=== PATIENT | male | born 1965 | race Caucasian/White ===

== ENCOUNTER 2017-07-17 12:29 | Inpatient (IN) | payer OTHER ==
[~2017-07-17] VITALS: Ht 177.8 cm; Wt 79.4 kg
[~2017-07-17 12:29] MED LIST: ACCUPRIL40 M1 PO; AMLODIPINE BESY10 M1 PO; AMOXICILLIN875 M1 PO; B-1100 MG PO; BACTRIM DS TAB1 EACH PO; BREO ELLIPTA 11 EACH INH; BREO ELLIPTA 21 EACH INH; CALCIUM-MAGNES1 EAC2 PO; CHLORDIAZEPOXID25 M3 PO; DIAZEPAM10 MG PO; DOXYCYCLINE HY100 MG PO; DULERA 200 MCG/13 GM INH; ERYTHROMYCIN1 GM OD; ERYTHROMYCIN5 MG/GM OPH; FIBER LAXATIVE500 M1 PO; FLEXERIL10 MG PO; FOLIC ACID1 M1 PO; HYDROCODONE/ACE1 TA1 PO; IBUPROFEN800 M1 PO; LASIX20 M1 PO; LYRICA150 M1 PO; LYRICA300 M1 PO; LYRICA300 MG PO; OMEPRAZOLE20 M2 PO; OXYCODONE HCL20 M2 PO; OXYCODONE HYDRO15 MG PO; PERCOCET 10-321 EACH PO; POLYTRIM EYE DR10 ML OPH; PREDNISOLONE AC10 ML OPH; VITAMIN D2000 UNIT PO; VITAMIN D5000 I1 PO; ZINC30 MG
--- NOTE | 2017-07-17 13:59 | ED GENERAL ADULT ---
History of Present Illness General Chief Complaint: Lower Extremity Problems Stated Complaint: R FOOT SWELLING/PAIN Source: patient, old records Exam Limitations: no limitations Vital Signs & Intake/Output Vital Signs & Intake/Output Vital Signs Date Time Temp Pulse Resp B/P B/P Pulse O2 O2 Flow FiO2 Mean Ox Delivery Rate 07/17 1928 97 Room Air 07/17 1649 100.1 108 18 132/75 97 Room Air 07/17 1235 98.6 108 18 142/80 98 Room Air Allergies Coded Allergies: NO KNOWN ALLERGIES (04/20/14) Reconcile Medications Amlodipine Besylate 5 MG TABLET 1 TAB PO DAILY HIGH BLOOD PRESSURE (Reported) Calcium Carb/Mag Ox/Zinc Sulf (Lurktom-Nmfogueor-Cqhq Tablet) 334 MG-134 MG-5 MG TABLET 1 TAB PO DAILY SUPPLEMENT (Reported) Cholecalciferol (Vitamin D3) (Vitamin D) 2,000 UNIT CAPSULE 1 CAP PO DAILY SUPPLEMENT (Reported) Fluticasone/Vilanterol (Breo Ellipta 100-25 Mcg INH) 100 MCG-25 MCG/DOSE BLST.W.DEV 1 PUF INH DAILY NEEDED lungs (Reported) Folic Acid 1 MG TABLET 1 TAB PO DAILY SUPPLEMENT (Reported) Methylcellulose (Fiber Laxative) (Unknown Strength) TABLET 2 TAB PO DAILY SUPPLEMENT (Reported) Omeprazole 20 MG CAPSULE.DR 1 CAP PO DAILY GERD (Reported) Oxycodone HCl 20 MG TABLET 1 TAB PO 4 TIMES/DAY PAIN (Reported) Pregabalin (Lyrica) 150 MG CAPSULE 2 CAP PO QAM NERVE PAIN (Reported) Pregabalin (Lyrica) 150 MG CAPSULE 1 TAB PO QPM nerve pain (Reported) Quinapril HCl (Accupril) 40 MG TABLET 1 TAB PO DAILY BP (Reported) Thiamine HCl (B-1) 100 MG TABLET 1 TAB PO DAILY SUPPLEMENT (Reported) Triage Note: 52 YO MALE TO TRIAGE FOR EVAL FOR R FOOT.Marilyn WOOTEN WAS SEEN HERE AND DX WITH CELLULUTIS. STATES HE FINISHED HIS COURSE OF ANTIBOITCS BUT NOW HIS FOOT IS SWOLLEN AND APINFUL. AFEBRILE Triage Nurses Notes Reviewed? yes Onset: Abrupt Duration: week(s): (4), constant, continues in ED, getting worse Timing: recent history Injury Environment: home Severity: mild, moderate Severity Numbers: 7 No Modifying Factors: none HPI: 52-year-old male past medical history of alcohol abuse, peripheral neuropathy, hypertension, hyperlipidemia presents for reevaluation of pain and swelling in his right foot. Patient was seen here several weeks ago and diagnosed with cellulitis of the right foot. He was started on antibiotics but he feels like he never really got better. The swelling and pain has persisted. He now reports a discoloration in his right heel. He feels like the skin is brownish last black. No history of diabetes or known peripheral vascular disease. He is able to walk but it is painful. He also reports that he is a heavy drinker his last drink was yesterday. (Ochoa Richards) Past History Travel History Traveled to [place] past 21 day No Medical History Any Pertinent Medical History? see below for history Neurological: NEUROPATHY EENT: NONE Cardiovascular: hypertension, PERIPHERAL NEUROPATHY Respiratory: COPD Gastrointestinal: BARRETTS ESOPHAGUS Hepatic: cirrhosis Renal: NONE Musculoskeletal: CHRINIC PAIN Psychiatric: alcohol dependence Endocrine: NONE Blood Disorders: NONE Cancer(s): LUNG CA THROAT NODULES History of MRSA: No History of VRE: No History of CDIFF: No Tetanus Vaccine: 04/20/14 Surgical History Surgical History: non-contributory Psychosocial History Who do you live with Spouse What is your primary language Marshallese Tobacco Use: Quit >30 days ago Family History Hx Contributory? No (Ochoa Richards) Review of Systems Review of Systems Constitutional: Reports: no symptoms. EENTM: Reports: no symptoms. Respiratory: Reports: no symptoms. Cardiovascular: Reports: no symptoms. GI: Reports: no symptoms. Genitourinary: Reports: no symptoms. Musculoskeletal: Reports: joint pain, joint swelling, muscle pain. Skin: Reports: see HPI, erythema. Neurological/Psychological: Reports: no symptoms. Hematologic/Endocrine: Reports: no symptoms. Immunologic/Allergic: Reports: no symptoms. All Other Systems: Reviewed and Negative (Ochoa Richards) Physical Exam Physical Exam General Appearance: well developed/nourished, no apparent distress, alert, awake Head: atraumatic, normal appearance Eyes: Bilateral: normal appearance, PERRL, EOMI. Ears, Nose, Throat: normal pharynx, normal ENT inspection, hearing grossly normal Neck: normal inspection, supple, full range of motion Respiratory: normal breath sounds, chest non-tender, no respiratory distress, lungs clear Cardiovascular: regular rate/rhythm, normal peripheral pulses Peripheral Pulses: 2+ radial (R), 2+ radial (L) Gastrointestinal: normal bowel sounds, soft, non-tender, no organomegaly Back: normal inspection, normal range of motion, no vertebral tenderness Extremities: THE RIGHT FOOT IS DIFFUSELY SWOLLEN. tHE RIGHT HEEL IS TENDER TO PALPATION AND ERYTHEMATOUS. tHERE IS AN AREA OF HYPERPIGMENTED SKIN ON THE PLANTAR ASPECT OF THE HEEL. nEUROVASCULAR SUPPLY IS INTACT TO THE RIGHT FOOT Neurologic/Psych: no motor/sensory deficits, awake, alert, oriented x 3 Skin: intact, normal color, warm/dry Core Measures ACS in differential dx? No CVA/TIA Diagnosis: No Sepsis Present: No Sepsis Focused Exam Completed? No (Angel GARCIA,Ochoa) Progress Differential Diagnoses I considered the following diagnoses in my evaluation of the patient: [ Osteomyelitis, cellulitis, fracture, hematoma, DVT, sepsis, alcohol withdrawal] Plan of Care: Orders Procedure Date/time Status Heart Healthy Diet 07/18 B Active CBC WITHOUT DIFFERENTIAL 07/18 0600 Active BASIC ELECTROLYTES PLUS BUN&CR 07/18 0600 Active WESTERGREN SED RATE 07/17 UNK Complete URINALYSIS 07/17 1934 Active ED Holding Orders 07/17 1859 Active Admit to inpatient 07/17 1859 Active Code Status 07/17 1859 Active Patient Data 07/17 1838 Active CIWA 07/17 1745 Active Pathway - chart 07/17 1743 Active House Staff 07/17 1743 Active Code Status 07/17 1743 Complete Intake & Output 07/17 1731 Active Add-on Test (ER Only) 07/17 1725 Active CIWA 07/17 1725 Active Add-on Test (ER Only) 07/17 1710 Active EKG 07/17 1710 Active Add-on Test (ER Only) 07/17 1507 Active BLOOD CULTURE 07/17 1429 Active TROPONIN LEVEL 07/17 1414 Complete MAGNESIUM 07/17 1414 Complete LACTIC ACID 07/17 1414 Complete ETHANOL 07/17 1414 Complete C-REACTIVE PROTEIN 07/17 1414 Complete HIGH SENSITIVITY CRP 07/17 1327 Complete COMPREHENSIVE METABOLIC PANEL 07/17 1327 Complete CBC WITHOUT DIFFERENTIAL 07/17 1327 Complete VTE Mechanical Prophylaxis 07/17 UNK Active MISTAKE 07/17 UNK Active Current Medications Sig/Nate Start time Last Medication Dose Stop Time Status Admin Heparin Sodium 5,000 UNIT Q8 07/17 2200 AC (Porcine) Pregabalin 150 MG QPM 12/28 2200 AC (Lyrica) Oxycodone HCl 20 MG Q6P PRN 07/17 1945 AC (Roxicodone) Thiamine HCl 100 MG DAILY 07/17 1936 AC (Vitamin B1) Amlodipine Besylate 5 MG DAILY 07/17 1934 AC (Norvasc) Folic Acid 1 MG DAILY 07/17 1934 AC (Folic Acid) Omeprazole 20 MG DAILY 07/17 1934 AC (Prilosec) Lorazepam 2 MG Q6 07/17 1933 AC (Ativan) Acetaminophen 975 MG ONCE ONE 07/17 1715 CAN (Tylenol) 07/17 1716 Laboratory Tests 07/17/17 1535: ESR Westergren 72 H 07/17/17 1414: Lactic Acid 1.4 07/17/17 141: Anion Gap 13, Estimated GFR > 60, BUN/Creatinine Ratio 22.0, Glucose 99, Calcium 9.8, Magnesium 1.4 L, Total Bilirubin 0.4, AST 55, ALT 50, Alkaline Phosphatase 108, Troponin I < 0.01, C-Reactive Prot, Quant > 9.0 H, C-React Prot High Sens > 15.0 H, Total Protein 7.4, Albumin 4.1, Globulin 3.3, Albumin/Globulin Ratio 1.2, CBC w Diff MAN DIFF ORDERED, RBC 3.61 L, MCV 87.5, MCH 29.8, RDW 16.3 H, MPV 7.3 L, Gran % 83.2 H, Lymphocytes % 9.7 L, Monocytes % 5.6, Eosinophils % 1.0, Basophils % 0.5, Absolute Granulocytes 6.2, Absolute Lymphocytes 0.7 L, Absolute Monocytes 0.4, Absolute Eosinophils 0.1, Absolute Basophils 0, Platelet Estimate VERIFIED BY SMEAR, Anisocytosis 1+, PUBS MCHC 34.0, Serum Alcohol 107.0 Microbiology 07/17 155 BLOOD: Blood Culture - RECD 07/17 1535 BLOOD: Blood Culture - RECD Patient seen and evaluated. He has osteomyelitis of the right heel diagnosed by x-ray. His CRP is sniffily elevated. Spoke with Dr. Meier he recommends holding off on antibiotics at this time UNTIL biopsy is obtained. Spoke with Dr. Escalante with the patient nothing by mouth after midnight for biopsy tomorrow. Patient will be admitted to the hospital. Additionally CIWA exams are ordered. he has a history of alcohol abuse he states Last drink was last night. Patient leaned be monitored for alcohol withdrawal symptoms. He was given IV Tylenol and his at home pain meds. Case discussed with Dr. Wynn he agrees. Diagnostic Imaging: Viewed by Me: Radiology Read. Discussed w/RAD: Radiology Read. Radiology Impression: PATIENT: OMER CARL PRESENT AGE: 52 PATIENT ACCOUNT NO: [id number] : 65 LOCATION: [facility] ORDERING PHYSICIAN: Ochoa GARCIA SERVICE DATE: 07/17/17 EXAM TYPE: RAD - XRY-HEEL, RIGHT EXAMINATION: XR CALCANEUS, RIGHT CLINICAL INFORMATION: Right heel pain and swelling COMPARISON: Right foot and ankle films from 06/24/2017 TECHNIQUE: Lateral and axial views of the right calcaneus were obtained. FINDINGS: There is increased bony erosion with increased periosteal new bone formation, and increased bone fragmentation in the posterior aspect of the calcaneus. This is associated with increased soft tissue swelling and some possible soft tissue gas. Findings are suggestive of progressive osteomyelitis with possible neuropathic arthropathy. IMPRESSION: Increased bony erosion, bony fragmentation and periosteal new bone formation in the posterior aspect of the right calcaneus is suggestive of progressive osteomyelitis with possible neuropathic arthropathy. DICTATED BY: Nu Reyes MD DATE/TIME DICTATED: 07/17/171409 PROPELLER ENGINEER:EDWIN DATE/TIME TRANSCRIBED:07/17/171409 CONFIDENTIAL, DO NOT COPY WITHOUT APPROPRIATE AUTHORIZATION. Initial ED EKG: normal sinus rhythm, no ST T wave changes (Ochoa Richards) Differential Diagnoses I considered the following diagnoses in my evaluation of the patient: (Michael Wynn DO) Departure Departure Disposition: STILL A PATIENT Condition: Stable Clinical Impression Primary Impression: Osteomyelitis Qualifiers: Osteomyelitis type: unspecified type Osteomyelitis location: foot Laterality: right Qualified Code: M86.9 - Osteomyelitis, unspecified Referrals: Jad HEBERT,Eric Rincon (PCP/Family) Departure Forms: Customer Survey General Discharge Information Admission Note Spoke With: Di Montelongo MD Documentation of Exam: Documentation of any treatments & extenuating circumstances including Concerns Regarding Discharge (functional status, medication knowledge or non-compliance, living conditions, etc.) that warrant an admission rather than observation: [ Infectious disease consult, podiatry consult, biopsy, follow-up cultures, IV antibiotics] (Ochoa Richards) PA/[employer] Co-Sign Statement Statement: ED Attending supervision documentation- [x] I saw and evaluated the patient. I have also reviewed all the pertinent lab results and diagnostic results. I agree with the findings and the plan of care as documented in the PA's/[employer]'s documentation. [] I have reviewed the ED Record and agree with the PA's/[employer]'s documentation. [] Additions or exceptions (if any) to the PAs/[employer]'s note and plan are summarized below: [] (Michael Wynn DO) Critical Care Note Critical Care Note Critical Care Time: non-applicable (Ochoa Richards)
--- NOTE | 2017-07-17 14:20 | RADIOLOGY REPORT ---
EXAMINATION: XR CALCANEUS, RIGHT CLINICAL INFORMATION: Right heel pain and swelling COMPARISON: Right foot and ankle films from 06/24/2017 TECHNIQUE: Lateral and axial views of the right calcaneus were obtained. FINDINGS: There is increased bony erosion with increased periosteal new bone formation, and increased bone fragmentation in the posterior aspect of the calcaneus. This is associated with increased soft tissue swelling and some possible soft tissue gas. Findings are suggestive of progressive osteomyelitis with possible neuropathic arthropathy. IMPRESSION: Increased bony erosion, bony fragmentation and periosteal new bone formation in the posterior aspect of the right calcaneus is suggestive of progressive osteomyelitis with possible neuropathic arthropathy.
[2017-07-17 14:22] LABS: ABSOLUTE BASOPHIL COUNT 0 /CUMM (0.0-0.2); ABSOLUTE EOSINOPHIL COUNT 0.1 /CUMM (0.0-0.7); ABSOLUTE GRANULOCYTE CT 6.2 /CUMM (1.4-6.5); ABSOLUTE LYMPH COUNT 0.7 /CUMM (1.2-3.4); ABSOLUTE MONOCYTE COUNT 0.4 /CUMM (0.10-0.60); BASOPHIL % 0.5 % (0.0-2.0); GRANULOCYTE % 83.2 % (42.2-75.2); HEMATOCRIT 31.6 % (42-52); MEAN CORPUSCULAR HGB 29.8 PG (27.0-31.0); MEAN CORPUSCULAR VOLUME 87.5 FL (80.0-94.0); MEAN PLATELET VOLUME 7.3 FL (7.4-10.4); PLATELET COUNT 464 /CUMM (130-400); RBC DISTRIBUTION WIDTH 16.3 % (11.5-14.5); RED BLOOD CELL CT 3.61 /CUMM (4.70-6.10); WHITE BLOOD CELL COUNT 7.4 /CUMM (4.8-10.8)
--- NOTE | 2017-07-17 17:23 | History & Physical ---
Julia HEBERT,Raúl 07/17/17 4302: General Information and HPI MD Statement: I have seen and personally examined OMER CARL and documented this H&P. The patient is a 52 year old M who presented with a patient stated chief complaint of [osteomyelitis]. Source of Information: patient, family, old records Exam Limitations: no limitations History of Present Illness: Patient is a 52-year-old gentleman with a PMH significant for peripheral neuropathy, alcoholic cirrhosis, nonsteroid and non-oxygen dependent COPD, lung nodule, left ear deafness and left eye blindness, Dos Santos's esophagus who presented to the ED complaining of right lower extremity infection. Patient presented to the ED 3 weeks ago for right lower extremity cellulitis and was discharged on amoxicillin, Bactrim, and Lasix which provided little relief. Patient continued to have right distal lower extremity swelling, warmth, pain and within the last 2 days began experiencing subjective fevers and nausea and vomiting. Patient denies any inciting trauma or open wounds in the area. Allergies/Medications Allergies: Coded Allergies: NO KNOWN ALLERGIES (04/20/14) Past History Travel History Traveled to [place] past 21 day No Medical History Neurological: NEUROPATHY EENT: NONE Cardiovascular: hypertension, PERIPHERAL NEUROPATHY Respiratory: COPD Gastrointestinal: BARRETTS ESOPHAGUS Hepatic: cirrhosis Renal: NONE Musculoskeletal: CHRINIC PAIN Psychiatric: alcohol dependence Endocrine: NONE Blood Disorders: NONE Cancer(s): LUNG CA THROAT NODULES History of MRSA: No History of VRE: No History of CDIFF: No Tetanus Vaccine: 04/20/14 Surgical History Surgical History: non-contributory Past Family/Social History Family History Relations & Conditions if any FATHER *No pertinent family history Relation not specified for: FH: breast cancer Psychosocial History Where do you live? Home Who Do You Live With? spouse Primary Language: Macanese Smoking Status: Former Smoker (60 pack year) ETOH Use: heavy use Illicit Drug Use: denies illicit drug use Functional Ability Ambulation: walker Review of Systems Review of Systems Constitutional: Reports: fever. Denies: chills. EENTM: Denies: blurred vision, double vision, visual changes. Cardiovascular: Denies: chest pain, palpitations, syncope. Respiratory: Denies: cough, short of breath, wheezing. GI: Reports: nausea, vomiting. Denies: constipation, diarrhea, melena. Genitourinary: Denies: dysuria, frequency, hematuria. Musculoskeletal: Reports: joint pain (R ankle). Skin: Reports: rash. Exam & Diagnostic Data Last 24 Hrs of Vital Signs/I&O Vital Signs Date Time Temp Pulse Resp B/P B/P Pulse O2 O2 Flow FiO2 Mean Ox Delivery Rate 07/17 2030 96.8 82 18 124/70 07/17 2026 96.8 82 18 124/70 07/17 2016 96.8 82 18 124/70 98 Room Air 07/17 1928 97 Room Air 07/17 1649 100.1 108 18 132/75 97 Room Air 07/17 1235 98.6 108 18 142/80 98 Room Air Intake & Output 07/17 1600 07/17 0800 07/17 0000 Intake Total Output Total Balance Patient 175 lb Weight Weight Reported by Patient Measurement Method Physical Exam General Appearance Alert, Oriented X3, Cooperative, No Acute Distress Skin Temp/Moisture Exam: Warm/Dry Sepsis Skin Exam (color): Normal for Ethnicity HEENT Atraumatic, PERRLA, EOMI, Mucous Membr. moist/pink Neck Supple, No JVD Cardiovascular Regular Rate, Normal S1, Normal S2, No Murmurs Lungs Clear to Auscultation, Normal Air Movement Abdomen Normal Bowel Sounds, No Tenderness, ome firmness of the abdomen, patient states this is baseline. No rigidity or guarding Neurological Normal Speech, Sensation Intact Extremities nonpitting edema of the distal right lower extremity beginning at the ankle, 3-4 skin erosions nondraining,overlying warmth of theight heel, foot is TTP Vascular Normal Pulses, Pulses Symmetrical Sepsis Peripheral Pulse Location: Posterior Tibialis Sepsis Peripheral Pulse Exam: Normal Sepsis Cap Refill Exam: <2 Sec Last 24 Hrs of Labs/Ryne: Laboratory Tests 07/17/17 1535: ESR Westergren 72 H 07/17/17 1414: Lactic Acid 1.4 07/17/17 1414: Anion Gap 13, Estimated GFR > 60, BUN/Creatinine Ratio 22.0, Glucose 99, Calcium 9.8, Magnesium 1.4 L, Total Bilirubin 0.4, AST 55, ALT 50, Alkaline Phosphatase 108, Troponin I < 0.01, C-Reactive Prot, Quant > 9.0 H, C-React Prot High Sens > 15.0 H, Total Protein 7.4, Albumin 4.1, Globulin 3.3, Albumin/Globulin Ratio 1.2, CBC w Diff MAN DIFF ORDERED, RBC 3.61 L, MCV 87.5, MCH 29.8, RDW 16.3 H, MPV 7.3 L, Gran % 83.2 H, Lymphocytes % 9.7 L, Monocytes % 5.6, Eosinophils % 1.0, Basophils % 0.5, Absolute Granulocytes 6.2, Absolute Lymphocytes 0.7 L, Absolute Monocytes 0.4, Absolute Eosinophils 0.1, Absolute Basophils 0, Platelet Estimate VERIFIED BY SMEAR, Anisocytosis 1+, PUBS MCHC 34.0, Serum Alcohol 107.0 Microbiology 07/17 1550 BLOOD: Blood Culture - RECD 07/17 1535 BLOOD: Blood Culture - RECD Diagnostic Data Other Results R heel XR IMPRESSION: Increased bony erosion, bony fragmentation and periosteal new bone formation in the posterior aspect of the right calcaneus is suggestive of progressive osteomyelitis with possible neuropathic arthropathy. Assessment/Plan Assessment: Patient is a 52-year-old gentleman with a PMH significant for peripheral neuropathy, alcoholic cirrhosis, nonsteroid and non-oxygen dependent COPD, lung nodule, left ear deafness and left eye blindness, Dos Santos's esophagus who presented to the ED complaining of right lower extremity infection. Patient presented to the ED 3 weeks ago for right lower extremity cellulitis and was discharged on amoxicillin, Bactrim, and Lasix which provided little relief. VS on admission: MAXIMUM TEMPERATURE 100.1, P 108, RR 18, BP 142/80, pulse ox 98 % Labs on admission: WBC 7.4, H/H 10.8/31.6, platelets 464, lactic acid 1.4, BEP with no significant abnormalities, serum alcohol 107 Patient admitted to the general medicine floor for treatment of the following problems: #Osteomyelitis right foot Patient is afebrile with no white count over his right heel use warm and swollen with erosions. Patient also reports subjective fevers with associated nausea and vomiting. Right foot x-ray consistent with osteomyelitis. Dr. Escalante is on board importance for a biopsy in the morning. -Patient is nothing by mouth for possible biopsy -Watch off of antibiotics pending results of biopsy #Alcohol dependence Patient reportedly drinks 2 vodka drinks daily -[facility] protocol -Ativan 2 mg every 6 hours by mouth -Supplementation with oral thiamine, folic acid, multivitamin #Chronic medical problems including neuropathy, HTN, GERD Continue home medications including Norvasc, omeprazole, Lyrica. #DVT prophylaxis -Subcutaneous heparin, Alps on left lower extremity #CODE STATUS Full code As Ranked By This Provider Problem List: 1. Osteomyelitis Qualifiers Osteomyelitis type: unspecified type Osteomyelitis location: foot Laterality: right Qualified Code: M86.9 - Osteomyelitis, unspecified 2. Cellulitis Core Measures/Misc (04/06) Acute Coronary Syndrome ACS Diagnosis: No Congestive Heart Failure Congestive Heart Failure Diagnosis No Cerebrovascular Accident CVA/TIA Diagnosis: No VTE (View Protocol) VTE Risk Factors Age>40 No Mechanical VTE Prophylaxis d/t N/A MechProphylax Ordered No VTE Pharm Prophylaxis d/t NA PharmProphylax ordered Sepsis (View protocol) Sepsis Present: No Gary Armenta MD,Darnell 07/17/17 1731: Resident Review Statement Resident Statement: examined this patient, agreed with sales management intern, reviewed EMR data (avail) Other Findings: 52 years old man with past medical history significant for alcoholic cirrhosis active Alcohol use, peripheral neuropathy with gait instability, COPD, chronic pain, HTN, splenomegaly, thyroid nodules, lung nodules, Dos Santos's esophagus, left ear deafness, h/o of right eye corneal ulcer came to ED with pain and swelling in his right foot. Patient recently had treatments of right foot cellulitis with amoxicillin, Bactrim, ibuprofen and when necessary furosemide. Patient was at [facility] from March 06, 2017 to February for septic shock, secondary to persistent diarrhea and vomiting. Patient sees his regular care at [facility]. He was last admitted there in Jul 2016 for pneumonia, found to have lung nodule and is followed by Dr. Tony. Vitals and emergency department, patient was afebrile initially but had a MAXIMUM TEMPERATURE of 100.1, tachycardic heart rate of 110, systolic blood pressure 1:30 to 140 and diastolic blood pressure 70 to 80s, oxygen saturation of 97-98% on room air. On examination patient is alert and oriented not in any acute distress comfortably lying in the bed. S1 and S2 audible without any murmurs. Overall clear lungs. No abdominal tenderness, mild abdominal distention noted, audible bowel sounds, grossly intact neurological examination, right foot swollen, right heel tender and warm examination, skin breakdown, grossly intact left lower extremity. No significant leukocytosis, hemoglobin 10.8 and hematocrit 31.6, platelet count of 464, no bandemia, ESR 72, no significant electrolyte abnormality, high CRP but normal renal and hepatic function, UA pending, toxicology positive for serum alcohol of 107. Imaging in emergency department showed, Increased bony erosion, bony fragmentation and periosteal new bone formation in the posterior aspect of the right calcaneus is suggestive of progressive osteomyelitis with possible neuropathic arthropathy. Patient was admitted on general assistance for the management of following problems Right foot cellulitis with Right foot osteomyelitis Alcoholic cirrhosis with active Alcohol dependence Patient did not meet the criteria for SIRS/sepsis on admision. No high-grade temperature spike, no tachypnea, no leukocytosis or leukopenia. Based on examination, patient clinically has right foot cellulitis which has not responded to outpatient antibiotics. We'll hold off antibiotics for now unless patient spikes a fever overnight. We will obtain blood cultures. We will get podiatry on board for possible osteomyelitis. Patient will need debridement and biopsy. Patient drinks vodka daily. His last drink was before admission. Will place him on CIWA scale and start him on scheduled Ativan. Thiamine and folic acid are ordered. Chronic medical issues,alcoholic cirrhosis, peripheral neuropathy, COPD, chronic pain, HTN, splenomegaly, thyroid nodules Will continue home medications. We will Start Lyrica a.m. if the patient's clinical condition remained stable. We will hold off on Ayan for now and just give the patient amlodipine. As per patient has been pretty noncompliant with application development team lead recommendations for the management of alcoholic liver disease. Patient is full code Patient is on heart healthy diet Patient is on pain management Patient is currently nothing by mouth pending biopsy Patient is on SC Heparin for DVT prophylaxis [facility] 07/17/17 5847: General Information and HPI Allergies/Medications Home Med list Amlodipine Besylate 5 MG TABLET 1 TAB PO DAILY HIGH BLOOD PRESSURE (Reported) Calcium Carb/Mag Ox/Zinc Sulf (Fmsryca-Ufzfpofmo-Twkr Tablet) 334 MG-134 MG-5 MG TABLET 1 TAB PO DAILY SUPPLEMENT (Reported) Cholecalciferol (Vitamin D3) (Vitamin D) 2,000 UNIT CAPSULE 1 CAP PO DAILY SUPPLEMENT (Reported) Fluticasone/Vilanterol (Breo Ellipta 100-25 Mcg INH) 100 MCG-25 MCG/DOSE BLST.W.DEV 1 PUF INH DAILY NEEDED lungs (Reported) Folic Acid 1 MG TABLET 1 TAB PO DAILY SUPPLEMENT (Reported) Methylcellulose (Fiber Laxative) (Unknown Strength) TABLET 2 TAB PO DAILY SUPPLEMENT (Reported) Omeprazole 20 MG CAPSULE.DR 1 CAP PO DAILY GERD (Reported) Oxycodone HCl 20 MG TABLET 1 TAB PO 4 TIMES/DAY PAIN (Reported) Pregabalin (Lyrica) 150 MG CAPSULE 2 CAP PO QAM NERVE PAIN (Reported) Pregabalin (Lyrica) 150 MG CAPSULE 1 TAB PO QPM nerve pain (Reported) Quinapril HCl (Accupril) 40 MG TABLET 1 TAB PO DAILY BP (Reported) Thiamine HCl (B-1) 100 MG TABLET 1 TAB PO DAILY SUPPLEMENT (Reported) Attending MD Review Statement Attending Statement Attending MD Statement: examined this patient, discuss w/resident/PA/VALUE STREAM MANAGER, agreed w/resident/PA/VALUE STREAM MANAGER, discussed with family, reviewed EMR data (avail), discussed with nursing, amended to note Attending Assessment/Plan: 52-year-old male with history of cirrhosis, alcohol dependence, hypertension, peripheral neuropathy, non-oxygen dependent COPD, history of lung cancer, thyroid nodules presents with complaint of right lower extremity pain and swelling. About 3 weeks prior he had what appeared to be cellulitis of the right foot for which he came to the emergency room. Hewill discharge on Bactrim and amoxicillin for cellulitis. He had a wound on the extremity at that time. He returned 3 days later for follow-up and wound was reported to have improved significantly. He was discharged back home to continue his antibiotic course. Apparently the wound healed up however today noticed some erythematous lesions on the extremity so she brought him to the emergency room for evaluation. In the ER at she was done that showed evidence of osteomyelitis of the right heel. Case was discussed with the podiatry service and debridement was recommended. He was referred to the inpatient medical service for further management. On examination he is resting comfortably not in any acute distress. is present at the bedside. He has bilateral lower extremity neuropathy with decreased sensation. This is chronic per the . The right foot is swollen predominantly around the heel. There is no erythema. There is no open area. There is no discoloration of the foot. It is not cold to touch. Recommendations: -Admit to the inpatient general medical service. -Hold off antibiotic therapy for now. -Nothing by mouth past midnight for debridement in the morning. -Continue his home pain regimen. -Place on CIWA protocol. Monitor closely for alcohol withdrawal. -Chemical DVT prophylaxis
[2017-07-17] MEDS ORDERED: LYRICA150 M1 PO (18:19)
[2017-07-17] MEDS ORDERED: AMLODIPINE BESYL5 M1 PO (18:20)
[2017-07-17 20:30] VITALS: BP 124/70
--- NOTE | 2017-07-17 21:24 | Admission Certification ---
Admission Certification Certification Statement - As attending physician, I certify that at the time of - admission, based on clinical presentation, severity of - symptoms, need for further diagnostic testing and - therapeutic interventions, and risk of adverse outcomes - without in-hospital treatment, in my clinical assessment, - this patient requires an acute hospital stay for a minimum - of two nights or longer. I have also considered psychsocial - factors such as support system, advanced age, financial - issues, cognitive issues, and failed out-patient treatments, - past re-admission history, safety of patient, and lack of - compliance as applicable. Specific rationale supporting this admission is: Patient requires surgical debridement of his osteomyelitis. He will likely require long-term antibiotic therapy
[2017-07-17 22:00] VITALS: BP 140/80
[2017-07-18 02:55] VITALS: BP 136/84
[2017-07-18 06:49] VITALS: BP 126/78
--- NOTE | 2017-07-18 07:16 | PN- Housestaff ---
Julia HEBERT,Raúl 07/18/17 0715: Subjective Follow-up For: Right foot osteomyelitis Subjective: patient was seen and examined at bedside. He was resting comfortably. He had no acute events overnight. He is complaining of being unsteady on his feet secondary to pain in his right foot. He currently denies any fever, chills, nausea, vomiting, chills, chest pain, shortness of breath. Review of Systems Constitutional: Denies: chills, fever. Cardiovascular: Denies: chest pain, palpitations. Respiratory: Denies: cough, short of breath. Gastrointestinal: Reports: no symptoms. Genitourinary: Reports: no symptoms. Musculoskeletal: Reports: joint pain (R ankle/foot). Skin: Reports: rash (R foot). Objective Last 24 Hrs of Vital Signs/I&O Vital Signs Date Time Temp Pulse Resp B/P B/P Pulse O2 O2 Flow FiO2 Mean Ox Delivery Rate 07/18 0649 99.0 89 20 126/78 94 Room Air 07/18 0255 99.8 97 20 136/84 95 Room Air 07/17 2200 98.4 91 20 140/80 94 Room Air 07/17 2030 96.8 82 18 124/70 07/17 2026 96.8 82 18 124/70 07/17 2016 96.8 82 18 124/70 98 Room Air 07/17 1928 97 Room Air 07/17 1649 100.1 108 18 132/75 97 Room Air 07/17 1235 98.6 108 18 142/80 98 Room Air Intake & Output 07/18 0800 07/18 0000 07/17 1600 Intake Total 60 700 Output Total Balance 60 700 Intake, IV 100 Intake, Oral 60 600 Patient 175 lb 175 lb Weight Weight Reported by Patient Reported by Patient Measurement Method Physical Exam General Appearance: Alert, Oriented X3, Cooperative, No Acute Distress Skin Temp/Moisture Exam: Warm/Dry Sepsis Skin Exam (color): Normal for Ethnicity Cardiovascular: Regular Rate, Normal S1, Normal S2, No Murmurs Lungs: Clear to Auscultation, Normal Air Movement Abdomen: Normal Bowel Sounds, No Tenderness, mildly distended, pt claims this is his baseline Current Medications: Current Medications Sig/Nate Start time Last Medication Dose Route Stop Time Status Admin Acetaminophen 1,000 MG ONCE ONE 07/17 1730 DC 07/17 N/A 1 UNIT IV 07/17 1744 1729 Acetaminophen 0 .STK-MED ONE 07/17 1728 DC IV Acetaminophen 975 MG ONCE ONE 07/17 1715 CAN PO 07/17 1716 Amlodipine Besylate 0 .STK-MED ONE 07/17 2024 DC PO Amlodipine Besylate 5 MG DAILY 07/17 1934 AC 07/17 PO 2025 Diphenhydramine HCl 25 MG AT BEDTIME PRN 07/17 2115 AC 07/17 PO 2131 Diphenhydramine HCl 0 .STK-MED ONE 07/17 1719 DC PO Diphenhydramine HCl 25 MG ONCE ONE 07/17 1715 DC 07/17 PO 07/17 171 1720 Docusate Sodium 100 MG BID 07/18 1000 AC PO Folic Acid 0 .STK-MED ONE 07/17 2025 DC PO Folic Acid 1 MG DAILY 07/17 1934 AC 07/17 PO 2025 Heparin Sodium 5,000 UNIT Q8 07/17 220 DC (Porcine) SC Lorazepam 2 MG Q6H 07/18 0230 AC 07/18 PO 022 Lorazepam 0 .STK-MED ONE 07/17 2024 DC PO Lorazepam 2 MG Q6 07/17 1933 DC 07/17 PO 2024 Omeprazole 0 .STK-MED ONE 07/17 2025 DC PO Omeprazole 20 MG DAILY 07/17 1934 AC 07/17 PO 2025 Ondansetron HCl 4 MG ONCE ONE 07/17 1730 DC 07/17 IV 07/17 1731 1729 Ondansetron HCl 0 .STK-MED ONE 07/17 1728 DC .ROUTE Oxycodone HCl 20 MG Q6P PRN 07/17 1945 AC 07/18 PO 0441 Oxycodone HCl 0 .STK-MED ONE 07/17 1551 DC PO Oxycodone HCl 20 MG ONCE ONE 07/17 1515 DC 07/17 PO 07/17 1516 1549 Pregabalin 150 MG QPM 07/170 AC 07/17 PO 2131 Thiamine HCl 0 .STK-MED ONE 07/17 2024 DC PO Thiamine HCl 100 MG DAILY 07/17 1936 AC 07/17 PO 2025 Last 24 Hrs of Lab/Ryne Results Last 24 Hrs of Labs/Mics: Laboratory Tests 07/18/17 0724: Anion Gap 11, Estimated GFR > 60, BUN/Creatinine Ratio 22.0, Iron 36 L, TIBC 262, Ferritin 205.0, PT 12.5, INR 1.19 H, CBC w Diff NO MAN DIFF REQ, RBC 3.26 L, MCV 88.1, MCH 30.0, RDW 16.5 H, MPV 8.1, Gran % 79.3 H, Lymphocytes % 12.0 L, Monocytes % 7.2, Eosinophils % 0.6, Basophils % 0.9, Absolute Granulocytes 3.6, Absolute Lymphocytes 0.5 L, Absolute Monocytes 0.3, Absolute Eosinophils 0 , Absolute Basophils 0, PUBS MCHC 34.1 07/18/17 0225: Urine Color YEL, Urine Clarity CLDY H, Urine pH 6.0, Ur Specific [place] 1.025, Urine Protein 30 H, Urine Ketones NEG, Urine Nitrite POS H, Urine Bilirubin NEG@ICTO, Urine Urobilinogen 2.0 H, Ur Leukocyte Esterase SMALL H, Ur Microscopic SEDIMENT EXAMINED, Urine RBC 5-10 H, Urine WBC > 75 H, Ur Epithelial Cells MOD H, Urine Bacteria MANY H, Urine Mucus FEW, Urine Hemoglobin TRACE-INTACT H, Urine Glucose NEG Microbiology 07/18 1305 EXTREMITIE: Gross Specimen Examination - RES 07/18 130 EXTREMITIE: Gram Stain - RES Assessment/Plan Assessment: Patient is a 52-year-old gentleman with a PMH significant for peripheral neuropathy, alcoholic cirrhosis, nonsteroid and non-oxygen dependent COPD, lung nodule, left ear deafness and left eye blindness, Dos Santos's esophagus who presented to the ED complaining of right lower extremity infection. Patient presented to the ED 3 weeks ago for right lower extremity cellulitis and was discharged on amoxicillin, Bactrim, and Lasix which provided little relief. #Osteomyelitis right foot Patient to go to the OR for I&D and bone biopsy today. -We'll start IV Unasyn 3 g every 6 after OR pending cultures and sensitivities. #Alcohol dependence Patient reportedly drinks 2 vodka drinks daily -[facility] protocol -Ativan 2 mg every 6 hours by mouth -Supplementation with oral thiamine, folic acid, multivitamin #History of iron deficiency -Follow-up iron studies and replete as necessary #DVT prophylaxis -Subcutaneous heparin, Alps on left lower extremity #CODE STATUS Full code Problem List: 1. Osteomyelitis 2. Cellulitis Pain Ratin Pain Location: R foot Pain Goal: Pain 4 or less Pain Plan: pain pathway Tomorrow's Labs & Rationales: cbc, bep Jayda HEBERTMynorriver 07/18/17 1221: Attending MD Review Statement Attending Statement Attending MD Statement: examined this patient, discuss w/resident/PA/PLANT SAFETY ENGINEER, agreed w/resident/PA/PLANT SAFETY ENGINEER, reviewed EMR data (avail), discussed with nursing, discussed with case mgmt, amended to note Attending Assessment/Plan: Patient seen and examined. Resting comfortably not in any acute distress. MAXIMUM TEMPERATURE overnight 100.1. On examination he has edema of his right heel. No erythema. Pneumonia. He is scheduled to undergo debridement later on today by the podiatry service. We'll obtain ID consultation regarding postoperative antibiotic recommendations. Continue current pain regimen. Earlier this year patient had significant iron deficiency. He is currently not on iron supplements. Repeat iron profile.
[2017-07-18 09:10] LABS: PT 12.5 SEC (9.4-12.5)
[2017-07-18 09:26] LABS: ABSOLUTE BASOPHIL COUNT 0 /CUMM (0.0-0.2); ABSOLUTE EOSINOPHIL COUNT 0 /CUMM (0.0-0.7); ABSOLUTE GRANULOCYTE CT 3.6 /CUMM (1.4-6.5); ABSOLUTE LYMPH COUNT 0.5 /CUMM (1.2-3.4); ABSOLUTE MONOCYTE COUNT 0.3 /CUMM (0.10-0.60); BASOPHIL % 0.9 % (0.0-2.0); EOSINOPHIL % 0.6 % (0-5); GRANULOCYTE % 79.3 % (42.2-75.2); HEMATOCRIT 28.8 % (42-52); MEAN CORPUSCULAR HGB CONC 34.1 G/DL (33.0-37.0); MEAN CORPUSCULAR VOLUME 88.1 FL (80.0-94.0); MEAN PLATELET VOLUME 8.1 FL (7.4-10.4); PLATELET COUNT 411 /CUMM (130-400); RBC DISTRIBUTION WIDTH 16.5 % (11.5-14.5); RED BLOOD CELL CT 3.26 /CUMM (4.70-6.10); WHITE BLOOD CELL COUNT 4.5 /CUMM (4.8-10.8)
[2017-07-18 11:37] VITALS: BP 148/90
--- NOTE | 2017-07-18 13:28 | Operative Report ---
Operative/Inv Procedure Report Surgery Date: 07/18/17 Name of Procedure: 1 open incision and drainage deep to the deep fascia with exposure of the flexor tendon and tendon sheath multiple sites right heel 2 debridement of necrotic and infected bone right heel 3 intraoperative administration of ankle block anesthesia 4 excisional debridement Pre-Operative Diagnosis: 1 necrotic wound posterior right heel 2 suspected osteomyelitis right heel 3 pathologic fracture right calcaneus 4 alcoholic peripheral neuropathy Post-Operative Diagnosis: The same Estimated Blood Loss: less than 50ml Surgeon/Quality Assurance Tester: DIANN CHILD DPM Anesthesia: moderate sedation, block Operative/Procedure Note Note: After obtaining informed consent the patient was brought to the operating room and placed on the operating table in the supine position. The patient was securely fastened to the operating table utilizing safety belt. After administration of ligamentous carried anesthesia, 20 mL of a one-to-one mix of 2 % lidocaine plain and 0.5% Marcaine plain was obtained about the patient's right ankle. The right foot and ankle within scrubbed prepped and draped in usual aseptic manner. Attention directed to the posterior aspect of the right heel, where a linear incision bisecting the distal and posterior aspect of the right heel was carried down to the septae is tissues and a 15 blade. Dissection was then bluntly deepened deep to the deep fascia with exposure of the Achilles tendon and peritenon multiple sites, both proximally and distally. All necrotic nonviable infected tissue sharply evacuated from the wound bed. Both soft tissue and bone specimen was sent for microbiologic and pathologic inspection. Of note, pathological fracture fragments were identified centrally within the wound bed. The specimen was also harvested for microbiologic and pathologic inspection. Next, the wound was irrigated with 3 L of normal sterile saline infusion 50,000 units of bacitracin utilizing the pulse lavage device. Following this, the foot was redraped and the surgeon's top pleasure changed clean gloves. Any bleeding vessels identified were cauterized or ligated as encountered. The incision was then partially closed with 3-0 nylon retention sutures. The foot was then dressed with 4 x 4's Kerlix and an Ayan wrap. The patient is noted tolerate both procedure and anesthesia well and the patient was transported from the operating room to recovery with vital signs stable.
--- NOTE | 2017-07-18 15:22 | Cons- Infect Disease ---
General Information and HPI Consulting Request Date of Consult: 07/18/17 Requested By: Di Montelongo MD Reason for Consult: Osteomyelitis of the right heel Source of Information: patient, family, old records History of Present Illness: This is a 52-year-old man with a history of alcohol-induced cirrhosis, with a peripheral neuropathy, COPD, hypertension, Dos Santos's esophagus, with chronic pain, seen in the emergency room 3 weeks prior to admission with pain, discoloration and swelling of the right foot, found to be afebrile with a normal white blood cell count, with an x-ray negative for osteomyelitis or fracture and with a negative Doppler, treated with Amoxicillin and Bactrim for 10 days with improvement, admitted on July 17 after returning to the emergency room with a necrotic wound on his right heel. On admission he was febrile to 100.1. Laboratory data revealed a white blood cell count of 7000, BUN/creatinine 11 and 0.5, with normal liver enzymes, alcohol level 107. X-ray of the right heel revealed increased bony erosion with periosteal new bone formation in the posterior aspect of the right calcaneus suggestive of progressive osteomyelitis. He was followed off antibiotics and has remained afebrile overnight. He was taken to the OR earlier today for debridement of necrotic and infected bone of the right heel. At present he does complain of pain in the right heel but offers no other complaints. Allergies/Medications Allergies: Coded Allergies: NO KNOWN ALLERGIES (04/20/14) Home Med List: Amlodipine Besylate 5 MG TABLET 1 TAB PO DAILY HIGH BLOOD PRESSURE (Reported) Calcium Carb/Mag Ox/Zinc Sulf (Ihkcxqq-Dcpdrhgcq-Nznw Tablet) 334 MG-134 MG-5 MG TABLET 1 TAB PO DAILY SUPPLEMENT (Reported) Cholecalciferol (Vitamin D3) (Vitamin D) 2,000 UNIT CAPSULE 1 CAP PO DAILY SUPPLEMENT (Reported) Fluticasone/Vilanterol (Breo Ellipta 100-25 Mcg INH) 100 MCG-25 MCG/DOSE BLST.W.DEV 1 PUF INH DAILY NEEDED lungs (Reported) Folic Acid 1 MG TABLET 1 TAB PO DAILY SUPPLEMENT (Reported) Methylcellulose (Fiber Laxative) (Unknown Strength) TABLET 2 TAB PO DAILY SUPPLEMENT (Reported) Omeprazole 20 MG CAPSULE.DR 1 CAP PO DAILY GERD (Reported) Oxycodone HCl 20 MG TABLET 1 TAB PO 4 TIMES/DAY PAIN (Reported) Pregabalin (Lyrica) 150 MG CAPSULE 2 CAP PO QAM NERVE PAIN (Reported) Pregabalin (Lyrica) 150 MG CAPSULE 1 TAB PO QPM nerve pain (Reported) Quinapril HCl (Accupril) 40 MG TABLET 1 TAB PO DAILY BP (Reported) Thiamine HCl (B-1) 100 MG TABLET 1 TAB PO DAILY SUPPLEMENT (Reported) Past History Travel History Traveled to [place] past 21 day No Medical History Neurological: NEUROPATHY EENT: NONE Cardiovascular: hypertension, PERIPHERAL NEUROPATHY Respiratory: COPD Gastrointestinal: BARRETTS ESOPHAGUS Hepatic: cirrhosis (etoh-induced) Renal: NONE Musculoskeletal: CHRINIC PAIN Psychiatric: alcohol dependence Endocrine: NONE Blood Disorders: NONE Cancer(s): LUNG nodule THROAT NODULES History of MRSA: No History of VRE: No History of CDIFF: No Isolation History: Standard Tetanus Vaccine: 04/20/14 Surgical History Surgical History: non-contributory Family History Relations & Conditions If Any: FATHER *No pertinent family history Relation not specified for: FH: breast cancer Psychosocial History Where Do You Live? Home Who Do You Live With? spouse Primary Language: Faroese Smoking Status: Former Smoker (60 pack year) ETOH Use: heavy use Illicit Drug Use: denies illicit drug use Functional Ability Ambulation: walker Review of Systems Review of Systems All Other Systems: Reviewed and Negative Exam & Diagnostic Data Last 24 Hrs of Vital Signs/I&O Vital Signs Date Time Temp Pulse Resp B/P B/P Pulse O2 O2 Flow FiO2 Mean Ox Delivery Rate 07/18 1137 99.0 91 18 148/90 98 Room Air 07/18 1022 Room Air 07/18 1000 89 126/78 07/18 0649 99.0 89 20 126/78 94 Room Air 07/18 0255 99.8 97 20 136/84 95 Room Air 07/17 2200 98.4 91 20 140/80 94 Room Air 07/17 2030 96.8 82 18 124/70 07/17 2026 96.8 82 18 124/70 07/17 2016 96.8 82 18 12470 98 Room Air 07/17 1928 97 Room Air 07/17 1649 100.1 108 18 132/75 97 Room Air Intake & Output 07/18 1600 07/18 0800 07/18 0000 Intake Total 60 700 Output Total Balance 60 700 Intake, IV 100 Intake, Oral 60 600 Patient 175 lb Weight Weight Reported by Patient Measurement Method Physical Exam Other Physical Findings: Afebrile. He is awake and alert in no acute distress. Skin reveals no rash. HEENT negative. Neck is supple with no adenopathy. Lungs are clear. Heart regular rhythm with no murmur. Abdomen is soft, nontender with positive bowel sounds. Back no CVA tenderness. Extremities right foot dressing intact; left foot with no inflammation and 2+ pulses. Neuro neuropathy of the feet. Last 24 Hours of Lab Results: Laboratory Tests 07/18 07/18 0724 0225 Chemistry Sodium (137 - 145 mmol/L) 135 L Potassium (3.5 - 5.1 mmol/L) 4.5 Chloride (98 - 107 mmol/L) 99 Carbon Dioxide (22 - 30 mmol/L) 25 Anion Gap (5 - 16) 11 BUN (9 - 20 mg/dL) 11 Creatinine (0.7 - 1.2 mg/dL) 0.5 L Estimated GFR (>60 ml/min) > 60 BUN/Creatinine Ratio (7 - 25 %) 22.0 Coagulation PT (9.4 - 12.5 SEC) 12.5 INR (0.90 - 1.17) 1.19 H Hematology CBC w Diff NO MAN DIFF REQ WBC (4.8 - 10.8 /CUMM) 4.5 L RBC (4.70 - 6.10 /CUMM) 3.26 L Hgb (14.0 - 18.0 G/DL) 9.8 L Hct (42 - 52 %) 28.8 L MCV (80.0 - 94.0 FL) 88.1 MCH (27.0 - 31.0 PG) 30.0 RDW (11.5 - 14.5 %) 16.5 H Plt Count (130 - 400 /CUMM) 411 H MPV (7.4 - 10.4 FL) 8.1 Gran % (42.2 - 75.2 %) 79.3 H Lymphocytes % (20.5 - 51.1 %) 12.0 L Monocytes % (1.7 - 9.3 %) 7.2 Eosinophils % (0 - 5 %) 0.6 Basophils % (0.0 - 2.0 %) 0.9 Absolute Granulocytes (1.4 - 6.5 /CUMM) 3.6 Absolute Lymphocytes (1.2 - 3.4 /CUMM) 0.5 L Absolute Monocytes (0.10 - 0.60 /CUMM) 0.3 Absolute Eosinophils (0.0 - 0.7 /CUMM) 0 Absolute Basophils (0.0 - 0.2 /CUMM) 0 PUBS MCHC (33.0 - 37.0 G/DL) 34.1 Urines Urine Color (YEL,AMB,STR) YEL Urine Clarity (CLEAR) CLDY H Urine pH (5.0 - 8.0) 6.0 Ur Specific [place] (1.001 - 1.035) 1.025 Urine Protein (NEG,<30 MG/DL) 30 H Urine Ketones (NEG) NEG Urine Nitrite (NEG) POS H Urine Bilirubin (NEG) NEG@ICTO Urine Urobilinogen (0.1 - 1.0 EU/dl) 2.0 H Ur Leukocyte Esterase (NEG) SMALL H Ur Microscopic SEDIMENT EXAMINED Urine RBC (0 - 5 /HPF) 5-10 H Urine WBC (0 - 2 /HPF) > 75 H Ur Epithelial Cells (NONE,FEW) MOD H Urine Bacteria (NEG/NONE) MANY H Urine Mucus (FEW,NONE) FEW Urine Hemoglobin (NEG) TRACE-INTACT H Urine Glucose (N MG/DL) NEG 07/17 1535 Hematology ESR Westergren (0 - 10 MM) 72 H Last 24 Hours of [place] Results: Blood cultures 2 July 17 negative OR culture labeled right heel July 18 pending Diagnostic Data Recent Imaging Findings: X-ray of the right heel revealed increased bony erosion with periosteal new bone formation in the posterior aspect of the right calcaneus suggestive of progressive osteomyelitis. Assessment/Plan Assessment/Plan Impression: This is a 52-year-old man with a history of alcohol-induced cirrhosis, peripheral neuropathy, COPD, hypertension, with chronic pain, treated 3 weeks prior to admission for a cellulitis of the right foot with reported improvement, admitted on July 17 with a necrotic wound on his right heel, found to have a low-grade fever with a normal white blood cell count and with an x-ray of the right heel suggestive of osteomyelitis. He has undergone debridement of the heel earlier today and can be started on empiric antibiotics pending OR cultures. He will likely require a prolonged course of antibiotics for osteomyelitis. Of note his alcohol level was elevated on admission and he is on a [facility] protocol. Suggestion: 1. Follow-up OR culture 2. Consider need for Vascular surgery evaluation 3. Begin Unasyn 3 g IV every 6 hours pending above Aby Rasmussen MD will be covering until July 22 Consult Acknowledgment - Thank you for your consult request.
[2017-07-18 23:02] VITALS: BP 156/90
[2017-07-19] VITALS (15 sets, daily range): BP systolic 120–156; BP diastolic 76–90
[2017-07-19 09:25] LABS: ABSOLUTE BASOPHIL COUNT 0.1 /CUMM (0.0-0.2); ABSOLUTE EOSINOPHIL COUNT 0.1 /CUMM (0.0-0.7); ABSOLUTE GRANULOCYTE CT 4.1 /CUMM (1.4-6.5); ABSOLUTE LYMPH COUNT 0.8 /CUMM (1.2-3.4); BASOPHIL % 1.1 % (0.0-2.0); HEMATOCRIT 30.6 % (42-52); MEAN CORPUSCULAR HGB 29.7 PG (27.0-31.0); MEAN CORPUSCULAR HGB CONC 34.2 G/DL (33.0-37.0); MEAN PLATELET VOLUME 8.2 FL (7.4-10.4); PLATELET COUNT 456 /CUMM (130-400); RBC DISTRIBUTION WIDTH 16.4 % (11.5-14.5); RED BLOOD CELL CT 3.52 /CUMM (4.70-6.10)
--- NOTE | 2017-07-19 09:45 | ULTRASOUND REPORT ---
EXAMINATION: NONINVASIVE ASSESSMENT OF THE ARTERIES OF BOTH LOWER EXTREMITIES INTERPRETING VASCULAR \T\ INTERVENTIONAL RADIOLOGIST: Quintin Camacho MD CLINICAL INFORMATION: Peripheral vascular disease TECHNIQUE: Bilateral lower extremity duplex ultrasound was performed with velocity measurements and waveform analysis in the common femoral arteries, profunda femoris arteries, proximal mid and distal superficial femoral arteries, popliteal arteries and tibial vessels. This study was performed only at rest. COMPARISON: None FINDINGS: Velocities in cm/sec and phasicity as well as the presence of plaque are reported below. Mild plaquing is seen bilaterally. RIGHT LEG: Common Femoral: 118 Profunda Femoris: 79.6 Proximal SFA: 104 Mid SFA: 132 Distal SFA: 139 Popliteal: 92.3 Anterior tibial: 29.1 Peroneal: 103 Posterior tibial: 161 Dorsalis pedis: 85 LEFT LEG: Common Femoral: 91.8 Profunda Femoris: 69.1 Proximal SFA: 124 Mid SFA: 126 Distal SFA: 115 Popliteal: 66.8 Anterior tibial 110 Peroneal: 73.9 Posterior tibial: 114 Dorsalis pedis: 128 IMPRESSION: There is no evidence of any hemodynamically significant lower extremity arterial inflow disease by waveform or duplex Doppler criteria at rest. There is probably anterior tibial disease on the right as evidenced by markedly decreased velocities compared to the other tibial vessels
--- NOTE | 2017-07-19 09:50 | PN- Housestaff ---
[place] 07/19/17 0928: Subjective Follow-up For: Right foot osteomyelitis S/P I&D right heel Alcohol withdrawal Subjective: Patient remained agitated last night and he has one-on-one sitter. Patient seen and examined this morning on bedside. He was lying in bed. He seemed to be anxious and agitated. Although he was following commands but he is not fully oriented. Patient denied any chest pain, short of breath, nausea, vomiting and abdominal pain and dysuria. Patient was complaining of right foot pain 01/27. Review of Systems Constitutional: Reports: no symptoms. EENTM: Reports: no symptoms. Cardiovascular: Reports: no symptoms. Respiratory: Reports: no symptoms. Gastrointestinal: Reports: no symptoms. Genitourinary: Reports: no symptoms. Musculoskeletal: Reports: see HPI. Neurological/Psychological: Reports: see HPI. Objective Last 24 Hrs of Vital Signs/I&O Vital Signs Date Time Temp Pulse Resp B/P B/P Pulse O2 O2 Flow FiO2 Mean Ox Delivery Rate 07/19 0900 99.2 111 14 138/82 07/19 0900 99.0 110 14 140/82 07/19 0800 99.2 110 14 138/82 07/19 0711 99.4 108 18 144/86 07/19 0652 99.4 108 18 144/86 07/19 0643 99.4 108 18 144/86 95 Room Air 07/19 0540 99.2 84 20 152/82 07/19 0430 99.2 84 20 152/82 07/19 0231 99.9 88 18 156/90 07/19 0121 99.9 88 18 156/90 07/19 0000 99.9 88 18 156/90 07/18 2302 99.9 88 18 156/90 96 Room Air 07/18 1137 99.0 91 18 148/90 98 Room Air 07/18 1022 Room Air 07/18 1000 89 126/78 Intake & Output 07/19 1600 07/19 0800 07/19 0000 Intake Total 620 1050 Output Total 300 Balance 320 1050 Intake, IV 220 150 Intake, Oral 400 900 Output, Urine 300 Physical Exam General Appearance: Cooperative, No Acute Distress Skin Temp/Moisture Exam: Warm/Dry HEENT: Atraumatic, PERRLA, EOMI Neck: Supple Cardiovascular: Normal S1, Normal S2 Lungs: Clear to Auscultation, becreased breath sounds Abdomen: Soft, No Tenderness Neurological: Normal Tone, Sensation Intact Extremities: No Edema, right foot dressing after the debridement. Assessment/Plan Assessment: Patient is a 52-year-old gentleman with a PMH significant for peripheral neuropathy, alcoholic cirrhosis, nonsteroid and non-oxygen dependent COPD, lung nodule, left ear deafness and left eye blindness, Dos Santos's esophagus who presented to the ED complaining of right lower extremity infection. Patient presented to the ED 3 weeks ago for right lower extremity cellulitis and was discharged on amoxicillin, Bactrim, and Lasix which provided little relief. Osteomyelitis right foot s/p debridement: -Patient to go to the OR for I&D and bone biopsy yesterday. -We'll start IV Unasyn 3 g every 6 after OR pending cultures and sensitivities. -We'll follow the podiatry and ID recommendations. Alcohol dependence: Patient reportedly drinks 2 vodka drinks daily -CIWA protocol -Ativan 2 mg every 6 hours by mouth -Supplementation with oral thiamine, folic acid, multivitamin -Patient's CIWA score is 21 last night and he is getting IV Ativan 2 mg and po as well. History of iron deficiency: -Follow-up iron studies and replete as necessary DVT prophylaxis: -Subcutaneous heparin, Alps on left lower extremity CODE STATUS: Full code Problem List: 1. Osteomyelitis 2. Cellulitis 3. Alcohol withdrawal Pain Ratin Pain Location: right foot Pain Goal: Pain 4 or less Pain Plan: tylenol for mild pain percocet for moderate pain Tomorrow's Labs & Rationales: cbc/bep Di Montelongo MD 07/19/17 1131: Attending MD Review Statement Attending Statement Attending MD Statement: examined this patient, discuss w/resident/PA/TELEPHONE COLLECTOR, agreed w/resident/PA/TELEPHONE COLLECTOR, reviewed EMR data (avail), discussed with nursing, discussed with case mgmt, amended to note Attending Assessment/Plan: Patient seen and examined. Resting comfortably and not in acute distress. He underwent debridement of necrotic infected right heel yesterday. No complications reported. Overnight patient says scoring high on his CIWA score requiring intermittent doses of Ativan. He got a total of 9 mg of Ativan intravenously in addition to a standing dose of oral Ativan. Monitor he appears mildly anxious, nursing staff reports she has been trending get out of bed unassisted pain with on his heel. He is mildly tachycardic. On examination he is not tremulous. He does have a tight dressing over the right foot. No significant drainage noted. Plan: -ID consultation appreciated. Patient has been started on IV Unasyn. Follow-up cultures from the OR. Patient will go for revision next week. -Continue pain control with oxycodone and Tylenol for breakthrough pain. -Patient is currently going through alcohol withdrawal. Recommend increasing oral Ativan to 2 mg every 4 hours and continue IV Ativan for breakthrough pain -Begin hydration with half-normal saline at 100 mL an hour. -Doppler ultrasound shows probable anterior tibial disease on the right. Recommend vascular surgery consult. -No need to repeat labs tomorrow unless there is a change in his clinical condition.
--- NOTE | 2017-07-19 11:59 | PN- Podiatry ---
Subjective Subjective: 52 y/o male seen and evaluated at bedside POD 1 I&D of the right heel. Pt had mild strikethrough on his postoperative dressing overnight and was reinforced by the staff genetic counselor. Pt was placed on 1-to-1 observation overnight for agitation and combative behavior associated with alcohol withdrawal. The patient denies fever , chills, nausea, vomiting, diaphoresis, shortness of breath, chest pain at the time of my examination. Review of Systems: A 14 point review of systems was performed and found to be negative apart from the complaints described above and documented overnight. Objective Vital Signs and I&Os Vital Signs Date Time Temp Pulse Resp B/P B/P Pulse O2 O2 Flow FiO2 Mean Ox Delivery Rate 07/19 1141 99.0 112 14 136/76 07/19 0900 99.2 111 14 138/82 07/19 0900 99.0 110 14 140/82 07/19 0800 99.2 112 14 138/82 Room Air 07/19 0800 99.2 110 14 138/82 07/19 0711 99.4 108 18 144/86 07/19 0652 99.4 108 18 144/86 07/19 0643 99.4 108 18 144/86 95 Room Air 07/19 0540 99.2 84 20 152/82 07/19 0430 99.2 84 20 152/82 07/19 0231 99.9 88 18 156/90 07/19 0121 99.9 88 18 156/90 07/19 0000 99.9 88 18 156/90 07/18 2302 99.9 88 18 156/90 96 Room Air Intake & Output 07/19 1600 07/19 0800 07/19 0000 07/18 1600 07/18 0800 07/18 0000 Intake Total 620 1050 600 60 700 Output Total 300 200 Balance 320 1050 400 60 700 Intake, IV 220 150 600 100 Intake, Oral 400 900 60 600 Output, Urine 300 200 Patient 175 lb Weight Weight Reported by Patient Measurement Method Physical Exam: The patient has palpable dorsalis pedis and posterior tibial pulses bilaterally, and improved temperature gradient on the right lower extremity, normal temperature gradient on left lower extremity, capillary refill time is 3 seconds in all 10 toes. Patient has diminished proprioceptive and light touch sensation equal and bilateral in the forefoot and midfoot. The patient has a lack of hair growth on the toes in both feet. The dressing is clean and dry on the right foot with some dried strikethrough present on the Ayan bandage. There are claw toe contractures of the lesser digits bilaterally, more so on the right and left. Patient otherwise has 5 over 5 muscle power in all lower extremity compartments bilaterally. Patient was combative during the examination, and at one point had to be placed in a resting position in bed by the one-to-one observation personnel. Current Medications: Current Medications Sig/Nate Start time Last Medication Dose Route Stop Time Status Admin Acetaminophen 1,000 MG Q6P PRN 07/18 1415 AC N/A 1 UNIT IV Amlodipine Besylate 5 MG DAILY 07/17 1934 AC 07/19 PO 0900 Ampicillin Sodium/ 3,000 MG Q6 07/18 1800 AC 07/19 Sulbactam Sodium IV 0556 Sodium Chloride 100 ML Dextrose/Sodium 1,000 ML Q13H 07/18 1030 DC 07/18 Chloride IV 07/18 2329 1204 Diphenhydramine HCl 25 MG .STK-MED ONE 07/19 0054 DC PO 07/19 0055 Diphenhydramine HCl 25 MG AT BEDTIME PRN 07/17 2115 AC 07/19 PO 0058 Docusate Sodium 100 MG BID 07/18 1000 AC 07/19 PO 0900 Fentanyl Citrate 100 MCG .STK-MED ONE 07/18 1203 DC IM 07/18 1204 Folic Acid 1 MG DAILY 07/17 193 AC 07/19 PO 0900 Hydromorphone HCl 2 MG .STK-MED ONE 07/18 1411 DC IM 07/18 1412 Lorazepam 2 MG ONE TIME ONE 07/18 2345 DC 07/19 IV 07/18 2346 0004 Lorazepam 0 Q1P PRN 07/18 2345 AC 07/19 IV 0901 Lorazepam 2 MG Q6H 07/18 0230 AC 07/19 PO 0900 Midazolam HCl 2 MG .STK-MED ONE 07/18 1203 DC IM 07/18 1204 Omeprazole 20 MG DAILY 07/17 193 AC 07/19 PO 0859 Oxycodone HCl 20 MG Q6P PRN 07/17 1945 AC 07/19 PO 0418 Pregabalin 150 MG QPM 07/17 2200 AC 07/18 PO 2014 Thiamine HCl 100 MG DAILY 07/17 193 AC 07/19 PO 0859 Results Last 48 Hours of Labs: Laboratory Tests 07/19 07/18 2620 0777 Chemistry Sodium (137 - 145 mmol/L) 135 L 135 L Potassium (3.5 - 5.1 mmol/L) 4.1 4.5 Chloride (98 - 107 mmol/L) 97 L 99 Carbon Dioxide (22 - 30 mmol/L) 23 25 Anion Gap (5 - 16) 15 11 BUN (9 - 20 mg/dL) 9 11 Creatinine (0.7 - 1.2 mg/dL) 0.6 L 0.5 L Estimated GFR (>60 ml/min) > 60 > 60 BUN/Creatinine Ratio (7 - 25 %) 15.0 22.0 Iron (49 - 181 ug/dL) 36 L TIBC (261 - 462 ug/dL) 262 Ferritin (17.9 - 464 ng/mL) 205.0 Coagulation PT (9.4 - 12.5 SEC) 12.5 INR (0.90 - 1.17) 1.19 H Hematology CBC w Diff NO MAN DIFF REQ NO MAN DIFF REQ WBC (4.8 - 10.8 /CUMM) 6.0 4.5 L RBC (4.70 - 6.10 /CUMM) 3.52 L 3.26 L Hgb (14.0 - 18.0 G/DL) 10.4 L 9.8 L Hct (42 - 52 %) 30.6 L 28.8 L MCV (80.0 - 94.0 FL) 87.0 88.1 MCH (27.0 - 31.0 PG) 29.7 30.0 RDW (11.5 - 14.5 %) 16.4 H 16.5 H Plt Count (130 - 400 /CUMM) 456 H 411 H MPV (7.4 - 10.4 FL) 8.2 8.1 Gran % (42.2 - 75.2 %) 69.0 79.3 H Lymphocytes % (20.5 - 51.1 %) 12.9 L 12.0 L Monocytes % (1.7 - 9.3 %) 16.0 H 7.2 Eosinophils % (0 - 5 %) 1.0 0.6 Basophils % (0.0 - 2.0 %) 1.1 0.9 Absolute Granulocytes (1.4 - 6.5 /CUMM) 4.1 3.6 Absolute Lymphocytes (1.2 - 3.4 /CUMM) 0.8 L 0.5 L Absolute Monocytes (0.10 - 0.60 /CUMM) 1.0 H 0.3 Absolute Eosinophils (0.0 - 0.7 /CUMM) 0.1 0 Absolute Basophils (0.0 - 0.2 /CUMM) 0.1 0 PUBS MCHC (33.0 - 37.0 G/DL) 34.2 34.1 07/18 07/17 07/17 0225 1535 1414 Chemistry Lactic Acid (0.7 - 2.1 mmol/L) 1.4 Hematology ESR Westergren (0 - 10 MM) 72 H Urines Urine Color (YEL,AMB,STR) YEL Urine Clarity (CLEAR) CLDY H Urine pH (5.0 - 8.0) 6.0 Ur Specific [place] (1.001 - 1.035) 1.025 Urine Protein (NEG,<30 MG/DL) 30 H Urine Ketones (NEG) NEG Urine Nitrite (NEG) POS H Urine Bilirubin (NEG) NEG@ICTO Urine Urobilinogen (0.1 - 1.0 EU/dl) 2.0 H Ur Leukocyte Esterase (NEG) SMALL H Ur Microscopic SEDIMENT EXAMINED Urine RBC (0 - 5 /HPF) 5-10 H Urine WBC (0 - 2 /HPF) > 75 H Ur Epithelial Cells (NONE,FEW) MOD H Urine Bacteria (NEG/NONE) MANY H Urine Mucus (FEW,NONE) FEW Urine Hemoglobin (NEG) TRACE-INTACT H Urine Glucose (N MG/DL) NEG 07/17 1414 Chemistry Sodium (137 - 145 mmol/L) 140 Potassium (3.5 - 5.1 mmol/L) 4.4 Chloride (98 - 107 mmol/L) 101 Carbon Dioxide (22 - 30 mmol/L) 26 Anion Gap (5 - 16) 13 BUN (9 - 20 mg/dL) 11 Creatinine (0.7 - 1.2 mg/dL) 0.5 L Estimated GFR (>60 ml/min) > 60 BUN/Creatinine Ratio (7 - 25 %) 22.0 Glucose (65 - 99 mg/dL) 99 Calcium (8.4 - 10.2 mg/dL) 9.8 Magnesium (1.6 - 2.3 mg/dL) 1.4 L Total Bilirubin (0.2 - 1.3 mg/dL) 0.4 AST (17 - 59 U/L) 55 ALT (21 - 72 U/L) 50 Alkaline Phosphatase (< 127 U/L) 108 Troponin I (<0.11 ng/ml) < 0.01 C-Reactive Prot, Quant (<1.0 mg/dL) > 9.0 H C-React Prot High Sens (1.0 - 3.0 mg/L) > 15.0 H Total Protein (6.3 - 8.2 g/dL) 7.4 Albumin (3.5 - 5.0 g/dL) 4.1 Globulin (1.9 - 4.2 gm/dL) 3.3 Albumin/Globulin Ratio (1.1 - 2.2 %) 1.2 Hematology CBC w Diff MAN DIFF ORDERED WBC (4.8 - 10.8 /CUMM) 7.4 RBC (4.70 - 6.10 /CUMM) 3.61 L Hgb (14.0 - 18.0 G/DL) 10.8 L Hct (42 - 52 %) 31.6 L MCV (80.0 - 94.0 FL) 87.5 MCH (27.0 - 31.0 PG) 29.8 RDW (11.5 - 14.5 %) 16.3 H Plt Count (130 - 400 /CUMM) 464 H MPV (7.4 - 10.4 FL) 7.3 L Gran % (42.2 - 75.2 %) 83.2 H Lymphocytes % (20.5 - 51.1 %) 9.7 L Monocytes % (1.7 - 9.3 %) 5.6 Eosinophils % (0 - 5 %) 1.0 Basophils % (0.0 - 2.0 %) 0.5 Absolute Granulocytes (1.4 - 6.5 /CUMM) 6.2 Absolute Lymphocytes (1.2 - 3.4 /CUMM) 0.7 L Absolute Monocytes (0.10 - 0.60 /CUMM) 0.4 Absolute Eosinophils (0.0 - 0.7 /CUMM) 0.1 Absolute Basophils (0.0 - 0.2 /CUMM) 0 Platelet Estimate (ADEQUATE) VERIFIED BY SMEAR Anisocytosis 1+ PUBS MCHC (33.0 - 37.0 G/DL) 34.0 Toxicology Serum Alcohol (<10 MG/DL) 107.0 Assessment/Plan Assessment/Plan 52-year-old male with peripheral neuropathy secondary to a combination of chronic alcoholism and subjectively reported chemical exposure doing well status post incision and drainage of the right heel with bone biopsy of the calcaneus for the treatment of acute on chronic osteomyelitis. The patient was seen and evaluated at bedside. His vitals are reviewed. The surgical dressing was reinforced with new Ayan bandages, and the patient was again advised to keep the foot elevated. He is only to weight-bear on the right lower extremity for bathroom privileges as needed but should otherwise be nonweightbearing completely. He should have a physical therapy evaluation to gauge his need for placement of a short term rehabilitation facility. The primary team will continue empirical therapy, we will follow up the results of the intraoperative bone biopsies and tissue cultures for directed therapy. I will be in touch with Tin Zelaya MD during this admission for final recommendations. I will follow up on the patient tomorrow, where the entire dressing will be taken down, the packing will be removed, and further planning for a second debridement and washout for early next week will be finalized. I'm available by cell phone for any further questions at [phone]. Core Measures Venous Thromboembolism VTE Risk Factors Age>40 No Mechanical VTE Prophylaxis d/t N/A MechProphylax Ordered No VTE Pharm Prophylaxis d/t NA PharmProphylax ordered
--- NOTE | 2017-07-19 13:21 | PN- Infect Dx ---
Subjective Subjective: No fever; deeply asleep (on CIWA protocol). Review of Systems Comments: Limited 12 points ROS. Objective Last 24 Hrs of Vital Signs/I&O Vital Signs Date Time Temp Pulse Resp B/P B/P Pulse O2 O2 Flow FiO2 Mean Ox Delivery Rate 07/19 1141 99.0 112 14 136/76 07/19 0900 99.2 111 14 138/82 07/19 0900 99.0 110 14 140/82 07/19 0800 99.2 112 14 138/82 Room Air 07/19 0800 99.2 110 14 138/82 07/19 0711 99.4 108 18 144/86 07/19 0652 99.4 108 18 144/86 07/19 0643 99.4 108 18 144/86 95 Room Air 07/19 0540 99.2 84 20 152/82 07/19 0430 99.2 84 20 152/82 07/19 0231 99.9 88 18 156/90 07/19 0121 99.9 88 18 156/90 07/19 0000 99.9 88 18 156/90 07/18 2302 99.9 88 18 156/90 96 Room Air Intake & Output 07/19 1600 07/19 0800 07/19 0000 Intake Total 620 1050 Output Total 300 Balance 320 1050 Intake, IV 220 150 Intake, Oral 400 900 Output, Urine 300 Physical Exam Other Physical Findings: Afebrile. No acute distress. Skin reveals no rash. HEENT AT. Neck with no adenopathy. Lungs are clear. Heart regular rhythm with no murmur. Abdomen is soft, with positive bowel sounds. Extremities right foot dressing intact; left foot with no inflammation and 2+ pulses. Results Last 24 Hours of Lab Results: Laboratory Tests 07/19 0750 Chemistry Sodium (137 - 145 mmol/L) 135 L Potassium (3.5 - 5.1 mmol/L) 4.1 Chloride (98 - 107 mmol/L) 97 L Carbon Dioxide (22 - 30 mmol/L) 23 Anion Gap (5 - 16) 15 BUN (9 - 20 mg/dL) 9 Creatinine (0.7 - 1.2 mg/dL) 0.6 L Estimated GFR (>60 ml/min) > 60 BUN/Creatinine Ratio (7 - 25 %) 15.0 Hematology CBC w Diff NO MAN DIFF REQ WBC (4.8 - 10.8 /CUMM) 6.0 RBC (4.70 - 6.10 /CUMM) 3.52 L Hgb (14.0 - 18.0 G/DL) 10.4 L Hct (42 - 52 %) 30.6 L MCV (80.0 - 94.0 FL) 87.0 MCH (27.0 - 31.0 PG) 29.7 RDW (11.5 - 14.5 %) 16.4 H Plt Count (130 - 400 /CUMM) 456 H MPV (7.4 - 10.4 FL) 8.2 Gran % (42.2 - 75.2 %) 69.0 Lymphocytes % (20.5 - 51.1 %) 12.9 L Monocytes % (1.7 - 9.3 %) 16.0 H Eosinophils % (0 - 5 %) 1.0 Basophils % (0.0 - 2.0 %) 1.1 Absolute Granulocytes (1.4 - 6.5 /CUMM) 4.1 Absolute Lymphocytes (1.2 - 3.4 /CUMM) 0.8 L Absolute Monocytes (0.10 - 0.60 /CUMM) 1.0 H Absolute Eosinophils (0.0 - 0.7 /CUMM) 0.1 Absolute Basophils (0.0 - 0.2 /CUMM) 0.1 PUBS MCHC (33.0 - 37.0 G/DL) 34.2 Last 24 Hours of Ryne Results: SPEC #: [id number] BRENDA: 07/18/171305 STATUS: RES RECD: 07/18/[address] [facility] [address]: Balaji Escalante DPM SOURCE: [facility] [place] ENTR: 07/18/17-[address] [facility] [address]: Jayda HEBERT,Di SPDESC: HEEL RIGHT Jad HEBERT, Eric Garbiay MD, [facility] ORDERED: XTRMOR COMMENT: RECEIVED 2 BONE PIECES IN STERILE CUP Procedure Result > GRAM STAIN Final 07/18/17-1538 WHITE BLOOD CELLS NONE OTHER NO ORGANISMS SEEN > EXTREMITIES OR SPECIMEN Preliminary 07/19/17-0840 NO GROWTH AFTER 1 DAY Recent Imaging Studies: X ray R foot IMPRESSION: Increased bony erosion, bony fragmentation and periosteal new bone formation in the posterior aspect of the right calcaneus is suggestive of progressive osteomyelitis with possible neuropathic arthropathy. DICTATED BY: Nu Reyes MD DATE/TIME DICTATED:07/17/171409 TROLLEY COACH DRIVER:EDWIN DATE/TIME TRANSCRIBED:07/17/171409 CONFIDENTIAL, DO NOT COPY WITHOUT APPROPRIATE AUTHORIZATION. <Electronically signed in Other Vendor System> SIGNED BY: Nu Reyes MD 07/17 Assessment/Plan Impression: 52-year-old man with a history of alcohol-induced cirrhosis, peripheral neuropathy, COPD, hypertension, with chronic pain, treated 3 weeks prior to admission for a cellulitis of the right foot with reported improvement, admitted on July 17 with a necrotic wound on his right heel, found to have a low- grade fever with a normal white blood cell count and with an x-ray of the right foot suggestive of right calcaneus progressive osteomyelitis. He has undergone debridement of the heel 07/18 and is treated w/ empiric antibiotics pending OR cultures (preliminary no growth). He will likely require a prolonged course of antibiotics if bone biopsy revealing acute OM. Of note his alcohol level was elevated on admission and he is on a CIWA protocol. Suggestion: 1. Follow-up final OR culture results 2. Consider need for Vascular surgery evaluation 3. Continue Unasyn 3 g IV every 6 hours D #2 pending above
--- NOTE | 2017-07-19 14:13 | Cons- Vascular Surgery ---
General Information and HPI Consulting Request Date of Consult: 07/19/17 Requested By: Di Montelongo MD Reason for Consult: Potential vascular compromise to right lower extremity Source of Information: patient, old records Exam Limitations: clinical condition History of Present Illness: 52-year-old male with osteomyelitis of the right heel underwent an I&D and debridement by podiatry, had a arterial ultrasound that showed possible disease of the anterior tibia artery and vascular surgery was consulted for further evaluation. History is limited due the patient's clinical condition, mild confusion, agitation, much history was obtained from chart Allergies/Medications Allergies: Coded Allergies: NO KNOWN ALLERGIES (04/20/14) Home Med List: Amlodipine Besylate 5 MG TABLET 1 TAB PO DAILY HIGH BLOOD PRESSURE (Reported) Calcium Carb/Mag Ox/Zinc Sulf (Kcbxyiu-Xmpvmoskx-Cmtm Tablet) 334 MG-134 MG-5 MG TABLET 1 TAB PO DAILY SUPPLEMENT (Reported) Cholecalciferol (Vitamin D3) (Vitamin D) 2,000 UNIT CAPSULE 1 CAP PO DAILY SUPPLEMENT (Reported) Fluticasone/Vilanterol (Breo Ellipta 100-25 Mcg INH) 100 MCG-25 MCG/DOSE BLST.W.DEV 1 PUF INH DAILY NEEDED lungs (Reported) Folic Acid 1 MG TABLET 1 TAB PO DAILY SUPPLEMENT (Reported) Methylcellulose (Fiber Laxative) (Unknown Strength) TABLET 2 TAB PO DAILY SUPPLEMENT (Reported) Omeprazole 20 MG CAPSULE.DR 1 CAP PO DAILY GERD (Reported) Oxycodone HCl 20 MG TABLET 1 TAB PO 4 TIMES/DAY PAIN (Reported) Pregabalin (Lyrica) 150 MG CAPSULE 2 CAP PO QAM NERVE PAIN (Reported) Pregabalin (Lyrica) 150 MG CAPSULE 1 TAB PO QPM nerve pain (Reported) Quinapril HCl (Accupril) 40 MG TABLET 1 TAB PO DAILY BP (Reported) Thiamine HCl (B-1) 100 MG TABLET 1 TAB PO DAILY SUPPLEMENT (Reported) Past History Medical History Neurological: NEUROPATHY EENT: NONE Cardiovascular: hypertension, PERIPHERAL NEUROPATHY Respiratory: COPD Gastrointestinal: BARRETTS ESOPHAGUS Hepatic: cirrhosis (etoh-induced) Renal: NONE Musculoskeletal: CHRINIC PAIN Psychiatric: alcohol dependence Endocrine: NONE Blood Disorders: NONE Cancer(s): LUNG nodule THROAT NODULES Surgical History Pertinent Surgical History: right heel debridement Family History Relations & Conditions If Any: FATHER *No pertinent family history Relation not specified for: FH: breast cancer Psychosocial History Where Do You Live? Home Who Do You Live With? spouse Primary Language: Georgian Smoking Status: Former Smoker (60 pack year) ETOH Use: heavy use Illicit Drug Use: denies illicit drug use Functional Ability Ambulation: walker Employment History Retired? unknown Review of Systems Review of Systems Constitutional: Reports: see HPI. EENTM: Reports: no symptoms. Cardiovascular: Reports: no symptoms. Respiratory: Reports: no symptoms. GI: Reports: no symptoms. Genitourinary: Reports: no symptoms. Musculoskeletal: Reports: see HPI. Skin: Reports: see HPI. Neurological/Psychological: Reports: confusion. Hematologic/Endocrine: Reports: no symptoms. Exam & Diagnostic Data Vital Signs and I&O Vital Signs Date Time Temp Pulse Resp B/P B/P Pulse O2 O2 Flow FiO2 Mean Ox Delivery Rate 07/19 1141 99.0 112 14 136/76 07/19 0900 99.2 111 14 138/82 07/19 0900 99.0 110 14 140/82 07/19 0800 99.2 112 14 138/82 Room Air 07/19 0800 99.2 110 14 138/82 07/19 0711 99.4 108 18 144/86 07/19 0652 99.4 108 18 144/86 07/19 0643 99.4 108 18 144/86 95 Room Air 07/19 0540 99.2 84 20 152/82 07/19 0430 99.2 84 20 152/82 07/19 0231 99.9 88 18 156/90 07/19 0121 99.9 88 18 156/90 07/19 0000 99.9 88 18 156/90 07/18 2302 99.9 88 18 156/90 96 Room Air Intake & Output 07/19 1600 07/19 0800 07/19 0000 07/18 1600 07/18 0800 07/18 0000 Intake Total 620 1050 600 60 700 Output Total 300 200 Balance 320 1050 400 60 700 Intake, IV 220 150 600 100 Intake, Oral 400 900 60 600 Output, Urine 300 200 Patient 175 lb Weight Weight Reported by Patient Measurement Method Physical Exam: Well-developed well-nourished no apparent distress. Resting comfortably HEENT: Atraumatic, extraocular motion intact Neck: Supple, no lymphadenopathy Respiratory: No respiratory distress Extremities: No edema, Right lower extremity, dressing noted to the right heel ankle and foot region. is dry and intact. Dressing was partially taken down to evaluate the vascular status of the foot. There is a 2+ bounding dorsal pedal pulse and the right lower extremity is warm to touch throughout including the toes, there is less than 2 seconds of capillary refill of the toes and no signs of vascular compromise of the extremity. Neuro: Alert and oriented x3 Skin: Warm and dry, no rash on exposed skin Last 24 Hours of Labs: Laboratory Tests 07/19 0750 Chemistry Sodium (137 - 145 mmol/L) 135 L Potassium (3.5 - 5.1 mmol/L) 4.1 Chloride (98 - 107 mmol/L) 97 L Carbon Dioxide (22 - 30 mmol/L) 23 Anion Gap (5 - 16) 15 BUN (9 - 20 mg/dL) 9 Creatinine (0.7 - 1.2 mg/dL) 0.6 L Estimated GFR (>60 ml/min) > 60 BUN/Creatinine Ratio (7 - 25 %) 15.0 Hematology CBC w Diff NO MAN DIFF REQ WBC (4.8 - 10.8 /CUMM) 6.0 RBC (4.70 - 6.10 /CUMM) 3.52 L Hgb (14.0 - 18.0 G/DL) 10.4 L Hct (42 - 52 %) 30.6 L MCV (80.0 - 94.0 FL) 87.0 MCH (27.0 - 31.0 PG) 29.7 RDW (11.5 - 14.5 %) 16.4 H Plt Count (130 - 400 /CUMM) 456 H MPV (7.4 - 10.4 FL) 8.2 Gran % (42.2 - 75.2 %) 69.0 Lymphocytes % (20.5 - 51.1 %) 12.9 L Monocytes % (1.7 - 9.3 %) 16.0 H Eosinophils % (0 - 5 %) 1.0 Basophils % (0.0 - 2.0 %) 1.1 Absolute Granulocytes (1.4 - 6.5 /CUMM) 4.1 Absolute Lymphocytes (1.2 - 3.4 /CUMM) 0.8 L Absolute Monocytes (0.10 - 0.60 /CUMM) 1.0 H Absolute Eosinophils (0.0 - 0.7 /CUMM) 0.1 Absolute Basophils (0.0 - 0.2 /CUMM) 0.1 PUBS MCHC (33.0 - 37.0 G/DL) 34.2 Imaging Results: PATIENT: OMER CARL PRESENT AGE: 52 PATIENT ACCOUNT NO: [id number] : 65 LOCATION: 2NA ORDERING PHYSICIAN: Darnell Armenta MD SERVICE DATE: 07/18/17- EXAM TYPE: US - US-DUPLEX SCAN LOWER EXT ARTER EXAMINATION: NONINVASIVE ASSESSMENT OF THE ARTERIES OF BOTH LOWER EXTREMITIES INTERPRETING VASCULAR \T\ INTERVENTIONAL RADIOLOGIST: Quintin Camacho MD CLINICAL INFORMATION: Peripheral vascular disease TECHNIQUE: Bilateral lower extremity duplex ultrasound was performed with velocity measurements and waveform analysis in the common femoral arteries, profunda femoris arteries, proximal mid and distal superficial femoral arteries, popliteal arteries and tibial vessels. This study was performed only at rest. COMPARISON: None FINDINGS: Velocities in cm/sec and phasicity as well as the presence of plaque are reported below. Mild plaquing is seen bilaterally. RIGHT LEG: Common Femoral: 118 Profunda Femoris: 79.6 Proximal SFA: 104 Mid SFA: 132 Distal SFA: 139 Popliteal: 92.3 Anterior tibial: 29.1 Peroneal: 103 Posterior tibial: 161 Dorsalis pedis: 85 LEFT LEG: Common Femoral: 91.8 Profunda Femoris: 69.1 Proximal SFA: 124 Mid SFA: 126 Distal SFA: 115 Popliteal: 66.8 Anterior tibial 110 Peroneal: 73.9 Posterior tibial: 114 Dorsalis pedis: 128 IMPRESSION: There is no evidence of any hemodynamically significant lower extremity arterial inflow disease by waveform or duplex Doppler criteria at rest. There is probably anterior tibial disease on the right as evidenced by markedly decreased velocities compared to the other tibial vessels DICTATED BY: Jose Camacho MD DATE/TIME DICTATED:07/19/17936 SHOE COBBLER:EDWIN DATE/TIME TRANSCRIBED:07/19/17936 Assessment/Plan Assessment/Plan 52-year-old male multiple comorbidities with osteomyelitis of the right foot/ right heel. Arterial Doppler shows possible decreased flow of the anterior tibial artery however clinical examination reveals a bounding dorsal pedal pulse and a warm foot does not show any signs of vascular compromise. There is no indication to pursue this further unless there is worsening overall compromise of the lower leg and nonhealing or the patient requires a below-knee amputation. Follow-up with vascular surgery will be as needed, please call us with any further concerns. LINDA Cartwright. Problem List: 1. Osteomyelitis Consult Acknowledgment - Thank you for your consult request.
[2017-07-20] VITALS (12 sets, daily range): BP systolic 118–156; BP diastolic 70–86
--- NOTE | 2017-07-20 08:31 | PN- Housestaff ---
[place] 07/20/17 0831: Subjective Follow-up For: Right foot osteomyelitis S/P I&D right heel Alcohol withdrawal Subjective: No overnight events. Patient remained afebrile overnight. Seen and examined this morning bedside. He was lying in bed comfortably. He reported headache 4/ 10 and also pain in the right leg 7/10. Patient denied any chest pain, short of breath, nausea, vomiting, abdominal pain, chills, fever and dysuria. He was anxious during the interview he was asking when he can go home. Review of Systems Constitutional: Reports: no symptoms. EENTM: Reports: see HPI. Cardiovascular: Reports: no symptoms. Respiratory: Reports: no symptoms. Gastrointestinal: Reports: no symptoms. Genitourinary: Reports: no symptoms. Musculoskeletal: Reports: see HPI. Neurological/Psychological: Reports: anxiety. Objective Last 24 Hrs of Vital Signs/I&O Vital Signs Date Time Temp Pulse Resp B/P B/P Pulse O2 O2 Flow FiO2 Mean Ox Delivery Rate 07/20 0937 97.6 73 12 118/86 07/20 0800 97.6 73 12 118/86 07/20 0630 99.3 77 18 122/76 96 Room Air 07/19 2000 99.1 89 18 120/78 07/19 1800 99.9 90 20 128/80 07/19 1600 99.9 90 20 128/80 07/19 1600 99.9 90 20 128/80 97 Room Air 07/19 1443 98.9 93 18 156/86 95 Room Air 07/19 1141 99.0 112 14 136/76 Intake & Output 07/20 1600 07/20 0800 07/20 0000 Intake Total 1200 Output Total 650 600 Balance -650 600 Intake, IV 900 Intake, Oral 300 Number 0 Bowel Movements Output, Urine 650 600 Physical Exam General Appearance: Alert, Oriented X3, Cooperative, No Acute Distress Skin Temp/Moisture Exam: Warm/Dry HEENT: Atraumatic, PERRLA, EOMI Neck: Supple Cardiovascular: Normal S1, Normal S2 Lungs: Clear to Auscultation Abdomen: Soft, No Tenderness Neurological: Normal Speech, Strength at 5/5 X4 Ext, Normal Tone, Sensation Intact Extremities: No Edema, right foot debridement and having dressing Current Medications: Current Medications Sig/Nate Start time Last Medication Dose Route Stop Time Status Admin Acetaminophen 1,000 MG Q6P PRN 07/18 1415 N/A 1 UNIT IV Amlodipine Besylate 5 MG DAILY 07/17 193 AC 07/20 PO 0937 Ampicillin Sodium/ 3,000 MG Q6 07/18 1800 AC 07/20 Sulbactam Sodium IV 0628 Sodium Chloride 100 ML Diphenhydramine HCl 25 MG AT BEDTIME PRN 07/17 2115 AC 07/19 PO 0058 Docusate Sodium 100 MG BID 07/18 1000 AC 07/20 PO 0936 Folic Acid 1 MG DAILY 07/17 193 AC 07/20 PO 0936 Lorazepam 2 MG Q4 07/19 1400 AC 07/20 PO 0936 Lorazepam 0 Q1P PRN 07/18 2345 AC 07/19 IV 1952 Lorazepam 2 MG Q6H 07/18 0230 DC 07/19 PO 0900 Omeprazole 20 MG DAILY 07/17 1934 AC 07/20 PO 0627 Oxycodone HCl 20 MG Q6P PRN 07/17 1945 AC 07/20 PO 0515 Pregabalin 150 MG QPM 07/17 2200 AC 07/19 PO 2130 Sodium Chloride 1,000 ML Q10H 07/19 1230 DC 07/19 IV 07/19 2229 1420 Thiamine HCl 100 MG DAILY 07/17 193 AC 07/20 PO 0936 Last 24 Hrs of Lab/Ryne Results Last 24 Hrs of Labs/Mics: Temperature 97.6, pulse 73, respiratory rate 12, blood pressure 118/86 oxygen saturation 96% on room air Assessment/Plan Assessment: Patient is a 52-year-old gentleman with a PMH significant for peripheral neuropathy, alcoholic cirrhosis, nonsteroid and non-oxygen dependent COPD, lung nodule, left ear deafness and left eye blindness, Dos Santos's esophagus who presented to the ED complaining of right lower extremity infection. Patient presented to the ED 3 weeks ago for right lower extremity cellulitis and was discharged on amoxicillin, Bactrim, and Lasix which provided little relief. Osteomyelitis right foot s/p debridement: -Patient to go to the OR for I&D and bone biopsy yesterday. -We'll start IV Unasyn 3 g every 6 after OR pending cultures and sensitivities. -We'll follow the podiatry and ID recommendations. 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 They recommended that patient doesn't need any urgent vascular surgery but in future if patient has nonhealing ulcer on needs below-knee amputations and they will consider. -Patient needs long-term IV medications considering his acute on chronic ostomyelitis and he needs PICC line. -We will follow the ID recommendations for long-term antibiotics. Alcohol dependence: Patient reportedly drinks 2 vodka drinks daily -CIWA protocol -Ativan 2 mg every 6 hours by mouth -Supplementation with oral thiamine, folic acid, multivitamin -Patient's CIWA score is 21 last night and he is getting IV Ativan 2 mg and po as well. History of iron deficiency: -Follow-up iron studies and replete as necessary DVT prophylaxis: -Subcutaneous heparin, Alps on left lower extremity CODE STATUS: Full code Problem List: 1. Osteomyelitis 2. Cellulitis 3. Alcohol withdrawal Pain Ratin Pain Location: right foot Pain Goal: Pain 4 or less Pain Plan: tylenol for mild pain percocet for moderate pain Tomorrow's Labs & Rationales: cbc/bep Di Montelongo MD 07/20/17 1024: Attending MD Review Statement Attending Statement Attending MD Statement: examined this patient, discuss w/resident/PA/CORPORATE CONSULTANT, agreed w/resident/PA/CORPORATE CONSULTANT, reviewed EMR data (avail), discussed with nursing, discussed with case mgmt, amended to note Attending Assessment/Plan: Patient seen and examined. Although he is resting comfortably right now marked in acute distress his CIWA has been elevated going up as high as 23 yesterday. He required a total of 12 mg of intravenous Ativan in addition to his standing oral dose yesterday. He is currently not tremulous or agitated. He is alert and oriented 3. He has intact dressing over the right foot. Dressing change was done by the telecommunications administrator service earlier on today. Blood cultures are currently negative and so far he has no growth from oral cultures. Recommendations: -Continue current course of benzodiazepine therapy. Will begin taper only when patient showed significant clinical improvement. -Hydrate with lactated Ringer's at 1 50 cc an hour. -Continue antibiotic course with IV Unasyn. Podiatry follow-up appreciated. -Obtain vascular surgery consultation for evaluation of probable anterior tibial disease noted on imaging. Consult can be obtained nonurgently following the holiday. -Physical therapy consultation. -Review of the negative culture so far recommend following up pathology results to confirm osteomyelitis. Follow up with the podiatry service. -If no further surgical intervention is required, proceed with placement of a PICC line for long-term antibiotic therapy.
--- NOTE | 2017-07-20 10:21 | PN- Podiatry ---
Subjective Subjective: 52 y/o male seen and evaluated at bedside POD 2 I&D of the right heel. The patient is passed urine and stool since the surgery, and has had no new strikethrough since yesterday. Pt is placed on 1-to-1 observation overnight for agitation and combative behavior associated with alcohol withdrawal. The patient denies fever, chills, nausea, vomiting, diaphoresis, shortness of breath , chest pain at the time of my examination. He reports a significant reduction in pain at the site since Friday. Review of Systems: A 14 point review of systems was performed, and was found to be negative apart from the patient's complaints described above in the history of present illness. Objective Vital Signs and I&Os Vital Signs Date Time Temp Pulse Resp B/P B/P Pulse O2 O2 Flow FiO2 Mean Ox Delivery Rate 07/20 0937 97.6 73 12 118/86 07/20 0800 97.6 73 12 118/86 07/20 0630 99.3 77 18 122/76 96 Room Air 07/19 2000 99.1 89 18 120/78 07/19 1800 99.9 90 20 128/80 07/19 1600 99.9 90 20 128/80 07/19 1600 99.9 90 20 128/80 97 Room Air 07/19 1443 98.9 93 18 156/86 95 Room Air 07/19 1141 99.0 112 14 136/76 Intake & Output 07/20 1600 07/20 0800 07/20 0000 07/19 1600 07/19 0800 07/19 0000 Intake Total 1200 537 725 7372 Output Total 650 600 150 300 Balance -650 600 661 704 8447 Intake, IV 900 220 150 Intake, Oral 300 600 400 900 Number 0 Bowel Movements Output, Urine 650 600 150 300 Physical Exam: The patient has palpable dorsalis pedis and posterior tibial pulses bilaterally, and improved temperature gradient on the right lower extremity, normal temperature gradient on left lower extremity, capillary refill time is 3 seconds in all 10 toes. Patient has diminished proprioceptive and light touch sensation equal and bilateral in the forefoot and midfoot. The patient has a lack of hair growth on the toes in both feet. There is significant maceration of the surgical site, but the erythema and calor are almost completely resolved, and there is some residual nonpitting edema of the heel globally. There are claw toe contractures of the lesser digits bilaterally, more so on the right and left. Patient otherwise has 5 over 5 muscle power in all lower extremity compartments bilaterally. The patient was much more cooperative during physical examination today, and at 2 points elevated his operative leg on command. Current Medications: Current Medications Sig/Nate Start time Last Medication Dose Route Stop Time Status Admin Acetaminophen 1,000 MG Q6P PRN 07/18 1415 AC N/A 1 UNIT IV Amlodipine Besylate 5 MG DAILY 07/17 1934 AC 07/20 PO 0937 Ampicillin Sodium/ 3,000 MG Q6 07/18 1800 AC 07/20 Sulbactam Sodium IV 0628 Sodium Chloride 100 ML Diphenhydramine HCl 25 MG AT BEDTIME PRN 07/17 2115 AC 07/19 PO 0058 Docusate Sodium 100 MG BID 07/18 1000 AC 07/20 PO 0936 Folic Acid 1 MG DAILY 07/17 1934 AC 07/20 PO 0936 Lorazepam 2 MG Q4 07/19 1400 AC 07/20 PO 0936 Lorazepam 0 Q1P PRN 07/18 2345 AC 07/19 IV 1952 Lorazepam 2 MG Q6H 07/18 0230 DC 07/19 PO 0900 Omeprazole 20 MG DAILY 07/17 193 AC 07/20 PO 0627 Oxycodone HCl 20 MG Q6P PRN 07/17 1945 AC 07/20 PO 0515 Pregabalin 150 MG QPM 07/17 2200 AC 07/19 PO 2130 Sodium Chloride 1,000 ML Q10H 07/19 1230 DC 07/19 IV 07/19 2229 1420 Thiamine HCl 100 MG DAILY 07/17 1936 AC 07/20 PO 0936 Results Last 48 Hours of Labs: Laboratory Tests 07/19 0750 Chemistry Sodium (137 - 145 mmol/L) 135 L Potassium (3.5 - 5.1 mmol/L) 4.1 Chloride (98 - 107 mmol/L) 97 L Carbon Dioxide (22 - 30 mmol/L) 23 Anion Gap (5 - 16) 15 BUN (9 - 20 mg/dL) 9 Creatinine (0.7 - 1.2 mg/dL) 0.6 L Estimated GFR (>60 ml/min) > 60 BUN/Creatinine Ratio (7 - 25 %) 15.0 Hematology CBC w Diff NO MAN DIFF REQ WBC (4.8 - 10.8 /CUMM) 6.0 RBC (4.70 - 6.10 /CUMM) 3.52 L Hgb (14.0 - 18.0 G/DL) 10.4 L Hct (42 - 52 %) 30.6 L MCV (80.0 - 94.0 FL) 87.0 MCH (27.0 - 31.0 PG) 29.7 RDW (11.5 - 14.5 %) 16.4 H Plt Count (130 - 400 /CUMM) 456 H MPV (7.4 - 10.4 FL) 8.2 Gran % (42.2 - 75.2 %) 69.0 Lymphocytes % (20.5 - 51.1 %) 12.9 L Monocytes % (1.7 - 9.3 %) 16.0 H Eosinophils % (0 - 5 %) 1.0 Basophils % (0.0 - 2.0 %) 1.1 Absolute Granulocytes (1.4 - 6.5 /CUMM) 4.1 Absolute Lymphocytes (1.2 - 3.4 /CUMM) 0.8 L Absolute Monocytes (0.10 - 0.60 /CUMM) 1.0 H Absolute Eosinophils (0.0 - 0.7 /CUMM) 0.1 Absolute Basophils (0.0 - 0.2 /CUMM) 0.1 PUBS MCHC (33.0 - 37.0 G/DL) 34.2 Assessment/Plan Assessment/Plan 52-year-old male with peripheral neuropathy secondary to a combination of chronic alcoholism and subjectively reported chemical exposure doing well status post incision and drainage of the right heel with bone biopsy of the calcaneus for the treatment of acute on chronic osteomyelitis. The patient was seen and evaluated at bedside. His vitals are reviewed. The surgical dressing was changed, the macerated skin was painted with Betadine solution, and a dry sterile dressing was placed on the incision line. There is no longer need for packing, as the wound is no longer actively draining apart from a miniscule amount of serum from the central portion of the wound. Based on the clinical, radiographic, and intraoperative findings, his most likely diagnosis is an acute on chronic osteomyelitis of the right calcaneus, and given the limited surgical options apart from a major amputation a course of long-term IV antibiotics directed at the organisms growing in the final culture is recommended concomitant with a short-term rehabilitation stay given his comorbidities of chronic alcoholism and withdrawal. He is only to weight-bear on the right lower extremity for bathroom privileges as needed but should otherwise be nonweightbearing completely. He should have a physical therapy evaluation to gauge his need for placement of a short term rehabilitation facility. The primary team will continue empirical therapy, we will follow up the results of the intraoperative bone biopsies and tissue cultures for directed therapy. I will be in touch with Tin Zelaya MD during this admission for final recommendations. I'm available by cell phone for any further questions at [phone]. Core Measures Venous Thromboembolism VTE Risk Factors Age>40 No Mechanical VTE Prophylaxis d/t N/A MechProphylax Ordered No VTE Pharm Prophylaxis d/t NA PharmProphylax ordered
--- NOTE | 2017-07-20 11:16 | PN- Infect Dx ---
Subjective Subjective: Agitation and combative behavior resolved. Comfortable. He denies fever, chills, nausea, vomiting, diaphoresis, shortness of breath, chest pain. Review of Systems Comments: 12 points reviewed as noted, otherwise negative. Objective Last 24 Hrs of Vital Signs/I&O Vital Signs Date Time Temp Pulse Resp B/P B/P Pulse O2 O2 Flow FiO2 Mean Ox Delivery Rate 07/20 1111 98.1 95 18 138/80 97 Room Air 07/20 0937 97.6 73 12 118/86 07/20 0800 97.6 73 12 118/86 07/20 0630 99.3 77 18 122/76 96 Room Air 07/19 2000 99.1 89 18 120/78 07/19 1800 99.9 90 20 128/80 07/19 1600 99.9 90 20 128/80 07/19 1600 99.9 90 20 128/80 97 Room Air 07/19 1443 98.9 93 18 156/86 95 Room Air 07/19 1141 99.0 112 14 136/76 Intake & Output 07/20 1600 07/20 0800 07/20 0000 Intake Total 1200 Output Total 650 600 Balance -650 600 Intake, IV 900 Intake, Oral 300 Number 0 Bowel Movements Output, Urine 650 600 Physical Exam Other Physical Findings: Afebrile. No acute distress. Skin reveals no rash. HEENT AT. Neck with no adenopathy. Lungs are clear. Heart regular rhythm with no murmur. Abdomen is soft, with positive bowel sounds. Extremities right foot dressing intact; left foot with no inflammation and 2+ pulses. Results Last 24 Hours of Lab Results: reviewed Last 24 Hours of Ryne Results: SPEC #: [id number] BRENDA: 07/18/17-1305 STATUS: RES RECD: 07/18/[address]: Balaji Escalante DPM SOURCE: EXTREMITIE ENTR: 07/18/17-[address]: Jayda HEBERT,Di SPDESC: HEEL RIGHT Jad HEBERT, Eric Garibay MD, [facility] ORDERED: XTRMOR COMMENT: RECEIVED 2 BONE PIECES IN STERILE CUP Procedure Result > GRAM STAIN Final 07/18/17-1538 WHITE BLOOD CELLS NONE OTHER NO ORGANISMS SEEN > EXTREMITIES OR SPECIMEN Preliminary 07/20/17-1046 NO GROWTH AFTER 2 DAYS SPEC #: [id number] BRENDA: 07/18/17 STATUS: RES RECD: 07/18/[address]: Balaji Escalante DPM SOURCE: EXTREMITIE ENTR: 07/18/[address]: Di Montelongo MDC: HEEL RIGHT Jad HEBERT, Eric Garibay MD, [facility] ORDERED: XTRMOR COMMENT: RECEIVED 2 BONE PIECES IN STERILE CUP Procedure Result > GRAM STAIN Final 07/18/17 WHITE BLOOD CELLS NONE OTHER NO ORGANISMS SEEN > EXTREMITIES OR SPECIMEN Preliminary 07/20/17 NO GROWTH AFTER 2 DAYS SPEC #: [id number] BRENDA: 07/18/17 STATUS: RES RECD: 07/18/[address]: Balaji Escalante DPM SOURCE: EXTREMITIE ENTR: 07/18/[address]: Di Montelongo MDC: HEEL RIGHT Jad HEBERT, Eric Garibay MD, [facility] ORDERED: XTRMOR COMMENT: RECEIVED 2 BONE PIECES IN STERILE CUP Procedure Result > GRAM STAIN Final 07/18/17 WHITE BLOOD CELLS NONE OTHER NO ORGANISMS SEEN > EXTREMITIES OR SPECIMEN Preliminary 07/20/17 NO GROWTH AFTER 2 DAYS Recent Imaging Studies: IMPRESSION: Increased bony erosion, bony fragmentation and periosteal new bone formation in the posterior aspect of the right calcaneus is suggestive of progressive osteomyelitis with possible neuropathic arthropathy. DICTATED BY: Nu Reyes MD DATE/TIME DICTATED:07/17/171409 [employer] ATTENDANT:EDWIN DATE/TIME TRANSCRIBED:07/17/171409 Assessment/Plan Impression: 52-year-old man with a history of alcohol-induced cirrhosis, peripheral neuropathy, COPD, hypertension, with chronic pain, treated 3 weeks prior to admission for a cellulitis of the right foot with reported improvement, admitted on July 17 with a necrotic wound on his right heel, found to have a low- grade fever with a normal white blood cell count and with an x-ray of the right foot suggestive of right calcaneus progressive osteomyelitis. He has undergone debridement of the heel 07/18 and is treated w/ empiric antibiotics pending OR cultures (preliminary no growth). He will likely require a prolonged course of antibiotics if bone biopsy revealing acute OM. Of note his alcohol level was elevated on admission and he is on a CIWA protocol. Suggestion: 1. Follow-up final OR culture results and bone biopsy results 2. Consider need for Vascular surgery evaluation 3. Continue Unasyn 3 g IV every 6 hours D #3 pending above
[2017-07-21] VITALS (7 sets, daily range): BP systolic 126–156; BP diastolic 60–80
--- NOTE | 2017-07-21 07:59 | PN- Housestaff ---
Julia HEBERT,Raúl 07/21/17 0758: Subjective Follow-up For: Osteomyelitis Alcohol withdrawal I&D and debridement of right heel POD #3 Subjective: Patient was seen and examined at bedside. He is resting comfortably. He had no acute events overnight. He is currently complaining of 4/10 pain of the right ankle. He has no other complaints currently and denies any chest pain, shortness breath, nausea, vomiting, fever, chills. Review of Systems Constitutional: Denies: chills, fever. Cardiovascular: Denies: chest pain, palpitations. Respiratory: Denies: cough, short of breath. Gastrointestinal: Reports: no symptoms. Genitourinary: Reports: no symptoms. Musculoskeletal: Reports: see HPI, joint pain. Objective Last 24 Hrs of Vital Signs/I&O Vital Signs Date Time Temp Pulse Resp B/P B/P Pulse O2 O2 Flow FiO2 Mean Ox Delivery Rate 07/21 0710 97.9 51 20 150/80 97 Room Air 07/21 0620 97.6 65 20 150/70 97 Room Air 07/20 2321 98.1 69 20 156/80 97 Room Air 07/20 2000 98.2 71 18 134/70 07/20 1900 98.2 71 18 134/70 96 Room Air 07/20 1600 97.9 69 20 140/78 07/20 1511 97.9 69 20 140/78 98 Room Air 07/20 1400 97.7 72 12 124/78 07/20 1200 97.6 76 12 124/78 07/20 1111 98.1 95 18 138/80 97 Room Air 07/20 1000 97.9 78 14 122/82 07/20 0937 97.6 73 12 118/86 07/20 0800 97.6 73 12 118/86 Intake & Output 07/21 0800 07/21 0000 07/20 1600 Intake Total 400 480 Output Total 200 300 Balance 200 180 Intake, Oral 400 480 Output, Urine 200 300 Physical Exam General Appearance: Alert, Oriented X3, Cooperative, No Acute Distress Skin Temp/Moisture Exam: Warm/Dry Cardiovascular: Regular Rate, Normal S1, Normal S2 Lungs: Clear to Auscultation, Normal Air Movement Abdomen: Normal Bowel Sounds, Soft, No Tenderness Neurological: Normal Speech, Sensation Intact Extremities: right distal lower extremity wrapped in Ayan bandage Current Medications: Current Medications Sig/Nate Start time Last Medication Dose Route Stop Time Status Admin Acetaminophen 1,000 MG Q6P PRN 07/18 1415 AC 07/21 N/A 1 UNIT IV 0530 Amlodipine Besylate 5 MG DAILY 07/17 193 AC 07/20 PO 0937 Ampicillin Sodium/ 3,000 MG Q6 07/18 1800 AC 07/21 Sulbactam Sodium IV 0650 Sodium Chloride 100 ML Diphenhydramine HCl 25 MG AT BEDTIME PRN 07/17 2115 AC 07/19 PO 0058 Docusate Sodium 100 MG BID 07/18 1000 AC 07/20 PO 2220 Folic Acid 1 MG DAILY 07/17 193 AC 07/20 PO 0936 Lactated Ringer's 1,000 ML Q6H 07/20 1100 AC 07/21 IV 0330 Lorazepam 2 MG Q4 07/19 1400 AC 07/21 PO 0654 Lorazepam 0 Q1P PRN 07/18 2345 AC 07/19 IV 1952 Omeprazole 20 MG DAILY 07/17 193 AC 07/21 PO 0650 Oxycodone HCl 20 MG Q6P PRN 07/17 194 AC 07/21 PO 0730 Pregabalin 150 MG QPM 07/17 2200 AC 07/20 PO 2220 Thiamine HCl 100 MG DAILY 07/17 193 AC 07/20 PO 0936 Last 24 Hrs of Lab/Ryne Results Last 24 Hrs of Labs/Mics: Laboratory Tests 07/21/17 0650: Anion Gap 12, Estimated GFR > 60, BUN/Creatinine Ratio 17.5, CBC w Diff NO MAN DIFF REQ, RBC 3.25 L, MCV 87.8, MCH 29.9, RDW 16.1 H, MPV 8.5, Gran % 63.5, Lymphocytes % 21.9, Monocytes % 9.6 H, Eosinophils % 3.5, Basophils % 1.5, Absolute Granulocytes 3.7, Absolute Lymphocytes 1.3, Absolute Monocytes 0.6, Absolute Eosinophils 0.2, Absolute Basophils 0.1, PUBS MCHC 34.0, ESR Westergren 32 H Assessment/Plan Assessment: Patient is a 52-year-old gentleman with a PMH significant for peripheral neuropathy, alcoholic cirrhosis, nonsteroid and non-oxygen dependent COPD, lung nodule, left ear deafness and left eye blindness, Dos Santos's esophagus who presented to the ED complaining of right lower extremity infection. Patient presented to the ED 3 weeks ago for right lower extremity cellulitis and was discharged on amoxicillin, Bactrim, and Lasix which provided little relief. Osteomyelitis right foot s/p I &D and debridement POD #3: -Continue IV Unasyn 3 g every 6 hours. -Currently no growth from our cultures -We'll follow the podiatry and ID recommendations. 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 They recommended that patient doesn't need any urgent vascular surgery but in future if patient has nonhealing ulcer on needs below-knee amputations and they will consider. -Patient needs long-term IV medications considering his acute on chronic ostomyelitis and he needs PICC line. -We will follow the ID recommendations for long-term antibiotics. -Patient to return to OR on 07/22/17 or 07/23/17, he will be nothing by mouth at midnight tonight -We'll repeat right foot x-ray postoperatively Alcohol dependence: Patient reportedly drinks 2 vodka drinks daily -CIWA protocol -Tapered Ativan to 1 mg every 4 hours by mouth -Supplementation with oral thiamine, folic acid, multivitamin -Patient's CIWA score overnight ranged from 05 History of iron deficiency: -Follow-up iron studies and replete as necessary DVT prophylaxis: -Subcutaneous heparin, Alps on left lower extremity CODE STATUS: Full code Problem List: 1. Osteomyelitis 2. Alcohol withdrawal Pain Ratin Pain Location: R ankle Pain Goal: Pain 4 or less Pain Plan: pain pathway Tomorrow's Labs & Rationales: latasha Montelongo MD,Di 07/21/17 1209: Attending Review Statement Attending Statement Attending MD Statement: examined this patient, discuss w/resident/PA/DIRECTOR MUSIC, agreed w/resident/PA/DIRECTOR MUSIC, reviewed EMR data (avail), discussed with nursing, discussed with case mgmt, amended to note Attending Assessment/Plan: Patient seen and examined. Lying comfortably in bed not in acute distress. Alert and oriented 3. Conversant and talkative. Reports the pain is controlled with current regimen. CIWA score has been mildly elevated however he did not require any intravenous disease of abdomen. On examination surgical dressing over the right foot is intact with no significant drainage. Recommendations: -Follow-up pathology report from oral specimen. -Pending above discuss with the ID service regarding type and duration of antibiotic therapy. -He did not require any intravenous doses of Ativan yesterday. Tapered down his oral Ativan to 1 mg p.o. every 4 hours. -Confirm with the podiatry service if no further surgical intervention is needed. If so begin discharge planning.
[2017-07-21 09:33] LABS: ABSOLUTE BASOPHIL COUNT 0.1 /CUMM (0.0-0.2); ABSOLUTE EOSINOPHIL COUNT 0.2 /CUMM (0.0-0.7); ABSOLUTE GRANULOCYTE CT 3.7 /CUMM (1.4-6.5); ABSOLUTE LYMPH COUNT 1.3 /CUMM (1.2-3.4); ABSOLUTE MONOCYTE COUNT 0.6 /CUMM (0.10-0.60); BASOPHIL % 1.5 % (0.0-2.0); EOSINOPHIL % 3.5 % (0-5); GRANULOCYTE % 63.5 % (42.2-75.2); HEMATOCRIT 28.5 % (42-52); MEAN CORPUSCULAR HGB 29.9 PG (27.0-31.0); MEAN CORPUSCULAR VOLUME 87.8 FL (80.0-94.0); MEAN PLATELET VOLUME 8.5 FL (7.4-10.4); PLATELET COUNT 402 /CUMM (130-400); RBC DISTRIBUTION WIDTH 16.1 % (11.5-14.5); RED BLOOD CELL CT 3.25 /CUMM (4.70-6.10); WHITE BLOOD CELL COUNT 5.9 /CUMM (4.8-10.8)
--- NOTE | 2017-07-21 10:22 | PN- Infect Dx ---
Subjective Subjective: No new c/o. No fever. C/ o R foot discomfort. Denies diarrhea. Review of Systems Comments: 12 points reviewed as noted, otherwise negative. Objective Last 24 Hrs of Vital Signs/I&O Vital Signs Date Time Temp Pulse Resp B/P B/P Pulse O2 O2 Flow FiO2 Mean Ox Delivery Rate 07/21 0710 97.9 51 20 150/80 97 Room Air 07/21 0620 97.6 65 20 150/70 97 Room Air 07/20 2321 98.1 69 20 156/80 97 Room Air 07/20 2000 98.2 71 18 134/70 07/20 1900 98.2 71 18 134/70 96 Room Air 07/20 1600 97.9 69 20 140/78 07/20 1511 97.9 69 20 140/78 98 Room Air 07/20 1400 97.7 72 12 124/78 07/20 1200 97.6 76 12 124/78 07/20 1111 98.1 95 18 138/80 97 Room Air Intake & Output 07/21 1600 07/21 0800 07/21 0000 Intake Total 400 Output Total 200 200 Balance -200 200 Intake, Oral 400 Number 1 Bowel Movements Output, Urine 200 200 Physical Exam Other Physical Findings: Afebrile. No acute distress. Skin reveals no rash. HEENT AT. Neck with no adenopathy. Lungs are clear. Heart regular rhythm with no murmur. Abdomen is soft, with positive bowel sounds. Extremities right foot dressing intact; left foot with no inflammation and 2+ pulses. Results Last 24 Hours of Lab Results: Laboratory Tests 07/21 0650 Chemistry Sodium (137 - 145 mmol/L) 138 Potassium (3.5 - 5.1 mmol/L) 4.3 Chloride (98 - 107 mmol/L) 101 Carbon Dioxide (22 - 30 mmol/L) 25 Anion Gap (5 - 16) 12 BUN (9 - 20 mg/dL) 7 L Creatinine (0.7 - 1.2 mg/dL) 0.4 L Estimated GFR (>60 ml/min) > 60 BUN/Creatinine Ratio (7 - 25 %) 17.5 Hematology CBC w Diff NO MAN DIFF REQ WBC (4.8 - 10.8 /CUMM) 5.9 RBC (4.70 - 6.10 /CUMM) 3.25 L Hgb (14.0 - 18.0 G/DL) 9.7 L Hct (42 - 52 %) 28.5 L MCV (80.0 - 94.0 FL) 87.8 MCH (27.0 - 31.0 PG) 29.9 RDW (11.5 - 14.5 %) 16.1 H Plt Count (130 - 400 /CUMM) 402 H MPV (7.4 - 10.4 FL) 8.5 Gran % (42.2 - 75.2 %) 63.5 Lymphocytes % (20.5 - 51.1 %) 21.9 Monocytes % (1.7 - 9.3 %) 9.6 H Eosinophils % (0 - 5 %) 3.5 Basophils % (0.0 - 2.0 %) 1.5 Absolute Granulocytes (1.4 - 6.5 /CUMM) 3.7 Absolute Lymphocytes (1.2 - 3.4 /CUMM) 1.3 Absolute Monocytes (0.10 - 0.60 /CUMM) 0.6 Absolute Eosinophils (0.0 - 0.7 /CUMM) 0.2 Absolute Basophils (0.0 - 0.2 /CUMM) 0.1 PUBS MCHC (33.0 - 37.0 G/DL) 34.0 ESR Westergren (0 - 10 MM) Pending Last 24 Hours of Ryne Results: SPEC #: [id number] BRENDA: 07/18/17 STATUS: RES RECD: 07/18/[address]: Balaji Escalante DPM SOURCE: [facility] ENTR: 07/18/17-[address] [facility] [address]: Jayda HEBERT,Di SPDESC: HEEL RIGHT Jad HEBERT, Eric Garibay MD, [facility] ORDERED: XTRMOR COMMENT: RECEIVED 2 BONE PIECES IN STERILE CUP Procedure Result > GRAM STAIN Final 07/18/17-1538 WHITE BLOOD CELLS NONE OTHER NO ORGANISMS SEEN > EXTREMITIES OR SPECIMEN Preliminary 07/20/17-1046 NO GROWTH AFTER 2 DAYS Recent Imaging Studies: SERVICE DATE: 07/17/17 EXAM TYPE: RAD - XRY-HEEL, RIGHT EXAMINATION: XR CALCANEUS, RIGHT CLINICAL INFORMATION: Right heel pain and swelling COMPARISON: Right foot and ankle films from 06/24/2017 TECHNIQUE: Lateral and axial views of the right calcaneus were obtained. FINDINGS: There is increased bony erosion with increased periosteal new bone formation, and increased bone fragmentation in the posterior aspect of the calcaneus. This is associated with increased soft tissue swelling and some possible soft tissue gas. Findings are suggestive of progressive osteomyelitis with possible neuropathic arthropathy. IMPRESSION: Increased bony erosion, bony fragmentation and periosteal new bone formation in the posterior aspect of the right calcaneus is suggestive of progressive osteomyelitis with possible neuropathic arthropathy. DICTATED BY: Nu Reyes MD DATE/TIME DICTATED:07/17/171409 SIGNAL SYSTEM TESTING MAINTAINER:EDWIN DATE/TIME TRANSCRIBED:07/17/171409 CONFIDENTIAL, DO NOT COPY WITHOUT APPROPRIATE AUTHORIZATION. <Electronically signed in Other Vendor System> SIGNED BY: Nu Reyes MD 07/17 9527 Assessment/Plan Impression: 52-year-old man with a history of alcohol-induced cirrhosis, peripheral neuropathy, COPD, hypertension, with chronic pain, treated 3 weeks prior to admission for a cellulitis of the right foot with reported improvement, admitted on July 17 with a necrotic wound on his right heel, found to have a low- grade fever with a normal white blood cell count and with an x-ray of the right foot suggestive of right calcaneus progressive osteomyelitis. He has undergone debridement of the heel 07/18 and is treated w/ empiric antibiotics pending OR cultures (preliminary no growth). He will likely require a prolonged course of antibiotics if bone biopsy revealing acute OM. Of note his alcohol level was elevated on admission and he is on a CIWA protocol. Suggestion: 1. Of note OR cultures no growth to date; f/u bone biopsy results; consider f/u X-ray R heel (post op). F/U ESR (pnd) 2. Consider need for Vascular surgery evaluation 3. Continue Unasyn 3 g IV every 6 hours D #4 pending above
--- NOTE | 2017-07-21 15:20 | Discharge Summary ---
Visit Information Visit Dates Admission Date: 07/17/17 Discharge Date: 07/25/17 Hospital Course Course Attending Physician: Di Montelongo MD Primary Care Physician: Jad HEBERT,Eric Rincon Consulting Request: 1 Consulting Specialty: Infectious Disease Consulting Request: 2 Consulting Specialty: Podiatry Hospital Course: 52 years old man with past medical history significant for alcoholic cirrhosis active Alcohol use, peripheral neuropathy with gait instability, COPD, chronic pain, HTN, splenomegaly, thyroid nodules, lung nodules, Dos Santos's esophagus, left ear deafness, h/o of right eye corneal ulcer came to ED with pain and swelling in his right foot. Patient recently had treatments of right foot cellulitis with amoxicillin, Bactrim, ibuprofen and when necessary furosemide. Patient was at [facility] from March 06, 2017 to February for septic shock, secondary to persistent diarrhea and vomiting. Patient sees his regular care at [facility]. He was last admitted there in Jul 2016 for pneumonia, found to have lung nodule and is followed by Dr. Tony. Vitals and emergency department, patient was afebrile initially but had a MAXIMUM TEMPERATURE of 100.1, tachycardic heart rate of 110, systolic blood pressure 130 to 140 and diastolic blood pressure 70 to 80s, oxygen saturation of 97-98% on room air. On examination patient is alert and oriented not in any acute distress comfortably lying in the bed. S1 and S2 audible without any murmurs. Overall clear lungs. No abdominal tenderness, mild abdominal distention noted, audible bowel sounds, grossly intact neurological examination, right foot swollen, right heel tender and warm examination, skin breakdown, grossly intact left lower extremity. No significant leukocytosis, hemoglobin 10.8 and hematocrit 31.6, platelet count of 464, no bandemia, ESR 72, no significant electrolyte abnormality, high CRP but normal renal and hepatic function, UA pending, toxicology positive for serum alcohol of 107. Imaging in emergency department showed, Increased bony erosion, bony fragmentation and periosteal new bone formation in the posterior aspect of the right calcaneus is suggestive of progressive osteomyelitis with possible neuropathic arthropathy. Patient was admitted on general medicine floor for the management of following problems Right foot osteomyelitis Patient did not meet the criteria for SIRS/sepsis on admision. No high-grade temperature spike, no tachypnea, no leukocytosis or leukopenia. Based on examination, patient clinically has right foot erythema and swelling which did not respond to outpatient antibiotics. We held off antibiotics and obtained podiatry and ID consult. Blood cultures were negative for any growth after 1 day. Patient underwent Open incision and drainage of right heel and debridement of necrotic and infected bone right heel. Biopsy was obtained result of which are pending. OR cultures showed no growth after 3 days. Patient was started on Unasyn 3 g IV every 6 hours empirically after the first procedure. Since patient did not grew anything in the OR cultures antibiotics were discontinued as per ID recommendations after 4 days. Patient underwent delayed primary closure, right heel with retention sutures on 07/22/17. subsequent cultures from 07/22/17 showed goag negative staph, The pt was sent home off antibiotics and was advised to follow up with podiatry weekly for wound care as per his housekeeper cleaning cooking recommendation. Patient was also evaluated by vascular surgery because arterial doppler showed possible decreased flow of the anterior tibial artery. It was decided that there is no indication for vascular procedure unless there is worsening or overall compromise of the lower leg, nonhealing wound or the patient requires a below-knee amputation. Alcoholic cirrhosis with active Alcohol dependence Patient drinks vodka daily. His last drink was before admission. We placed him on CIWA scale and started him on scheduled Ativan which was tapered accordingly. Thiamine and folic acid were also ordered. Chronic medical issues,alcoholic cirrhosis, peripheral neuropathy, COPD, chronic pain, HTN, splenomegaly, thyroid nodules Will continued his home medications. As per patient has been pretty noncompliant with electrologist recommendations for the management of alcoholic liver disease. Patient was full code Patient was on heart healthy diet Patient was on pain management Patient was on SC Heparin for DVT prophylaxis Allergies: Coded Allergies: NO KNOWN ALLERGIES (04/20/14) Significant Procedures: 07/18/17 Open incision and drainage deep to the deep fascia with exposure of the flexor tendon and tendon sheath multiple sites right heel Debridement of necrotic and infected bone right heel Excisional debridement Disposition Summary Disposition Principal Diagnosis: Presumed osteomyelitis of the right foot status post debridement Alcohol dependence History of oxygen dependent COPD Additional Diagnosis: History of peripheral neuropathy History of chronic alcohol dependence History of alcoholic liver disease History of hypertension History of thyroid and lung nodule Discharge Disposition: SNF Discharge Instructions General Discharge Information Code Status: Full Code Patient's Diet: Heart healthy diet Patient's Activity: As tolerated Fall precautions Follow-Up Instructions/Appts: Follow-up with PCP after discharge Follow-up with housekeeper cleaning cooking after discharge Follow-up with vascular surgery after discharge Medications at Discharge Discharge Medications: Continue taking these medications: Quinapril HCl (Accupril) 40 MG TABLET 1 Tablet ORAL DAILY Comments: NOT GIVEN IN HOSPITAL Folic Acid (Folic Acid) 1 MG TABLET 1 Tablet ORAL DAILY Comments: Last Taken: 03/14/17 Time: 9:00 AM Oxycodone HCl (Oxycodone HCl) 20 MG TABLET 1 Tablet ORAL 4 TIMES A DAY Comments: Last Taken: 03/14/17 Time: 9:00 AM Methylcellulose (Fiber Laxative) (Unknown Strength) TABLET 2 Tablet ORAL DAILY Comments: NOT GIVEN IN HOSPITAL Thiamine HCl (B-1) 100 MG TABLET 1 Tablet ORAL DAILY Comments: Last Taken: 03/14/17 Time: 9:00 AM Cholecalciferol (Vitamin D3) (Vitamin D) 2,000 UNIT CAPSULE 1 Capsule ORAL DAILY Comments: NOT GIVEN IN HOSPITAL Calcium Carb/Mag Ox/Zinc Sulf (Rhgluhd-Pkzjeppuz-Pziq Tablet) 334 MG-134 MG-5 MG TABLET 1 Tablet ORAL DAILY Comments: NOT GIVNE IN HOSPITAL Omeprazole (Omeprazole) 20 MG CAPSULE.DR 1 Capsule ORAL DAILY Qty = 90 Comments: Last Taken: 03/14/17 Time: 6:30 AM Pregabalin (Lyrica) 150 MG CAPSULE 2 Capsule ORAL Every Morning Qty = 270 Comments: Last Taken: 03/14/17 Time: 9:00 AM Fluticasone/Vilanterol (Breo Ellipta 100-25 Mcg INH) 100 MCG-25 MCG/DOSE BLST.W.DEV 1 Puff Inhale through mouth DAILY NEEDED Comments: NOT GIVEN IN HOSPITAL Pregabalin (Lyrica) 150 MG CAPSULE 1 Tablet ORAL Every night Amlodipine Besylate (Amlodipine Besylate) 5 MG TABLET 1 Tablet ORAL DAILY Qty = 90 Start taking the following new medications: Ferrous Sulfate (Ferrous Sulfate) 325 MG (65 MG IRON) TABLET. 325 Milligram ORAL DAILY Qty = 30 No Refills Copies To: Jad HEBERT,Eric Ferrara MD Review Statement Documenting Attending: Jayda HEBERT,Di
[2017-07-22] VITALS (11 sets, daily range): BP systolic 124–150; BP diastolic 60–90
--- NOTE | 2017-07-22 09:10 | PN- Housestaff ---
Rebecca HEBERT,Angelica 07/22/17 0910: Subjective Follow-up For: Osteomyelitis Alcohol withdrawal I&D and debridement of right heel POD #4 Subjective: Patient is seen and examined at bedside, he continues to complain of pain in the right ankle 02/27. He denies any nausea, vomiting, fever or chills. He will be going to the OR today for further debridement of his right ankle. Review of Systems Constitutional: Reports: see HPI. Objective Last 24 Hrs of Vital Signs/I&O Vital Signs Date Time Temp Pulse Resp B/P B/P Pulse O2 O2 Flow FiO2 Mean Ox Delivery Rate 07/22 0834 97.8 54 14 150/90 07/22 0834 97.8 54 14 150/90 07/22 0651 98.1 60 18 138/76 96 Room Air 07/22 0600 98.4 68 18 124/68 07/22 0400 98.4 78 18 126/60 07/22 0200 98.4 78 18 126/60 07/22 0000 98.4 78 18 126/60 07/21 2200 98.4 78 18 126/60 96 Room Air 07/21 1745 98.1 65 18 150/80 96 Room Air 07/21 1736 65 150/80 07/21 1357 97.8 75 20 142/60 97 Room Air Intake & Output 07/22 1600 07/22 0800 07/22 0000 Intake Total 1250 2250 Output Total Balance 1250 2250 Intake, IV 1200 1350 Intake, Oral 50 900 Patient 175 lb Weight Physical Exam General Appearance: Alert, Oriented X3, Cooperative, No Acute Distress HEENT: Atraumatic, PERRLA, EOMI, Mucous Membr. moist/pink Neck: Supple, No JVD Cardiovascular: Regular Rate, Normal S1, Normal S2, No Murmurs Lungs: Clear to Auscultation, Normal Air Movement Abdomen: Normal Bowel Sounds, Soft, No Tenderness Extremities: right foor in wrapped in a clean MARIA A wrap Vascular: Normal Pulses Current Medications: Current Medications Sig/Nate Start time Last Medication Dose Route Stop Time Status Admin Acetaminophen 1,000 MG Q6P PRN 07/18 1415 AC 07/21 N/A 1 UNIT IV 0530 Amlodipine Besylate 5 MG DAILY 07/17 1934 AC 07/22 PO 0834 Ampicillin Sodium/ 3,000 MG Q6 07/18 1800 AC 07/22 Sulbactam Sodium IV 0553 Sodium Chloride 100 ML Diphenhydramine HCl 25 MG AT BEDTIME PRN 07/17 2115 AC 07/19 PO 0058 Docusate Sodium 100 MG BID 07/18 1000 AC 07/22 PO 0832 Folic Acid 1 MG DAILY 07/17 1934 AC 07/22 PO 0832 Heparin Sodium 5,000 UNIT Q8 07/21 1539 AC (Porcine) SC Lactated Ringer's 1,000 ML Q6H 07/20 1100 AC 07/22 IV 0312 Lisinopril 40 MG DAILY 07/21 1535 AC 07/22 PO 0834 Lorazepam 1 MG Q8 07/22 1400 AC PO Lorazepam 1 MG Q4 07/21 1400 DC 07/22 PO 0837 Lorazepam 2 MG Q4 07/19 1400 DC 07/21 PO 0904 Lorazepam 0 Q1P PRN 07/18 2345 AC 07/19 IV 1952 Omeprazole 20 MG DAILY 07/17 1934 AC 07/22 PO 0834 Oxycodone HCl 20 MG Q6P PRN 07/17 1945 AC 07/22 PO 0851 Pregabalin 300 MG QAM 07/22 1000 AC 07/22 PO 0838 Pregabalin 150 MG QPM 07/17 2200 AC 07/21 PO 2021 Thiamine HCl 100 MG DAILY 07/17 193 AC 07/22 PO 0835 Last 24 Hrs of Lab/Ryne Results Last 24 Hrs of Labs/Mics: Laboratory Tests 07/22/17 0836: CBC w Diff NO MAN DIFF REQ, RBC 3.47 L, MCV 87.9, MCH 29.6, RDW 16.0 H, MPV 8.2, Gran % 61.2, Lymphocytes % 23.8, Monocytes % 9.1, Eosinophils % 3.8, Basophils % 2.1 H, Absolute Granulocytes 4.1, Absolute Lymphocytes 1.6, Absolute Monocytes 0.6, Absolute Eosinophils 0.3, Absolute Basophils 0.1, PUBS MCHC 33.7 Assessment/Plan Assessment: Patient is a 52-year-old gentleman with a PMH significant for peripheral neuropathy, alcoholic cirrhosis, nonsteroid and non-oxygen dependent COPD, lung nodule, left ear deafness and left eye blindness, Dos Santos's esophagus who presented to the ED complaining of right lower extremity infection. Patient presented to the ED 3 weeks ago for right lower extremity cellulitis and was di and azithromycin checking her allergic to erythromycin and told her to stay on erythromycin scharged on amoxicillin, Bactrim, and Lasix which provided little relief. Osteomyelitis right foot s/p I &D and debridement POD #4: -DC IV Unasyn as per ID recommendation pending bone biopsy results -Currently no growth from our cultures -We'll follow the podiatry and ID recommendations. -OR cultures were negative, we'll hold off PICC line placement for now. 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 They recommended that patient doesn't need any urgent vascular surgery but in future if patient has nonhealing ulcer on needs below-knee amputations and they will consider. -We will wait for the results of culture from today -We will follow the ID recommendations for long-term antibiotics. -Patient to return to OR today, -We'll repeat right foot x-ray postoperatively Alcohol dependence: Patient reportedly drinks 2 vodka drinks daily -CIWA protocol -Tapered Ativan to 1 mg every 8 hours by mouth -Supplementation with oral thiamine, folic acid, multivitamin -Patient's CIWA score overnight ranged from 06 History of iron deficiency: -Follow-up iron studies and replete as necessary DVT prophylaxis: -Subcutaneous heparin, Alps on left lower extremity CODE STATUS: Full code Problem List: 1. Osteomyelitis 2. Cellulitis 3. Alcohol withdrawal Pain Ratin Pain Location: Right foot Pain Goal: Pain 4 or less Pain Plan: per pathway Tomorrow's Labs & Rationales: cbc bep DVT/Prophylaxis: mechanical, pharmacological Consulting Request: Consulting Specialty: Podiatry Ana HEBERTBanner 07/22/17 1403: Attending MD Review Statement Attending Statement Attending MD Statement: examined this patient, discuss w/resident/PA/SANITATION LABORER, agreed w/resident/PA/SANITATION LABORER, reviewed EMR data (avail) Attending Assessment/Plan: 52M PMH cirrhosis, alcohol dependence, hypertension, peripheral neuropathy, non- oxygen dependent COPD, history of lung cancer admitted with right heel cellulitis with presumed osteomyelitis seen on x-ray, with bone biopsy and debridement on 07/18, with cultures negative thus far. Reports mild heel pain, afebrile, otherwise well. Labs unremarkable. 1. Right heel cellulitis 2. Peripheral neuropathy Plan - Continue on general medicine - Discontinue Unasyn - Follow ID, vascular, podiatry recommendations - Will go for revision in OR today - Continue home medications - DVT PPx
[2017-07-22 09:19] LABS: ABSOLUTE BASOPHIL COUNT 0.1 /CUMM (0.0-0.2); ABSOLUTE EOSINOPHIL COUNT 0.3 /CUMM (0.0-0.7); ABSOLUTE GRANULOCYTE CT 4.1 /CUMM (1.4-6.5); ABSOLUTE LYMPH COUNT 1.6 /CUMM (1.2-3.4); ABSOLUTE MONOCYTE COUNT 0.6 /CUMM (0.10-0.60); BASOPHIL % 2.1 % (0.0-2.0); EOSINOPHIL % 3.8 % (0-5); HEMATOCRIT 30.5 % (42-52); MEAN CORPUSCULAR HGB 29.6 PG (27.0-31.0); MEAN CORPUSCULAR HGB CONC 33.7 G/DL (33.0-37.0); MEAN CORPUSCULAR VOLUME 87.9 FL (80.0-94.0); MEAN PLATELET VOLUME 8.2 FL (7.4-10.4); RED BLOOD CELL CT 3.47 /CUMM (4.70-6.10); WHITE BLOOD CELL COUNT 6.8 /CUMM (4.8-10.8)
[2017-07-22 10:27] LABS: GRANULOCYTE % 61.2 % (42.2-75.2); PLATELET COUNT 569 /CUMM (130-400)
--- NOTE | 2017-07-22 12:45 | PN- Infect Dx ---
Subjective Subjective: Afebrile. He does complain of some discomfort in the right heel. Objective Last 24 Hrs of Vital Signs/I&O Vital Signs Date Time Temp Pulse Resp B/P B/P Pulse O2 O2 Flow FiO2 Mean Ox Delivery Rate 07/22 1200 97.8 70 14 140/86 / 1000 97.9 60 14 148/90 07/22 0834 97.8 54 14 150/90 / 0834 97.8 54 14 150/90 07/22 0800 97.8 54 14 150/90 07/22 0651 98.1 60 18 138/76 96 Room Air 07/22 0600 98.4 68 18 124/68 07/22 0400 98.4 78 18 126/60 07/22 0200 98.4 78 18 126/60 07/22 0000 98.4 78 18 126/60 07/21 2200 98.4 78 18 126/60 96 Room Air 07/21 1745 98.1 65 18 150/80 96 Room Air 07/21 1736 65 150/80 07/21 1357 97.8 75 20 142/60 97 Room Air Intake & Output 07/22 1600 07/22 0800 07/22 0000 Intake Total 1250 2250 Output Total Balance 1250 2250 Intake, IV 1200 1350 Intake, Oral 50 900 Patient 175 lb Weight Physical Exam Other Physical Findings: He appears comfortable in no acute distress Extremities right heel swelling, with no erythema, but with drainage on the dressing, minimally tender to palpation Results Last 24 Hours of Lab Results: Laboratory Tests 07/22 0836 Hematology CBC w Diff NO MAN DIFF REQ WBC (4.8 - 10.8 /CUMM) 6.8 RBC (4.70 - 6.10 /CUMM) 3.47 L Hgb (14.0 - 18.0 G/DL) 10.3 L Hct (42 - 52 %) 30.5 L MCV (80.0 - 94.0 FL) 87.9 MCH (27.0 - 31.0 PG) 29.6 RDW (11.5 - 14.5 %) 16.0 H Plt Count (130 - 400 /CUMM) 569 H MPV (7.4 - 10.4 FL) 8.2 Gran % (42.2 - 75.2 %) 61.2 Lymphocytes % (20.5 - 51.1 %) 23.8 Monocytes % (1.7 - 9.3 %) 9.1 Eosinophils % (0 - 5 %) 3.8 Basophils % (0.0 - 2.0 %) 2.1 H Absolute Granulocytes (1.4 - 6.5 /CUMM) 4.1 Absolute Lymphocytes (1.2 - 3.4 /CUMM) 1.6 Absolute Monocytes (0.10 - 0.60 /CUMM) 0.6 Absolute Eosinophils (0.0 - 0.7 /CUMM) 0.3 Absolute Basophils (0.0 - 0.2 /CUMM) 0.1 PUBS MCHC (33.0 - 37.0 G/DL) 33.7 Last 24 Hours of Ryne Results: Blood cultures 2 July 17 negative OR culture July 18 labeled right heel bone negative, with gram stain revealing no white blood cells and no organisms Assessment/Plan Impression: Stable on Unasyn Day 4 of treatment for presumed osteomyelitis of the right heel , though his OR culture is negative. His pathology is pending but, even if if it reveals osteomyelitis, it would be difficult to commit him to a course of antibiotics without identifying a specific pathogen. He is scheduled for a return to the OR today for further debridement. Suggestion: 1. Follow-up bone biopsy 2. Await return to the OR later today for further debridement 3. Discontinue Unasyn and follow off antibiotics pending above
--- NOTE | 2017-07-22 14:03 | Operative Report ---
Operative/Inv Procedure Report Surgery Date: 07/22/17 Name of Procedure: Incision and drainage, right heel. Delayed primary closure, right heel with retention sutures. Pre-Operative Diagnosis: Acute on chronic osteomyelitis of the right calcaneus with associated remote pathological fracture. Post-Operative Diagnosis: Acute on chronic osteomyelitis of the right calcaneus with associated remote pathological fracture. Estimated Blood Loss: scant Surgeon/Investment Sales Assistant: DIANN Redmond DPM Anesthesia: local monitored anesthesi Monitors: 36 mL of the combination of 2% lidocaine plain and 0.5% bupivacaine plain drawn by the nursing staff IV Fluids: Per anesthesiology record Implants: None Urine Output: None Drains: None Specimens: 1 microbiology specimen, soft tissue specimen for culture and sensitivity, right foot Microbiology: 1 microbiology specimen, soft tissue specimen for culture and sensitivity, right foot Tourniquet: None Complications: None Condition: Stable Operative Indication: This is a 52-year-old male with a long-standing history of peripheral neuropathy from a combination of chronic alcoholism and subjectively reporting of 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 The patient had been previously examined and radiograph, and an exploratory incision and drainage was performed on July 18 by myself and Balaji Escalante DPM. A bone biopsy of the right calcaneus as well as microbiology specimens were taken during this procedure, and they have been reviewed by the infectious disease team. Indication for today's procedure is an additional debridement and washout , followed by gentle retention closure of the initial incision, and the patient will continue to be monitored for the remainder of the admission, should he require further washouts and/or removal of the sutures. Operative/Procedure Note Note: Upon prepping and draping the right foot in the usual sterile manner with Betadine, attention was directed to the posterior aspect of the right heel, where a 7 cm full-thickness incision was visualized. Apart from some miniscule patches of devitalized epidermis, the incision remained stable from its initial creation on July 18. Using a self-retaining retractor, gaines elevator, and a hemostat, the wound was explored for additional necrosis and collections, and none were found. Scant serous drainage was noted. There was no malodor. Upon inspection of the surrounding skin there remained significant edema, mild calor, and improved erythema compared to admission. The surgical wound was pulse lavaged with 3 L of a combination of normal saline and bacitracin solution. A single soft tissue specimen was removed from the wound and sent for culture and sensitivity at the request of the infectious disease team. Using 3-0 nylon, 4 horizontal mattress gentle retention sutures approximately 1.5 cm apart from one another replaced along the incision line and a hemostat was placed between them to ensure that there was adequate room for drainage while keeping the tissues generally reapproximated. The heel was then wrapped with a combination of Adaptic, sterile cast padding, sterile fluff gauze, sterile EBD pads, 4 inch Kerlix, and a single four-inch Ayan bandage. The patient was brought out of sedation and escorted to the postanesthesia care unit, in no apparent distress, vital signs stable, neurovascular status intact. Discharge Disposition: PACU Additional Comments: We will continue to monitor the patient on a daily basis after this procedure. Based on my clinical, radiographic, and intraoperative findings, I believe this to be an acute on chronic osteomyelitis of the right calcaneus that has had a course of at least several months if not years. I do not believe this to be Charcot neuroarthropathy at this time due to the clinical appearance of the heel and lack of articular involvement. I discussed this case with Tin Zelaya MD via cell phone earlier today, we agreed to take additional cultures despite the fact that it may not be a high-yield measure, we will follow the previous bone biopsies taken on July 18. I do not believe him to be a candidate for radical resection of bone in the heel, as it would be severely debilitating and I would not be optimistic about eradicating the infection this way. I have also reviewed the vascular surgery consultation, and agree that there is no need for intervention at this time. My recommendations for him that he receive 8 weeks of directed intravenous IV antibiotic therapy, and I would even consider empirical therapy if indeed these cultures are negative and the biopsy is positive. I am also recommending that he be placed in a short term rehabilitation facility to deal with his comorbid alcoholism in addition to optimizing delivery of his long-term IV antibiotic treatment. I do not consider him a good candidate to go home to be relied upon for visiting nurse visits and outpatient infusion appointments. CC: Garcia HEBERT,Tin Berrios
[2017-07-23 06:37] VITALS: BP 130/96
--- NOTE | 2017-07-23 07:15 | PN- Housestaff ---
See Addendum Subjective Follow-up For: Osteomyelitis Alcohol withdrawal I&D and debridement of right heel POD #5 Subjective: Patient is seen and examined at bedside, he continues to complain of pain in the right ankle /. He denies any nausea, vomiting, fever or chills. He went to the OR yesterday for wash out of his wound and repeated bone biopsy. Review of Systems Constitutional: Denies: no symptoms. Cardiovascular: Denies: no symptoms. Respiratory: Denies: no symptoms. Gastrointestinal: Denies: no symptoms. Genitourinary: Denies: no symptoms. Musculoskeletal: Reports: see HPI. Objective Last 24 Hrs of Vital Signs/I&O Vital Signs Date Time Temp Pulse Resp B/P B/P Pulse O2 O2 Flow FiO2 Mean Ox Delivery Rate 07/23 0916 51 130/96 07/23 0916 51 130/96 07/23 0637 97.9 51 20 130/96 96 Room Air 07/22 2146 98.7 73 18 140/70 95 Room Air 07/22 1600 97.7 60 12 130/80 07/22 1600 97.7 60 12 130/80 07/22 1445 97.6 54 14 132/82 97 Room Air 07/22 1200 97.8 70 14 140/86 Intake & Output 07/23 1600 07/23 0800 07/23 0000 Intake Total 240 240 Output Total Balance 240 240 Intake, Oral 240 240 Physical Exam General Appearance: Alert, Oriented X3, Cooperative, No Acute Distress HEENT: Atraumatic, PERRLA, EOMI, Mucous Membr. moist/pink Cardiovascular: Regular Rate, Normal S1, Normal S2, No Murmurs Lungs: Clear to Auscultation, Normal Air Movement Abdomen: Normal Bowel Sounds Neurological: Normal Speech Extremities: right foot wrapped in an MARIA A wrap Vascular: Normal Pulses Assessment/Plan Assessment: Patient is a 52-year-old gentleman with a PMH significant for peripheral neuropathy, alcoholic cirrhosis, nonsteroid and non-oxygen dependent COPD, lung nodule, left ear deafness and left eye blindness, Dos Santos's esophagus who presented to the ED complaining of right lower extremity infection. Patient presented to the ED 3 weeks ago for right lower extremity cellulitis and was discharged on amoxicillin, Bactrim, and Lasix which provided little relief. Osteomyelitis right foot s/p I &D and debridement POD #5: -Continue to watch off antibiotics as per ID recommendation pending bone biopsy results from 07/22/17 -Currently no growth from or cultures -We'll follow the podiatry and ID recommendations. 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 They recommended that patient doesn't need any urgent vascular surgery but in future if patient has nonhealing ulcer on needs below-knee amputations and they will consider. -We will follow the ID recommendations for long-term antibiotics. Alcohol dependence: Patient reportedly drinks 2 vodka drinks daily -CIWA protocol, maximum CIWA in the past 24 hours was0 -4 -Tapered Ativan to 1 mg every 8 hours by mouth -Supplementation with oral thiamine, folic acid, multivitamin History of iron deficiency: -Follow-up iron studies and replete as necessary DVT prophylaxis: -Subcutaneous heparin, Alps on left lower extremity CODE STATUS: Full code Problem List: 1. Osteomyelitis 2. Cellulitis Pain Ratin Pain Location: right foot Pain Goal: Pain 4 or less Pain Plan: per pathway Tomorrow's Labs & Rationales: cbc bep DVT/Prophylaxis: mechanical, pharmacological Consulting Request: Consulting Specialty: Podiatry
--- NOTE | 2017-07-23 09:27 | PN- Podiatry ---
Subjective Subjective: 52 y/o male seen and evaluated at bedside POD 5 I&D of the right heel, and is one day removed from a revisional washout with retention suture closure. The patient continues to report mild pain at the site, but is otherwise in no apparent distress. He was seen out of bed to chair and ambulating on the right heel AGAINST MEDICAL ADVICE. Review of Systems: A 14 point review of systems was performed, and was found to be negative apart from the patient's complaints described above in the history of present illness. Objective Vital Signs and I&Os Vital Signs Date Time Temp Pulse Resp B/P B/P Pulse O2 O2 Flow FiO2 Mean Ox Delivery Rate 07/23 0916 51 130/96 / 0916 51 130/96 07/23 0637 97.9 51 20 130/96 96 Room Air 07/22 2146 98.7 73 18 140/70 95 Room Air / 1600 97.7 60 12 130/80 / 1600 97.7 60 12 130/80 / 1445 97.6 54 14 132/82 97 Room Air / 1200 97.8 70 14 140/86 /02 1000 97.9 60 14 148/90 Intake & Output 07/23 1600 07/23 0800 07/23 0000 / 1600 07/22 0800 07/22 0000 Intake Total 240 581 946 4726 2250 Output Total Balance 240 277 989 5455 2250 Intake, IV 825 1200 1350 Intake, Oral 240 240 50 900 Patient 175 lb Weight Physical Exam: The patient has palpable dorsalis pedis and posterior tibial pulses bilaterally, and improved temperature gradient on the right lower extremity, normal temperature gradient on left lower extremity, capillary refill time is 3 seconds in all 10 toes. Patient has diminished proprioceptive and light touch sensation equal and bilateral in the forefoot and midfoot. The patient has a lack of hair growth on the toes in both feet. The dressing is clean dry and intact with some mild serous strikethrough that is likely secondary to his ambulating on it AGAINST MEDICAL ADVICE. There are claw toe contractures of the lesser digits bilaterally, more so on the right and left. Patient otherwise has 5 over 5 muscle power in all lower extremity compartments bilaterally. The patient was much more cooperative during physical examination today, and at 2 points elevated his operative leg on command. Current Medications: Current Medications Sig/Nate Start time Last Medication Dose Route Stop Time Status Admin Acetaminophen 1,000 MG Q6P PRN 07/18 1415 07/21 N/A 1 UNIT IV 0530 Amlodipine Besylate 5 MG DAILY 07/17 193 AC 07/23 PO 0916 Ampicillin Sodium/ 3,000 MG Q6 07/18 1800 DC 07/22 Sulbactam Sodium IV 0553 Sodium Chloride 100 ML Diphenhydramine HCl 25 MG AT BEDTIME PRN 07/17 2115 AC 07/19 PO 0058 Docusate Sodium 100 MG BID 07/18 1000 AC 07/23 PO 0916 Fentanyl Citrate 100 MCG .STK-MED ONE 07/22 1226 DC IM 07/22 1227 Folic Acid 1 MG DAILY 07/17 193 07/23 PO 0916 Heparin Sodium 5,000 UNIT Q8 07/21 1539 (Porcine) SC Hydromorphone HCl 2 MG .STK-MED ONE 07/22 1417 DC IM 07/22 1418 Hydromorphone HCl 2 MG .STK-MED ONE 07/22 1401 DC IM 07/22 1402 Hydromorphone HCl 2 MG .STK-MED ONE 07/22 1349 DC IM 07/22 1350 Lactated Ringer's 1,000 ML Q6H 07/20 1100 AC 07/23 IV 0248 Lisinopril 40 MG DAILY 07/21 1535 07/23 PO 0916 Lorazepam 1 MG Q8 07/22 1400 AC 07/23 PO 0602 Lorazepam 1 MG Q4 07/21 1400 MI 07/22 PO 0837 Lorazepam 0 Q1P PRN 07/18 2345 07/19 IV 1952 Meperidine HCl 50 MG .STK-MED ONE 07/22 1405 DC IM 07/22 1406 Meperidine HCl 50 MG .STK-MED ONE 07/22 1351 DC IM 07/22 1352 Midazolam HCl 2 MG .STK-MED ONE 07/22 1227 DC IM 07/22 1228 Omeprazole 20 MG DAILY 07/17 193 AC 07/23 PO 0916 Oxycodone HCl 20 MG Q6P PRN 07/17 1945 AC 07/23 PO 0916 Pregabalin 300 MG QAM 07/22 1000 AC 07/23 PO 0915 Pregabalin 150 MG QPM 07/17 2200 AC 07/22 PO 205 Thiamine HCl 100 MG DAILY 07/17 1936 AC 07/23 PO 0915 Results Last 48 Hours of Labs: Laboratory Tests 07/23 07/22 0815 0836 Chemistry Sodium Pending Potassium Pending Chloride Pending Carbon Dioxide Pending Anion Gap Pending BUN Pending Creatinine Pending BUN/Creatinine Ratio Pending Hematology CBC w Diff Pending NO MAN DIFF REQ WBC (4.8 - 10.8 /CUMM) Pending 6.8 RBC (4.70 - 6.10 /CUMM) Pending 3.47 L Hgb (14.0 - 18.0 G/DL) Pending 10.3 L Hct (42 - 52 %) Pending 30.5 L MCV (80.0 - 94.0 FL) Pending 87.9 MCH (27.0 - 31.0 PG) Pending 29.6 RDW (11.5 - 14.5 %) Pending 16.0 H Plt Count (130 - 400 /CUMM) Pending 569 H MPV (7.4 - 10.4 FL) Pending 8.2 Gran % (42.2 - 75.2 %) 61.2 Lymphocytes % (20.5 - 51.1 %) 23.8 Monocytes % (1.7 - 9.3 %) 9.1 Eosinophils % (0 - 5 %) 3.8 Basophils % (0.0 - 2.0 %) 2.1 H Absolute Granulocytes (1.4 - 6.5 /CUMM) 4.1 Absolute Lymphocytes (1.2 - 3.4 /CUMM) 1.6 Absolute Monocytes (0.10 - 0.60 /CUMM) 0.6 Absolute Eosinophils (0.0 - 0.7 /CUMM) 0.3 Absolute Basophils (0.0 - 0.2 /CUMM) 0.1 PUBS MCHC (33.0 - 37.0 G/DL) Pending 33.7 Assessment/Plan Assessment/Plan 52-year-old male with peripheral neuropathy secondary to a combination of chronic alcoholism and subjectively reported chemical exposure doing well status post incision and drainage of the right heel with bone biopsy of the calcaneus for the treatment of acute on chronic osteomyelitis. - Pt seen and evaluated - Surgical shoe ordered. PT eval ordered. Pt may PWB w/walker or crutches. I continue to have significant concerns with a home discharge, and due to the fact that he is very likely to need rehabilitation to recover from his alcoholism as well as long-term IV antibiotics to treat the calcaneal osteomyelitis, I'm recommending a short-term rehabilitation stay. - Vascular surgery consult is reviewed, and I agree that there is no need for intervention at this time - Infectious disease consultation reviewed. I also discussed the case with Tin Zelaya MD over the phone. We agreed to take a second tissue biopsy during the additional washout yesterday. We continue to await the final results of the bone biopsy from July 18. Due to the degree of clinical and radiographic evidence of osteomyelitis, I am not highly suspicious of alternative diagnoses at this time, and continue to recommend a long-term course of IV antibiotic therapy, even if it were to be empirical, pending the results of the biopsy. - I will continue to follow the patient on a daily basis until he is discharged, and I'm available by cell phone for further discussion at [phone] Problem List: 1. Osteomyelitis 2. Alcohol withdrawal 3. Cellulitis of right foot Core Measures Venous Thromboembolism VTE Risk Factors Age>40 No Mechanical VTE Prophylaxis d/t N/A MechProphylax Ordered No VTE Pharm Prophylaxis d/t NA PharmProphylax ordered
[2017-07-23 10:15] LABS: ABSOLUTE BASOPHIL COUNT 0.1 /CUMM (0.0-0.2); ABSOLUTE EOSINOPHIL COUNT 0.3 /CUMM (0.0-0.7); ABSOLUTE GRANULOCYTE CT 3.8 /CUMM (1.4-6.5); ABSOLUTE LYMPH COUNT 1.7 /CUMM (1.2-3.4); ABSOLUTE MONOCYTE COUNT 0.6 /CUMM (0.10-0.60); BASOPHIL % 1.9 % (0.0-2.0); GRANULOCYTE % 58.4 % (42.2-75.2); HEMATOCRIT 29.3 % (42-52); MEAN CORPUSCULAR HGB 29.3 PG (27.0-31.0); MEAN CORPUSCULAR HGB CONC 33.4 G/DL (33.0-37.0); MEAN CORPUSCULAR VOLUME 87.8 FL (80.0-94.0); RBC DISTRIBUTION WIDTH 16.2 % (11.5-14.5); RED BLOOD CELL CT 3.33 /CUMM (4.70-6.10); WHITE BLOOD CELL COUNT 6.6 /CUMM (4.8-10.8)
[2017-07-23 10:47] LABS: PLATELET COUNT 620 /CUMM (130-400)
[2017-07-23 14:13] VITALS: BP 142/80
--- NOTE | 2017-07-23 14:45 | Patient Discharge Instructions ---
Discharge Instructions General Discharge Information You were seen/treated for: Right heel wounds S/P I&D You had these procedures: Incision and drainage of right heel wound Special Instructions: 1-please follow-up with your PCP in 1 week of discharge 2-please follow-up with wound care NEXT WEEK 3-Please fllow up with your logistics associate in 1 week of discharge 4- please follow up with vascular surgery in 1 week of discharge. Diet Continue normal diet: Yes Activity Full Activity/No Limits: Yes Acute Coronary Syndrome Inclusion Criteria At DC or during hospital stay patient has or had the following: ACS DIAGNOSIS No Discharge Core Measures Meds if any: Prescribed or Continued at Discharge Meds if any: NOT Prescribed or Continued at Discharge Congestive Heart Failure Inclusion Criteria At DC or during hospital stay patient has or had the following: CHF DIAGNOSIS No Discharge Core Measures Meds if any: Prescribed or Continued at Discharge Meds if any: NOT Prescribed or Continued at Discharge Cerebrovascular accident Inclusion Criteria At DC or during hospital stay patient has or had the following: CVA/TIA Diagnosis No Discharge Core Measures Meds if any: Prescribed or Continued at Discharge Meds if any: NOT Prescribed or Continued at Discharge Venous thromboembolism Inclusion Criteria VTE Diagnosis No VTE Type NONE VTE Confirmed by (Test) NONE Discharge Core Measures - Per Current guidelines, there needs to be overlap - treatment for the first 5 days of Warfarin therapy. - If discharged on Warfarin prior to 5 days of - overlap therapy, the patient will need to be - assessed for post discharge needs including - *Post discharge parental anticoagulation - *Warfarin and/or parental anticoagulation education - *Follow up date to check INR post discharge At least 5 days overlap therapy as Inpatient No Meds if any: Prescribed or Continued at Discharge Note: Overlap Therapy is Warfarin and Anticoagulant Meds if any: NOT Prescribed or Continued at Discharge
--- NOTE | 2017-07-23 15:02 | PN- Infect Dx ---
Subjective Subjective: Afebrile. He notes some discomfort in the right heel. Objective Last 24 Hrs of Vital Signs/I&O Vital Signs Date Time Temp Pulse Resp B/P B/P Pulse O2 O2 Flow FiO2 Mean Ox Delivery Rate 07/23 1413 98.2 68 20 142/80 97 Room Air 07/23 0916 51 130/96 07/23 0916 51 130/96 07/23 0637 97.9 51 20 130/96 96 Room Air 07/22 2146 98.7 73 18 140/70 95 Room Air 07/22 1600 97.7 60 12 130/80 07/22 1600 97.7 60 12 130/80 Intake & Output 07/23 1600 07/23 0800 07/23 0000 Intake Total 680 240 240 Output Total Balance 680 240 240 Intake, IV 200 Intake, Oral 480 240 240 Number 0 Bowel Movements Physical Exam Other Physical Findings: He appears comfortable in no acute distress Extremities right heel dressing intact Results Last 24 Hours of Lab Results: Laboratory Tests 07/23 0715 Chemistry Sodium (137 - 145 mmol/L) 139 Potassium (3.5 - 5.1 mmol/L) 4.3 Chloride (98 - 107 mmol/L) 101 Carbon Dioxide (22 - 30 mmol/L) 29 Anion Gap (5 - 16) 9 BUN (9 - 20 mg/dL) 5 L Creatinine (0.7 - 1.2 mg/dL) 0.5 L Estimated GFR (>60 ml/min) > 60 BUN/Creatinine Ratio (7 - 25 %) 10.0 Hematology CBC w Diff NO MAN DIFF REQ WBC (4.8 - 10.8 /CUMM) 6.6 RBC (4.70 - 6.10 /CUMM) 3.33 L Hgb (14.0 - 18.0 G/DL) 9.8 L Hct (42 - 52 %) 29.3 L MCV (80.0 - 94.0 FL) 87.8 MCH (27.0 - 31.0 PG) 29.3 RDW (11.5 - 14.5 %) 16.2 H Plt Count (130 - 400 /CUMM) 620 H MPV (7.4 - 10.4 FL) 8.0 Gran % (42.2 - 75.2 %) 58.4 Lymphocytes % (20.5 - 51.1 %) 26.3 Monocytes % (1.7 - 9.3 %) 9.4 H Eosinophils % (0 - 5 %) 4.0 Basophils % (0.0 - 2.0 %) 1.9 Absolute Granulocytes (1.4 - 6.5 /CUMM) 3.8 Absolute Lymphocytes (1.2 - 3.4 /CUMM) 1.7 Absolute Monocytes (0.10 - 0.60 /CUMM) 0.6 Absolute Eosinophils (0.0 - 0.7 /CUMM) 0.3 Absolute Basophils (0.0 - 0.2 /CUMM) 0.1 PUBS MCHC (33.0 - 37.0 G/DL) 33.4 Bone biopsy July 18 pending Last 24 Hours of Ryne Results: OR culture July 22 labeled right heel negative Assessment/Plan Impression: Stable status post further debridement of the right heel yesterday for presumed osteomyelitis, though his initial OR culture was negative. He remains afebrile with a normal white blood cell count now off antibiotics. His recent OR culture is again negative, though this is of unclear significance as he was on antibiotics. His pathology is pending but, even if if it reveals osteomyelitis, I would not commit him to a course of antibiotics without identifying a specific pathogen. Suggestion: 1. Follow-up bone biopsy 2. Follow-up recent OR culture 3. Continue to follow off antibiotics pending above
[2017-07-23 18:00] VITALS: BP 142/80
[2017-07-23 20:00] VITALS: BP 140/78
[2017-07-23 22:00] VITALS: BP 122/60
[2017-07-23 22:53] VITALS: BP 122/60
[2017-07-24] VITALS (7 sets, daily range): BP systolic 110–142; BP diastolic 60–74
--- NOTE | 2017-07-24 07:28 | PN- Housestaff ---
Rebecca HEBERT,Angelica 07/24/17 0728: Subjective Follow-up For: Osteomyelitis Alcohol withdrawal I&D and debridement of right heel POD #6 Subjective: Patient is seen and examined at bedside, he continues to complain of pain in the right ankle 2. He denies any nausea, vomiting, fever or chills. Review of Systems Constitutional: Denies: no symptoms. Cardiovascular: Denies: no symptoms. Respiratory: Denies: no symptoms. Gastrointestinal: Denies: no symptoms. Genitourinary: Denies: no symptoms. Musculoskeletal: Reports: see HPI. Skin: Denies: no symptoms. Objective Last 24 Hrs of Vital Signs/I&O Vital Signs Date Time Temp Pulse Resp B/P B/P Pulse O2 O2 Flow FiO2 Mean Ox Delivery Rate 07/24 0630 98.4 76 20 142/74 95 Room Air 07/24 0600 98.4 76 20 142/74 07/24 0400 98.5 66 20 124/62 07/24 0200 98.5 74 20 122/60 07/24 0000 98.5 74 20 122/60 07/23 2253 98.5 74 20 122/60 95 Room Air 07/23 2200 98.5 74 20 122/60 07/23 2000 98.0 66 18 140/78 07/23 1800 98.2 68 20 142/80 07/23 1413 98.2 68 20 142/80 97 Room Air 07/23 0916 51 130/96 07/23 0916 51 130/96 Intake & Output 07/24 1600 07/24 0800 07/24 0000 Intake Total 200 400 Output Total Balance 200 400 Intake, Oral 200 400 Physical Exam General Appearance: Alert, Oriented X3, Cooperative, No Acute Distress HEENT: Atraumatic, PERRLA, EOMI, Mucous Membr. moist/pink Neck: Supple, No JVD Cardiovascular: Normal S1, Normal S2, No Murmurs Lungs: Clear to Auscultation, Normal Air Movement Abdomen: Normal Bowel Sounds, Soft, No Tenderness Neurological: Normal Speech Extremities: No Clubbing, No Cyanosis, No Edema Vascular: Normal Pulses Assessment/Plan Assessment: Patient is a 52-year-old gentleman with a PMH significant for peripheral neuropathy, alcoholic cirrhosis, nonsteroid and non-oxygen dependent COPD, lung nodule, left ear deafness and left eye blindness, Dos Santos's esophagus who presented to the ED complaining of right lower extremity infection. Patient presented to the ED 3 weeks ago for right lower extremity cellulitis and was di and azithromycin checking her allergic to erythromycin and told her to stay on erythromycin scharged on amoxicillin, Bactrim, and Lasix which provided little relief. Osteomyelitis right foot s/p I &D and debridement POD #5: - second bone biopsy: G positive cocci , pending identification and senstivity. - Discussed this with Dr Zelaya, He recommends to watch off antibiotics pending senstivity. - we'll hold off PICC line placement for now. -We'll follow the podiatry and ID recommendations. 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 They recommended that patient doesn't need any urgent vascular surgery but in future if patient has nonhealing ulcer on needs below-knee amputations and they will consider. Alcohol dependence: Patient reportedly drinks 2 vodka drinks daily -CIWA protocol -Tapered Ativan to 1 mg every 12 hours by mouth -Supplementation with oral thiamine, folic acid, multivitamin -Patient's CIWA score overnight ranged from 02 History of iron deficiency: -Follow-up iron studies and replete as necessary DVT prophylaxis: -Subcutaneous heparin, Alps on left lower extremity CODE STATUS: Full code Problem List: 1. Cellulitis Pain Ratin Pain Location: right foot Pain Goal: Pain 4 or less Pain Plan: per pathway Tomorrow's Labs & Rationales: n/a DVT/Prophylaxis: mechanical, pharmacological Consulting Request: Consulting Specialty: Podiatry Cory Apodaca MD 07/24/17 8789: Attending MD Review Statement Attending Statement Attending MD Statement: examined this patient, discuss w/resident/PA/THIOKOL OPERATOR, agreed w/resident/PA/THIOKOL OPERATOR, reviewed EMR data (avail), amended to note Attending Assessment/Plan: The patient was seen and discussed with house staff. Late in afternoon bone culture is now growing gram positive cocci (?staph, enterococcus). Await ID follow-up tomorrow, however pending the bacteria growing will probably need course of IV Abx/PICC. Will re-address issue of home care vs. STR with case management. Ativan taper continues. Will discuss with patient's tomorrow.
--- NOTE | 2017-07-24 08:34 | Discharge Summary ---
Hospital Course Course Consulting Request: Consulting Specialty: Podiatry Allergies: Coded Allergies: NO KNOWN ALLERGIES (04/20/14) Discharge Instructions General Discharge Information Code Status: Full Code Medications at Discharge Discharge Medications: Continue taking these medications: Quinapril HCl (Accupril) 40 MG TABLET 1 Tablet ORAL DAILY Comments: NOT GIVEN IN HOSPITAL Folic Acid (Folic Acid) 1 MG TABLET 1 Tablet ORAL DAILY Comments: Last Taken: 03/14/17 Time: 9:00 AM Oxycodone HCl (Oxycodone HCl) 20 MG TABLET 1 Tablet ORAL 4 TIMES A DAY Comments: Last Taken: 03/14/17 Time: 9:00 AM Methylcellulose (Fiber Laxative) (Unknown Strength) TABLET 2 Tablet ORAL DAILY Comments: NOT GIVEN IN HOSPITAL Thiamine HCl (B-1) 100 MG TABLET 1 Tablet ORAL DAILY Comments: Last Taken: 03/14/17 Time: 9:00 AM Cholecalciferol (Vitamin D3) (Vitamin D) 2,000 UNIT CAPSULE 1 Capsule ORAL DAILY Comments: NOT GIVEN IN HOSPITAL Calcium Carb/Mag Ox/Zinc Sulf (Indevge-Ngkrtwcou-Xhvx Tablet) 334 MG-134 MG-5 MG TABLET 1 Tablet ORAL DAILY Comments: NOT GIVNE IN HOSPITAL Omeprazole (Omeprazole) 20 MG CAPSULE.DR 1 Capsule ORAL DAILY Qty = 90 Comments: Last Taken: 03/14/17 Time: 6:30 AM Pregabalin (Lyrica) 150 MG CAPSULE 2 Capsule ORAL Every Morning Qty = 270 Comments: Last Taken: 03/14/17 Time: 9:00 AM Fluticasone/Vilanterol (Breo Ellipta 100-25 Mcg INH) 100 MCG-25 MCG/DOSE BLST.W.DEV 1 Puff Inhale through mouth DAILY NEEDED Comments: NOT GIVEN IN HOSPITAL Pregabalin (Lyrica) 150 MG CAPSULE 1 Tablet ORAL Every night Amlodipine Besylate (Amlodipine Besylate) 5 MG TABLET 1 Tablet ORAL DAILY Qty = 90
[2017-07-24 09:18] LABS: ABSOLUTE BASOPHIL COUNT 0.1 /CUMM (0.0-0.2); ABSOLUTE EOSINOPHIL COUNT 0.2 /CUMM (0.0-0.7); ABSOLUTE GRANULOCYTE CT 4.6 /CUMM (1.4-6.5); ABSOLUTE LYMPH COUNT 2.2 /CUMM (1.2-3.4); ABSOLUTE MONOCYTE COUNT 0.6 /CUMM (0.10-0.60); BASOPHIL % 1.7 % (0.0-2.0); EOSINOPHIL % 2.7 % (0-5); GRANULOCYTE % 59.7 % (42.2-75.2); MEAN CORPUSCULAR HGB 29.3 PG (27.0-31.0); MEAN CORPUSCULAR HGB CONC 33.1 G/DL (33.0-37.0); MEAN CORPUSCULAR VOLUME 88.7 FL (80.0-94.0); MEAN PLATELET VOLUME 8.3 FL (7.4-10.4); RBC DISTRIBUTION WIDTH 16.2 % (11.5-14.5); RED BLOOD CELL CT 3.72 /CUMM (4.70-6.10); WHITE BLOOD CELL COUNT 7.7 /CUMM (4.8-10.8)
[2017-07-24 10:21] LABS: PLATELET COUNT 811 /CUMM (130-400)
[2017-07-25 06:29] VITALS: BP 122/60
--- NOTE | 2017-07-25 08:23 | PN- Housestaff ---
Rebecca HEBERT,Angelica 07/25/17 0823: Subjective Follow-up For: Osteomyelitis Alcohol withdrawal I&D and debridement of right heel POD #6 Subjective: Patient is seen and examined at bedside, he continues to complain of pain in the right ankle 02/27. He denies any nausea, vomiting, fever or chills. Review of Systems Constitutional: Denies: no symptoms. Cardiovascular: Denies: no symptoms. Respiratory: Denies: no symptoms. Gastrointestinal: Denies: no symptoms. Genitourinary: Denies: no symptoms. Musculoskeletal: Reports: see HPI. Objective Last 24 Hrs of Vital Signs/I&O Vital Signs Date Time Temp Pulse Resp B/P B/P Pulse O2 O2 Flow FiO2 Mean Ox Delivery Rate 07/25 0629 98.5 55 20 122/60 94 Room Air 07/24 2203 98.8 67 20 130/70 96 Room Air 07/24 1539 98.4 57 20 110/60 96 Intake & Output 07/25 1600 07/25 0800 07/25 0000 Intake Total 200 Output Total Balance 200 Intake, Oral 200 Physical Exam General Appearance: Alert, Oriented X3, Cooperative, No Acute Distress HEENT: Atraumatic, PERRLA, EOMI, Mucous Membr. moist/pink Neck: Supple, No JVD Cardiovascular: Normal S1, Normal S2, No Murmurs Lungs: Clear to Auscultation, Normal Air Movement Abdomen: Normal Bowel Sounds, Soft, No Tenderness Neurological: Normal Speech Extremities: No Clubbing, No Cyanosis, No Edema, RIGHT FOOT WRAPPED IN MARIA A WRAP Vascular: Normal Pulses Assessment/Plan Assessment: Patient is a 52-year-old gentleman with a PMH significant for peripheral neuropathy, alcoholic cirrhosis, nonsteroid and non-oxygen dependent COPD, lung nodule, left ear deafness and left eye blindness, Dos Santos's esophagus who presented to the ED complaining of right lower extremity infection. Patient presented to the ED 3 weeks ago for right lower extremity cellulitis and was di and azithromycin checking her allergic to erythromycin and told her to stay on erythromycin scharged on amoxicillin, Bactrim, and Lasix which provided little relief. Osteomyelitis right foot s/p I &D and debridement POD #6: - second bone biopsy from 07/22 grow: coag negative Staph - Discussed this with Dr Zelaya, He recommends to watch off antibiotics pending senstivity. - we'll hold off PICC line placement for now. - Continue dry gauze dressing, pt will not need a visiting nurse for wound care managment - will need to follow up with wound care on weekly basis, as per Business Intelligence Analyst recommendation -We'll follow the podiatry and ID recommendations. 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 They recommended that patient doesn't need any urgent vascular surgery but in future if patient has nonhealing ulcer on needs below-knee amputations and they will consider. Alcohol dependence: Patient reportedly drinks 2 vodka drinks daily -CIWA protocol -Tapered Ativan to 1 mg every 12 hours by mouth -Supplementation with oral thiamine, folic acid, multivitamin -Patient's CIWA score overnight ranged from 02 History of iron deficiency: -Follow-up iron studies and replete as necessary DVT prophylaxis: -Subcutaneous heparin, Alps on left lower extremity CODE STATUS: Full code Problem List: 1. Osteomyelitis 2. Cellulitis Pain Ratin Pain Location: RIGHT ANKLE Pain Goal: Pain 4 or less Pain Plan: PER PATHWAY Tomorrow's Labs & Rationales: CBC BEP DVT/Prophylaxis: pharmacological Consulting Request: Consulting Specialty: Podiatry Miguel Perez MD 07/25/17 1314: Attending MD Review Statement Attending Statement Attending MD Statement: examined this patient, discuss w/resident/PA/CASTING AND PASTING SUPERVISOR, agreed w/resident/PA/CASTING AND PASTING SUPERVISOR, reviewed EMR data (avail) Attending Assessment/Plan: 52M PMH cirrhosis, alcohol dependence, hypertension, peripheral neuropathy, non- oxygen dependent COPD, history of lung cancer admitted with right heel cellulitis with presumed osteomyelitis seen on x-ray, with bone biopsy and debridement on 07/18, with cultures negative thus far, repeat bone biopsy 07/22 with cultures growing coagulase negative Staph. Reports mild heel pain, afebrile, otherwise well. Labs unremarkable. 1. Right heel cellulitis 2. Peripheral neuropathy Plan - Continue on general medicine - Monitor off antibiotics - Follow ID, vascular, podiatry recommendations - Continue home medications - DVT PPx
--- NOTE | 2017-07-25 09:33 | PN- Podiatry ---
Subjective Subjective: 52 y/o male seen and evaluated at bedside POD 7 I&D of the right heel, and is 3 days removed from a revisional washout with retention suture closure. The patient continues to report mild pain at the site, but is otherwise in no apparent distress. Review of Systems: A 14 point review of systems was performed, and was found to be negative apart from the patient's complaints described above in the history of present illness. Review of Systems Constitutional: Denies: no symptoms. EENTM: Denies: no symptoms. Cardiovascular: Denies: no symptoms. Respiratory: Denies: no symptoms. Gastrointestinal: Denies: no symptoms. Genitourinary: Denies: no symptoms. Musculoskeletal: Denies: no symptoms. Skin: Denies: see HPI. Neurological/Psychological: Denies: no symptoms. Hematologic/Endocrine: Denies: no symptoms. Immunologic/Allergic: Denies: no symptoms. All Other Systems: Reviewed and Negative Objective Vital Signs and I&Os Vital Signs Date Time Temp Pulse Resp B/P B/P Pulse O2 O2 Flow FiO2 Mean Ox Delivery Rate 07/25 628 98.5 55 20 122/60 94 Room Air 07/24 2203 98.8 67 20 130/70 96 Room Air 07/24 1539 98.4 57 20 110/60 96 Intake & Output 07/25 1600 07/25 0000 07/24 1600 07/24 0000 Intake Total 200 900 200 400 Output Total Balance 200 900 200 400 Intake, Oral 200 900 200 400 The patient has palpable dorsalis pedis and posterior tibial pulses bilaterally, and improved temperature gradient on the right lower extremity, normal temperature gradient on left lower extremity, capillary refill time is 3 seconds in all 10 toes. Patient has diminished proprioceptive and light touch sensation equal and bilateral in the forefoot and midfoot. The patient has a lack of hair growth on the toes in both feet. There are claw toe contractures of the lesser digits bilaterally, more so on the right and left. Patient otherwise has 5 over 5 muscle power in all lower extremity compartments bilaterally. The patient was much more cooperative during physical examination today, and at 2 points elevated his operative leg on command. The surgical incision is clean dry and intact, without drainage, and the erythema is almost completely resolved. There is some mild residual calor. There is some residual nonpitting edema around the heel, but no new ecchymosis or new deformities. Assessment/Plan Assessment/Plan 52-year-old male with peripheral neuropathy secondary to a combination of chronic alcoholism and subjectively reported chemical exposure doing well status post incision and drainage of the right heel with bone biopsy of the calcaneus for the treatment of acute on chronic osteomyelitis. The patient was seen and evaluated at bedside. A dry sterile dressing was placed on surgical wound. This may remain on until the day of his discharge, when I will change it. He will not require visiting nurse services at home for the purposes of wound care, and should follow-up as an outpatient in the wound care center on a weekly basis upon discharge. The pathology and new cultures were reviewed as well. Given the new findings of a positive bone biopsy from the first procedure and a positive culture with sensitivities pending from the second procedure, my recommendation is 6 weeks of directed IV therapy, and I will follow up the infectious disease recommendations. I've also discussed with the patient and the primary team the possibility of short-term rehabilitation versus discharge home, they both told me that the patient has refused transfer to her short-term rehabilitation facility, which would address his chronic alcoholism as well as optimize the delivery of his long-term IV therapy. I am also recommending a physical therapy evaluation for the purposes of gait training. He is to be partial weightbearing with the assistance of a walker or crutches on the operative side, and has no restrictions on the contralateral side. I will follow up on this patient over the weekend, and I am available for further discussion via cell phone at [phone]. Core Measures Venous Thromboembolism VTE Risk Factors Age>40 No Mechanical VTE Prophylaxis d/t N/A MechProphylax Ordered No VTE Pharm Prophylaxis d/t NA PharmProphylax ordered
--- NOTE | 2017-07-25 13:02 | PN- Infect Dx ---
Subjective Subjective: Afebrile. He still complains of pain in the right heel. Objective Last 24 Hrs of Vital Signs/I&O Vital Signs Date Time Temp Pulse Resp B/P B/P Pulse O2 O2 Flow FiO2 Mean Ox Delivery Rate 07/25 934 71 116/54 07/25 0834 71 116/54 07/25 06 98.5 55 20 122/60 94 Room Air 07/24 2203 98.8 67 20 130/70 96 Room Air 07/24 1539 98.4 57 20 110/60 96 Intake & Output 07/25 1600 07/25 0800 07/25 0000 Intake Total 500 200 Output Total Balance 500 200 Intake, Oral 500 200 Physical Exam Other Physical Findings: He appears comfortable in no acute distress Extremities right heel dressing intact Results Last 24 Hours of Lab Results: Laboratory Tests 07/24 07 Chemistry Sodium (137 - 145 mmol/L) 141 Potassium (3.5 - 5.1 mmol/L) 4.6 Chloride (98 - 107 mmol/L) 101 Carbon Dioxide (22 - 30 mmol/L) 27 Anion Gap (5 - 16) 13 BUN (9 - 20 mg/dL) 8 L Creatinine (0.7 - 1.2 mg/dL) 0.6 L Estimated GFR (>60 ml/min) > 60 BUN/Creatinine Ratio (7 - 25 %) 13.3 Hematology CBC w Diff NO MAN DIFF REQ WBC (4.8 - 10.8 /CUMM) 7.7 RBC (4.70 - 6.10 /CUMM) 3.72 L Hgb (14.0 - 18.0 G/DL) 10.9 L Hct (42 - 52 %) 33.0 L MCV (80.0 - 94.0 FL) 88.7 MCH (27.0 - 31.0 PG) 29.3 RDW (11.5 - 14.5 %) 16.2 H Plt Count (130 - 400 /CUMM) 811 H MPV (7.4 - 10.4 FL) 8.3 Gran % (42.2 - 75.2 %) 59.7 Lymphocytes % (20.5 - 51.1 %) 28.3 Monocytes % (1.7 - 9.3 %) 7.6 Eosinophils % (0 - 5 %) 2.7 Basophils % (0.0 - 2.0 %) 1.7 Absolute Granulocytes (1.4 - 6.5 /CUMM) 4.6 Absolute Lymphocytes (1.2 - 3.4 /CUMM) 2.2 Absolute Monocytes (0.10 - 0.60 /CUMM) 0.6 Absolute Eosinophils (0.0 - 0.7 /CUMM) 0.2 Absolute Basophils (0.0 - 0.2 /CUMM) 0.1 PUBS MCHC (33.0 - 37.0 G/DL) 33.1 Bone biopsy July 18 of the right heel reveals "necrotic bone with features suspicious for osteomyelitis" Last 24 Hours of Ryne Results: OR culture labeled right heel July 22 positive for coag-negative Staph Assessment/Plan Impression: Stable, with temperatures and white blood cell count remaining normal off antibiotics, status post further debridement of the right heel 3 days ago for presumed osteomyelitis, though his initial OR culture was negative and the repeat culture is only growing coag-negative Staph, which presumably represents a contaminant. The bone biopsy report is vague and, therefore, its significance is unclear. At this time I would not commit him to course of antibiotics. He will need close follow-up as an outpatient and, if osteomyelitis remains a concern, a repeat biopsy will likely need to be done. Suggestion: 1. Continue to follow off antibiotics
[2017-07-25] MEDS ORDERED: FERROUS SULFAT325 M2 PO (13:45)
[2017-07-25 15:09] VITALS: BP 120/60
== END 2017-07-25 15:30 | DRG 478 ==
LOC: ERH 12:29 → 2NA 18:59 → ERHI 18:59 → ENRESERV 19:16 → ENTRNSPT 20:42 → ERHI 20:45 → EDTRNSPTSTS 20:53 → EDTRNSPT 20:53 → CMPTRNSPT 21:10 → 2NA 21:12 → ENTRNSPT 07-18 14:24 → EDTRNSPT 07-18 14:38 → EDTRNSPTSTS 07-18 14:38 → CMPTRNSPT 07-18 14:54 → 2NA 07-22 09:41 → ENTRNSPT 07-22 14:15 → EDTRNSPTSTS 07-22 14:26 → EDTRNSPT 07-22 14:26 → CMPTRNSPT 07-22 14:39 → ENPENDDIS 07-25 14:08 → DELTRNSPT 07-25 15:17 → 2NA 07-25 15:30
PROVIDERS: Dermatology; Physician Assistant Medical; Student in an Organized Health Care Education/Training Program
PROC: 0QBM0ZX Excision of Left Tarsal, Open Approach, Diagnostic (ICD-10-PCS; principal; 2017-07-18)
PROC: 0JBQ0ZX Excision of Right Foot Subcutaneous Tissue and Fascia, Open Approach, Diagnostic (ICD-10-PCS; 2017-07-22)
PROC: 0J9Q0ZZ Drainage of Right Foot Subcutaneous Tissue and Fascia, Open Approach (ICD-10-PCS; 2017-07-22)
DX: M86.171 Other acute osteomyelitis, right ankle and foot (principal); M84.474A Pathological fracture, right foot, initial encounter for fracture; K70.30 Alcoholic cirrhosis of liver without ascites; G62.1 Alcoholic polyneuropathy; F10.239 Alcohol dependence with withdrawal, unspecified; J44.9 Chronic obstructive pulmonary disease, unspecified; M86.671 Other chronic osteomyelitis, right ankle and foot; R91.1 Solitary pulmonary nodule; K22.70 Barrett's esophagus without dysplasia; G89.29 Other chronic pain; E04.1 Nontoxic single thyroid nodule; I10 Essential (primary) hypertension; H54.62 Unqualified visual loss, left eye, normal vision right eye; H91.8X2 Other specified hearing loss, left ear; Z85.118 Personal history of other malignant neoplasm of bronchus and lung; Z87.891 Personal history of nicotine dependence
CPT/HCPCS: 2NASP; 87070; 87075; 87184; 36415; 73650-RT; 81001; 82436; 87040; 87147; 93005; 93010; 96374; 96375; 97116-GO; 97161-GP; 97164-GP; 97530-GO; G0480; J0131; J0690; J1644; J2001; J2405; J3490; J7040; J7042; J7120

== ENCOUNTER 2017-07-29 11:47 | Inpatient (IN) | payer OTHER ==
[~2017-07-29] VITALS: Ht 177.8 cm; Wt 78.9 kg
[~2017-07-29 11:47] MED LIST changes: +AMLODIPINE BESYL5 M1 PO; +FERROUS SULFAT325 M2 PO
--- NOTE | 2017-07-29 13:17 | ED UPPER/LOWER EXTREMITY COMPL ---
History of Present Illness General Chief Complaint: Laceration Procedure Stated Complaint: RIGHT FOOT STICHES OPENED UP, SWELLING Source: patient Exam Limitations: no limitations Vital Signs & Intake/Output Vital Signs & Intake/Output Vital Signs Date Time Temp Pulse Resp B/P B/P Pulse O2 O2 Flow FiO2 Mean Ox Delivery Rate 08/01 1353 98.2 62 20 120/64 94 08/01 1042 74 120/70 08/01 1041 74 120/70 08/01 0646 98.0 78 20 132/76 94 Room Air 08/01 0600 97.6 71 20 140/80 08/01 0400 97.6 71 20 140/80 08/01 0400 97.6 71 20 140/80 94 Room Air 08/01 0200 98.2 84 20 120/72 08/01 0000 98.2 84 20 120/72 07/31 2344 98.2 84 20 120/72 96 Room Air 07/31 2220 98.5 84 20 120/70 96 07/31 2200 98.7 90 20 122/76 07/31 2000 98.7 98 20 122/76 07/31 1901 98.7 90 20 122/76 97 07/31 1800 98.7 90 20 122/76 ED Intake and Output 08/01 0000 07/31 1200 Intake Total 1200 480 Output Total Balance 1200 480 Intake, Oral 1200 480 Allergies Coded Allergies: NO KNOWN ALLERGIES (04/20/14) Reconcile Medications Amlodipine Besylate 5 MG TABLET 1 TAB PO DAILY HIGH BLOOD PRESSURE (Reported) Calcium Carb/Mag Ox/Zinc Sulf (Jbkfsjn-Apqqmoblq-Bsbz Tablet) 334 MG-134 MG-5 MG TABLET 1 TAB PO DAILY SUPPLEMENT (Reported) Cholecalciferol (Vitamin D3) (Vitamin D) 2,000 UNIT CAPSULE 1 CAP PO DAILY SUPPLEMENT (Reported) Ferrous Sulfate 325 MG (65 MG IRON) TABLET. 325 MG PO DAILY anemia Fluticasone/Vilanterol (Breo Ellipta 100-25 Mcg INH) 100 MCG-25 MCG/DOSE BLST.W.DEV 1 PUF INH DAILY NEEDED lungs (Reported) Folic Acid 1 MG TABLET 1 TAB PO DAILY SUPPLEMENT (Reported) Methylcellulose (Fiber Laxative) (Unknown Strength) TABLET 2 TAB PO DAILY SUPPLEMENT (Reported) Omeprazole 20 MG CAPSULE.DR 1 CAP PO DAILY GERD (Reported) Oxycodone HCl 20 MG TABLET 1 TAB PO 4 TIMES/DAY PAIN (Reported) Pregabalin (Lyrica) 150 MG CAPSULE 2 CAP PO QAM NERVE PAIN (Reported) Pregabalin (Lyrica) 150 MG CAPSULE 1 TAB PO QPM nerve pain (Reported) Quinapril HCl (Accupril) 40 MG TABLET 1 TAB PO DAILY BP (Reported) Thiamine HCl (B-1) 100 MG TABLET 1 TAB PO DAILY SUPPLEMENT (Reported) Triage Note: PT TO ER C/C OPEN SURGICAL SUTURES TO RIGHT FOOT. WAS ADMITTED TO HOSPITAL FOR ?OSTEO. PT HAS F/U FRIDAY Triage Nurses Notes Reviewed? yes HPI: 52 yo M PMH HTN, EtOH abuse/dependence, peripheral neuropathy presenting with right foot swelling, drainage, and pain. Recent admission from 07/17-07/25 for similar Sx, I&D with bone Bx preformed by milling machine set up operator (Dr. Nettles), Bx indeterminate for osteo, D/Darshan in stable condition, no abx for ?osteo in conjunction with ID. Since discharge patient has had progressive swelling of right heel, pallor, worsening drainage (using wifes menstrual pads on wound to absorb pus), worsening smell of wound, increased pain. Edema of heel much worse in the last 24 hrs, resultant partial dehiscence of sutures at heel I&D site prompting presentation to the ED. Denies fevers, chills, chest pain, SOB, palpitations, abdominal Sx, urinary Sx, headache, neck pain or focal neurologic Sx. (Kelly HEBERT,Tony) Past History Travel History Traveled to [place] past 21 day No Medical History Any Pertinent Medical History? none Neurological: NEUROPATHY EENT: NONE Cardiovascular: hypertension, PERIPHERAL NEUROPATHY Respiratory: COPD Gastrointestinal: BARRETTS ESOPHAGUS Hepatic: cirrhosis (etoh-induced) Renal: NONE Musculoskeletal: CHRINIC PAIN Psychiatric: alcohol dependence Endocrine: NONE Blood Disorders: NONE Cancer(s): LUNG nodule THROAT NODULES History of MRSA: No History of VRE: No History of CDIFF: No Tetanus Vaccine: 04/20/14 Surgical History Surgical History: right heel debridement Psychosocial History Who do you live with Spouse What is your primary language [place]er Tobacco Use: Quit >30 days ago Family History Family History, If Any: FATHER *No pertinent family history Relation not specified for: FH: breast cancer Hx Contributory? No (Kelly HEBERT,Tony) Review of Systems Review of Systems Constitutional: Reports: no symptoms. EENTM: Reports: no symptoms. Respiratory: Reports: no symptoms. Cardiovascular: Reports: peripheral edema. Gastrointestinal/Abdominal: Reports: no symptoms. Genitourinary: Reports: no symptoms. Musculoskeletal: Reports: no symptoms. Skin: Reports: change in skin color. Neurological/Psychological: Reports: no symptoms. Hematologic/Endocrine: Reports: no symptoms. Immunological: Reports: no symptoms. All Other Systems: Reviewed and Negative (Kelly HEBERT,Tony) Physical Exam Physical Exam General Appearance: well developed/nourished, no apparent distress, alert, awake Head: atraumatic, normal appearance Ears, Nose, Throat: normal pharynx, normal ENT inspection Neck: normal inspection, full range of motion Cardiovascular/Respiratory: normal breath sounds, regular rate/rhythm Back: normal inspection, normal range of motion Foot Right: swelling Comments: Right Lower Extremity: Pitting edema of right foot up to xavier Right Foot: Edema of foot, pallor of heel with TTP and granulation tissue, I&D incision site in heel with intact sutures x 3, mild dehiscence of wound 2/2 edema, mild purulent drainage (Kelly HEBERT,Tony) Progress Differential Diagnosis: arterial insufficiency, cellulitis, CHF, compartment syndrome, contusion, dislocation, DVT, fracture, gout, septic arthritis, sprain, tendon injury Plan of Care: Orders Procedure Date/time Status CBC WITHOUT DIFFERENTIAL 08/02 0600 Active BASIC ELECTROLYTES PLUS BUN&CR 08/02 0600 Active CBC WITHOUT DIFFERENTIAL 08/01 0714 Complete BASIC ELECTROLYTES PLUS BUN&CR 08/01 0714 Complete Therapeutic Activities 08/01 UNK Complete Neuromuscular Re-ed 08/01 UNK Complete Wound Care/Dressing 07/31 2007 Active Current Medications Sig/Nate Start time Last Medication Dose Stop Time Status Admin Fluticasone 2 PUF BID 07/31 2200 AC Propionate (Flovent) Heparin Sodium 5,000 UNIT Q8 07/31 1400 AC 08/01 (Porcine) 0556 Diphenhydramine HCl 25 MG Q6P PRN 07/31 1000 AC 08/01 (Benadryl) 1046 Polyethylene Glycol 17 GM DAILY PRN 07/31 0945 AC 07/31 (Miralax) 1008 Senna/Docusate Sodium 2 TAB DAILY PRN 07/31 0945 AC (Senokot S) Oxycodone HCl 20 MG Q4P PRN 07/31 0915 AC 08/01 (Roxicodone) 1430 Amlodipine Besylate 5 MG DAILY 07/30 1000 AC 08/01 (Norvasc) 1041 Folic Acid 1 MG DAILY 07/30 1000 AC 08/01 (Folic Acid) 1040 Lisinopril 20 MG DAILY 07/30 1000 AC 08/01 (Prinivil) 1042 Omeprazole 20 MG DAILY 07/30 1000 AC 08/01 (Prilosec) 1042 Pregabalin 150 MG QAM 07/30 1000 AC 08/01 (Lyrica) 1041 Thiamine HCl 100 MG DAILY 07/30 1000 AC 08/01 (Vitamin B1) 1043 Budesonide/ 2 PUF BID 07/29 2200 AC 07/30 Formoterol Fumarate 0947 (SYMBICORT) Pregabalin 150 MG QPM 07/29 2200 AC 07/31 (Lyrica) 2151 Acetaminophen 500 MG Q6P PRN 07/29 1830 AC (Tylenol) Ibuprofen 600 MG Q6P PRN 07/29 1830 AC (Motrin) Laboratory Tests 08/01/17 0935: Anion Gap 13, Estimated GFR > 60, BUN/Creatinine Ratio 15.0, CBC w Diff MAN DIFF ORDERED, RBC 3.29 L, MCV 88.0, MCH 29.5, RDW 16.3 H, MPV 8.6, Gran % 67.9, Lymphocytes % 20.6, Monocytes % 7.4, Eosinophils % 1.3, Basophils % 2.8 H, Absolute Granulocytes 6.2, Absolute Lymphocytes 1.9, Absolute Monocytes 0.7 H, Absolute Eosinophils 0.1, Absolute Basophils 0.3, Platelet Estimate INCREASED, Hypochromic-Microcytic 2+, Anisocytosis 1+, PUBS MCHC 33.5 Physician MDM: 52 yo M PMH HTN, EtOH abuse/dependence, peripheral neuropathy presenting with right foot swelling, drainage, and pain. VSS, RLE exam as above. DDx: Wound infection, osteomyelitis, low concenr for necrotiizing fascitis. CBC with leukocytosis of 11 (6 on discharge), progressive thrombocytosis. BMP unremarkable. ESR, CRP elevated. RLE DVT U/S without clot. R foot XR with pathalogic frature, gas and ongoing concern for osteomyelitis. Vancomycin, ceftaz given, home dose oxycodone for pain. Discussed with Dr. Nettles ( Podiatry), will evalute for possible surgical management and source control. Admit to hospitalist for podiatry consult, ID consult, IV abx, monitoring and further management. The plan of care was discussed with the patient who expressed agreement and understanding. (Kelly HEBERT,Tony) Departure Departure Disposition: STILL A PATIENT Condition: Stable Clinical Impression Primary Impression: Foot ulcer Referrals: Jad HEBERT,Eric Rincon (PCP/Family) Departure Forms: Customer Survey General Discharge Information Admission Note Spoke With: Miguel Perez MD Documentation of Exam: Documentation of any treatments & extenuating circumstances including Concerns Regarding Discharge (functional status, medication knowledge or non-compliance, living conditions, etc.) that warrant an admission rather than observation: [ Patient presents with increased pain, swelling, drainage at prior right heel incision and drainage site, lab for markers indicate increased infection with elevated white blood cell count, platelets, ESR, CRP, patient has been managing his wound at home with decline in appearance and symptoms, patient requires admission for infectious disease consult, podiatry consult, IV antibiotics, wound care and possible debridement, if discharged patient is a high likelihood of aggressive infection with sepsis physiology and possibly cardiovascular collapse, with significant associated morbidity and possibly ] (Kelly HEBERT,Tony) Resident Co-Sign Statement Statement: ED Attending supervision documentation- [] I saw and evaluated the patient. I have also reviewed all the pertinent lab results and diagnostic results. I agree with the findings and the plan of care as documented in the Resident's documentation. [X] I have reviewed the ED Record and agree with the Resident's documentation. [] Additions or exceptions (if any) to the Resident's note and plan are summarized below: [] (Kortney HEBERT,Maggi)
[2017-07-29 13:57] LABS: ABSOLUTE BASOPHIL COUNT 0.2 /CUMM (0.0-0.2); ABSOLUTE GRANULOCYTE CT 7.5 /CUMM (1.4-6.5); ABSOLUTE MONOCYTE COUNT 0.7 /CUMM (0.10-0.60)
[2017-07-29 14:00] LABS: ABSOLUTE EOSINOPHIL COUNT 0.2 /CUMM (0.0-0.7); BASOPHIL % 1.6 % (0.0-2.0); EOSINOPHIL % 1.3 % (0-5); GRANULOCYTE % 64.7 % (42.2-75.2); HEMATOCRIT 31.6 % (42-52); MEAN CORPUSCULAR HGB 28.9 PG (27.0-31.0); MEAN CORPUSCULAR HGB CONC 32.7 G/DL (33.0-37.0); MEAN CORPUSCULAR VOLUME 88.3 FL (80.0-94.0); MEAN PLATELET VOLUME 8.4 FL (7.4-10.4); PLATELET COUNT 910 /CUMM (130-400); RBC DISTRIBUTION WIDTH 16.9 % (11.5-14.5); RED BLOOD CELL CT 3.58 /CUMM (4.70-6.10)
--- NOTE | 2017-07-29 14:00 | RADIOLOGY REPORT ---
EXAMINATION: XR FOOT, RIGHT CLINICAL INFORMATION: Right foot pain, swelling and drainage. Evaluate for osteomyelitis. COMPARISON: Radiographs of the right heel from 07/17/2017. Radiographs of the foot from 06/24/2017. TECHNIQUE: Right foot, 3 views FINDINGS: The lateral view shows persistent subcortical osteopenia and osteolysis of the fractured, fragmented posterior calcaneus. There is soft tissue swelling and apparent focus of soft tissue gas posterior to the calcaneus. The plantar surface of the posterior calcaneal process appears more flattened than observed on 07/17/2017. The ankle and subtalar joint spaces are maintained. Bones have normal alignment at the Chopart and Lisfranc joints. Old, healed fracture of the proximal phalanx of the great toe. Chronic mild degenerative arthropathy of multiple interphalangeal joints and chronic varus deformity of the second toe. Soft tissues are swollen throughout the foot. IMPRESSION: Again noted is pathologic fracture and osteolysis of the posterior calcaneus with overlying soft tissue swelling and focus of soft tissue gas. 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
[2017-07-29 14:01] LABS: WHITE BLOOD CELL COUNT 11.6 /CUMM (4.8-10.8)
--- NOTE | 2017-07-29 14:39 | ULTRASOUND REPORT ---
EXAMINATION: US TRIPLEX LOWER EXTREMITY, RIGHT CLINICAL INFORMATION: Right lower extremity edema. COMPARISON: Venous ultrasound dated 06/24/2017. TECHNIQUE: Color-flow triplex imaging with spectral analysis and compression Doppler were performed on the lower extremity. FINDINGS: Respiratory variation, normal compression and augmented flow are noted throughout the lower extremity. The visualized common femoral vein, proximal greater saphenous vein, femoral vein, profunda femoral vein, popliteal vein and midcalf peroneal and posterior tibial venous segments show no evidence of deep venous thrombosis. There is no Nieto's cyst. IMPRESSION: Normal triplex scan without evidence of deep venous thrombosis involving the right lower extremity.
--- NOTE | 2017-07-29 18:26 | History & Physical ---
Rebecca HEBERT,Angelica 07/29/17 1826: General Information and HPI MD Statement: I have seen and personally examined OMER CARL and documented this H&P. The patient is a 52 year old M who presented with a patient stated chief complaint of []. Source of Information: patient Exam Limitations: no limitations History of Present Illness: 52-year-old male with past medical history of peripheral neuropathy, alcoholic cirrhosis, COPD (not oxygen dependent, not on steroid), lung nodule, left ear deafness and left eye blindness, Dos Santos's esophagus who presented to the ED complaining of right lower extremity increased swelling and discharge. The patient was recently discharged from [facility] 3 days ago . During his first admission he was taken for incision and drainage procedure was multiple cultures was negativ except for coag negative staph. patient was discharged home off antibiotics and was advised to follow up with wound care center every week however the patient noticed increasing swelling and discharge from his right foot. This morning he noticed that the sutures in his right had dehesence, when he came to the ED, Denies fever, chills, nausea, vomiting, diarrhea. Patient admits to drinking2 Vodka since the day of discharge, his last drink was yesterday Allergies/Medications Allergies: Coded Allergies: NO KNOWN ALLERGIES (04/20/14) Home Med list Amlodipine Besylate 5 MG TABLET 1 TAB PO DAILY HIGH BLOOD PRESSURE (Reported) Calcium Carb/Mag Ox/Zinc Sulf (Rrwudix-Otlysnryd-Qbhp Tablet) 334 MG-134 MG-5 MG TABLET 1 TAB PO DAILY SUPPLEMENT (Reported) Cholecalciferol (Vitamin D3) (Vitamin D) 2,000 UNIT CAPSULE 1 CAP PO DAILY SUPPLEMENT (Reported) Ferrous Sulfate 325 MG (65 MG IRON) TABLET.DR 325 MG PO DAILY anemia Fluticasone/Vilanterol (Breo Ellipta 100-25 Mcg INH) 100 MCG-25 MCG/DOSE BLST.W.DEV 1 PUF INH DAILY NEEDED lungs (Reported) Folic Acid 1 MG TABLET 1 TAB PO DAILY SUPPLEMENT (Reported) Methylcellulose (Fiber Laxative) (Unknown Strength) TABLET 2 TAB PO DAILY SUPPLEMENT (Reported) Omeprazole 20 MG CAPSULE.DR 1 CAP PO DAILY GERD (Reported) Oxycodone HCl 20 MG TABLET 1 TAB PO 4 TIMES/DAY PAIN (Reported) Pregabalin (Lyrica) 150 MG CAPSULE 2 CAP PO QAM NERVE PAIN (Reported) Pregabalin (Lyrica) 150 MG CAPSULE 1 TAB PO QPM nerve pain (Reported) Quinapril HCl (Accupril) 40 MG TABLET 1 TAB PO DAILY BP (Reported) Thiamine HCl (B-1) 100 MG TABLET 1 TAB PO DAILY SUPPLEMENT (Reported) Past History Travel History Traveled to [place] past 21 day No Medical History Neurological: NEUROPATHY EENT: NONE Cardiovascular: hypertension, PERIPHERAL NEUROPATHY Respiratory: COPD Gastrointestinal: BARRETTS ESOPHAGUS Hepatic: cirrhosis (etoh-induced) Renal: NONE Musculoskeletal: CHRINIC PAIN Psychiatric: alcohol dependence Endocrine: NONE Blood Disorders: NONE Cancer(s): LUNG nodule THROAT NODULES History of MRSA: No History of VRE: No History of CDIFF: No Tetanus Vaccine: 04/20/14 Surgical History Surgical History: right heel debridement Past Family/Social History Family History Relations & Conditions if any FATHER *No pertinent family history Relation not specified for: FH: breast cancer Psychosocial History Who Do You Live With? spouse Primary Language: Dutch Functional Ability Ambulation: walker Review of Systems Review of Systems Constitutional: Denies: no symptoms, chills, diaphoresis, fever. Cardiovascular: Denies: no symptoms. Respiratory: Denies: no symptoms. GI: Denies: no symptoms. Skin: Reports: lesions. Denies: no symptoms. Exam & Diagnostic Data Last 24 Hrs of Vital Signs/I&O Vital Signs Date Time Temp Pulse Resp B/P B/P Pulse O2 O2 Flow FiO2 Mean Ox Delivery Rate 07/29 1900 98.2 76 20 138/70 94 Room Air 07/29 1834 98.0 86 16 126/71 98 Room Air 07/29 1553 98.4 83 16 115/64 95 Room Air 07/29 1316 Room Air 07/29 1153 96.5 93 18 131/77 96 Room Air Intake & Output 07/29 1600 07/29 0800 07/29 0000 Intake Total Output Total Balance Patient 175 lb Weight Weight Reported by Patient Measurement Method Physical Exam General Appearance Alert, Oriented X3, Cooperative, No Acute Distress Skin No Rashes, No Breakdown, No Significant Lesion HEENT Atraumatic, PERRLA, EOMI, Mucous Membr. moist/pink Neck Supple, No JVD Cardiovascular Regular Rate, Normal S1, Normal S2, No Murmurs Lungs Clear to Auscultation Abdomen Normal Bowel Sounds, Soft, No Tenderness Neurological Normal Speech Extremities right foot wrapped in MARIA A WRAP Vascular Normal Pulses Assessment/Plan Assessment: 52-year-old male with past medical history of peripheral neuropathy, alcoholic cirrhosis, COPD (not oxygen dependent, not on steroid), lung nodule, left ear deafness and left eye blindness, Dos Santos's esophagus who presented to the ED complaining of right lower extremity increased swelling and discharge. Was recently discharged from [facility] after having I&D and bone biopsy which showed coag-negative staph, the patient was discharged off antibiotics to follow -up as outpatient with a plant security guard for wound care, patient reported having increased swelling, pain, discharge of his right foot. On the day of admission the patient noticed that the sutures in his foot has dehisced, Vital signs on admission: Blood pressure 1:30/70, pulse 76, temperature 98.2 Labs on admission: WBC 11.6, hemoglobin 10.4, sodium 144, potassium 3.9, creatinine 0.6, glucose 105, 0.6 .right foot x-ray: Again noted is pathologic fracture and osteolysis of the posterior calcaneus with overlying soft tissue swelling and focus of soft tissue gas. 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 RIGHT FOOT DOPPLER:Normal triplex scan without evidence of deep venous thrombosis involving the right lower extremity. #RIGHT FOOT WOUND AND CELLULITIS ? OM Admit to the general medicine floor Patient will be going to incision and drainage tomorrow Gentle IV hydration Nothing by mouth at midnight We'll follow up in the OR cultures Patient received 1 dose of ceftaz, Vanco in the ED If the patient spikes fever will start him on empiric antibiotics paIn control #Alcohol dependence CIWA Hold off Ativan for now Folic acid, vitamin B12, thiamine #Chronic medical conditions Continue home meds Full code Nothing by mouth at midnight DVT prophylaxis with a continuous heparin As Ranked By This Provider Problem List: 1. Foot ulcer 2. Cellulitis 3. Alcohol withdrawal Core Measures/Misc (04/06) Acute Coronary Syndrome ACS Diagnosis: No Congestive Heart Failure Congestive Heart Failure Diagnosis No Cerebrovascular Accident CVA/TIA Diagnosis: No VTE (View Protocol) VTE Risk Factors Age>40 No Mechanical VTE Prophylaxis d/t N/A MechProphylax Ordered No VTE Pharm Prophylaxis d/t NA PharmProphylax ordered Sepsis (View protocol) Sepsis Present: No Mihir Cabrera 07/29/172131: Resident Review Statement Resident Statement: examined this patient, discussed with international marketing specialist, agreed with international marketing specialist, discussed with family, reviewed EMR data (avail), discussed with nursing , discussed with case mgmt, reviewed images, amended to note Other Findings: This is 52-year-old male with medical history of peripheral neuropathy, alcoholic cirrhosis, COPD (not oxygen dependent, not on steroid), lung nodule, left ear deafness and left eye blindness, Dos Santos's esophagus who presented to the ED complaining of right lower extremity increased swelling and discharge. The patient was recently discharged from [facility] 3 days. Patient stated that this morning he noticed that the sutures in his right had dehesence and continuous discharge from the wound side being noticed cause of that he came for further evaluation in the emergency department.also he admits to drink 2 Vodka since the day of discharge 3 days ago, his last drink was yesterday. Podiatry evaluate the patient in the ED and dressing applied, he stated he will take the patient tomorrow morning for further evaluation In OR. Physical examination, Lab and imaging as above. She received 1 dose of IV vancomycin and ceftazidime in ER. Problem list: -Right foot ulcer s/p debridement last week. -Alcohol dependence Plan: -Admit patient to general medicine floor -The patient nothing by mouth midnight for or -Gentle IV fluid hydration at midnight. -CIWA monitoring we'll hold off on Ativan for now -Hold off on antibiotic for now -Urine Tox. -Continue home medication -Pain pathway -DVT prophylaxis -Full code Ana HEBERT,Miguel 07/30/17 1057: Attending MD Review Statement Attending Statement Attending MD Statement: examined this patient, discuss w/resident/PA/BLAST FURNACE HELPER, agreed w/resident/PA/BLAST FURNACE HELPER, reviewed EMR data (avail) Attending Assessment/Plan: 52M PMH cirrhosis, alcohol dependence, hypertension, peripheral neuropathy, non- oxygen dependent COPD, history of lung cancer recently admitted with right heel cellulitis with presumed osteomyelitis seen on x-ray, with bone biopsy and debridement on 07/18, with cultures negative thus far, repeat bone biopsy 07/22 with cultures growing coagulase negative Staph, now returns with worsening discomfort, drainage, and erythema of the foot. 1. Right heel cellulitis 2. Peripheral neuropathy Plan - Continue on general medicine - Monitor off antibiotics - To OR today for bone biopsy and washout - Follow ID and podiatry recommendations - Continue home medications - DVT PPx
--- NOTE | 2017-07-29 18:42 | Cons- Podiatry ---
General Information and HPI Consulting Request Date of Consult: 07/29/17 Requested By: Miguel Perez MD Reason for Consult: Acute osteomyelitis, right calcaneus Source of Information: patient, family Exam Limitations: no limitations History of Present Illness: This is a 52-year-old male with multiple medical problems and peripheral neuropathy secondary to a combination of chronic alcoholism and subjectively reported exposure to pain chemicals who presents to the ED 3 days after being discharged from this hospital for increased pain and swelling and redness of the right heel. Patient was previously admitted for acute alcohol intoxication and for a workup of an infection in the right calcaneus, and was taken for 2 incision and drainage procedures with multiple cultures and a bone biopsy. While the bone biopsy was positive, several soft tissue and bone cultures came back negative for pathogens, and the patient was discharged from observation and further treatment in the wound care center. The patient reported incremental increases in swelling, redness, proximally radiating pain in the right lower extremity, clear drainage, but denied fever, chills, nausea, vomiting, diaphoresis, , shortness of breath, and chest pain during that time and at the time of my examination. Allergies/Medications Allergies: Coded Allergies: NO KNOWN ALLERGIES (04/20/14) Home Med List: Amlodipine Besylate 5 MG TABLET 1 TAB PO DAILY HIGH BLOOD PRESSURE (Reported) Calcium Carb/Mag Ox/Zinc Sulf (Emzcstz-Zzkanvpjw-Egfw Tablet) 334 MG-134 MG-5 MG TABLET 1 TAB PO DAILY SUPPLEMENT (Reported) Cholecalciferol (Vitamin D3) (Vitamin D) 2,000 UNIT CAPSULE 1 CAP PO DAILY SUPPLEMENT (Reported) Ferrous Sulfate 325 MG (65 MG IRON) TABLET.DR 325 MG PO DAILY anemia Fluticasone/Vilanterol (Breo Ellipta 100-25 Mcg INH) 100 MCG-25 MCG/DOSE BLST.W.DEV 1 PUF INH DAILY NEEDED lungs (Reported) Folic Acid 1 MG TABLET 1 TAB PO DAILY SUPPLEMENT (Reported) Methylcellulose (Fiber Laxative) (Unknown Strength) TABLET 2 TAB PO DAILY SUPPLEMENT (Reported) Omeprazole 20 MG CAPSULE.DR 1 CAP PO DAILY GERD (Reported) Oxycodone HCl 20 MG TABLET 1 TAB PO 4 TIMES/DAY PAIN (Reported) Pregabalin (Lyrica) 150 MG CAPSULE 2 CAP PO QAM NERVE PAIN (Reported) Pregabalin (Lyrica) 150 MG CAPSULE 1 TAB PO QPM nerve pain (Reported) Quinapril HCl (Accupril) 40 MG TABLET 1 TAB PO DAILY BP (Reported) Thiamine HCl (B-1) 100 MG TABLET 1 TAB PO DAILY SUPPLEMENT (Reported) Current Medications: Current Medications Sig/Nate Start time Last Medication Dose Route Stop Time Status Admin Ceftazidime 1,000 MG ONCE ONE 07/29 1530 DC IV 07/29 1531 Ceftriaxone Sodium 0 .STK-MED ONE 07/29 1452 CAN .ROUTE Oxycodone HCl 0 .STK-MED ONE 07/29 1506 DC PO Oxycodone HCl 20 MG ONCE ONE 07/29 1500 DC 07/29 PO 07/29 1501 1504 Vancomycin HCl 1,000 MG ONCE ONE 07/29 1530 DC Sodium Chloride 250 ML IV 07/29 1629 Past History Medical History Neurological: NEUROPATHY EENT: NONE Cardiovascular: hypertension, PERIPHERAL NEUROPATHY Respiratory: COPD Gastrointestinal: BARRETTS ESOPHAGUS Hepatic: cirrhosis (etoh-induced) Renal: NONE Musculoskeletal: CHRINIC PAIN Psychiatric: alcohol dependence Endocrine: NONE Blood Disorders: NONE Cancer(s): LUNG nodule THROAT NODULES Surgical History Pertinent Surgical History: right heel debridement Family History Relations & Conditions If Any: FATHER *No pertinent family history Relation not specified for: FH: breast cancer Psychosocial History Who Do You Live With? spouse Primary Language: Chilean Functional Ability Ambulation: walker Employment History Retired? unknown Review of Systems Review of Systems: A 14 point review of systems was performed, and was found to be negative apart from the patient's complaints described above in the history of present illness. Exam & Diagnostic Data Vital Signs and I&O Vital Signs Date Time Temp Pulse Resp B/P B/P Pulse O2 O2 Flow FiO2 Mean Ox Delivery Rate 07/29 1553 98.4 83 16 115/64 95 Room Air 07/29 1316 Room Air 07/29 1153 96.5 93 18 131/77 96 Room Air Intake & Output 07/29 1600 07/29 0807/29 0000 07/28 1600 07/28 0000 Intake Total Output Total Balance Patient 175 lb Weight Weight Reported by Patient Measurement Method Physical Exam: The patient has palpable dorsalis and posterior tibial pulses bilaterally 2 out of 4. Patient has a normal temperature gradient on the left lower extremity, and a decreased temperature gradient in the right lower extremity with significant calor in and around the heel. Patient has normal capillary refill time is 3 seconds in all 10 toes. Patient has diminished sensation in the forefoot and midfoot, but reports significant tenderness to palpation around the incision line at the posterior right heel. There is some scant serous drainage from the incision line and approximately 1 mm of superficial dehiscence, but no joaquín purulence, no malodor, no necrosis of skin or soft tissue, no crepitus. Patient has forefoot valgus bilaterally and cavus foot type. The patient has some increased edema and erythema around the incision site and significant calor globally of the tuber of the right heel, but this does not extend proximally into the leg, and there is no tenderness to palpation apart from the incision site. There is no calf tenderness. Last 24 Hours of Labs: Laboratory Tests 07/29 1315 Chemistry Sodium (137 - 145 mmol/L) 144 Potassium (3.5 - 5.1 mmol/L) 4.9 Chloride (98 - 107 mmol/L) 102 Carbon Dioxide (22 - 30 mmol/L) 24 Anion Gap (5 - 16) 18 H BUN (9 - 20 mg/dL) 10 Creatinine (0.7 - 1.2 mg/dL) 0.6 L Estimated GFR (>60 ml/min) > 60 BUN/Creatinine Ratio (7 - 25 %) 16.7 Glucose (65 - 99 mg/dL) 105 H Lactic Acid (0.7 - 2.1 mmol/L) 1.6 Calcium (8.4 - 10.2 mg/dL) 9.5 C-Reactive Prot, Quant (<1.0 mg/dL) 2.4 H C-React Prot High Sens (1.0 - 3.0 mg/L) > 15.0 H Hematology CBC w Diff NO MAN DIFF REQ WBC (4.8 - 10.8 /CUMM) 11.6 H RBC (4.70 - 6.10 /CUMM) 3.58 L Hgb (14.0 - 18.0 G/DL) 10.4 L Hct (42 - 52 %) 31.6 L MCV (80.0 - 94.0 FL) 88.3 MCH (27.0 - 31.0 PG) 28.9 RDW (11.5 - 14.5 %) 16.9 H Plt Count (130 - 400 /CUMM) 910 H MPV (7.4 - 10.4 FL) 8.4 Gran % (42.2 - 75.2 %) 64.7 Lymphocytes % (20.5 - 51.1 %) 26.2 Monocytes % (1.7 - 9.3 %) 6.2 Eosinophils % (0 - 5 %) 1.3 Basophils % (0.0 - 2.0 %) 1.6 Absolute Granulocytes (1.4 - 6.5 /CUMM) 7.5 H Absolute Lymphocytes (1.2 - 3.4 /CUMM) 3.0 Absolute Monocytes (0.10 - 0.60 /CUMM) 0.7 H Absolute Eosinophils (0.0 - 0.7 /CUMM) 0.2 Absolute Basophils (0.0 - 0.2 /CUMM) 0.2 PUBS MCHC (33.0 - 37.0 G/DL) 32.7 L ESR Westergren (0 - 10 MM) 40 H Imaging Results: EXAMINATION: XR FOOT, RIGHT CLINICAL INFORMATION: Right foot pain, swelling and drainage. Evaluate for osteomyelitis. COMPARISON: Radiographs of the right heel from 07/17/2017. Radiographs of the foot from 06/24/2017. TECHNIQUE: Right foot, 3 views FINDINGS: The lateral view shows persistent subcortical osteopenia and osteolysis of the fractured, fragmented posterior calcaneus. There is soft tissue swelling and apparent focus of soft tissue gas posterior to the calcaneus. The plantar surface of the posterior calcaneal process appears more flattened than observed on 07/17/2017. The ankle and subtalar joint spaces are maintained. Bones have normal alignment at the Chopart and Lisfranc joints. Old, healed fracture of the proximal phalanx of the great toe. Chronic mild degenerative arthropathy of multiple interphalangeal joints and chronic varus deformity of the second toe. Soft tissues are swollen throughout the foot. IMPRESSION: Again noted is pathologic fracture and osteolysis of the posterior calcaneus with overlying soft tissue swelling and focus of soft tissue gas. 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 EXAMINATION: US TRIPLEX LOWER EXTREMITY, RIGHT CLINICAL INFORMATION: Right lower extremity edema. COMPARISON: Venous ultrasound dated 06/24/2017. TECHNIQUE: Color-flow triplex imaging with spectral analysis and compression Doppler were performed on the lower extremity. FINDINGS: Respiratory variation, normal compression and augmented flow are noted throughout the lower extremity. The visualized common femoral vein, proximal greater saphenous vein, femoral vein, profunda femoral vein, popliteal vein and midcalf peroneal and posterior tibial venous segments show no evidence of deep venous thrombosis. There is no Nieto's cyst. IMPRESSION: Normal triplex scan without evidence of deep venous thrombosis involving the right lower extremity. Assessment/Plan Assessment/Plan 52-year-old male with peripheral neuropathy secondary to a combination of chronic alcoholism and subjectively reported exposure to pain chemicals with clinical and radiographic evidence of a worsening acute on chronic osteomyelitis of the right calcaneus. The patient was seen and evaluated in [facility] emergency room at [facility]. The most recent imaging during this visit was reviewed. There appears to be interval changes on the inferior aspect of the calcaneus which are minor compared to his previous ones on July 17, but are significantly changed from those on June 24 prior to that. Patient may require immobilization in addition to treatment of the infection, and this will be determined after return the patient to the operating room for an additional incision and drainage, washout, and new biopsies and culture specimens. I had an extensive discussion with the patient and his regarding the limited surgical options for infections in the calcaneus, as they are not candidates for reconstructive surgery to restore anatomical alignment nor is radical surgical resection conducive to eradication of the infection. The patient wishes to avoid a below-knee amputation at this time as an alternative, and we will instead repeat bone biopsies and cultures with an additional washout in hopes of determining a pathogen for directed long-term therapy. I'm available for further discussion on this consultation at [phone] Problem List: 1. Cellulitis of right foot Copies To: Garcia HEBERT,Tin Berrios Consult Acknowledgment - Thank you for your consult request.
[2017-07-29 19:00] VITALS: BP 138/70
[2017-07-29 22:02] VITALS: BP 142/70
[2017-07-30] VITALS: BP 142/70
[2017-07-30 06:30] VITALS: BP 120/70
--- NOTE | 2017-07-30 07:42 | PN- Housestaff ---
See Addendum Subjective Follow-up For: 1. Foot ulcer 2. Cellulitis 3. Alcohol withdrawal 4. ?oM Subjective: Patient is a seen and examined at bedside, afebrile, he continues to complain of pain in the right heel 11/27 , he denies fever, chills, nausea, vomiting, diarrhea or constipation. He was kept nothing by mouth starting midnight for I and D today Review of Systems Constitutional: Denies: no symptoms. Cardiovascular: Denies: no symptoms. Respiratory: Denies: no symptoms. Gastrointestinal: Denies: no symptoms. Genitourinary: Denies: no symptoms. Musculoskeletal: Reports: joint pain, joint swelling. Skin: Reports: lesions. Neurological/Psychological: Denies: no symptoms. Objective Last 24 Hrs of Vital Signs/I&O Vital Signs Date Time Temp Pulse Resp B/P B/P Pulse O2 O2 Flow FiO2 Mean Ox Delivery Rate 07/30 1050 Room Air Room Air 07/30 0947 69 120/70 07/30 0946 69 120/70 07/30 0630 98.2 69 20 120/70 96 Room Air 07/30 0000 98.8 84 18 142/70 07/29 2202 98.8 84 18 142/70 93 Room Air 07/29 1900 98.2 76 20 138/70 94 Room Air 07/29 1834 98.0 86 16 126/71 98 Room Air 07/29 1553 98.4 83 16 115/64 95 Room Air 07/29 1316 Room Air 07/29 1153 96.5 93 18 131/77 96 Room Air Intake & Output 07/30 1600 07/30 0800 07/30 0000 Intake Total 450 240 Output Total Balance 450 240 Intake, IV 450 Intake, Oral 240 Number 0 Bowel Movements Patient 175 lb Weight Weight Bed scale Measurement Method Physical Exam General Appearance: Alert, Oriented X3, Cooperative, No Acute Distress Skin: the right foot wound and drainage, wrapped in an Ayan wrap HEENT: Atraumatic, PERRLA, EOMI, Mucous Membr. moist/pink Neck: Supple, No JVD Cardiovascular: Normal S1, Normal S2, No Murmurs Lungs: Clear to Auscultation, Normal Air Movement Abdomen: Normal Bowel Sounds, Soft, No Tenderness Neurological: Normal Speech, Strength at 5/5 X4 Ext, Normal Tone Extremities: No Clubbing, No Cyanosis, right foot wrapped in Ayan wrap Current Medications: Current Medications Sig/Nate Start time Last Medication Dose Route Stop Time Status Admin Acetaminophen 500 MG Q6P PRN 07/29 183 AC PO Amlodipine Besylate 5 MG DAILY 07/30 1000 AC 07/30 PO 0946 Budesonide/ 2 PUF BID 07/290 AC 07/30 Formoterol Fumarate INH 0947 Ceftazidime 0 .STK-MED ONE 07/29 184 DC .ROUTE Ceftazidime 1,000 MG ONCE ONE 07/29 1530 DC 07/29 IV 07/29 1531 1842 Ceftriaxone Sodium 0 .STK-MED ONE 07/29 1452 CAN .ROUTE Folic Acid 1 MG DAILY 07/30 1000 AC 07/30 PO 0947 Heparin Sodium 5,000 UNIT ONCE ONE 07/29 183 DC (Porcine) SC 07/29 1831 Ibuprofen 600 MG Q6P PRN 07/29 1830 AC PO Lisinopril 20 MG DAILY 07/30 1000 AC 07/30 PO 0947 Omeprazole 20 MG DAILY 07/30 1000 AC 07/30 PO 0946 Oxycodone HCl 20 MG Q6P PRN 07/29 2045 AC 07/30 PO 0951 Oxycodone HCl 10 MG Q6P PRN 07/29 1830 DC PO Oxycodone HCl 0 .STK-MED ONE 07/29 1506 DC PO Oxycodone HCl 20 MG ONCE ONE 07/29 1500 DC 07/29 PO 07/29 1501 1504 Pregabalin 150 MG QAM 07/30 1000 AC 07/30 PO 0951 Pregabalin 150 MG QPM 07/29 2200 AC 07/29 PO 2036 Sodium Chloride 1,000 ML Q13H 07/30 0000 AC 07/30 IV 0022 Thiamine HCl 100 MG DAILY 07/30 1000 AC 07/30 PO 0946 Vancomycin HCl 1,000 MG ONCE ONE 07/29 1530 DC 07/29 Sodium Chloride 250 ML IV 07/29 1629 1842 Last 24 Hrs of Lab/Ryne Results Last 24 Hrs of Labs/Mics: Laboratory Tests 07/30/17 0755: Anion Gap 10, Estimated GFR > 60, BUN/Creatinine Ratio 16.0, PT 12.4, INR 1.18 H, APTT 34, CBC w Diff NO MAN DIFF REQ, RBC 3.33 L, MCV 88.0, MCH 29.0, RDW 16.3 H, MPV 8.6, Gran % 72.4, Lymphocytes % 16.9 L, Monocytes % 8.1, Eosinophils % 1.1, Basophils % 1.5, Absolute Granulocytes 7.2 H, Absolute Lymphocytes 1.7, Absolute Monocytes 0.8 H, Absolute Eosinophils 0.1, Absolute Basophils 0.1, PUBS MCHC 33.0 07/29/17 1315: Anion Gap 18 H, Estimated GFR > 60, BUN/Creatinine Ratio 16.7, Glucose 105 H, Lactic Acid 1.6, Calcium 9.5, C-Reactive Prot, Quant 2.4 H, C-React Prot High Sens > 15.0 H, CBC w Diff NO MAN DIFF REQ, RBC 3.58 L, MCV 88.3, MCH 28.9, RDW 16.9 H, MPV 8.4, Gran % 64.7, Lymphocytes % 26.2, Monocytes % 6.2, Eosinophils % 1.3, Basophils % 1.6, Absolute Granulocytes 7.5 H, Absolute Lymphocytes 3.0, Absolute Monocytes 0.7 H, Absolute Eosinophils 0.2, Absolute Basophils 0.2, PUBS MCHC 32.7 L, ESR Westergren 40 H Microbiology 07/29 183 BLOOD: Blood Culture - RECD 07/29 1814 BLOOD: Blood Culture - RECD Orders CIWA Score (last 24 hrs): 0-1 Assessment/Plan Assessment: 52-year-old male with past medical history of peripheral neuropathy, alcoholic cirrhosis, COPD (not oxygen dependent, not on steroid), lung nodule, left ear deafness and left eye blindness, Dos Santos's esophagus who presented to the ED complaining of right lower extremity increased swelling and discharge. Was recently discharged from [facility] after having I&D and bone biopsy which showed coag-negative staph, the patient was discharged off antibiotics to follow -up as outpatient with a windows phone developer for wound care, patient reported having increased swelling, pain, discharge of his right foot. On the day of admission the patient noticed that the sutures in his foot has dehisced, #RIGHT FOOT CALCANEUS OSTEOMYELITIS, CELLULITIS, OPEN WOUND This morning the patient was afebrile, his white cell count was normal Due to monitor on general medicine floor Patient will be going to incision and drainage today Gentle IV hydration We'll follow up in the OR cultures If the patient spikes fever will start him on empiric antibiotics ID consult appreciated Continue to follow up on pediatric recommendation paIn control #Alcohol dependence Overnight the patient had several score ranging from 0-1 CIWA Hold off Ativan for now PO Folic acid, vitamin B12, thiamine #Chronic medical conditions Continue home meds Full code Nothing by mouth at midnight DVT prophylaxis with a continuous heparin Problem List: 1. Osteomyelitis 2. Foot ulcer 3. Cellulitis of right foot Pain Ratin Pain Location: Right foot Pain Goal: Pain 4 or less Pain Plan: Pain pathway Tomorrow's Labs & Rationales: CBC, BEP DVT/Prophylaxis: mechanical, pharmacological
[2017-07-30 09:39] LABS: ABSOLUTE BASOPHIL COUNT 0.1 /CUMM (0.0-0.2); ABSOLUTE EOSINOPHIL COUNT 0.1 /CUMM (0.0-0.7); ABSOLUTE GRANULOCYTE CT 7.2 /CUMM (1.4-6.5); ABSOLUTE LYMPH COUNT 1.7 /CUMM (1.2-3.4); ABSOLUTE MONOCYTE COUNT 0.8 /CUMM (0.10-0.60); BASOPHIL % 1.5 % (0.0-2.0); EOSINOPHIL % 1.1 % (0-5); GRANULOCYTE % 72.4 % (42.2-75.2); HEMATOCRIT 29.3 % (42-52); MEAN PLATELET VOLUME 8.6 FL (7.4-10.4); PLATELET COUNT 710 /CUMM (130-400); RBC DISTRIBUTION WIDTH 16.3 % (11.5-14.5); RED BLOOD CELL CT 3.33 /CUMM (4.70-6.10); WHITE BLOOD CELL COUNT 9.9 /CUMM (4.8-10.8)
[2017-07-30 09:44] LABS: PT 12.4 SEC (9.4-12.5); PTT 34 SEC (25-37)
--- NOTE | 2017-07-30 11:53 | Cons- Infect Disease ---
General Information and HPI Consulting Request Date of Consult: 07/30/17 Requested By: Miguel Perez MD Reason for Consult: Rule out right heel osteomyelitis Source of Information: patient, old records History of Present Illness: This is a 52-year-old man with a history of COPD, hypertension, Dos Santos's esophagus, alcohol-induced cirrhosis, peripheral neuropathy, with chronic pain, status post previous injuries to the right heel over the past several years resulting in chronic swelling and neuropathic pain, hospitalized 12 days prior to admission with a necrotic wound on his right heel, with his x-ray suspicious for osteomyelitis, taken to the OR for debridement, with a pathologic fracture of the right calcaneus noted, with the culture negative but with the biopsy revealing features "suspicious for osteomyelitis", treated empirically with Unasyn, which was discontinued after the culture was negative, taken back to the OR 4 days later for further debridement, with that OR culture positive for coag- negative Staph, felt to represent a contaminant, readmitted on July 29, just 4 days after discharge, with dehiscence of his wound, with clear drainage, increased right heel pain and swelling and sweats. On admission he was afebrile. Laboratory data revealed a white blood cell count of 12,000, BUN/ creatinine 10 and 0.6. X-ray of the right foot revealed a pathologic fracture and osteolysis of the posterior calcaneus with overlying soft tissue swelling with a focus of soft tissue gas. He was given a dose of Vancomycin and Ceftazidime and then followed off antibiotics. He has remained afebrile since admission. He is scheduled for the OR today for debridement. Allergies/Medications Allergies: Coded Allergies: NO KNOWN ALLERGIES (04/20/14) Home Med List: Amlodipine Besylate 5 MG TABLET 1 TAB PO DAILY HIGH BLOOD PRESSURE (Reported) Calcium Carb/Mag Ox/Zinc Sulf (Nnlygdr-Uptxsavtz-Cwfc Tablet) 334 MG-134 MG-5 MG TABLET 1 TAB PO DAILY SUPPLEMENT (Reported) Cholecalciferol (Vitamin D3) (Vitamin D) 2,000 UNIT CAPSULE 1 CAP PO DAILY SUPPLEMENT (Reported) Ferrous Sulfate 325 MG (65 MG IRON) TABLET.DR 325 MG PO DAILY anemia Fluticasone/Vilanterol (Breo Ellipta 100-25 Mcg INH) 100 MCG-25 MCG/DOSE BLST.W.DEV 1 PUF INH DAILY NEEDED lungs (Reported) Folic Acid 1 MG TABLET 1 TAB PO DAILY SUPPLEMENT (Reported) Methylcellulose (Fiber Laxative) (Unknown Strength) TABLET 2 TAB PO DAILY SUPPLEMENT (Reported) Omeprazole 20 MG CAPSULE.DR 1 CAP PO DAILY GERD (Reported) Oxycodone HCl 20 MG TABLET 1 TAB PO 4 TIMES/DAY PAIN (Reported) Pregabalin (Lyrica) 150 MG CAPSULE 2 CAP PO QAM NERVE PAIN (Reported) Pregabalin (Lyrica) 150 MG CAPSULE 1 TAB PO QPM nerve pain (Reported) Quinapril HCl (Accupril) 40 MG TABLET 1 TAB PO DAILY BP (Reported) Thiamine HCl (B-1) 100 MG TABLET 1 TAB PO DAILY SUPPLEMENT (Reported) Past History Travel History Traveled to [place] past 21 day No Medical History Blood Transfusion Hx: No Neurological: peripheral neuropathy EENT: NONE Cardiovascular: hypertension Respiratory: COPD Gastrointestinal: BARRETTS ESOPHAGUS Hepatic: cirrhosis (etoh-induced) Renal: NONE Musculoskeletal: CHRINIC PAIN Psychiatric: alcohol dependence Endocrine: NONE Blood Disorders: NONE Cancer(s): LUNG nodule THROAT NODULES History of MRSA: No History of VRE: No History of CDIFF: No Isolation History: Standard Tetanus Vaccine: 04/20/14 Surgical History Surgical History: right heel debridement Family History Relations & Conditions If Any: FATHER *No pertinent family history Relation not specified for: FH: breast cancer Psychosocial History Where Do You Live? Home Who Do You Live With? spouse Primary Language: Irish Smoking Status: Former Smoker Functional Ability Ambulation: walker Review of Systems Review of Systems All Other Systems: Reviewed and Negative Exam & Diagnostic Data Last 24 Hrs of Vital Signs/I&O Vital Signs Date Time Temp Pulse Resp B/P B/P Pulse O2 O2 Flow FiO2 Mean Ox Delivery Rate 07/30 1050 Room Air Room Air 07/30 0947 69 120/70 07/30 0946 69 120/70 07/30 0630 98.2 69 20 120/70 96 Room Air 07/30 0000 98.8 84 18 142/70 07/29 2202 98.8 84 18 142/70 93 Room Air 07/29 1900 98.2 76 20 138/70 94 Room Air 07/29 1834 98.0 86 16 126/71 98 Room Air 07/29 1553 98.4 83 16 115/64 95 Room Air 07/29 1316 Room Air 07/29 1153 96.5 93 18 131/77 96 Room Air Intake & Output 07/30 1600 07/30 0800 07/30 0000 Intake Total 450 240 Output Total Balance 450 240 Intake, IV 450 Intake, Oral 240 Number 0 Bowel Movements Patient 175 lb Weight Weight Bed scale Measurement Method Physical Exam Other Physical Findings: Afebrile. He is awake and alert in no acute distress. Skin reveals no rash. HEENT negative. Neck is supple with no adenopathy. Lungs are clear. Heart regular rhythm with no murmur. Abdomen is soft, nontender with positive bowel sounds. Back no CVA tenderness. Extremities right heel swelling with minimal erythema, mild tenderness, with no active drainage; right leg mild swelling with no erythema. Neuro neuropathy both feet. Last 24 Hours of Lab Results: Laboratory Tests 07/30 07/29 0755 1315 Chemistry Sodium (137 - 145 mmol/L) 137 144 Potassium (3.5 - 5.1 mmol/L) 4.7 4.9 Chloride (98 - 107 mmol/L) 98 102 Carbon Dioxide (22 - 30 mmol/L) 28 24 Anion Gap (5 - 16) 10 18 H BUN (9 - 20 mg/dL) 8 L 10 Creatinine (0.7 - 1.2 mg/dL) 0.5 L 0.6 L Estimated GFR (>60 ml/min) > 60 > 60 BUN/Creatinine Ratio (7 - 25 %) 16.0 16.7 Glucose (65 - 99 mg/dL) 105 H Lactic Acid (0.7 - 2.1 mmol/L) 1.6 Calcium (8.4 - 10.2 mg/dL) 9.5 C-Reactive Prot, Quant (<1.0 mg/dL) 2.4 H C-React Prot High Sens (1.0 - 3.0 mg/L) > 15.0 H Coagulation PT (9.4 - 12.5 SEC) 12.4 INR (0.90 - 1.17) 1.18 H APTT (25 - 37 SEC) 34 Hematology CBC w Diff NO MAN DIFF REQ NO MAN DIFF REQ WBC (4.8 - 10.8 /CUMM) 9.9 11.6 H RBC (4.70 - 6.10 /CUMM) 3.33 L 3.58 L Hgb (14.0 - 18.0 G/DL) 9.7 L 10.4 L Hct (42 - 52 %) 29.3 L 31.6 L MCV (80.0 - 94.0 FL) 88.0 88.3 MCH (27.0 - 31.0 PG) 29.0 28.9 RDW (11.5 - 14.5 %) 16.3 H 16.9 H Plt Count (130 - 400 /CUMM) 710 H 910 H MPV (7.4 - 10.4 FL) 8.6 8.4 Gran % (42.2 - 75.2 %) 72.4 64.7 Lymphocytes % (20.5 - 51.1 %) 16.9 L 26.2 Monocytes % (1.7 - 9.3 %) 8.1 6.2 Eosinophils % (0 - 5 %) 1.1 1.3 Basophils % (0.0 - 2.0 %) 1.5 1.6 Absolute Granulocytes (1.4 - 6.5 /CUMM) 7.2 H 7.5 H Absolute Lymphocytes (1.2 - 3.4 /CUMM) 1.7 3.0 Absolute Monocytes (0.10 - 0.60 /CUMM) 0.8 H 0.7 H Absolute Eosinophils (0.0 - 0.7 /CUMM) 0.1 0.2 Absolute Basophils (0.0 - 0.2 /CUMM) 0.1 0.2 PUBS MCHC (33.0 - 37.0 G/DL) 33.0 32.7 L ESR Westergren (0 - 10 MM) 40 H Last 24 Hours of Ryne Results: Blood cultures 2 July 29 negative Diagnostic Data Recent Imaging Findings: X-ray of the right foot July 29 reveals a pathologic fracture and osteolysis of the posterior calcaneus with overlying soft tissue swelling with a focus of soft tissue gas Assessment/Plan Assessment/Plan Impression: This is a 52-year-old man with a history of COPD, alcohol-induced cirrhosis, peripheral neuropathy, with chronic pain, status post previous injuries to the right heel over the past several years resulting in chronic swelling and neuropathic pain, hospitalized 12 days prior to admission with suspected osteomyelitis of the right calcaneus, taken to the OR for debridement with a pathologic fracture of the calcaneus noted, and with the OR culture negative but with the biopsy revealing features "suspicious for osteomyelitis", discharged off antibiotics, readmitted on July 29 with dehiscence of his wound, with clear drainage, increased pain and swelling of the right heel and sweats, found to be afebrile with a mild leukocytosis and with an x-ray revealing a pathologic fracture and osteolysis of the posterior calcaneus, suspicious for persistent calcaneal osteomyelitis. He may well have underlying osteomyelitis, but will need to await the OR cultures and pathology to confirm this clinical suspicion and to identify the pathogen(s) responsible so as to appropriately treat him. It is possible that the pathologic fracture is responsible for his symptoms and x-ray findings, particularly as his previous OR culture was negative. Unfortunately he received antibiotics in the emergency room overnight and, hopefully, these will not affect his OR cultures. Suggestion: 1. Await OR for right heel debridement/bone biopsy and culture 2. Follow off antibiotics pending above Consult Acknowledgment - Thank you for your consult request.
[2017-07-30 14:10] VITALS: BP 128/80
--- NOTE | 2017-07-30 18:03 | Operative Report ---
Operative/Inv Procedure Report Surgery Date: 07/30/17 Name of Procedure: 1 open incision and drainage deep to the deep fascia with exposure of the Achilles tendon and peritenon multiple sites right heel 2 debridement of necrotic bone right heel 3 intraoperative administration of ankle block anesthesia 4 excisional debridement Pre-Operative Diagnosis: 1 open necrotic wound right heel 2 suspected osteomyelitis right heel Post-Operative Diagnosis: The same Estimated Blood Loss: less than 50ml Surgeon/Sail Repair Person: DIANN CHILD dpm Anesthesia: moderate sedation, block Operative/Procedure Note Note: After obtaining informed consent the patient was brought to the operating room and placed on the operating table in the supine position. The patient isn't securely fastened to the operating table utilizing safety belt. After administration of IV sedation, 10 mL of 0.5% Marcaine plain was infiltrated about the patient's right heel. The right foot and ankle within scrubbed prepped and draped in usual aseptic manner. Attention directed to the posterior and inferior aspect of the right heel where a linear incision bisecting the heel was identified with necrotic wound edges. 50 blade visualized sharply revised skin margins. The dissection was then carried down deep to the D fashion with exposure of the Achilles tendon and peritenon multiple sites, both proximal and distally. All necrotic nonviable infected tissue sharply evacuated from the wound bed. A trephine Was Utilized to Rohwer Bone Specimen Centrally with 4 Pathologic Inspection additional bone identified centrally was also harvested for microbiologic inspection. Nipple was then irrigated with 3 L of normal sterile saline fissure 50,000 units of bacitracin. Following this, the foot was redraped and the surgeon's top was changed clean gloves. Any bleeding vessels identified were cauterized or ligated as encountered. Nipple was then packed with iodoform and 2-0 nylon retention sutures were placed. Foot was then dressed with a dressing consisting of fluffs Kerlix and Ayan wrap. The patient was noted tolerate both procedure and anesthesia well and the patient was transported from the operating room to recovery with vital signs stable.
[2017-07-30 21:26] VITALS: BP 144/80
[2017-07-31] VITALS (14 sets, daily range): BP systolic 120–158; BP diastolic 70–84
--- NOTE | 2017-07-31 07:16 | PN- Housestaff ---
Rebecca HEBERT,Angelica 07/31/17 0716: Subjective Follow-up For: 1. Foot wound S/P I & D POD 1 2. Cellulitis 3. Alcohol withdrawal 4. ?oM Subjective: Patient is a seen and examined at bedside, afebrile, he continues to complain of pain in the right heel 02/27 , He also c/o of constipation for 4 days, he denies fever, chills, nausea, vomiting, diarrhea . Review of Systems Constitutional: Reports: diaphoresis. Denies: chills, fever, malaise, weakness. Cardiovascular: Denies: no symptoms. Respiratory: Denies: no symptoms. Gastrointestinal: Denies: no symptoms. Genitourinary: Denies: no symptoms. Musculoskeletal: Reports: joint pain. Skin: Reports: lesions. Objective Last 24 Hrs of Vital Signs/I&O Vital Signs Date Time Temp Pulse Resp B/P B/P Pulse O2 O2 Flow FiO2 Mean Ox Delivery Rate 07/31 0948 84 122/80 07/31 0948 84 122/80 07/31 0652 99.5 67 20 130/72 95 Room Air 07/31 0400 98.2 72 20 142/84 07/31 0200 98.2 72 20 142/84 07/31 0128 98.2 72 20 142/84 95 Room Air 07/31 0000 98.2 72 20 142/84 07/30 2126 98.4 89 18 144/80 95 07/30 1410 98.5 62 18 128/80 96 Room Air 07/30 1050 Room Air Room Air Intake & Output 07/31 1600 07/31 0800 07/31 0000 Intake Total 480 480 Output Total Balance 480 480 Intake, Oral 480 480 Physical Exam General Appearance: Alert, Oriented X3, Cooperative, No Acute Distress HEENT: Atraumatic, PERRLA, EOMI, Mucous Membr. moist/pink Neck: Supple, No JVD Cardiovascular: Normal S1, Normal S2, No Murmurs Lungs: Clear to Auscultation Abdomen: Normal Bowel Sounds, Soft, No Tenderness Neurological: Normal Speech, Strength at 5/5 X4 Ext, Normal Tone Extremities: No Clubbing, No Cyanosis, No Edema, Ayan wrap on the right foot is soaked with discharge, Orders CIWA Score (last 24 hrs): zero Assessment/Plan Assessment: 52-year-old male with past medical history of peripheral neuropathy, alcoholic cirrhosis, COPD (not oxygen dependent, not on steroid), lung nodule, left ear deafness and left eye blindness, Dos Santos's esophagus who presented to the ED complaining of right lower extremity increased swelling and discharge. Was recently discharged from [facility] after having I&D and bone biopsy which showed coag-negative staph, the patient was discharged off antibiotics to follow -up as outpatient with a health associate for wound care, patient reported having increased swelling, pain, discharge of his right foot. On the day of admission the patient noticed that the sutures in his foot has dehisced, #? RIGHT FOOT CALCANEUS OSTEOMYELITIS, CELLULITIS, OPEN WOUND S/P I & D and bone biopsy POD 1 -This morning the patient was afebrile, his white cell count was normal -continue to monitor on general medicine floor -continue to monitor off antibioticsr off antibioticso - OR cultures show light mixed growth of GPC, likely contamination for further identificatiom -If the biobsy will remain negative , will be treated for pathological fracure rather than infection -will have primary closure on the wound early next week, -will begin 6-8 weeks of immobilization -will begin NWB in a compression dressing and posterior splint according to podiatry recommendation thereafter -Continue to follow up on ID and pediatric recommendation -paIn control(oxycodone frequency has been increased to every 4 when necessary ) #Alcohol dependence Overnight the patient had CIWA score ranging from 0-1 CIWA Continue to monitor off Ativan PO Folic acid, vitamin B12, thiamine #Chronic medical conditions Continue home meds Full code Nothing by mouth at midnight DVT prophylaxis with a continuous heparin Problem List: 1. Osteomyelitis 2. Cellulitis 3. Foot ulcer Pain Ratin Pain Location: Rt foot Pain Goal: Pain 4 or less Pain Plan: pain pathway Tomorrow's Labs & Rationales: CBC BEP DVT/Prophylaxis: mechanical, pharmacological Miguel Perez MD 07/31/17 1136: Attending MD Review Statement Attending Statement Attending MD Statement: examined this patient, discuss w/resident/PA/ASSISTANT MERCHANDISE MANAGER, agreed w/resident/PA/ASSISTANT MERCHANDISE MANAGER, reviewed EMR data (avail) Attending Assessment/Plan: 52M PMH cirrhosis, alcohol dependence, hypertension, peripheral neuropathy, non- oxygen dependent COPD, history of lung cancer recently admitted with right heel cellulitis with presumed osteomyelitis seen on x-ray, with bone biopsy and debridement on 07/18, with cultures negative thus far, repeat bone biopsy 07/22 with cultures growing coagulase negative Staph, now returns with worsening discomfort, drainage, and erythema of the foot, s/p drainage and bone biopsy . Pain is better controlled today after changing pain meds. No other complaints. Afebrile, stable vitals, cultures NGTD. 1. Right heel cellulitis 2. Peripheral neuropathy Plan - Continue on general medicine - Monitor off antibiotics - Follow cultures - Follow ID and podiatry recommendations - Continue home medications - DVT PPx
[2017-07-31 09:24] LABS: ABSOLUTE BASOPHIL COUNT 0.1 /CUMM (0.0-0.2); ABSOLUTE EOSINOPHIL COUNT 0.1 /CUMM (0.0-0.7); ABSOLUTE GRANULOCYTE CT 6.1 /CUMM (1.4-6.5); ABSOLUTE LYMPH COUNT 1.5 /CUMM (1.2-3.4); ABSOLUTE MONOCYTE COUNT 0.5 /CUMM (0.10-0.60); BASOPHIL % 1.4 % (0.0-2.0); EOSINOPHIL % 1.2 % (0-5); GRANULOCYTE % 73.1 % (42.2-75.2); MEAN CORPUSCULAR HGB 28.7 PG (27.0-31.0); MEAN CORPUSCULAR HGB CONC 32.9 G/DL (33.0-37.0); MEAN CORPUSCULAR VOLUME 87.3 FL (80.0-94.0); MEAN PLATELET VOLUME 8.8 FL (7.4-10.4); PLATELET COUNT 664 /CUMM (130-400); RBC DISTRIBUTION WIDTH 15.9 % (11.5-14.5); RED BLOOD CELL CT 3.44 /CUMM (4.70-6.10); WHITE BLOOD CELL COUNT 8.4 /CUMM (4.8-10.8)
--- NOTE | 2017-07-31 12:08 | PN- Podiatry ---
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 Pt is seen and evaluated at bedside in NAD, denies f/c/n/v/d/sob/chest pain at the time of my examination. Review of Systems: A 14 point review of systems was performed and found to be negative apart from postoperative pain at the site. Objective Vital Signs and I&Os Vital Signs Date Time Temp Pulse Resp B/P B/P Pulse O2 O2 Flow FiO2 Mean Ox Delivery Rate 07/31 1000 98.4 84 18 122/80 07/31 0948 84 122/80 07/31 0948 84 122/80 07/31 0652 99.5 67 20 130/72 95 Room Air 07/31 0400 98.2 72 20 142/84 07/31 0200 98.2 72 20 142/84 07/31 0128 98.2 72 20 142/84 95 Room Air 07/31 0000 98.2 72 20 142/84 07/30 2126 98.4 89 18 144/80 95 07/30 1410 98.5 62 18 128/80 96 Room Air Intake & Output 07/31 1600 07/31 0800 07/31 0000 07/30 1600 07/30 0800 07/30 0000 Intake Total 480 480 600 450 240 Output Total 300 Balance 480 480 300 450 240 Intake, IV 600 450 Intake, Oral 480 480 240 Number 0 Bowel Movements Output, Urine 300 Patient 175 lb Weight Weight Bed scale Measurement Method Physical Exam: Dorsalis pedis and posterior tibial pulses are palpable. Neuro exam unchanged. Musculoskeletal exam unchanged. +2 non pitting edema of the right heel without erythema, reduced calor. Dressing is clean dry and intact with mild serosanguinous strikethrough. Current Medications: Current Medications Sig/Nate Start time Last Medication Dose Route Stop Time Status Admin Acetaminophen 500 MG Q6P PRN 07/29 1830 AC PO Amlodipine Besylate 5 MG DAILY 07/30 1000 AC 07/31 PO 0948 Budesonide/ 2 PUF BID 07/29 2200 AC 07/30 Formoterol Fumarate INH 0947 Diphenhydramine HCl 25 MG Q6P PRN 07/31 1000 AC 07/31 PO 1008 Diphenhydramine HCl 25 MG ONCE ONE 07/30 2129 DC 07/30 PO 07/30 2131 2143 Fluticasone 2 PUF BID 07/31 2200 AC Propionate INH Folic Acid 1 MG DAILY 07/30 1000 AC 07/31 PO 0948 Heparin Sodium 5,000 UNIT Q8 07/31 1400 AC (Porcine) SC Hydromorphone HCl 2 MG .STK-MED ONE 07/30 1345 DC IM 07/30 1346 Hydromorphone HCl 2 MG .STK-MED ONE 07/30 1329 DC IM 07/30 1330 Ibuprofen 600 MG Q6P PRN 07/29 1830 AC PO Lisinopril 20 MG DAILY 07/30 1000 AC 07/31 PO 0948 Omeprazole 20 MG DAILY 07/30 1000 AC 07/31 PO 0948 Oxycodone HCl 20 MG Q4P PRN 07/31 0915 AC 07/31 PO 0948 Oxycodone HCl 20 MG Q6P PRN 07/29 2045 DC 07/31 PO 0426 Polyethylene Glycol 17 GM DAILY PRN 07/31 0945 AC 07/31 PO 1008 Pregabalin 150 MG QAM 07/30 1000 AC 07/31 PO 0948 Pregabalin 150 MG QPM 07/29 2200 AC 07/30 PO 2118 Senna/Docusate Sodium 2 TAB DAILY PRN 07/31 0945 AC PO Sodium Chloride 1,000 ML Q13H 07/30 0000 DC 07/30 IV 0022 Thiamine HCl 100 MG DAILY 07/30 1000 AC 07/31 PO 0947 Results Last 48 Hours of Labs: Laboratory Tests 07/31 07/30 0750 0755 Chemistry Sodium (137 - 145 mmol/L) 138 137 Potassium (3.5 - 5.1 mmol/L) 4.6 4.7 Chloride (98 - 107 mmol/L) 98 98 Carbon Dioxide (22 - 30 mmol/L) 28 28 Anion Gap (5 - 16) 12 10 BUN (9 - 20 mg/dL) 8 L 8 L Creatinine (0.7 - 1.2 mg/dL) 0.6 L 0.5 L Estimated GFR (>60 ml/min) > 60 > 60 BUN/Creatinine Ratio (7 - 25 %) 13.3 16.0 Coagulation PT (9.4 - 12.5 SEC) 12.4 INR (0.90 - 1.17) 1.18 H APTT (25 - 37 SEC) 34 Hematology CBC w Diff NO MAN DIFF REQ NO MAN DIFF REQ WBC (4.8 - 10.8 /CUMM) 8.4 9.9 RBC (4.70 - 6.10 /CUMM) 3.44 L 3.33 L Hgb (14.0 - 18.0 G/DL) 9.9 L 9.7 L Hct (42 - 52 %) 30.0 L 29.3 L MCV (80.0 - 94.0 FL) 87.3 88.0 MCH (27.0 - 31.0 PG) 28.7 29.0 RDW (11.5 - 14.5 %) 15.9 H 16.3 H Plt Count (130 - 400 /CUMM) 664 H 710 H MPV (7.4 - 10.4 FL) 8.8 8.6 Gran % (42.2 - 75.2 %) 73.1 72.4 Lymphocytes % (20.5 - 51.1 %) 18.0 L 16.9 L Monocytes % (1.7 - 9.3 %) 6.3 8.1 Eosinophils % (0 - 5 %) 1.2 1.1 Basophils % (0.0 - 2.0 %) 1.4 1.5 Absolute Granulocytes (1.4 - 6.5 /CUMM) 6.1 7.2 H Absolute Lymphocytes (1.2 - 3.4 /CUMM) 1.5 1.7 Absolute Monocytes (0.10 - 0.60 /CUMM) 0.5 0.8 H Absolute Eosinophils (0.0 - 0.7 /CUMM) 0.1 0.1 Absolute Basophils (0.0 - 0.2 /CUMM) 0.1 0.1 PUBS MCHC (33.0 - 37.0 G/DL) 32.9 L 33.0 07/29 1315 Chemistry Sodium (137 - 145 mmol/L) 144 Potassium (3.5 - 5.1 mmol/L) 4.9 Chloride (98 - 107 mmol/L) 102 Carbon Dioxide (22 - 30 mmol/L) 24 Anion Gap (5 - 16) 18 H BUN (9 - 20 mg/dL) 10 Creatinine (0.7 - 1.2 mg/dL) 0.6 L Estimated GFR (>60 ml/min) > 60 BUN/Creatinine Ratio (7 - 25 %) 16.7 Glucose (65 - 99 mg/dL) 105 H Lactic Acid (0.7 - 2.1 mmol/L) 1.6 Calcium (8.4 - 10.2 mg/dL) 9.5 C-Reactive Prot, Quant (<1.0 mg/dL) 2.4 H C-React Prot High Sens (1.0 - 3.0 mg/L) > 15.0 H Hematology CBC w Diff NO MAN DIFF REQ WBC (4.8 - 10.8 /CUMM) 11.6 H RBC (4.70 - 6.10 /CUMM) 3.58 L Hgb (14.0 - 18.0 G/DL) 10.4 L Hct (42 - 52 %) 31.6 L MCV (80.0 - 94.0 FL) 88.3 MCH (27.0 - 31.0 PG) 28.9 RDW (11.5 - 14.5 %) 16.9 H Plt Count (130 - 400 /CUMM) 910 H MPV (7.4 - 10.4 FL) 8.4 Gran % (42.2 - 75.2 %) 64.7 Lymphocytes % (20.5 - 51.1 %) 26.2 Monocytes % (1.7 - 9.3 %) 6.2 Eosinophils % (0 - 5 %) 1.3 Basophils % (0.0 - 2.0 %) 1.6 Absolute Granulocytes (1.4 - 6.5 /CUMM) 7.5 H Absolute Lymphocytes (1.2 - 3.4 /CUMM) 3.0 Absolute Monocytes (0.10 - 0.60 /CUMM) 0.7 H Absolute Eosinophils (0.0 - 0.7 /CUMM) 0.2 Absolute Basophils (0.0 - 0.2 /CUMM) 0.2 PUBS MCHC (33.0 - 37.0 G/DL) 32.7 L ESR Westergren (0 - 10 MM) 40 H Assessment/Plan Assessment/Plan 52 y/o male with peripheral neuropathy from a combination of chronic alcoholism and 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 Patient was seen and evaluated Labs and vitals reviewed Wound irrigated and repacked by the wound care team Cont IVABx, will f/u Dr. Zelaya's recommendations Cont NWB RLE, FWB LLE - Needs PT eval for gait training with crutches/walker Will f/u Path and C&S specimens from yesterday's I&D. If these results are again negative, will reorient treatment towards pathological fracture rather than acute infection, will perform delayed primary closure on the wound early next week, and begin 6-8 weeks of immobilization and NWB in a compression dressing and posterior splint. My initial suspicion was that this was a superinfected remote pathological fracture, but this may be more acute in light of the negative infection workup findings.
--- NOTE | 2017-07-31 15:57 | PN- Infect Dx ---
Subjective Subjective: Afebrile. He complains of pain in the right heel Objective Last 24 Hrs of Vital Signs/I&O Vital Signs Date Time Temp Pulse Resp B/P B/P Pulse O2 O2 Flow FiO2 Mean Ox Delivery Rate 07/31 1413 98.0 62 18 158/82 92 07/31 1400 98.0 62 18 158/82 07/31 1000 98.4 84 18 122/80 07/31 0948 84 122/80 07/31 0948 84 122/80 07/31 0652 99.5 67 20 130/72 95 Room Air 07/31 0400 98.2 72 20 142/84 07/31 0200 98.2 72 20 142/84 07/31 0128 98.2 72 20 142/84 95 Room Air 07/31 0000 98.2 72 20 142/84 07/30 2126 98.4 89 18 144/80 95 Intake & Output 07/31 1600 07/31 0800 07/31 0000 Intake Total 700 480 480 Output Total Balance 700 480 480 Intake, Oral 700 480 480 Physical Exam Other Physical Findings: He appears comfortable in no acute distress Extremities right heel dressing intact; images from this morning reveal marked swelling, with packing in place Results Last 24 Hours of Lab Results: Laboratory Tests 07/31 0750 Chemistry Sodium (137 - 145 mmol/L) 138 Potassium (3.5 - 5.1 mmol/L) 4.6 Chloride (98 - 107 mmol/L) 98 Carbon Dioxide (22 - 30 mmol/L) 28 Anion Gap (5 - 16) 12 BUN (9 - 20 mg/dL) 8 L Creatinine (0.7 - 1.2 mg/dL) 0.6 L Estimated GFR (>60 ml/min) > 60 BUN/Creatinine Ratio (7 - 25 %) 13.3 Hematology CBC w Diff NO MAN DIFF REQ WBC (4.8 - 10.8 /CUMM) 8.4 RBC (4.70 - 6.10 /CUMM) 3.44 L Hgb (14.0 - 18.0 G/DL) 9.9 L Hct (42 - 52 %) 30.0 L MCV (80.0 - 94.0 FL) 87.3 MCH (27.0 - 31.0 PG) 28.7 RDW (11.5 - 14.5 %) 15.9 H Plt Count (130 - 400 /CUMM) 664 H MPV (7.4 - 10.4 FL) 8.8 Gran % (42.2 - 75.2 %) 73.1 Lymphocytes % (20.5 - 51.1 %) 18.0 L Monocytes % (1.7 - 9.3 %) 6.3 Eosinophils % (0 - 5 %) 1.2 Basophils % (0.0 - 2.0 %) 1.4 Absolute Granulocytes (1.4 - 6.5 /CUMM) 6.1 Absolute Lymphocytes (1.2 - 3.4 /CUMM) 1.5 Absolute Monocytes (0.10 - 0.60 /CUMM) 0.5 Absolute Eosinophils (0.0 - 0.7 /CUMM) 0.1 Absolute Basophils (0.0 - 0.2 /CUMM) 0.1 PUBS MCHC (33.0 - 37.0 G/DL) 32.9 L Last 24 Hours of Ryne Results: OR cultures labeled right heel bone and right heel soft tissue positive for mixed gram-positive cocci, with gram stains revealing no white blood cells and no organisms Blood cultures July 29 negative Assessment/Plan Impression: Stable off antibiotics, with temperatures and white blood cell count remaining normal, status post I&D of his right heel wound and debridement of bone, with his preliminary OR cultures positive for mixed gram-positive cocci, suspicious for contamination from the overlying skin. He does have a pathologic fracture, which may explain all of his symptoms. Suggestion: 1. Follow-up final OR cultures and pathology 2. Continue to follow off antibiotics pending above
[2017-08-01] VITALS (9 sets, daily range): BP systolic 116–140; BP diastolic 60–80
--- NOTE | 2017-08-01 07:00 | PN- Housestaff ---
Rebecca HEBERT,Angelica 08/01/17 0659: Subjective Follow-up For: 1. Foot wound S/P I & D POD 1 2. Cellulitis 3. Alcohol withdrawal 4. ?oM Subjective: Patient is seen and examined at bedside, he continues to complain of pain in his right foot, 8/10 in severity, he also complains of constipation, denies fever, chills, nausea, vomiting, diarrhea or abdominal pain Review of Systems Constitutional: Denies: no symptoms. Cardiovascular: Denies: no symptoms. Respiratory: Denies: no symptoms. Gastrointestinal: Denies: no symptoms. Musculoskeletal: Reports: joint pain, joint swelling. Skin: Reports: lesions. Objective Last 24 Hrs of Vital Signs/I&O Vital Signs Date Time Temp Pulse Resp B/P B/P Pulse O2 O2 Flow FiO2 Mean Ox Delivery Rate 08/01 1042 74 120/70 08/01 1041 74 120/70 08/01 0646 98.0 78 20 132/76 94 Room Air 08/01 0600 97.6 71 20 140/80 08/01 0400 97.6 71 20 140/80 08/01 0400 97.6 71 20 140/80 94 Room Air 08/01 0200 98.2 84 20 120/72 08/01 0000 98.2 84 20 120/72 07/31 2344 98.2 84 20 120/72 96 Room Air 07/31 2220 98.5 84 20 120/70 96 07/31 2200 98.7 90 20 122/76 07/31 2000 98.7 98 20 122/76 07/31 1901 98.7 90 20 122/76 97 07/31 1800 98.7 90 20 122/76 07/31 1413 98.0 62 18 158/82 92 07/31 1400 98.0 62 18 158/82 Intake & Output 08/01 1600 08/01 0800 08/01 0000 Intake Total 600 500 Output Total Balance 600 500 Intake, Oral 600 500 Physical Exam General Appearance: Alert, Oriented X3, Cooperative, No Acute Distress Skin: No Rashes HEENT: Atraumatic, PERRLA, EOMI, Mucous Membr. moist/pink Neck: Supple, No JVD Cardiovascular: Normal S1, Normal S2, No Murmurs Lungs: Clear to Auscultation, Normal Air Movement Abdomen: Normal Bowel Sounds, Soft, No Tenderness Extremities: RIGHT FT WRAPPED I MARIA A WRAP WHICH IS CLEAN AND DRY Vascular: Normal Pulses Assessment/Plan Assessment: 52-year-old male with past medical history of peripheral neuropathy, alcoholic cirrhosis, COPD (not oxygen dependent, not on steroid), lung nodule, left ear deafness and left eye blindness, Dos Santos's esophagus who presented to the ED complaining of right lower extremity increased swelling and discharge. Was recently discharged from [facility] after having I&D and bone biopsy which showed coag-negative staph, the patient was discharged off antibiotics to follow -up as outpatient with a energy conservation technician for wound care, patient reported having increased swelling, pain, discharge of his right foot. On the day of admission the patient noticed that the sutures in his foot has dehisced, #? RIGHT FOOT CALCANEUS OSTEOMYELITIS, CELLULITIS, OPEN WOUND S/P I & D and bone biopsy POD 2 -This morning the patient was afebrile, his white cell count was normal -continue to monitor on general medicine floor -continue to monitor off antibioticsr off antibioticso - OR cultures show enterococcus, likely contamination for further identificatiom -If the biobsy will remain negative , will be treated for pathological fracure rather than infection -will have primary closure on the wound early next week, -will begin 6-8 weeks of immobilization -will begin NWB in a compression dressing and posterior splint according to podiatry recommendation thereafter -Continue to follow up on ID and pediatric recommendation -paIn control(oxycodone frequency has been increased to every 4 when necessary ) #Alcohol dependence Overnight the patient had CIWA score ranging from 0-1 CIWA Continue to monitor off Ativan PO Folic acid, vitamin B12, thiamine #Chronic medical conditions Continue home meds Full code Nothing by mouth at midnight DVT prophylaxis with a continuous heparin Problem List: 1. Foot ulcer 2. Osteomyelitis 3. Cellulitis Pain Ratin Pain Location: RIGHT FOOT Pain Goal: Pain 4 or less Pain Plan: PER PATHWAY Tomorrow's Labs & Rationales: CBC BEP DVT/Prophylaxis: mechanical, pharmacological Miguel Perez MD 08/01/17 1240: Attending MD Review Statement Attending Statement Attending Statement: examined this patient, discuss w/resident/PA/COAL MILL OPERATOR, agreed w/resident/PA/COAL MILL OPERATOR, reviewed EMR data (avail) Attending Assessment/Plan: 52M PMH cirrhosis, alcohol dependence, hypertension, peripheral neuropathy, non- oxygen dependent COPD, history of lung cancer recently admitted with right heel cellulitis with presumed osteomyelitis seen on x-ray, with bone biopsy and debridement on 07/18, with cultures negative thus far, repeat bone biopsy 07/22 with cultures growing coagulase negative Staph, now returns with worsening discomfort, drainage, and erythema of the foot, s/p drainage and bone biopsy . Pain is better controlled today after changing pain meds. No other complaints. Afebrile, stable vitals, cultures showing mixed myriam. 1. Right heel cellulitis 2. Peripheral neuropathy 3. Right heel pathologic fracture Plan - Continue on general medicine - Monitor off antibiotics - Follow cultures - Follow ID and podiatry recommendations - Continue home medications - DVT PPx
[2017-08-01 10:09] LABS: ABSOLUTE BASOPHIL COUNT 0.3 /CUMM (0.0-0.2); ABSOLUTE EOSINOPHIL COUNT 0.1 /CUMM (0.0-0.7); ABSOLUTE GRANULOCYTE CT 6.2 /CUMM (1.4-6.5); ABSOLUTE LYMPH COUNT 1.9 /CUMM (1.2-3.4); ABSOLUTE MONOCYTE COUNT 0.7 /CUMM (0.10-0.60); BASOPHIL % 2.8 % (0.0-2.0); EOSINOPHIL % 1.3 % (0-5); GRANULOCYTE % 67.9 % (42.2-75.2); MEAN CORPUSCULAR HGB 29.5 PG (27.0-31.0); MEAN CORPUSCULAR HGB CONC 33.5 G/DL (33.0-37.0); MEAN PLATELET VOLUME 8.6 FL (7.4-10.4); PLATELET COUNT 619 /CUMM (130-400); RBC DISTRIBUTION WIDTH 16.3 % (11.5-14.5); RED BLOOD CELL CT 3.29 /CUMM (4.70-6.10); WHITE BLOOD CELL COUNT 9.2 /CUMM (4.8-10.8)
--- NOTE | 2017-08-01 15:18 | PN- Infect Dx ---
Subjective Subjective: Afebrile. He notes decreased pain in the right heel. Objective Last 24 Hrs of Vital Signs/I&O Vital Signs Date Time Temp Pulse Resp B/P B/P Pulse O2 O2 Flow FiO2 Mean Ox Delivery Rate 08/01 1353 98.2 62 20 120/64 94 08/01 1042 74 120/70 08/01 1041 74 120/70 08/01 0646 98.0 78 20 132/76 94 Room Air 08/01 0600 97.6 71 20 140/80 08/01 0400 97.6 71 20 140/80 08/01 0400 97.6 71 20 140/80 94 Room Air 08/01 0200 98.2 84 20 120/72 08/01 0000 98.2 84 20 120/72 07/31 2344 98.2 84 20 120/72 96 Room Air 07/31 2220 98.5 84 20 120/70 96 07/31 2200 98.7 90 20 122/76 07/31 2000 98.7 98 20 122/76 07/31 1901 98.7 90 20 122/76 97 07/31 1800 98.7 90 20 122/76 Intake & Output 08/01 1600 08/01 0800 08/01 0000 Intake Total 600 500 Output Total Balance 600 500 Intake, Oral 600 500 Patient 174 lb Weight Physical Exam Other Physical Findings: He appears comfortable in no acute distress Extremities right heel dressing intact Results Last 24 Hours of Lab Results: Laboratory Tests 08/01 0935 Chemistry Sodium (137 - 145 mmol/L) 137 Potassium (3.5 - 5.1 mmol/L) 4.3 Chloride (98 - 107 mmol/L) 98 Carbon Dioxide (22 - 30 mmol/L) 26 Anion Gap (5 - 16) 13 BUN (9 - 20 mg/dL) 9 Creatinine (0.7 - 1.2 mg/dL) 0.6 L Estimated GFR (>60 ml/min) > 60 BUN/Creatinine Ratio (7 - 25 %) 15.0 Hematology CBC w Diff MAN DIFF ORDERED WBC (4.8 - 10.8 /CUMM) 9.2 RBC (4.70 - 6.10 /CUMM) 3.29 L Hgb (14.0 - 18.0 G/DL) 9.7 L Hct (42 - 52 %) 29.0 L MCV (80.0 - 94.0 FL) 88.0 MCH (27.0 - 31.0 PG) 29.5 RDW (11.5 - 14.5 %) 16.3 H Plt Count (130 - 400 /CUMM) 619 H MPV (7.4 - 10.4 FL) 8.6 Gran % (42.2 - 75.2 %) 67.9 Lymphocytes % (20.5 - 51.1 %) 20.6 Monocytes % (1.7 - 9.3 %) 7.4 Eosinophils % (0 - 5 %) 1.3 Basophils % (0.0 - 2.0 %) 2.8 H Absolute Granulocytes (1.4 - 6.5 /CUMM) 6.2 Absolute Lymphocytes (1.2 - 3.4 /CUMM) 1.9 Absolute Monocytes (0.10 - 0.60 /CUMM) 0.7 H Absolute Eosinophils (0.0 - 0.7 /CUMM) 0.1 Absolute Basophils (0.0 - 0.2 /CUMM) 0.3 Platelet Estimate (ADEQUATE) INCREASED Hypochromic-Microcytic 2+ Anisocytosis 1+ PUBS MCHC (33.0 - 37.0 G/DL) 33.5 Last 24 Hours of Ryne Results: OR cultures July 30 labeled right heel soft tissue and bone positive for moderate growth of mixed gram-positive cocci and scant to light growth of Enterococcus Blood cultures 2 July 29 negative Assessment/Plan Impression: Stable, with temperatures and white blood cell count remaining normal off antibiotics, now 2 days status post I&D of his right heel wound and debridement of bone, with his OR cultures positive for mixed gram-positive cocci, suspicious for contamination from the overlying skin. He does have a pathologic fracture, which may explain all of his symptoms, and he is scheduled for a delayed primary closure next week, followed by 6-8 weeks of immobilization and nonweightbearing in a compression dressing and splint. Suggestion: 1. Further management of his right heel fracture per Podiatry 2. Continue to follow off antibiotics
[2017-08-02] VITALS (7 sets, daily range): BP systolic 11–118; BP diastolic 60–70
--- NOTE | 2017-08-02 07:59 | PN- Housestaff ---
Rebecca HEBERT,Angelica 08/02/17 0759: Subjective Follow-up For: 1. Foot wound S/P I & D POD 1 2. Cellulitis 3. Alcohol withdrawal 4. PATHOLOGICAL FOOT # Subjective: Patient is seen and examined at bedside, he continues to complain of pain in his right foot, 7/10 in severity, he also complains of constipation, denies fever, chills, nausea, vomiting, diarrhea or abdominal pain Review of Systems Constitutional: Denies: no symptoms. Cardiovascular: Denies: no symptoms. Respiratory: Denies: no symptoms. Musculoskeletal: Reports: joint pain. Skin: Reports: lesions. Objective Last 24 Hrs of Vital Signs/I&O Vital Signs Date Time Temp Pulse Resp B/P B/P Pulse O2 O2 Flow FiO2 Mean Ox Delivery Rate 08/02 1451 98.8 65 20 118/70 95 08/02 0928 112/7 08/02 0926 112/70 08/02 0620 98.4 63 20 112/70 95 Room Air 08/02 0600 98.4 63 20 11270 08/02 0400 98.1 66 20 1160 08/02 0200 98.1 66 20 116/60 08/02 0000 98.1 66 20 116/60 08/01 2219 98.1 66 20 116/60 96 Room Air Intake & Output 08/02 1600 08/02 0800 08/02 0000 Intake Total 1500 210 120 Output Total 400 Balance 1500 210 -280 Intake, IV 10 Intake, Oral 1500 200 120 Output, Urine 400 Physical Exam General Appearance: Alert, Oriented X3, Cooperative, No Acute Distress Neck: Supple, No JVD Cardiovascular: Regular Rate, Normal S1, Normal S2, No Murmurs Lungs: Clear to Auscultation, Normal Air Movement Abdomen: Normal Bowel Sounds, Soft, No Tenderness Neurological: Normal Speech Extremities: No Clubbing, No Cyanosis, RIGHT FOOT IN A CLEAN MARIA A WRAP Vascular: Normal Pulses Assessment/Plan Assessment: 52-year-old male with past medical history of peripheral neuropathy, alcoholic cirrhosis, COPD (not oxygen dependent, not on steroid), lung nodule, left ear deafness and left eye blindness, Dos Santos's esophagus who presented to the ED complaining of right lower extremity increased swelling and discharge. Was recently discharged from [facility] after having I&D and bone biopsy which showed coag-negative staph, the patient was discharged off antibiotics to follow -up as outpatient with a parking technician for wound care, patient reported having increased swelling, pain, discharge of his right foot. On the day of admission the patient noticed that the sutures in his foot has dehisced, #? RIGHT FOOT CALCANEUS OSTEOMYELITIS, CELLULITIS, OPEN WOUND S/P I & D and bone biopsy POD 2 Most likely his x-ray findings are due to pathological fractures Packaging was removed today and he is no longer draining, dry sterile dressing was applied to the foot today LIFE SCIENCES TEACHER provided prescription forrolling knee walker at the patient's [facility] Clay Roaster recommend: physical therapiY with the device to maintain nonweightbearing to the right lower extremity, which he will be expected to maintain for 6-8 weeks. -A layered closure will be performed on Friday morning in combination with initiation of immobilization via posterior splint. -This morning the patient was afebrile, his white cell count was normal -continue to monitor on general medicine floor -continue to monitor off antibiotic - OR cultures show enterococcus, likely contamination for further identificatiom -Continue to follow up on ID and pediatric recommendation -paIn control(oxycodone frequency has been increased to every 4 when necessary ) #Alcohol dependence Overnight the patient had CIWA score ranging from 0-1 CIWA Continue to monitor off Ativan PO Folic acid, vitamin B12, thiamine #Chronic medical conditions Continue home meds Full code Nothing by mouth at midnight DVT prophylaxis with a continuous heparin Problem List: 1. Cellulitis 2. Pathological fracture of ankle Pain Ratin Pain Location: RIGHT FOOT Pain Goal: Pain 4 or less Pain Plan: PATHWAY Tomorrow's Labs & Rationales: CBC BEP DVT/Prophylaxis: mechanical, pharmacological Miguel Perez MD 08/02/172026: Attending MD Review Statement Attending Statement Attending MD Statement: examined this patient, discuss w/resident/PA/LEAN FACILITATOR, agreed w/resident/PA/LEAN FACILITATOR, reviewed EMR data (avail) Attending Assessment/Plan: 52M PMH cirrhosis, alcohol dependence, hypertension, peripheral neuropathy, non- oxygen dependent COPD, history of lung cancer recently admitted with right heel cellulitis with presumed osteomyelitis seen on x-ray, with bone biopsy and debridement on 07/18, with cultures negative thus far, repeat bone biopsy 07/22 with cultures growing coagulase negative Staph, now returns with worsening discomfort, drainage, and erythema of the foot, s/p drainage and bone biopsy . Pain is better controlled today after changing pain meds. No other complaints. Afebrile, stable vitals, cultures showing mixed myriam. 1. Right heel cellulitis 2. Peripheral neuropathy 3. Right heel pathologic fracture Plan - Continue on general medicine - Monitor off antibiotics - Follow cultures - Follow ID and podiatry recommendations - Continue home medications - DVT PPx
--- NOTE | 2017-08-02 08:46 | PN- Podiatry ---
Subjective Subjective: 52-year-old male seen and evaluated at bedside status post I&D of the right heel for a working diagnosis of acute on chronic osteomyelitis with associated pathological fracture. The patient is seen and evaluated in no apparent distress, reporting mild pain at the operative site. Review of Systems: A 14 point review of systems was performed, and was found to be negative apart from the patient's complaints described above in the history of present illness. Objective Vital Signs and I&Os Vital Signs Date Time Temp Pulse Resp B/P B/P Pulse O2 O2 Flow FiO2 Mean Ox Delivery Rate 08/02 0620 98.4 63 20 112/70 95 Room Air 08/02 0600 98.4 63 20 112/70 08/02 0400 98.1 66 20 11/60 08/02 0200 98.1 66 20 116/60 08/02 0000 98.1 66 20 116/60 08/01 2219 98.1 66 20 116/60 96 Room Air 08/01 1400 62 20 120/64 08/01 1353 98.2 62 20 120/64 94 08/01 1042 74 120/70 08/01 1041 74 120/70 08/01 1000 74 18 120/70 Intake & Output 08/02 1600 08/02 0800 08/02 0000 08/01 1600 08/01 0800 08/01 0000 Intake Total 405 052 2321 600 500 Output Total 400 1200 Balance 210 -280 810 600 500 Intake, IV 10 10 Intake, Oral 905 111 5504 600 500 Number 0 Bowel Movements Output, Urine 400 1200 Patient 174 lb Weight Physical Exam: The patient's neurovascular examination is unchanged from previous encounters. Patient's musculoskeletal exam is unchanged from previous encounters. Incision site is clean dry and intact, with scant serous drainage. The tuber of the right heel continues to have significant nonpitting edema, but reduced calor and erythema. There is no ecchymosis, there is no new skin changes. There is no malodor, there is no necrosis of skin or soft tissue. Current Medications: Current Medications Sig/Nate Start time Last Medication Dose Route Stop Time Status Admin Acetaminophen 500 MG Q6P PRN 07/29 1830 AC PO Amlodipine Besylate 5 MG DAILY 07/30 1000 AC 08/01 PO 1041 Bisacodyl 5 MG ONE ONE 08/01 1000 DC 08/01 PO 08/01 1001 1038 Budesonide/ 2 PUF BID 07/29 2200 AC 07/30 Formoterol Fumarate INH 0947 Diphenhydramine HCl 25 MG .STK-MED ONE 08/01 2219 DC PO 08/01 2220 Diphenhydramine HCl 25 MG .STK-MED ONE 08/01 1636 DC PO 08/01 1637 Diphenhydramine HCl 25 MG Q6P PRN 07/31 1000 AC 08/02 PO 0456 Fluticasone 2 PUF BID 07/31 2200 AC Propionate INH Folic Acid 1 MG DAILY 07/30 1000 AC 08/01 PO 1040 Heparin Sodium 5,000 UNIT Q8 07/31 1400 AC 08/01 (Porcine) SC 0556 Ibuprofen 600 MG Q6P PRN 07/29 1830 AC PO Lisinopril 20 MG DAILY 07/30 1000 AC 08/01 PO 1042 Omeprazole 20 MG DAILY 07/30 1000 AC 08/01 PO 1042 Oxycodone HCl 20 MG Q4P PRN 07/31 0915 AC 08/02 PO 0749 Polyethylene Glycol 17 GM DAILY PRN 07/31 0945 AC 07/31 PO 1008 Pregabalin 150 MG QAM 07/30 1000 AC 08/01 PO 1041 Pregabalin 150 MG QPM 07/29 2200 AC 08/01 PO 2214 Senna/Docusate Sodium 2 TAB DAILY PRN 07/31 0945 AC PO Thiamine HCl 100 MG DAILY 07/30 1000 AC 08/01 PO 1043 Results Last 48 Hours of Labs: Laboratory Tests 08/02 08/01 0805 0935 Chemistry Sodium (137 - 145 mmol/L) Pending 137 Potassium (3.5 - 5.1 mmol/L) Pending 4.3 Chloride (98 - 107 mmol/L) Pending 98 Carbon Dioxide (22 - 30 mmol/L) Pending 26 Anion Gap (5 - 16) Pending 13 BUN (9 - 20 mg/dL) Pending 9 Creatinine (0.7 - 1.2 mg/dL) Pending 0.6 L Estimated GFR (>60 ml/min) > 60 BUN/Creatinine Ratio (7 - 25 %) Pending 15.0 Hematology CBC w Diff Pending MAN DIFF ORDERED WBC (4.8 - 10.8 /CUMM) Pending 9.2 RBC (4.70 - 6.10 /CUMM) Pending 3.29 L Hgb (14.0 - 18.0 G/DL) Pending 9.7 L Hct (42 - 52 %) Pending 29.0 L MCV (80.0 - 94.0 FL) Pending 88.0 MCH (27.0 - 31.0 PG) Pending 29.5 RDW (11.5 - 14.5 %) Pending 16.3 H Plt Count (130 - 400 /CUMM) Pending 619 H MPV (7.4 - 10.4 FL) Pending 8.6 Gran % (42.2 - 75.2 %) 67.9 Lymphocytes % (20.5 - 51.1 %) 20.6 Monocytes % (1.7 - 9.3 %) 7.4 Eosinophils % (0 - 5 %) 1.3 Basophils % (0.0 - 2.0 %) 2.8 H Absolute Granulocytes (1.4 - 6.5 /CUMM) 6.2 Absolute Lymphocytes (1.2 - 3.4 /CUMM) 1.9 Absolute Monocytes (0.10 - 0.60 /CUMM) 0.7 H Absolute Eosinophils (0.0 - 0.7 /CUMM) 0.1 Absolute Basophils (0.0 - 0.2 /CUMM) 0.3 Platelet Estimate (ADEQUATE) INCREASED Hypochromic-Microcytic 2+ Anisocytosis 1+ PUBS MCHC (33.0 - 37.0 G/DL) Pending 33.5 Assessment/Plan Assessment/Plan 52-year-old male with peripheral neuropathy secondary to a combination of chronic alcoholism and subjectively reported exposure to pain chemicals for r/o acute on chronic osteomyelitis of the right calcaneus with associated pathological calcaneal stress fracture. The patient was seen and evaluated at bedside, the packing was removed as he is no longer draining, and a dry sterile dressing with ample padding was applied to the right heel. Weightbearing status is unchanged, I wrote a prescription for a rolling knee walker at the patient's request, and his will facilitate during this admission so that he may work with the physical therapists with the device to maintain nonweightbearing to the right lower extremity, which he will be expected to maintain for 6-8 weeks. I discussed the case with the infectious disease health consultant Tin Zelaya MD, and reviewed the most recent results. If the infection workup is indeed again negative, I will reorient my treatment primarily towards the calcaneal fracture. As the patient does not have a significant tissue void from the fact that his I &D did not reveal necrosed tissue, a layered closure will be performed on Friday in combination with initiation of immobilization via posterior splint. I will follow up on this patient Friday, and discussed the case with case management, as he has multiple home needs.
[2017-08-02 09:40] LABS: ABSOLUTE BASOPHIL COUNT 0.2 /CUMM (0.0-0.2); ABSOLUTE EOSINOPHIL COUNT 0.1 /CUMM (0.0-0.7); ABSOLUTE GRANULOCYTE CT 5.6 /CUMM (1.4-6.5); ABSOLUTE LYMPH COUNT 1.8 /CUMM (1.2-3.4); ABSOLUTE MONOCYTE COUNT 0.7 /CUMM (0.10-0.60); BASOPHIL % 2.1 % (0.0-2.0); EOSINOPHIL % 1.7 % (0-5); HEMATOCRIT 30.1 % (42-52); MEAN CORPUSCULAR HGB 29.1 PG (27.0-31.0); MEAN CORPUSCULAR HGB CONC 33.1 G/DL (33.0-37.0); MEAN PLATELET VOLUME 8.9 FL (7.4-10.4); PLATELET COUNT 570 /CUMM (130-400); RBC DISTRIBUTION WIDTH 16.4 % (11.5-14.5); RED BLOOD CELL CT 3.42 /CUMM (4.70-6.10); WHITE BLOOD CELL COUNT 8.3 /CUMM (4.8-10.8)
[2017-08-03] VITALS: BP 118/64
[2017-08-03 06:00] VITALS: BP 130/80
[2017-08-03 07:01] VITALS: BP 130/80
--- NOTE | 2017-08-03 08:47 | PN- Housestaff ---
Rebecca HEBERT,Angelica 08/03/17 0847: Subjective Follow-up For: 1. Foot wound S/P I & D POD 1 2. Cellulitis 3. Alcohol withdrawal 4. PATHOLOGICAL FOOT # Subjective: Patient is seen and examined at bedside, he continues to complain of pain in his right foot, 7/10 in severity, he also complains of constipation,sore throat and cough, denies fever, chills, nausea, vomiting, diarrhea or abdominal pain Review of Systems Constitutional: Denies: no symptoms. Cardiovascular: Denies: no symptoms. Respiratory: Denies: no symptoms. Gastrointestinal: Denies: no symptoms. Genitourinary: Denies: no symptoms. Objective Last 24 Hrs of Vital Signs/I&O Vital Signs Date Time Temp Pulse Resp B/P B/P Pulse O2 O2 Flow FiO2 Mean Ox Delivery Rate 08/03 0934 70 130/80 08/03 0933 70 130/80 08/03 0701 97.4 62 20 130/80 95 Room Air 08/03 0600 97.4 62 20 130/80 08/03 0000 98.5 65 20 118/64 08/02 2240 98.5 65 20 118/64 97 Room Air 08/02 1451 98.8 65 20 118/70 95 Intake & Output 08/03 1600 08/03 0800 08/03 0000 Intake Total 100 480 Output Total Balance 100 480 Intake, IV 0 Intake, Oral 100 480 Number 0 Bowel Movements Physical Exam General Appearance: Alert, Oriented X3, Cooperative, No Acute Distress HEENT: Atraumatic, PERRLA, EOMI, Mucous Membr. moist/pink Cardiovascular: Normal S1, Normal S2, No Murmurs Lungs: Clear to Auscultation, Normal Air Movement Abdomen: Normal Bowel Sounds, Soft, No Tenderness Neurological: Normal Speech, Strength at 5/5 X4 Ext, Normal Tone Extremities: No Clubbing, No Cyanosis, No Edema Assessment/Plan Assessment: 52-year-old male with past medical history of peripheral neuropathy, alcoholic cirrhosis, COPD (not oxygen dependent, not on steroid), lung nodule, left ear deafness and left eye blindness, Dos Santos's esophagus who presented to the ED complaining of right lower extremity increased swelling and discharge. Was recently discharged from [facility] after having I&D and bone biopsy which showed coag-negative staph, the patient was discharged off antibiotics to follow -up as outpatient with a supervisor cell room for wound care, patient reported having increased swelling, pain, discharge of his right foot. On the day of admission the patient noticed that the sutures in his foot has dehisced, #? RIGHT FOOT CALCANEUS OSTEOMYELITIS, CELLULITIS, OPEN WOUND S/P I & D and bone biopsy Most likely his x-ray findings are due to pathological fractures Packaging was removed today and he is no longer draining, dry sterile dressing was applied to the foot today POURER BUGGY LADLE provided prescription forrolling knee walker at the patient's [facility] Pulp Drier recommend: physical therapiY with the device to maintain nonweightbearing to the right lower extremity, which he will be expected to maintain for 6-8 weeks. -A layered closure will be performed on Friday morning in combination with initiation of immobilization via posterior splint. -This morning the patient was afebrile, his white cell count was normal -continue to monitor on general medicine floor -continue to monitor off antibiotic - OR cultures show enterococcus, likely contamination for further identificatiom -Continue to follow up on ID and pediatric recommendation -paIn control(oxycodone frequency has been increased to every 4 when necessary ) #Alcohol dependence Overnight the patient had CIWA score ranging from 0-1 CIWA Continue to monitor off Ativan PO Folic acid, vitamin B12, thiamine #Chronic medical conditions Continue home meds Full code Nothing by mouth at midnight DVT prophylaxis with a continuous heparin Problem List: 1. Pathological fracture of ankle 2. Foot ulcer Pain Ratin Pain Location: right foot Pain Goal: Remain pain free Pain Plan: pathway Tomorrow's Labs & Rationales: cbc bep DVT/Prophylaxis: mechanical, pharmacological Miguel Perez MD 08/03/17 1700: Attending MD Review Statement Attending Statement Attending MD Statement: examined this patient, discuss w/resident/PA/DBA, agreed w/resident/PA/DBA, reviewed EMR data (avail) Attending Assessment/Plan: 52M PMH cirrhosis, alcohol dependence, hypertension, peripheral neuropathy, non- oxygen dependent COPD, history of lung cancer recently admitted with right heel cellulitis with presumed osteomyelitis seen on x-ray, with bone biopsy and debridement on 07/18, with cultures negative thus far, repeat bone biopsy 07/22 with cultures growing coagulase negative Staph, now returns with worsening discomfort, drainage, and erythema of the foot, s/p drainage and bone biopsy . Pain is better controlled today after changing pain meds. No other complaints. Afebrile, stable vitals, cultures showing mixed myriam. 1. Right heel cellulitis 2. Peripheral neuropathy 3. Right heel pathologic fracture Plan - Continue on general medicine - Monitor off antibiotics - Follow cultures - Follow ID and podiatry recommendations - Continue home medications - DVT PPx
[2017-08-03 09:35] LABS: ABSOLUTE BASOPHIL COUNT 0.2 /CUMM (0.0-0.2); ABSOLUTE EOSINOPHIL COUNT 0.1 /CUMM (0.0-0.7); ABSOLUTE GRANULOCYTE CT 6.7 /CUMM (1.4-6.5); ABSOLUTE LYMPH COUNT 1.7 /CUMM (1.2-3.4); ABSOLUTE MONOCYTE COUNT 0.6 /CUMM (0.10-0.60); BASOPHIL % 1.7 % (0.0-2.0); EOSINOPHIL % 1.4 % (0-5); GRANULOCYTE % 72.2 % (42.2-75.2); HEMATOCRIT 30.7 % (42-52); MEAN CORPUSCULAR HGB CONC 33.3 G/DL (33.0-37.0); MEAN CORPUSCULAR VOLUME 86.9 FL (80.0-94.0); PLATELET COUNT 582 /CUMM (130-400); RBC DISTRIBUTION WIDTH 15.8 % (11.5-14.5); RED BLOOD CELL CT 3.54 /CUMM (4.70-6.10); WHITE BLOOD CELL COUNT 9.3 /CUMM (4.8-10.8)
[2017-08-03 16:06] VITALS: BP 110/70
[2017-08-03 22:49] VITALS: BP 112/60
[2017-08-04] VITALS: BP 112/60
[2017-08-04 06:30] VITALS: BP 112/66
--- NOTE | 2017-08-04 07:31 | PN- Housestaff ---
Rebecca HEBERT,[facility] 08/04/17 0731: Subjective Follow-up For: 1. Foot wound S/P I & D POD 1 2. Cellulitis 3. Pathological fracture of the foot 4. Alcohol withdrawal Subjective: Patient is seen and examined at bedside, he continues to complain of pain in his right foot, 7/10 in severity, denies any other c/o Review of Systems Constitutional: Denies: no symptoms. Cardiovascular: Denies: no symptoms. Respiratory: Denies: no symptoms. Gastrointestinal: Denies: no symptoms. Genitourinary: Denies: no symptoms. Musculoskeletal: Reports: joint pain. Skin: Reports: lesions. Objective Last 24 Hrs of Vital Signs/I&O Vital Signs Date Time Temp Pulse Resp B/P B/P Pulse O2 O2 Flow FiO2 Mean Ox Delivery Rate 08/04 0630 98.4 71 18 112/66 97 Room Air 08/04 0000 98.7 67 20 112/60 08/03 2249 98.7 67 20 112/60 98 Room Air 08/03 1606 98.2 58 20 110/70 96 Intake & Output 08/04 1600 08/04 0800 08/04 0000 Intake Total 300 Output Total 500 Balance -200 Intake, Oral 300 Output, Urine 500 Physical Exam General Appearance: Alert, Oriented X3, Cooperative, No Acute Distress Skin: right foot wound in clean MARIA A wrap HEENT: Atraumatic, PERRLA, EOMI, Mucous Membr. moist/pink Cardiovascular: Regular Rate, Normal S1, Normal S2 Lungs: Clear to Auscultation Abdomen: Normal Bowel Sounds, Soft, No Tenderness Assessment/Plan Assessment: 52-year-old male with past medical history of peripheral neuropathy, alcoholic cirrhosis, COPD (not oxygen dependent, not on steroid), lung nodule, left ear deafness and left eye blindness, Dos Santos's esophagus who presented to the ED complaining of right lower extremity increased swelling and discharge. Was recently discharged from [facility] after having I&D and bone biopsy which showed coag-negative staph, the patient was discharged off antibiotics to follow -up as outpatient with a pathology laboratory aide for wound care, patient reported having increased swelling, pain, discharge of his right foot. On the day of admission the patient noticed that the sutures in his foot has dehisced, #? RIGHT FOOT CALCANEUS OSTEOMYELITIS, CELLULITIS, OPEN WOUND S/P I & D and bone biopsy Most likely his x-ray findings are due to pathological fractures Packaging was removed today and he is no longer draining, dry sterile dressing was applied to the foot today keep nonweightbearing with a 4 point walker, OFFICE MACHINE TECHNICIAN provided prescription for rolling knee walker at the patient's [facility] Cath Laboratory Technician recommend: physical therapiY with the device to maintain nonweightbearing to the right lower extremity, which he will be expected to maintain for 6-8 weeks. -A layered closure will be performed on Friday in combination with initiation of immobilization via posterior splint. -This morning the patient was afebrile, his white cell count was normal -continue to monitor on general medicine floor -continue to monitor off antibiotic - OR cultures show enterococcus, likely contamination for further identificatiom -Continue to follow up on ID and pediatric recommendation -paIn control(oxycodone frequency has been increased to every 4 when necessary ) #Alcohol dependence Overnight the patient had CIWA score ranging from 0-1 CIWA Continue to monitor off Ativan PO Folic acid, vitamin B12, thiamine #Chronic medical conditions Continue home meds Full code Nothing by mouth at midnight DVT prophylaxis with a continuous heparin Problem List: 1. Pathological fracture of ankle 2. Foot ulcer 3. Cellulitis Pain Ratin Pain Location: right foot Pain Goal: Pain 4 or less Pain Plan: pathway Tomorrow's Labs & Rationales: cbc bep DVT/Prophylaxis: mechanical, pharmacological Miguel Perez MD 08/04/17 1254: Attending MD Review Statement Attending Statement Attending MD Statement: examined this patient, discuss w/resident/PA/W[employer] MILL [employer]OVER, agreed w/resident/PA/WIRE MILL ROVER, reviewed EMR data (avail) Attending Assessment/Plan: 52M PMH cirrhosis, alcohol dependence, hypertension, peripheral neuropathy, non- oxygen dependent COPD, history of lung cancer recently admitted with right heel cellulitis with presumed osteomyelitis seen on x-ray, with bone biopsy and debridement on 07/18, with cultures negative thus far, repeat bone biopsy 07/22 with cultures growing coagulase negative Staph, now returns with worsening discomfort, drainage, and erythema of the foot, s/p drainage and bone biopsy . Pain is better controlled today after changing pain meds. No other complaints. Afebrile, stable vitals, cultures showing mixed myriam. 1. Right heel cellulitis 2. Peripheral neuropathy 3. Right heel pathologic fracture Plan - Continue on general medicine - Will go to OR tomorrow, NPO after midnight - Monitor off antibiotics - Follow cultures - Follow ID and podiatry recommendations - Continue home medications - DVT PPx
--- NOTE | 2017-08-04 08:21 | PN- Podiatry ---
Subjective Subjective: 52-year-old male is seen and evaluated at bedside in no apparent distress 6 days status post incision and drainage of the right heel for a working diagnosis of acute on chronic osteomyelitis of the right calcaneus with associated pathological stress fracture. The patient reports no change in pain over the last 2 days since I last seen him. The nursing staff has reported to me multiple occasions upon which she has borne weight on the right heel AGAINST MEDICAL ADVICE, and upon which he has not been elevating the right lower extremity AGAINST MEDICAL ADVICE. Patient also reported to me that he had difficulty remembering who did and did not see him yesterday. Review of Systems: A 14 point review of systems was performed, and was found to be negative apart from the patient's complaints described above in the history of present illness. Objective Vital Signs and I&Os Vital Signs Date Time Temp Pulse Resp B/P B/P Pulse O2 O2 Flow FiO2 Mean Ox Delivery Rate 08/04 0630 98.4 71 18 112/66 97 Room Air 08/04 0000 98.7 67 20 112/60 08/03 2249 98.7 67 20 112/60 98 Room Air 08/03 1606 98.2 58 20 110/70 96 08/03 0934 70 130/80 08/03 0933 70 130/80 Intake & Output 08/04 1600 08/04 0800 08/04 0000 08/03 1600 08/03 0800 08/03 0000 Intake Total 300 900 100 480 Output Total 500 Balance -200 900 100 480 Intake, IV 0 Intake, Oral 300 900 100 480 Number 0 Bowel Movements Output, Urine 500 Physical Exam: The neurovascular examination is unchanged. The patient has no pain upon lateral squeezing of the right heel medial laterally, and the erythema and calor that he was admitted with is nearly resolved. There is still some residual nonpitting edema, also some residual shortening and widening of the tuber of the heel consistent with a chronic stress fracture. There is no ecchymosis. The incision is clean dry and intact, with virtually no drainage apart from some scant serous fluid. Musculoskeletal exam is unchanged. Current Medications: Current Medications Sig/Nate Start time Last Medication Dose Route Stop Time Status Admin Acetaminophen 500 MG Q6P PRN 07/29 1830 AC PO Amlodipine Besylate 5 MG DAILY 07/30 1000 AC 08/03 PO 0934 Benzocaine/Menthol 1 LUCIANA Q2P PRN 08/03 1400 AC PO Budesonide/ 2 PUF BID 07/29 2200 AC 07/30 Formoterol Fumarate INH 0947 Diphenhydramine HCl 25 MG .STK-MED ONE 08/03 2138 DC PO 08/03 2139 Diphenhydramine HCl 25 MG .STK-MED ONE 08/03 1734 DC PO 08/03 1735 Diphenhydramine HCl 25 MG Q6P PRN 07/31 1000 AC 08/03 PO 2140 Fluticasone 2 PUF BID 07/31 2200 AC Propionate INH Folic Acid 1 MG DAILY 07/30 1000 AC 08/03 PO 0934 Guaifenesin 600 MG Q12 08/03 1346 AC 08/03 PO 2139 Heparin Sodium 5,000 UNIT Q8 07/31 1400 AC 08/01 (Porcine) SC 0556 Ibuprofen 600 MG Q6P PRN 07/29 1830 AC PO Lisinopril 20 MG DAILY 07/30 1000 AC 08/03 PO 0933 Omeprazole 20 MG DAILY 07/30 1000 AC 08/03 PO 0530 Oxycodone HCl 20 MG Q4P PRN 07/31 0915 AC 08/04 PO 0551 Polyethylene Glycol 17 GM DAILY PRN 07/31 0945 AC 08/03 PO 1732 Pregabalin 150 MG QAM 07/30 1000 AC 08/03 PO 0932 Pregabalin 150 MG QPM 07/29 2200 AC 08/03 PO 2140 Senna/Docusate Sodium 2 TAB DAILY PRN 07/31 0945 AC 08/03 PO 1732 Thiamine HCl 100 MG DAILY 07/30 1000 AC 08/03 PO 0933 Results Last 48 Hours of Labs: Laboratory Tests 08/03 0825 Chemistry Sodium (137 - 145 mmol/L) 139 Potassium (3.5 - 5.1 mmol/L) 4.8 Chloride (98 - 107 mmol/L) 99 Carbon Dioxide (22 - 30 mmol/L) 27 Anion Gap (5 - 16) 13 BUN (9 - 20 mg/dL) 13 Creatinine (0.7 - 1.2 mg/dL) 0.6 L Estimated GFR (>60 ml/min) > 60 BUN/Creatinine Ratio (7 - 25 %) 21.7 Hematology CBC w Diff NO MAN DIFF REQ WBC (4.8 - 10.8 /CUMM) 9.3 RBC (4.70 - 6.10 /CUMM) 3.54 L Hgb (14.0 - 18.0 G/DL) 10.2 L Hct (42 - 52 %) 30.7 L MCV (80.0 - 94.0 FL) 86.9 MCH (27.0 - 31.0 PG) 29.0 RDW (11.5 - 14.5 %) 15.8 H Plt Count (130 - 400 /CUMM) 582 H MPV (7.4 - 10.4 FL) 9.0 Gran % (42.2 - 75.2 %) 72.2 Lymphocytes % (20.5 - 51.1 %) 18.2 L Monocytes % (1.7 - 9.3 %) 6.5 Eosinophils % (0 - 5 %) 1.4 Basophils % (0.0 - 2.0 %) 1.7 Absolute Granulocytes (1.4 - 6.5 /CUMM) 6.7 H Absolute Lymphocytes (1.2 - 3.4 /CUMM) 1.7 Absolute Monocytes (0.10 - 0.60 /CUMM) 0.6 Absolute Eosinophils (0.0 - 0.7 /CUMM) 0.1 Absolute Basophils (0.0 - 0.2 /CUMM) 0.2 PUBS MCHC (33.0 - 37.0 G/DL) 33.3 Assessment/Plan Assessment/Plan 52-year-old male with peripheral neuropathy secondary to chronic alcoholism and subjectively reported exposure to paint chemicals with a likely chronic stress fracture of the right calcaneus, rule out osteomyelitis. The patient was seen and evaluated. The vitals and labs were reviewed. A dry sterile dressing was again placed on the incision and drainage site on the posterior right heel with ample padding. The patient is to remain nonweightbearing with a 4 point walker, and I wrote a prescription for a rolling knee walker to assist him and keeping weight off of the heel. I have discussed the case with the primary team and the infectious disease applications consultant. If the infection workup is again negative, we will proceed with treatment for the chronic stress fracture of the right calcaneus, which is likely pathological in nature due to a combination of his comorbidities and history of prior open wounds in that area. The patient is to remain nothing by mouth after midnight tonight, and he will be taken by myself and Dr. Escalante for a final washout, and layered closure of the posterior incision, and we will begin immobilization with a Treviño compression dressing and posterior splint. The patient has also demonstrated several signs of chronic alcoholism which may make a discharge home more difficult, particularly his mild difficulty with memory and noncompliance with NWB. He has been recommended for rehabilitation in the past, which he has refused. A short-term rehabilitation stay would likely be optimal for him, but this decision will be deferred to the primary team in the physical therapy team pending how he is able to maintain nonweightbearing in a compliant fashion once the rolling knee walker arrives.
[2017-08-04 09:18] LABS: ABSOLUTE BASOPHIL COUNT 0.2 /CUMM (0.0-0.2); ABSOLUTE EOSINOPHIL COUNT 0.2 /CUMM (0.0-0.7); ABSOLUTE GRANULOCYTE CT 6.8 /CUMM (1.4-6.5); ABSOLUTE LYMPH COUNT 1.8 /CUMM (1.2-3.4); ABSOLUTE MONOCYTE COUNT 0.6 /CUMM (0.10-0.60); BASOPHIL % 1.8 % (0.0-2.0); EOSINOPHIL % 1.6 % (0-5); GRANULOCYTE % 71.9 % (42.2-75.2); HEMATOCRIT 31.2 % (42-52); MEAN CORPUSCULAR HGB 28.8 PG (27.0-31.0); MEAN CORPUSCULAR VOLUME 87.3 FL (80.0-94.0); PLATELET COUNT 590 /CUMM (130-400); RBC DISTRIBUTION WIDTH 15.6 % (11.5-14.5); RED BLOOD CELL CT 3.57 /CUMM (4.70-6.10); WHITE BLOOD CELL COUNT 9.5 /CUMM (4.8-10.8)
[2017-08-04 14:26] VITALS: BP 110/66
[2017-08-04 22:42] VITALS: BP 120/60
[2017-08-05] VITALS (9 sets, daily range): BP systolic 114–122; BP diastolic 56–80
--- NOTE | 2017-08-05 07:16 | PN- Housestaff ---
Rebecca HEBERT,Angelica 08/05/17 0716: Subjective Follow-up For: 1. Foot wound S/P I & D POD 1 2. Cellulitis 3. Pathological fracture of the foot 4. Alcohol withdrawal Subjective: Patient is seen and examined at bedside, he continues to complain of pain in his right foot, 7/10 in severity, denies any other c/o, He was noted to be non compliant with non weight bearind instructions, which add to his pain, will be going to the OR today for repair Review of Systems Constitutional: Denies: no symptoms. Cardiovascular: Denies: no symptoms. Respiratory: Denies: no symptoms. Gastrointestinal: Denies: no symptoms. Genitourinary: Denies: no symptoms. Musculoskeletal: Reports: joint pain. Skin: Reports: lesions. Objective Last 24 Hrs of Vital Signs/I&O Vital Signs Date Time Temp Pulse Resp B/P B/P Pulse O2 O2 Flow FiO2 Mean Ox Delivery Rate 08/05 0923 80 130/70 08/05 0923 80 130/70 08/05 0621 98.6 62 20 114/56 95 Room Air 08/05 0600 98.6 62 20 114/56 08/05 0400 99.2 60 20 120/60 08/05 0200 99.2 60 20 120/60 08/05 0000 99.2 60 20 120/60 08/04 2242 99.2 60 20 120/60 96 08/04 1426 98.1 64 20 110/66 95 Room Air 08/04 0955 68 110/60 Intake & Output 08/05 1600 08/05 0800 08/05 0000 Intake Total 400 800 Output Total Balance 400 800 Intake, IV 400 Intake, Oral 0 800 Physical Exam General Appearance: Alert, Oriented X3, Cooperative, No Acute Distress HEENT: Atraumatic, PERRLA, EOMI, Mucous Membr. moist/pink Neck: Supple, No JVD Cardiovascular: Normal S1, Normal S2, No Murmurs Lungs: Clear to Auscultation, Normal Air Movement Abdomen: Normal Bowel Sounds, Soft, No Tenderness Neurological: Normal Speech Extremities: No Clubbing (ri), right LE is wrapped in a clean MARIA A wrap Assessment/Plan Assessment: 52-year-old male with past medical history of peripheral neuropathy, alcoholic cirrhosis, COPD (not oxygen dependent, not on steroid), lung nodule, left ear deafness and left eye blindness, Dos Santos's esophagus who presented to the ED complaining of right lower extremity increased swelling and discharge. Was recently discharged from [facility] after having I&D and bone biopsy which showed coag-negative staph, the patient was discharged off antibiotics to follow -up as outpatient with a business reporting developer for wound care, patient reported having increased swelling, pain, discharge of his right foot. On the day of admission the patient noticed that the sutures in his foot has dehisced, #? RIGHT FOOT CALCANEUS PATHOLOGICAL FRATURE, CELLULITIS, OPEN WOUND S/P I & D and bone biopsy Most likely his x-ray findings are due to pathological fractures Packaging was removed today and he is no longer draining, dry sterile dressing was applied to the foot today keep nonweightbearing with a 4 point walker, AIDS COUNSELOR provided prescription for rolling knee walker at the patient's [facility] Specialty Development Consultant recommend: physical therapiY with the device to maintain nonweightbearing to the right lower extremity, which he will be expected to maintain for 6-8 weeks. -A layered closure will be performed today in combination with initiation of immobilization via posterior splint. -continue to monitor on general medicine floor -continue to monitor off antibiotic - OR cultures show enterococcus, likely contamination for further identificatiom -Continue to follow up on ID and pediatric recommendation -paIn control(oxycodone frequency has been increased to every 4 when necessary ) #Alcohol dependence Overnight the patient had CIWA score ranging from 0-1 CIWA Continue to monitor off Ativan PO Folic acid, vitamin B12, thiamine #Chronic medical conditions Continue home meds Full code Nothing by mouth at midnight DVT prophylaxis with a continuous heparin Problem List: 1. Pathological fracture of ankle 2. Foot ulcer 3. Osteomyelitis Pain Ratin Pain Location: right foot Pain Goal: Pain 4 or less Pain Plan: Pathway Tomorrow's Labs & Rationales: CBC, BEp DVT/Prophylaxis: mechanical, pharmacological Mgiuel Perez MD 08/05/17 1236: Attending MD Review Statement Attending Statement Attending MD Statement: examined this patient, discuss w/resident/PA/FRONT DESK HOST, agreed w/resident/PA/FRONT DESK HOST, reviewed EMR data (avail) Attending Assessment/Plan: 52M PMH cirrhosis, alcohol dependence, hypertension, peripheral neuropathy, non- oxygen dependent COPD, history of lung cancer recently admitted with right heel cellulitis with presumed osteomyelitis seen on x-ray, with bone biopsy and debridement on 07/18, with cultures negative thus far, repeat bone biopsy 07/22 with cultures growing coagulase negative Staph, now returns with worsening discomfort, drainage, and erythema of the foot, s/p drainage and bone biopsy . Pain is better controlled today after changing pain meds. No other complaints. Afebrile, stable vitals, cultures showing mixed myriam. 1. Right heel cellulitis 2. Peripheral neuropathy 3. Right heel pathologic fracture Plan - Continue on general medicine - Will go to OR today - Monitor off antibiotics - Follow cultures - Follow ID and podiatry recommendations - Continue home medications - DVT PPx
--- NOTE | 2017-08-05 07:49 | Patient Discharge Instructions ---
Discharge Instructions General Discharge Information You were seen/treated for: 1. Foot wound S/P I & D POD 1 2. Cellulitis 3. Pathological fracture of the foot 4. Alcohol withdrawal Special Instructions: 1-PLEASE FOLLOW UP WITH SHELLFISH SORTER IN 1 WEEK OF DISCHARGE 2-PLEASE MAINTAIN NON WEIGHT BEARING ON THE RIGHT FOOT FOR 6-8 WEEKS 3-PLEASE FOLLOW UP WITH PCP IN 1 WEEK OF DISCHARGE Diet Continue normal diet: Yes Activity Full Activity/No Limits: No Acute Coronary Syndrome Inclusion Criteria At DC or during hospital stay patient has or had the following: ACS DIAGNOSIS No Discharge Core Measures Meds if any: Prescribed or Continued at Discharge Meds if any: NOT Prescribed or Continued at Discharge Congestive Heart Failure Inclusion Criteria At DC or during hospital stay patient has or had the following: CHF DIAGNOSIS No Discharge Core Measures Meds if any: Prescribed or Continued at Discharge Meds if any: NOT Prescribed or Continued at Discharge Cerebrovascular accident Inclusion Criteria At DC or during hospital stay patient has or had the following: CVA/TIA Diagnosis No Discharge Core Measures Meds if any: Prescribed or Continued at Discharge Meds if any: NOT Prescribed or Continued at Discharge Venous thromboembolism Inclusion Criteria VTE Diagnosis No VTE Type NONE VTE Confirmed by (Test) NONE Discharge Core Measures - Per Current guidelines, there needs to be overlap - treatment for the first 5 days of Warfarin therapy. - If discharged on Warfarin prior to 5 days of - overlap therapy, the patient will need to be - assessed for post discharge needs including - *Post discharge parental anticoagulation - *Warfarin and/or parental anticoagulation education - *Follow up date to check INR post discharge At least 5 days overlap therapy as Inpatient No Meds if any: Prescribed or Continued at Discharge Note: Overlap Therapy is Warfarin and Anticoagulant Meds if any: NOT Prescribed or Continued at Discharge
[2017-08-05 08:31] LABS: ABSOLUTE BASOPHIL COUNT 0.1 /CUMM (0.0-0.2); ABSOLUTE EOSINOPHIL COUNT 0.2 /CUMM (0.0-0.7); ABSOLUTE LYMPH COUNT 1.8 /CUMM (1.2-3.4); ABSOLUTE MONOCYTE COUNT 0.7 /CUMM (0.10-0.60); BASOPHIL % 1.4 % (0.0-2.0); EOSINOPHIL % 1.8 % (0-5); GRANULOCYTE % 71.9 % (42.2-75.2); HEMATOCRIT 30.2 % (42-52); MEAN CORPUSCULAR HGB 29.1 PG (27.0-31.0); MEAN CORPUSCULAR VOLUME 88.3 FL (80.0-94.0); PLATELET COUNT 603 /CUMM (130-400); RBC DISTRIBUTION WIDTH 15.9 % (11.5-14.5); RED BLOOD CELL CT 3.42 /CUMM (4.70-6.10); WHITE BLOOD CELL COUNT 9.8 /CUMM (4.8-10.8)
--- NOTE | 2017-08-05 15:31 | Operative Report ---
Operative/Inv Procedure Report Surgery Date: 08/05/17 Name of Procedure: 1 open incision and drainage deep to the D fashion with exposure of the Achilles tendon and peritenon multiple sites right heel. 2 delayed primary closure of open surgical wound with local random advancement flap 3 intraoperative administration of ankle block anesthesia 4 intraoperative application of short leg nonweight bearing cast right lower extremity. 5 excisional debridement Pre-Operative Diagnosis: 1 open necrotic wound right foot 2 nonunited stress fracture right heel Post-Operative Diagnosis: The same Estimated Blood Loss: less than 50ml Surgeon/Securities Broker: DIANN CHILD DPM Anesthesia: moderate sedation, block Operative/Procedure Note Note: After obtaining informed consent the patient was brought to the operating room and placed on the operating table in the supine position. The patient isn't securely fastened to the operating table utilizing safety belt. After administration of IV sedation, 10 mL of 0.5% Marcaine plain was obtained about the patient's right ankle. The right foot and ankle then scrubbed prepped and draped in usual aseptic manner. Attention was directed to the posterior and inferior aspect of the right heel, where a full-thickness linear incision was identified. A 15 blade visualized sharply revised skin margins. Dissection was then carried down deep to the deep fascia with exposure of the Achilles tendon and peritenon multiple sites, both proximally and distally. All necrotic nonviable infected tissue sharply evacuated from the wound bed. Nipple was then irrigated 3 L normal sterile saline fissure 50,000 units of bacitracin. Following this the foot was redraped and surgeon's top was changed clean gloves. Any bleeding vessels identified were cauterized a lace encountered. Next, the adjacent tissues were mobilized to allow for reapproximation and primary closure of the open wound. A layered closure was performed with reapproximation of the deep tissues utilizing 3-0 Vicryl. The septae stitches reapproximated 4-0 Vicryl and the skin edges were coapted with skin olman. The foot was then dressed with Betadine soaked Adaptic 4 x 4's Kerlix and Ayan wrap a compressive dressing and short leg nonweightbearing cast was applied to the right lower extremity. The patient is noted tolerate both procedure and anesthesia well and the patient was transported from the operative room to recovery with vital signs stable.
--- NOTE | 2017-08-05 16:49 | PN- Infect Dx ---
Subjective Subjective: Afebrile. He notes mild discomfort in the right heel. Objective Last 24 Hrs of Vital Signs/I&O Vital Signs Date Time Temp Pulse Resp B/P B/P Pulse O2 O2 Flow FiO2 Mean Ox Delivery Rate 08/05 1319 98.2 80 20 120/80 98 Room Air 08/05 0923 80 130/70 08/05 0923 80 130/70 08/05 0621 98.6 62 20 114/56 95 Room Air 08/05 0600 98.6 62 20 114/56 08/05 0400 99.2 60 20 120/60 08/05 0200 99.2 60 20 120/60 08/05 0000 99.2 60 20 120/60 08/04 2242 99.2 60 20 120/60 96 Intake & Output 08/05 1600 08/05 0800 08/05 0000 Intake Total 400 800 Output Total Balance 400 800 Intake, IV 400 Intake, Oral 0 800 Physical Exam Other Physical Findings: He appears comfortable in no acute distress Extremities right foot dressing intact Results Last 24 Hours of Lab Results: Laboratory Tests 08/05 0741 Chemistry Sodium (137 - 145 mmol/L) 140 Potassium (3.5 - 5.1 mmol/L) 4.7 Chloride (98 - 107 mmol/L) 103 Carbon Dioxide (22 - 30 mmol/L) 23 Anion Gap (5 - 16) 14 BUN (9 - 20 mg/dL) 14 Creatinine (0.7 - 1.2 mg/dL) 0.6 L Estimated GFR (>60 ml/min) > 60 BUN/Creatinine Ratio (7 - 25 %) 23.3 Hematology CBC w Diff NO MAN DIFF REQ WBC (4.8 - 10.8 /CUMM) 9.8 RBC (4.70 - 6.10 /CUMM) 3.42 L Hgb (14.0 - 18.0 G/DL) 10.0 L Hct (42 - 52 %) 30.2 L MCV (80.0 - 94.0 FL) 88.3 MCH (27.0 - 31.0 PG) 29.1 RDW (11.5 - 14.5 %) 15.9 H Plt Count (130 - 400 /CUMM) 603 H MPV (7.4 - 10.4 FL) 9.0 Gran % (42.2 - 75.2 %) 71.9 Lymphocytes % (20.5 - 51.1 %) 18.1 L Monocytes % (1.7 - 9.3 %) 6.8 Eosinophils % (0 - 5 %) 1.8 Basophils % (0.0 - 2.0 %) 1.4 Absolute Granulocytes (1.4 - 6.5 /CUMM) 7.0 H Absolute Lymphocytes (1.2 - 3.4 /CUMM) 1.8 Absolute Monocytes (0.10 - 0.60 /CUMM) 0.7 H Absolute Eosinophils (0.0 - 0.7 /CUMM) 0.2 Absolute Basophils (0.0 - 0.2 /CUMM) 0.1 PUBS MCHC (33.0 - 37.0 G/DL) 33.0 Last 24 Hours of Ryne Results: No new cultures Assessment/Plan Impression: Stable, with temperatures and white blood cell count remaining normal off antibiotics, status post delayed primary closure of his open surgical wound earlier today, with application of a nonweightbearing cast for a non-united stress fracture of the right heel. He remains otherwise stable off antibiotics. Suggestion: 1. Further management of his right heel fracture per Podiatry 2. Continue to follow off antibiotics Will no longer follow at this time, but please call with any questions
[2017-08-06 06:00] VITALS: BP 118/66
[2017-08-06 06:15] VITALS: BP 118/66
--- NOTE | 2017-08-06 07:32 | PN- Housestaff ---
Rebecca HEBERT,Angelica 08/06/17 0732: Subjective Follow-up For: 1. Foot wound S/P I & D POD 1 2. Cellulitis 3. Pathological fracture of the foot 4. Alcohol withdrawal Subjective: Patient is seen and examined at bedside, he continues to complain of pain in his right foot, 7/10 in severity, denies any other c/o,layered closure was performed yesterday in combination with initiation of immobilization via posterior splint.POD day 1 , pt is anxiuos to go home today Review of Systems Constitutional: Denies: no symptoms. Cardiovascular: Denies: no symptoms. Respiratory: Denies: no symptoms. Gastrointestinal: Denies: no symptoms. Genitourinary: Denies: no symptoms. Musculoskeletal: Reports: joint pain, joint swelling. Skin: Denies: no symptoms. Objective Last 24 Hrs of Vital Signs/I&O Vital Signs Date Time Temp Pulse Resp B/P B/P Pulse O2 O2 Flow FiO2 Mean Ox Delivery Rate 08/06 0615 98.1 67 18 118/66 97 Room Air 08/06 0600 98.1 67 18 118/66 08/05 2232 99.6 71 18 116/60 96 Room Air 08/05 2000 97.1 64 20 122/64 08/05 1734 97.7 64 20 122/64 98 Room Air 08/05 1319 98.2 80 20 120/80 98 Room Air 08/05 0923 80 130/70 08/05 0923 80 130/70 Intake & Output 08/06 0800 08/06 0000 08/05 1600 Intake Total 240 200 Output Total Balance 240 200 Intake, Oral 240 200 Number 0 Bowel Movements Physical Exam General Appearance: Alert, Oriented X3, Cooperative, No Acute Distress Skin: No Rashes HEENT: Atraumatic, PERRLA, EOMI, Mucous Membr. moist/pink Neck: Supple, No JVD Cardiovascular: Normal S1, Normal S2, No Murmurs Lungs: Clear to Auscultation Abdomen: Normal Bowel Sounds, Soft Neurological: Normal Speech Extremities: right foot in dressing , lightly soiled with blood Vascular: Normal Pulses Assessment/Plan Assessment: 52-year-old male with past medical history of peripheral neuropathy, alcoholic cirrhosis, COPD (not oxygen dependent, not on steroid), lung nodule, left ear deafness and left eye blindness, Dos Santos's esophagus who presented to the ED complaining of right lower extremity increased swelling and discharge. Was recently discharged from [facility] after having I&D and bone biopsy which showed coag-negative staph, the patient was discharged off antibiotics to follow -up as outpatient with a organic gardening teacher for wound care, patient reported having increased swelling, pain, discharge of his right foot. On the day of admission the patient noticed that the sutures in his foot has dehisced, #? RIGHT FOOT CALCANEUS PATHOLOGICAL FRACTURE, CELLULITIS, OPEN WOUND S/P layered closure,immobilization via posterior splint. PPOD #1 Most likely his x-ray findings are due to pathological fractures keep nonweightbearing with a 4 point walker, DRYWALL METAL STUD WORKER provided prescription for rolling knee walker at the patient's [facility] Analytical Tech recommend: physical therapiY with the device to maintain nonweightbearing to the right lower extremity, which he will be expected to maintain for 6-8 weeks. -A layered closure was performed yesterday in combination with initiation of immobilization via posterior splint. -continue to monitor on general medicine floor - OR cultures show enterococcus, likely contamination for further identificatiom - ID signed off yesterday after recommending to continue to monitor off antibiotic - follow up on podiatry recommendation -pain control(oxycodone frequency has been increased to every 4 when necessary ) #Alcohol dependence Overnight the patient had CIWA score ranging from 0-1 CIWA Continue to monitor off Ativan PO Folic acid, vitamin B12, thiamine #Chronic medical conditions Continue home meds pt is stable for discharge today , was provided with knee roller and advised to maintain of of weight bearing. Full code Nothing by mouth at midnight DVT prophylaxis with a continuous heparin Problem List: 1. Pathological fracture of ankle 2. Cellulitis Pain Ratin Pain Location: right foot Pain Goal: Pain 4 or less Pain Plan: pathway Tomorrow's Labs & Rationales: N/A DVT/Prophylaxis: mechanical, pharmacological Miguel Perez MD 08/06/17 1212: Attending MD Review Statement Attending Statement Attending MD Statement: examined this patient, discuss w/resident/PA/MEDICAL DEVICE ENGINEER, agreed w/resident/PA/MEDICAL DEVICE ENGINEER, reviewed EMR data (avail) Attending Assessment/Plan: 52M PMH cirrhosis, alcohol dependence, hypertension, peripheral neuropathy, non- oxygen dependent COPD, history of lung cancer recently admitted with right heel cellulitis with presumed osteomyelitis seen on x-ray, with bone biopsy and debridement on 07/18, with cultures negative thus far, repeat bone biopsy 07/22 with cultures growing coagulase negative Staph, now returns with worsening discomfort, drainage, and erythema of the foot, s/p drainage and bone biopsy . Underwent revision and closure of right foot yesterday. No complaints today. Cultures negative. 1. Right heel cellulitis 2. Peripheral neuropathy 3. Right heel pathologic fracture Plan - Stable for discharge home - Has home mobility scooter and walkers at home, rolling walker ordered and will be picked up by family - Non-weight bearing on discharge - No antibiotics required - Outpatient podiatry and wound care follow up - Continue home medications
[2017-08-06 08:47] LABS: ABSOLUTE BASOPHIL COUNT 0.2 /CUMM (0.0-0.2); ABSOLUTE EOSINOPHIL COUNT 0.2 /CUMM (0.0-0.7); ABSOLUTE GRANULOCYTE CT 6.8 /CUMM (1.4-6.5); ABSOLUTE LYMPH COUNT 2.1 /CUMM (1.2-3.4); ABSOLUTE MONOCYTE COUNT 0.6 /CUMM (0.10-0.60); BASOPHIL % 1.7 % (0.0-2.0); EOSINOPHIL % 1.9 % (0-5); GRANULOCYTE % 68.7 % (42.2-75.2); MEAN CORPUSCULAR HGB 28.6 PG (27.0-31.0); MEAN CORPUSCULAR HGB CONC 32.7 G/DL (33.0-37.0); MEAN CORPUSCULAR VOLUME 87.6 FL (80.0-94.0); MEAN PLATELET VOLUME 8.6 FL (7.4-10.4); RBC DISTRIBUTION WIDTH 15.9 % (11.5-14.5); RED BLOOD CELL CT 3.54 /CUMM (4.70-6.10); WHITE BLOOD CELL COUNT 9.9 /CUMM (4.8-10.8)
[2017-08-06 10:06] LABS: PLATELET COUNT 699 /CUMM (130-400)
--- NOTE | 2017-08-06 12:25 | PN- Podiatry ---
Subjective Subjective: This is a 52-year-old male who is seen and evaluated status post delayed primary closure, washout, of a right heel wound and application of a posterior splint to the right lower extremity for the treatment of a pathological fracture of the right calcaneus. The patient is in no apparent distress, however he is somewhat combative and argumentative over the time of day of his anticipated discharge today. The patient was given a prescription for a rolling knee walker on Friday, and has yet to make arrangements to fill it. This is impeding his discharge as it is preventing him from optimally following his medically recommended weightbearing status. Review of Systems: A 14 point review of systems was performed, and was found to be negative apart from the patient's complaints described above in the history of present illness. Objective Vital Signs and I&Os Vital Signs Date Time Temp Pulse Resp B/P B/P Pulse O2 O2 Flow FiO2 Mean Ox Delivery Rate 08/06 0615 98.1 67 18 118/66 97 Room Air 08/06 0600 98.1 67 18 118/66 08/05 2232 99.6 71 18 116/60 96 Room Air 08/05 2000 97.1 64 20 122/64 08/05 1734 97.7 64 20 122/64 98 Room Air 08/05 1319 98.2 80 20 120/80 98 Room Air Intake & Output 08/06 1600 08/06 0800 08/06 0000 08/05 1600 08/05 0800 08/05 0000 Intake Total 240 200 400 800 Output Total Balance 240 200 400 800 Intake, IV 400 Intake, Oral 240 200 0 800 Number 0 Bowel Movements Physical Exam: The patient's neurovascular exam is unchanged. The patient is able to wiggle his toes on command, and there is normal capillary refill time in the right lower extremity. The splint is clean dry and intact and well padded. The left foot examination is unchanged. Current Medications: Current Medications Sig/Nate Start time Last Medication Dose Route Stop Time Status Admin Acetaminophen 500 MG Q6P PRN 07/29 1830 AC PO Amlodipine Besylate 5 MG DAILY 07/30 1000 AC 08/06 PO 0922 Benzocaine/Menthol 1 LUCIANA Q2P PRN 08/03 1400 AC PO Budesonide/ 2 PUF BID 07/29 2200 AC 07/30 Formoterol Fumarate INH 0947 Dextrose/Sodium 1,000 ML Q20H 08/04 2300 DC 08/04 Chloride IV 2252 Diphenhydramine HCl 25 MG .STK-MED ONE 08/05 2347 DC PO 08/05 2348 Diphenhydramine HCl 25 MG Q6P PRN 07/31 1000 AC 08/05 PO 2347 Fentanyl Citrate 100 MCG .STK-MED ONE 08/05 1345 DC IM 08/05 1346 Fluticasone 2 PUF BID 07/31 2200 AC Propionate INH Folic Acid 1 MG DAILY 07/30 1000 AC 08/06 PO 0922 Guaifenesin 600 MG Q12 08/03 1346 AC 08/06 PO 0922 Heparin Sodium 5,000 UNIT Q8 07/31 1400 AC 08/01 (Porcine) SC 0556 Ibuprofen 600 MG Q6P PRN 07/29 1830 AC PO Lisinopril 20 MG DAILY 07/30 1000 AC 08/06 PO 0922 Midazolam HCl 2 MG .STK-MED ONE 08/05 1345 DC IM 08/05 1346 Omeprazole 20 MG DAILY 07/30 1000 AC 08/06 PO 0922 Oxycodone HCl 20 MG Q4P PRN 07/31 0915 AC 08/06 PO 0922 Patient Medication 1 ED ONE ONE 08/06 1200 DC Teaching ED 08/06 1201 Polyethylene Glycol 17 GM DAILY PRN 07/31 0945 AC 08/03 PO 1732 Pregabalin 150 MG QAM 07/30 1000 DC 08/06 PO 0922 Pregabalin 150 MG QPM 07/29 2200 AC 08/05 PO 2043 Senna/Docusate Sodium 2 TAB DAILY PRN 07/31 0945 AC 08/03 PO 1732 Thiamine HCl 100 MG DAILY 07/30 1000 AC 08/06 PO 0922 Results Last 48 Hours of Labs: Laboratory Tests 08/06 08/05 0810 0741 Chemistry Sodium (137 - 145 mmol/L) 138 140 Potassium (3.5 - 5.1 mmol/L) 4.8 4.7 Chloride (98 - 107 mmol/L) 101 103 Carbon Dioxide (22 - 30 mmol/L) 23 23 Anion Gap (5 - 16) 14 14 BUN (9 - 20 mg/dL) 14 14 Creatinine (0.7 - 1.2 mg/dL) 0.7 0.6 L Estimated GFR (>60 ml/min) > 60 > 60 BUN/Creatinine Ratio (7 - 25 %) 20.0 23.3 Hematology CBC w Diff NO MAN DIFF REQ NO MAN DIFF REQ WBC (4.8 - 10.8 /CUMM) 9.9 9.8 RBC (4.70 - 6.10 /CUMM) 3.54 L 3.42 L Hgb (14.0 - 18.0 G/DL) 10.1 L 10.0 L Hct (42 - 52 %) 31.0 L 30.2 L MCV (80.0 - 94.0 FL) 87.6 88.3 MCH (27.0 - 31.0 PG) 28.6 29.1 RDW (11.5 - 14.5 %) 15.9 H 15.9 H Plt Count (130 - 400 /CUMM) 699 H 603 H MPV (7.4 - 10.4 FL) 8.6 9.0 Gran % (42.2 - 75.2 %) 68.7 71.9 Lymphocytes % (20.5 - 51.1 %) 21.2 18.1 L Monocytes % (1.7 - 9.3 %) 6.5 6.8 Eosinophils % (0 - 5 %) 1.9 1.8 Basophils % (0.0 - 2.0 %) 1.7 1.4 Absolute Granulocytes (1.4 - 6.5 /CUMM) 6.8 H 7.0 H Absolute Lymphocytes (1.2 - 3.4 /CUMM) 2.1 1.8 Absolute Monocytes (0.10 - 0.60 /CUMM) 0.6 0.7 H Absolute Eosinophils (0.0 - 0.7 /CUMM) 0.2 0.2 Absolute Basophils (0.0 - 0.2 /CUMM) 0.2 0.1 PUBS MCHC (33.0 - 37.0 G/DL) 32.7 L 33.0 Assessment/Plan Assessment/Plan 52-year-old male with peripheral neuropathy secondary to a combination of chronic alcoholism and 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 The patient was seen and evaluated at bedside. The chart was reviewed. The vitals reviewed. The patient is clear for discharge with the following final recommendations: 1) He is to remain nonweightbearing in the posterior splint and postoperative dressing on the right lower extremity, and is weightbearing as tolerated on left lower extremity with the assistance of a rolling knee walker, for which I have given him a prescription 4 days ago. He has been assessed by physical therapy, and should be cleared to go home with this weightbearing status provided his prescriptions filled. 2) He is to follow up weekly in the [facility] wound care center on Friday mornings, until the olman can be removed, then every 2 weeks thereafter until the pathological fractures healed. He is not a candidate for surgical reconstruction of the calcaneus at this time. 3) Provided he maintains mobility in the rolling knee walker, he should not require DVT prophylaxis. 4) The case was discussed with the infectious disease team, and I agreed to monitor the patient on a weekly basis through postoperative visits for recurrence of any acute signs of infection. Given the negative cultures taken on several occasions in the past few weeks, I am primarily attributing his edema and erythema to musculoskeletal stress in a weakened bone, given that it resolved with bedrest off antibiotics, and reorienting my treatment towards immobilization and observation through regular outpatient follow-up. I'm available for further discussion of this consultation at [phone]. I would also like to be notified if the patient's dismay with fulfilling the rolling knee walker prescription results in a discharge AGAINST MEDICAL ADVICE, for which further documentation will be needed.
--- NOTE | 2017-08-06 12:45 | Discharge Summary ---
Visit Information Visit Dates Admission Date: 07/29/17 Discharge Date: 08/06/17 Hospital Course Course Attending Physician: Miguel Perez MD Primary Care Physician: Eric Street MD Hospital Course: 52-year-old male with past medical history of peripheral neuropathy, alcoholic cirrhosis, COPD (not oxygen dependent, not on steroid), lung nodule, left ear deafness and left eye blindness, Dos Santos's esophagus who presented to the ED complaining of right lower extremity increased swelling and discharge. Was recently discharged from [facility] after having I&D and bone biopsy which showed coag-negative staph, the patient was discharged off antibiotics to follow -up as outpatient with a dice dealer for wound care, patient reported having increased swelling, pain, discharge of his right foot. On the day of admission the patient noticed that the sutures in his foot has dehisced, Vital signs on admission: Blood pressure 1:30/70, pulse 76, temperature 98.2 Labs on admission: WBC 11.6, hemoglobin 10.4, sodium 144, potassium 3.9, creatinine 0.6, glucose 105, 0.6 .right foot x-ray: Again noted is pathologic fracture and osteolysis of the posterior calcaneus with overlying soft tissue swelling and focus of soft tissue gas. 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 RIGHT FOOT DOPPLER:Normal triplex scan without evidence of deep venous thrombosis involving the right lower extremity. RIGHT FOOT CALCANEUS PATHOLOGICAL FRACTURE, CELLULITIS, OPEN WOUND S/P layered closure,immobilization via posterior splint. She was monitored off antibiotics,Most likely his x-ray findings are due to pathological fractures He was kept nonweightbearing with a 4 point walker, Dairy Feed Mixing Operator provided prescription for rolling knee walker at the patient's [facility]. Dairy Feed Mixing Operator recommend: physical therapiY with the device to maintain nonweightbearing to the right lower extremity, which he will be expected to maintain for 6-8 weeks. -A layered closure was performed on 08/05/17 in combination with initiation of immobilization via posterior splint. - OR cultures show enterococcus, likely contamination for further identificatiom #Alcohol dependence CIWA was in the range of 01 Monitored off Ativan Folic acid, vitamin B12, thiamine #Chronic medical conditions Kept on home meds Full code Nothing by mouth at midnight DVT prophylaxis with a continuous heparin Allergies: Coded Allergies: NO KNOWN ALLERGIES (04/20/14) Disposition Summary Disposition Principal Diagnosis: RIGHT FOOT CALCANEUS PATHOLOGICAL FRACTURE, CELLULITIS, OPEN WOUND S/P layered closure,immobilization via posterior splint. Additional Diagnosis: Alcohol dependence Discharge Disposition: home health services Discharge Instructions General Discharge Information Code Status: Full Code Patient's Diet: Regular diet Patient's Activity: As tolerated Follow-Up Instructions/Appts: 1-PLEASE FOLLOW UP WITH DIE CAST ENGINEER IN 1 WEEK OF DISCHARGE 2-PLEASE MAINTAIN NON WEIGHT BEARING ON THE RIGHT FOOT FOR 6-8 WEEKS 3-PLEASE FOLLOW UP WITH PCP IN 1 WEEK OF DISCHARGE Medications at Discharge Discharge Medications: Continue taking these medications: Quinapril HCl (Accupril) 40 MG TABLET 1 Tablet ORAL DAILY Comments: Last Taken:08/06/17 Time:0900AM LINSINOPRIL GIVEN REPLACEMENT Folic Acid (Folic Acid) 1 MG TABLET 1 Tablet ORAL DAILY Comments: Last Taken: 08/06/17 Time: 9:30 AM Oxycodone HCl (Oxycodone HCl) 20 MG TABLET 1 Tablet ORAL 4 TIMES A DAY Comments: Last Taken: 08/06/17 Time: 9:00 AM Methylcellulose (Fiber Laxative) (Unknown Strength) TABLET 2 Tablet ORAL DAILY Comments: NOT GIVEN IN HOSPITAL Thiamine HCl (B-1) 100 MG TABLET 1 Tablet ORAL DAILY Comments: Last Taken: 08/06/17 Time: 9:30 AM Cholecalciferol (Vitamin D3) (Vitamin D) 2,000 UNIT CAPSULE 1 Capsule ORAL DAILY Comments: NOT GIVEN IN HOSPITAL Calcium Carb/Mag Ox/Zinc Sulf (Slxhybz-Hoejvgzug-Qfmg Tablet) 334 MG-134 MG-5 MG TABLET 1 Tablet ORAL DAILY Comments: NOT GIVEN IN HOSPITAL Omeprazole (Omeprazole) 20 MG CAPSULE.DR 1 Capsule ORAL DAILY Qty = 90 Comments: Last Taken: 08/06/17 Time: 9:30 AM Pregabalin (Lyrica) 150 MG CAPSULE 2 Capsule ORAL Every Morning Qty = 270 Comments: Last Taken: 08/06/17 Time: 9:30 AM Fluticasone/Vilanterol (Breo Ellipta 100-25 Mcg INH) 100 MCG-25 MCG/DOSE BLST.W.DEV 1 Puff Inhale through mouth DAILY NEEDED Comments: NOT GIVEN IN HOSPITAL Pregabalin (Lyrica) 150 MG CAPSULE 1 Tablet ORAL Every night Comments: Last Taken: 08/05/17 Time: 0900PM Amlodipine Besylate (Amlodipine Besylate) 5 MG TABLET 1 Tablet ORAL DAILY Qty = 90 Comments: Last Taken: 08/06/17 Time: 900AM Ferrous Sulfate (Ferrous Sulfate) 325 MG (65 MG IRON) TABLET. 325 Milligram ORAL DAILY Qty = 30 Comments: DID NOT TAKE IN HOSPITAL Copies To: Jad HEBERT,Eric Rincon
== END 2017-08-06 13:07 | disposition home health service (06) | DRG 464 ==
LOC: ERH 11:47 → 2NA 16:54 → ERHI 16:54 → ENRESERV 17:52 → ENTRNSPT 18:37 → 2NA 18:52 → CMPTRNSPT 19:02 → ENTRNSPT 07-30 13:49 → EDTRNSPTSTS 07-30 13:54 → EDTRNSPT 07-30 13:56 → CMPTRNSPT 07-30 14:59 → ENPENDDIS 08-06 12:46 → ENTRNSPT 08-06 12:51 → EDTRNSPT 08-06 12:59 → EDTRNSPTSTS 08-06 12:59 → 2NA 08-06 13:07 → CMPTRNSPT 08-06 13:13
PROVIDERS: Internal Medicine Hematology & Oncology; Student in an Organized Health Care Education/Training Program
PROC: 0QBL0ZZ Excision of Right Tarsal, Open Approach (ICD-10-PCS; principal; 2017-07-30)
PROC: 0HXMXZZ Transfer Right Foot Skin, External Approach (ICD-10-PCS; 2017-08-05)
PROC: 0QBL0ZZ Excision of Right Tarsal, Open Approach (ICD-10-PCS; 2017-08-05)
DX: M86.171 Other acute osteomyelitis, right ankle and foot (principal); M84.474A Pathological fracture, right foot, initial encounter for fracture; G62.9 Polyneuropathy, unspecified; K70.30 Alcoholic cirrhosis of liver without ascites; L03.115 Cellulitis of right lower limb; F10.239 Alcohol dependence with withdrawal, unspecified; F10.20 Alcohol dependence, uncomplicated; J44.9 Chronic obstructive pulmonary disease, unspecified; H91.92 Unspecified hearing loss, left ear; H54.62 Unqualified visual loss, left eye, normal vision right eye; K22.70 Barrett's esophagus without dysplasia; I10 Essential (primary) hypertension; G89.29 Other chronic pain; Z87.891 Personal history of nicotine dependence
CPT/HCPCS: 2NAP; 87070; 87075; 36415; 73630-RT; 82436; 87040; 88307; 97110-GO; 97112-GO; 97116-GO; 97161-GP; 97530-GO; J0696; J0713; J1644; J2001; J3370; J3490; J7040; J7042

== ENCOUNTER 2018-02-12 21:14 | Inpatient (IN) | payer OTHER ==
[~2018-02-12] VITALS: Ht 177.8 cm; Wt 88.1 kg
--- NOTE | 2018-02-12 21:50 | ED AMS/SEIZURE/WEAK/DIZZY ---
History of Present Illness General Chief Complaint: General Adult Stated Complaint: ADRIANA LUNA Source: patient, family Exam Limitations: confusion Vital Signs & Intake/Output Vital Signs & Intake/Output Vital Signs Date Time Temp Pulse Resp B/P B/P Pulse O2 O2 Flow FiO2 Mean Ox Delivery Rate 02/13 0031 98.1 90 16 103/52 95 Nasal Cannula 02/12 2356 98.0 89 14 92/52 95 Nasal 2.0L Cannula 02/12 2256 97.9 90 14 102/60 95 Nasal 2.0L Cannula 02/12 2156 Nasal 2.0L Cannula 02/12 2130 98.8 96 16 122/53 94 Nasal 2.0L Cannula ED Intake and Output 02/13 0000 02/12 1200 Intake Total 1000 Output Total Balance 1000 Intake, IV 1000 Allergies Coded Allergies: NO KNOWN ALLERGIES (04/20/14) Reconcile Medications Amlodipine Besylate 5 MG TABLET 1 TAB PO DAILY HIGH BLOOD PRESSURE (Reported) Calcium Carb/Mag Ox/Zinc Sulf (Mnisyiq-Cpdmojlct-Tlsf Tablet) 334 MG-134 MG-5 MG TABLET 1 TAB PO DAILY SUPPLEMENT (Reported) Cholecalciferol (Vitamin D3) (Vitamin D) 2,000 UNIT CAPSULE 1 CAP PO DAILY SUPPLEMENT (Reported) Folic Acid 1 MG TABLET 1 TAB PO DAILY SUPPLEMENT (Reported) Methylcellulose (Fiber Laxative) (Unknown Strength) TABLET 2 TAB PO DAILY SUPPLEMENT (Reported) Omeprazole 20 MG CAPSULE.DR 1 CAP PO DAILY GERD (Reported) Oxycodone HCl 20 MG TABLET 1 TAB PO TID PAIN (Reported) Pregabalin (Lyrica) 150 MG CAPSULE 2 CAP PO QAM NERVE PAIN (Reported) Pregabalin (Lyrica) 150 MG CAPSULE 1 TAB PO QPM nerve pain (Reported) Quinapril HCl (Accupril) 40 MG TABLET 1 TAB PO DAILY BP (Reported) Thiamine HCl (B-1) 100 MG TABLET 1 TAB PO DAILY SUPPLEMENT (Reported) Triage Note: PT BIBA FROM HOME WITH C/O AMS X 3 DAYS, WORSE TODAY. PT DROWSY AROUSABLE, ORIENTED X2 , UNSURE WHAT DAY IT IS. SPEECH CLEAR. NEUROS OTHERWISE INTACT. DENIES ANY PAIN. PER PT QUIT DRINKING 3 WEEKS AGO, AND FELL 2 DAYS AGO, - HEADSTRIKE. PER EMS O2 SAT WAS HIGH 80S ON THEIR ARRIVAL, PT ARRIVES ON 2L NC, O2 SAT 94% Triage Nurses Notes Reviewed? yes Onset: Gradual Duration: day(s): Timing: recent history Injury Environment: home Severity: moderate HPI: 52yo male with hx of HTN, alcoholic dependence BIBA for AMS x 4 days. Patient recently stopped drinking alcohol on 01/21/17. HPI obtained from Patient's d/ t patient's confusion. Per patient had a fall in his kitchen on 02/09/17 after he began displaying symptoms of AMS. Patient has been talking about his brother who he hasn't seen in a year and was asking if he came over. AMS has progressively gotten worsen over several days. Per patient had shallow breaths today which concerned her and prompted ED visit tonight. Patient does take oxycodone daily. Patient reports back pain. (Cornelia Trevizo) Past History Travel History Traveled to [place] past 21 day No Medical History Any Pertinent Medical History? see below for history Neurological: peripheral neuropathy EENT: NONE Cardiovascular: hypertension Respiratory: COPD Gastrointestinal: BARRETTS ESOPHAGUS Hepatic: cirrhosis (etoh-induced) Renal: NONE Musculoskeletal: CHRINIC PAIN Psychiatric: alcohol dependence Endocrine: NONE Blood Disorders: NONE Cancer(s): LUNG nodule THROAT NODULES History of MRSA: No History of VRE: No History of CDIFF: No Tetanus Vaccine: 04/20/14 Surgical History Surgical History: right heel debridement Psychosocial History Who do you live with Spouse What is your primary language Azeri Tobacco Use: Quit >30 days ago ETOH Use: alcoholic Family History Family History, If Any: FATHER *No pertinent family history Relation not specified for: FH: breast cancer Hx Contributory? No (Cornelia Trevizo) Review of Systems Review of Systems Constitutional: Reports: see HPI. EENTM: Reports: no symptoms. Respiratory: Reports: see HPI. Cardiovascular: Reports: no symptoms. GI: Reports: no symptoms. Genitourinary: Reports: no symptoms. Musculoskeletal: Reports: no symptoms. Skin: Reports: no symptoms. Neurological/Psychological: Reports: see HPI. Hematologic/Endocrine: Reports: no symptoms. Immunologic/Allergic: Reports: no symptoms. All Other Systems: Reviewed and Negative (Cornelia Trevizo) Physical Exam Physical Exam General Appearance: well developed/nourished, no apparent distress, awake Head: atraumatic, normal appearance Eyes: Bilateral: normal appearance, PERRL, EOMI. Ears, Nose, Throat: normal pharynx, hearing grossly normal Neck: normal inspection, supple, full range of motion Respiratory: normal breath sounds, no respiratory distress, lungs clear Cardiovascular: regular rate/rhythm Peripheral Pulses: 2+ radial (R), 2+ radial (L) Gastrointestinal: normal bowel sounds, soft, non-tender, no organomegaly Back: normal inspection, normal range of motion Extremities: normal range of motion Neurologic/Psych: awake, oriented to person and place, no time or current events , CN grossly intact as tested Skin: intact, normal color, warm/dry Core Measures ACS in differential dx? Yes CVA/TIA Diagnosis No Sepsis Present: No Sepsis Focused Exam Completed? No (Fozia GARCIA,Cornelia Atwood) Progress Differential Diagnosis: arrythmia, alcohol intoxication, CVA/stroke, dehydration , drug intoxication, encephalitis, electrolyte imbalance, hypoxia, intracranial Hem., intracranial mass/tumor, pneumonia, sepsis, UTI/pyelo Plan of Care: Orders Procedure Date/time Status Regular Diet 02/13 B Active Patient Data 02/13 0155 Active OXYGEN SETUP (GEN) 02/13 0127 Active Saline Lock 02/13 0127 Active Admit to inpatient 02/13 0127 Active Vital Signs 02/13 012 Active Activity/Ambulation 02/13 012 Active Code Status 02/13 012 Active Patient Safety Monitor 02/13 0027 Active AMMONIA 02/12 2230 Complete BLOOD CULTURE 02/12 221 Active ARTERIAL BLOOD GAS (GEN) 02/12 221 Complete URINE DRUG SCREEN FOR ER ONLY 02/12 2118 Active URINALYSIS 02/12 2118 Complete TROPONIN LEVEL 02/12 2118 Complete PARTIAL THROMBOPLASTIN TIME 02/12 2118 Complete PROTHROMBIN TIME 02/12 2118 Complete ETHANOL 02/12 2118 Complete COMPREHENSIVE METABOLIC PANEL 02/12 2118 Complete CBC WITHOUT DIFFERENTIAL 02/12 2118 Complete EKG 02/12 2118 Active Current Medications Sig/Nate Start time Last Medication Dose Stop Time Status Admin Sodium Chloride 1,000 ML ONCE ONE 02/12 2345 AC 02/13 (Normal Saline 0.9%) 02/13 0744 0013 Laboratory Tests 02/13/18 0048: Urine Opiates Screen Pending, Methadone Screen Pending, Barbiturate Screen Pending, Ur Phencyclidine Scrn Pending, Amphetamines Screen Pending, U Benzodiazepines Scrn Pending, Urine Cocaine Screen Pending, Urine Cannabis Screen Pending, Urine Color YEL, Urine Clarity CLDY H, Urine pH 5.5, Ur Specific Prospect >= 1.030, Urine Protein 100 H, Urine Ketones TRACE H, Urine Nitrite NEG, Urine Bilirubin SMALL H, Urine Urobilinogen 1.0, Ur Leukocyte Esterase LARGE H, Ur Microscopic SEDIMENT EXAMINED, Urine RBC 5-10 H, Urine WBC > 75 H, Ur Epithelial Cells MOD H, Urine Bacteria PACKD H, Urine Hemoglobin SMALL H, Urine Glucose NEG 02/12/18 2315: pH 7.30 *L, pCO2 48 H, pO2 86, HCO3 23, ABG O2 Sat (Measured) 94.0 L, P-50 ( Temp Corrected) N, Carboxyhemoglobin 0.7 L, O2 Concentration % 2L, Temperature 98.8, O2 Delivery Method NC, Phlebotomy Draw Site RIGHT RADIAL 02/12/188: Ammonia 23 02/12/18 2149: Anion Gap 12, Estimated GFR 23 L, BUN/Creatinine Ratio 14.8, Glucose 103 H, Calcium 9.2, Total Bilirubin 0.4, AST 37, ALT 58, Alkaline Phosphatase 65, Troponin I 0.02, Total Protein 6.4, Albumin 3.5, Globulin 2.9, Albumin/Globulin Ratio 1.2, PT 12.0, INR 1.10, APTT 32, CBC w Diff NO MAN DIFF REQ, RBC 3.89 L, MCV 89.0, MCH 29.5, MCHC 33.1, RDW 16.0 H, MPV 8.1, Gran % 68.8, Lymphocytes % 21.8, Monocytes % 7.2, Eosinophils % 1.2, Basophils % 1.0, Absolute Granulocytes 8.3 H, Absolute Lymphocytes 2.6, Absolute Monocytes 0.9 H, Absolute Eosinophils 0.1, Absolute Basophils 0.1, Serum Alcohol < 10.0 Microbiology 02/13 0012 BLOOD: Blood Culture - RECD 02/12 2258 BLOOD: Blood Culture - RECD Labs show PHILLIP with hyperkalmeia. Patient's Ph is 7.30. Patient becoming agitated , attempting to get up and pull out O2. Patient medicated with haldol. CXR is stable. The patient was signed out to Dr. East pending labs, head CT and hospital admission. Diagnostic Imaging: Viewed by Me: Radiology Read. Discussed w/RAD: Radiology Read. Radiology Impression: PATIENT: OMER CARL PRESENT AGE: 52 PATIENT ACCOUNT NO: [id number] : 65 LOCATION: [facility] ORDERING PHYSICIAN: Cornelia GARCIA SERVICE DATE: 02/12/18 EXAM TYPE: RAD - XRY-PORTABLE CHEST XRAY EXAMINATION: XR PORTABLE CHEST CLINICAL INFORMATION: Hypoxia COMPARISON: 03/07/2017 TECHNIQUE: Portable frontal view of the chest was obtained. FINDINGS: No significant abnormality is noted involving the heart, lungs, mediastinum, bony thorax or soft tissues. IMPRESSION: Unremarkable examination. DICTATED BY: Jose Mcdowell MD DATE/TIME DICTATED:02/12/182225 RAILROAD DESIGN CONSULTANT:EDWIN DATE/TIME TRANSCRIBED:02/12/182225 CONFIDENTIAL, DO NOT COPY WITHOUT APPROPRIATE AUTHORIZATION. <Electronically signed in Other Vendor System> SIGNED BY: Jose Mcdowell MD 02/12/182229 Initial ED EKG: sinus rhythm @95bpm, nonspecific ST changes Hand-Off Endorsed To: Kvng East MD Endorsed Time: 99 Pending: CT, labs (Cornelia Trevizo) Departure Departure Disposition: STILL A PATIENT Condition: Stable Referrals: Jad HEBERT,Eric Rincon (PCP/Family) Departure Forms: Customer Survey General Discharge Information (Cornelia Trevizo) Departure Clinical Impression Primary Impression: Acute kidney injury Secondary Impressions: Altered mental state Qualifiers: Altered mental status type: unspecified Qualified Code: R41.82 - Altered mental status, unspecified Hyperkalemia UTI (urinary tract infection) Admission Note Spoke With: Di Montelongo MD Documentation of Exam: Documentation of any treatments & extenuating circumstances including Concerns Regarding Discharge (functional status, medication knowledge or non-compliance, living conditions, etc.) that warrant an admission rather than observation: IV antibiotics serial neurologic exam follow cultures IV hydration medication adjustment continuing care discharge planning PA/STAKER SURVEYING Co-Sign Statement Statement: ED Attending supervision documentation- x I saw and evaluated the patient. I have also reviewed all the pertinent lab results and diagnostic results. I agree with the findings and the plan of care as documented in the PA's/STAKER SURVEYING's documentation. Recent self detox of alcohol 3-4 weeks CLINICAL SAFETY MANAGER with altered mental status, falls, weakness. PHILLIP, UTI, altered mental status, alcohol ketosis, hypoxia, hyperkalemia [] I have reviewed the ED Record and agree with the PA's/STAKER SURVEYING's documentation. [] Additions or exceptions (if any) to the PAs/STAKER SURVEYING's note and plan are summarized below: [] (Cruzito HEBERT,Kvng) Critical Care Note Critical Care Note Critical Care Time: 30-74 min (Fozia GARCIA,Cornelia Atwood)
[2018-02-12 22:10] LABS: ABSOLUTE BASOPHIL COUNT 0.1 /CUMM (0.0-0.2); ABSOLUTE EOSINOPHIL COUNT 0.1 /CUMM (0.0-0.7); ABSOLUTE GRANULOCYTE CT 8.3 /CUMM (1.4-6.5); ABSOLUTE LYMPH COUNT 2.6 /CUMM (1.2-3.4); ABSOLUTE MONOCYTE COUNT 0.9 /CUMM (0.10-0.60); EOSINOPHIL % 1.2 % (0-5); HEMATOCRIT 34.6 % (42-52); MEAN CORPUSCULAR HGB 29.5 PG (27.0-31.0); MEAN CORPUSCULAR HGB CONC 33.1 G/DL (33.0-37.0); MEAN PLATELET VOLUME 8.1 FL (7.4-10.4); RED BLOOD CELL CT 3.89 /CUMM (4.70-6.10); WHITE BLOOD CELL COUNT 12.1 /CUMM (4.8-10.8)
--- NOTE | 2018-02-12 22:30 | RADIOLOGY REPORT ---
EXAMINATION: XR PORTABLE CHEST CLINICAL INFORMATION: Hypoxia COMPARISON: 03/07/2017 TECHNIQUE: Portable frontal view of the chest was obtained. FINDINGS: No significant abnormality is noted involving the heart, lungs, mediastinum, bony thorax or soft tissues. IMPRESSION: Unremarkable examination.
[2018-02-12 22:43] LABS: PLATELET COUNT 910 /CUMM (130-400)
[2018-02-12 22:44] LABS: GRANULOCYTE % 68.8 % (42.2-75.2)
[2018-02-12 22:45] LABS: PTT 32 SEC (25-37)
--- NOTE | 2018-02-13 01:15 | CT SCAN REPORT ---
EXAMINATION: CT HEAD WITHOUT CONTRAST CLINICAL INFORMATION: Altered mental status. COMPARISON: March 05, 2017. TECHNIQUE: Contiguous helical images of the brain were obtained without IV contrast. Multiplanar reconstructions were performed. DLP: 700 mGy-cm. FINDINGS: There are no pathologic extra-axial fluid collections. The lateral, third, fourth ventricles are nondilated and concordant with the appearance of the sulci. There is no evidence for acute intraparenchymal hemorrhage or infarct. There is neither mass nor mass effect. There is no shift of midline structures. The paranasal sinuses and mastoid air cells are clear. There are no osseous lesions. IMPRESSION: No evidence for acute intracranial injury.
--- NOTE | 2018-02-13 02:46 | History & Physical ---
Meseret HEBERTJavid 02/13/18 0245: General Information and HPI History of Present Illness: 52-year-old man with past medical history of EtOH abuse/withdrawal/dependence, hypertension, COPD, Dos Santos's esophagus, and alcoholic cirrhosis seen for altered mental status. Per ED records patient was brought in by ambulance from home for concern of worsening mental status for the 3 days prior to admission. Patient reportedly quit drinking approximately 3 weeks ago "cold turkey". He apparently had a fall on 02/09 and has been progressively more confused since that time. He was seen to be breathing abnormally today with shallow breaths for which EMS was contacted and patient brought to [facility] ED. Presently patient is awake and slow to respond but oriented to person, place, and time. He states that his entire body hurts but otherwise trails off and has no specific complaints. When asked if he has had difficulty urinating over the past several days he says yes, but is unable to characterize any details regarding this. He otherwise denies any fever, chills, chest pain, shortness breath, or abdominal pain; further review of systems are limited. Objective Vitals: Temp 97.9-98.8, HR 89-96, RR 14-16, BP 92-1-2/52-60, O2 94-95% on 2.0 L Physical exam -Gen.: Unkempt appearing middle-aged man appearing confused but in no acute distress -HEENT: NCAT, PERRLA, EOMI, anicteric sclera, moist mucous membranes -Neck: Supple, no JVP, free range of movement, no meningismus, no accessory respiratory muscle use -Cardio: Normal S1/S2 without murmurs/gallops/rubs; regular rate and rhythm -Pulmonary: Clear to auscultation bilaterally -Abdomen: Soft, nontender, mildly distended, bowel sounds intact -Neuro: Awake and alert but slow to respond, oriented 3, speech slow but fluent , coordination/sensation intact, strength 5/54, face symmetric, cranial nerves II through XII grossly intact, gait not assessed -Extremities: No edema, normal pulses Labs/imaging/studies -CBC: WBC 12.1, hemoglobin 11.5, hematocrit 34.6, platelet 910 -BMP: Sodium 138, K5.3, CL 101, CO2 25, P1 43, creatinine 2.9, anion gap 12, glucose 103 -LFT: Within normal limits -Miscellaneous: Ammonia 23, troponin I 0.02, INR 1.10 -Urinalysis: Large leukocyte Estrace with >75 WBC and packed bacteria -ABG: PH 7.30, PCO2 48, PO2 86, HCO3 23 -EKG: Normal sinus rhythm without any ST-T wave changes -Echocardiogram 03/06/17: No regional wall motion abnormalities, flattened septum consistent with RV overload, RV estimated 54 mmHg -CXR: Unremarkable examination -CT head without IV contrast: No evidence for acute intracranial injury Assessment 52-year-old man with multiple medical problems significant for COPD, EtOH abuse, hypertension, and cirrhosis seen for evaluation of progressively worsening mental status. Patient is unable to give specific complaints but does follow commands and answers yes/no questions. Vital signs are within normal limits. Physical examination demonstrates a middle-aged unkempt appearing man appearing confused but in no acute distress with a normal cardiopulmonary and abdominal examination without CVA tenderness; complete neurologic examination is within normal limits. Significant labs include WBC 12.1, platelets 910, K5.3, BUNs/creatinine 43/2.9, ammonia 23. Urinalysis shows large leukocyte esterase with >75 WBC and packed bacteria. ED had and chest x-ray are unremarkable. EKG is normal sinus rhythm Clinically patient appears to have progressively worsening altered mental status possibly multifactorial due to toxic metabolic encephalopathy and/or wernicke- Korsakoff. Collateral information obtained from the nursing staff reveals that patient was straining to pass urine but eventually passed 500 mL of cloudy urine after a long attempt. His elevated BUNs/creatinine is likely due to a post obstructive uropathy such as a urethral stricture. Patient does have elevated platelets which have been present in the past; however there does not appear to be hematology evaluation. Patient is being admitted to the general medicine floor for continuous observation for impulsivity, intravenous fluids/antibiotics , post void residual monitoring/strict ins and outs, hematology evaluation, and urology evaluation. 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 -Acute kidney injury, likely post renal possibly due to uretral stricture -Acute urinary retention -Thrombocytosis -Mild hyperkalemia -Recent fall -History of EtOH abuse, reportedly recently quit "3 weeks ago" -Hypertension -COPD -Possible obstructive sleep apnea -History of Dos Santos's esophagus -Cirrhosis Plan -Admit to general medicine -CIWA -Patient safety monitor for impulsivity -Avoid nephrotoxic agents -Marie catheter -Strict in's and outs -TRC with nebs PRN -Straight cath when necessary -Normal saline at 100 mL per hour -Ceftriaxone 1 g IV daily -Thiamine 500 mg IV 3 times a day 9 doses -Thiamine/folate/multivitamin -Continue home meds: Lyrica, omeprazole, vitamin D -Hold amlodipine, and quinapril for borderline blood pressures, restart as tolerated/needed -Hold oxycodone for altered mental status, restart as needed -Consult with hematology for thrombocytosis -Consult with urology for obstructive uropathy -Consult with pulmonology for respiratory failure / hypercarbia -Consider CT abdomen/pelvis if worse -Consider repeating ABG if mental status worse -Follow-up cultures and sensitivities -Check B12, folate, vitamin D, TSHR, RPR -Obtain urine culture -Check lactic acid 2 -Check INR and peripheral smear -Renal ultrasound -Pain control with acetaminophen -Regular diet -DVT prophylaxis with subcutaneous heparin -Full code Allergies/Medications Allergies: Coded Allergies: NO KNOWN ALLERGIES (04/20/14) Home Med list Amlodipine Besylate 5 MG TABLET 1 TAB PO DAILY HIGH BLOOD PRESSURE (Reported) Calcium Carb/Mag Ox/Zinc Sulf (Gyrqovr-Ztbpgldpk-Vrte Tablet) 334 MG-134 MG-5 MG TABLET 1 TAB PO DAILY SUPPLEMENT (Reported) Cholecalciferol (Vitamin D3) (Vitamin D) 2,000 UNIT CAPSULE 1 CAP PO DAILY SUPPLEMENT (Reported) Folic Acid 1 MG TABLET 1 TAB PO DAILY SUPPLEMENT (Reported) Methylcellulose (Fiber Laxative) (Unknown Strength) TABLET 2 TAB PO DAILY SUPPLEMENT (Reported) Omeprazole 20 MG CAPSULE.DR 1 CAP PO DAILY GERD (Reported) Oxycodone HCl 20 MG TABLET 1 TAB PO TID PAIN (Reported) Pregabalin (Lyrica) 150 MG CAPSULE 2 CAP PO QAM NERVE PAIN (Reported) Pregabalin (Lyrica) 150 MG CAPSULE 1 TAB PO QPM nerve pain (Reported) Quinapril HCl (Accupril) 40 MG TABLET 1 TAB PO DAILY BP (Reported) Thiamine HCl (B-1) 100 MG TABLET 1 TAB PO DAILY SUPPLEMENT (Reported) Past History Travel History Traveled to [place] past 21 day No Medical History Neurological: peripheral neuropathy EENT: NONE Cardiovascular: hypertension Respiratory: COPD Gastrointestinal: BARRETTS ESOPHAGUS Hepatic: cirrhosis (etoh-induced) Renal: NONE Musculoskeletal: CHRINIC PAIN Psychiatric: alcohol dependence Endocrine: NONE Blood Disorders: NONE Cancer(s): LUNG nodule THROAT NODULES History of MRSA: No History of VRE: No History of CDIFF: No Isolation History: Standard Tetanus Vaccine: 04/20/14 Surgical History Surgical History: right heel debridement Past Family/Social History Family History Relations & Conditions if any FATHER *No pertinent family history Relation not specified for: FH: breast cancer Psychosocial History Who Do You Live With? spouse Primary Language: Guamanian ETOH Use: alcoholic Functional Ability Ambulation: walker Review of Systems Review of Systems Constitutional: Reports: see HPI. Exam & Diagnostic Data Last 24 Hrs of Vital Signs/I&O Vital Signs Date Time Temp Pulse Resp B/P B/P Pulse O2 O2 Flow FiO2 Mean Ox Delivery Rate 02/13 0605 Room Air 02/13 0241 98.1 89 14 103/56 93 Room Air 02/13 0031 98.1 90 16 103/52 95 Nasal Cannula 02/12 2356 98.0 89 14 92/52 95 Nasal 2.0L Cannula 02/12 2256 97.9 90 14 102/60 95 Nasal 2.0L Cannula 02/12 2156 Nasal 2.0L Cannula 02/12 2130 98.8 96 16 122/53 94 Nasal 2.0L Cannula Intake & Output 02/13 0800 02/13 0000 02/12 1600 Intake Total 600 1000 Output Total 1550 Balance -950 1000 Intake, IV 600 1000 Output, Urine 1550 Assessment/Plan As Ranked By This Provider Problem List: 1. UTI (urinary tract infection) Core Measures/Misc (04/06) Acute Coronary Syndrome ACS Diagnosis: No Congestive Heart Failure Congestive Heart Failure Diagnosis No Cerebrovascular Accident CVA/TIA Diagnosis: No VTE (View Protocol) VTE Risk Factors Age>40 No Mechanical VTE Prophylaxis d/t N/A MechProphylax Ordered No VTE Pharm Prophylaxis d/t NA PharmProphylax ordered Sepsis (View protocol) Sepsis Present: No If YES complete Sepsis Event Note If YES complete Sepsis Event Note Di Montelongo MD 02/13/18 0439: Core Measures/Misc (04/06) Sepsis (View protocol) If YES complete Sepsis Event Note If YES complete Sepsis Event Note Attending MD Review Statement Attending Statement Attending MD Statement: examined this patient, discuss w/resident/PA/V BELT MOLD ASSEMBLER AND CURER, agreed w/resident/PA/V BELT MOLD ASSEMBLER AND CURER, reviewed EMR data (avail), discussed with nursing, amended to note Attending Assessment/Plan: Patient is a 52-year-old male with history of alcoholic cirrhosis and COPD who was brought to the emergency room for evaluation by his with complaints of worsening mental status. He apparently stopped drinking alcohol about 3 weeks ago. In the emergency room he was initially reported to be somnolent then became agitated requiring a dose of Haldol. Ammonia level is not significantly elevated. Urine toxicology is positive for opioids. On examination he is awake and oriented 3 however very slow to respond to questions. Appears uninterested. States he does not know why he is here in the hospital. He has no focal deficits on exam. Heart sounds are regular. He has adequate entry bilaterally with no added sounds. Abdomen is soft and nontender. He has no peripheral edema. He has no focal neurologic deficits on exam. Laboratory data shows acute kidney injury with creatinine of 2.9 elevated from baseline of 0.7. After voiding 500 cc of urine she was found to be retaining over 400 cc of urine on bladder scan. A Marie catheter was placed on December 800 cc of urine. He does have history of urinary retention requiring neurologic intervention in the past. Regards to urinary symptoms his history is unreliable. He was started empirically on Rocephin in the ER due to an abnormal UA. Problems: 1. Altered mental status; query toxic metabolic encephalopathy. 2. Acute kidney injury; likely due to bladder outlet obstruction 3. Chronic thrombocytosis 4. Metabolic acidosis 5. Cirrhosis 6. COPD Plan: - Admit to the inpatient medical service - Neuro watch every 4 hours -His altered mentation may be secondary to his opioid use. Hold Opioid therapy for now. - continue empiric antibiotic therapy Rocephin. Follow-up urine cultures. -Begin patient on Flomax. Urology consultation. -Begin patient on albuterol/Atrovent every 4 hours [id number]. Pulmonary consultation for further evaluation of his respiratory acidosis. Clinically he does not appear to be in bronchospasm at present.
[2018-02-13 04:28] LABS: ABSOLUTE BASOPHIL COUNT 0 /CUMM (0.0-0.2); ABSOLUTE EOSINOPHIL COUNT 0.2 /CUMM (0.0-0.7); ABSOLUTE GRANULOCYTE CT 7.1 /CUMM (1.4-6.5); ABSOLUTE LYMPH COUNT 1.9 /CUMM (1.2-3.4); ABSOLUTE MONOCYTE COUNT 0.6 /CUMM (0.10-0.60); BASOPHIL % 0.3 % (0.0-2.0); EOSINOPHIL % 1.6 % (0-5); GRANULOCYTE % 72.7 % (42.2-75.2); HEMATOCRIT 36.7 % (42-52); MEAN CORPUSCULAR HGB 29.5 PG (27.0-31.0); MEAN CORPUSCULAR HGB CONC 33.2 G/DL (33.0-37.0); MEAN CORPUSCULAR VOLUME 88.9 FL (80.0-94.0); MEAN PLATELET VOLUME 8.3 FL (7.4-10.4); PLATELET COUNT 788 /CUMM (130-400); RBC DISTRIBUTION WIDTH 16.6 % (11.5-14.5); RED BLOOD CELL CT 4.13 /CUMM (4.70-6.10); WHITE BLOOD CELL COUNT 9.7 /CUMM (4.8-10.8)
--- NOTE | 2018-02-13 04:35 | Admission Certification ---
Admission Certification Certification Statement - As attending physician, I certify that at the time of - admission, based on clinical presentation, severity of - symptoms, need for further diagnostic testing and - therapeutic interventions, and risk of adverse outcomes - without in-hospital treatment, in my clinical assessment, - this patient requires an acute hospital stay for a minimum - of two nights or longer. I have also considered psychsocial - factors such as support system, advanced age, financial - issues, cognitive issues, and failed out-patient treatments, - past re-admission history, safety of patient, and lack of - compliance as applicable. Specific rationale supporting this admission is: Acute kidney injuryPatient requires hospitalization for further management of his nima.
[2018-02-13 04:53] LABS: PTT 33 SEC (25-37)
--- NOTE | 2018-02-13 07:13 | Event Note ---
Event Note Event Note: Patient seen and examined. He is alert and oriented 2. He states that he has chronic pain in his bilateral arms and legs secondary to peripheral neuropathy. Other than that he states that he has no complaints but remains confused asking for his and stating that she has no idea that he is in the hospital. Phone call was placed to who did not fact know about the admission as she was the one who called EMS. Later in the day, when patient arrived at the hospital, she recounted that the patient had had worsening mental status recently since Friday and had not urinated in over a day despite drinking copious amounts of kendra robby and lemonade. When patient had stopped drinking 3 weeks ago, he had 5 days of hallucinations. Patient's peripheral neuropathy was diagnosed by a neurologist many years ago and was attributed to neurotoxic pains that he used to use for work. The patient usually walks with a walker and has a shuffling gait but was started in wheelchair a couple days ago by his because of his increasing leg weakness. Patient has not been to see the neurologist in quite some time and the believes he may have retired. As such we will on discharge refer him to a new neurologist for his peripheral neuropathy as well as evaluation for shuffling gait. Today we have consulted with urology and nephrology for the patient's rising creatinine. On admission, Marie catheter had produced copious amounts of urine when placed. We will as per Dr. Lawton, start the patient on half normal saline at a rate of 100 and closely monitor his I's and O's. Urology will see the patient. Hematology has seen the patient for his thrombocytosis and has stated that is likely reactive but we can check a Yo 2 level. As this is quite an expensive test we will defer for outpatient workup with Dr. Cowan. The patient 's renal ultrasound today was normal, lactic acid levels were normal. He was found to have a low vitamin D so was started on vitamin D supplementation even though he does take vitamin D tablets at home. 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 We will follow up on urine culture and continue IV ceftriaxone. Vital signs during today have been stable. Of note, patient follows up with bench scientist Dr. rendon for his COPD, assistant statistician Dr. Wanda Sargent for his thyroid nodules, Dr. Dunn belt line feeder for his liver issues. The patient sees Dr. Street as his PCP.
--- NOTE | 2018-02-13 07:40 | Cons- Hematology ---
General Information and HPI Consulting Request Date of Consult: 02/13/18 Requested By: Di Montelongo MD History of Present Illness: 52-year-old man multiple medical issues including alcoholic cirrhosis now admitted to the hospital altered mental status. Patient was noted to have an elevated platelet count. In speaking to the patient he is unaware of this finding in the past. Patient is currently responsive to questions. Patient denied fever or chills. Patient denied increased bleeding or bruising. Patient denied focal neurologic deficit. The patient stopped drinking 3 weeks ago. Allergies/Medications Allergies: Coded Allergies: NO KNOWN ALLERGIES (04/20/14) Home Med List: Amlodipine Besylate 5 MG TABLET 1 TAB PO DAILY HIGH BLOOD PRESSURE (Reported) Calcium Carb/Mag Ox/Zinc Sulf (Rzbtpqv-Byynltkpn-Evwb Tablet) 334 MG-134 MG-5 MG TABLET 1 TAB PO DAILY SUPPLEMENT (Reported) Cholecalciferol (Vitamin D3) (Vitamin D) 2,000 UNIT CAPSULE 1 CAP PO DAILY SUPPLEMENT (Reported) Folic Acid 1 MG TABLET 1 TAB PO DAILY SUPPLEMENT (Reported) Methylcellulose (Fiber Laxative) (Unknown Strength) TABLET 2 TAB PO DAILY SUPPLEMENT (Reported) Omeprazole 20 MG CAPSULE.DR 1 CAP PO DAILY GERD (Reported) Oxycodone HCl 20 MG TABLET 1 TAB PO TID PAIN (Reported) Pregabalin (Lyrica) 150 MG CAPSULE 2 CAP PO QAM NERVE PAIN (Reported) Pregabalin (Lyrica) 150 MG CAPSULE 1 TAB PO QPM nerve pain (Reported) Quinapril HCl (Accupril) 40 MG TABLET 1 TAB PO DAILY BP (Reported) Thiamine HCl (B-1) 100 MG TABLET 1 TAB PO DAILY SUPPLEMENT (Reported) Current Medications: Current Medications Sig/Nate Start time Last Medication Dose Route Stop Time Status Admin Acetaminophen 1,000 MG Q6P PRN 02/13 0300 AC IV Albuterol Sulfate 3 ML Q4H PRN 02/13 0630 AC INH Ceftriaxone Sodium 1,000 MG DAILY 02/14 0900 AC IV Ceftriaxone Sodium 0 .STK-MED ONE 02/13 0202 DC .ROUTE Ceftriaxone Sodium 1,000 MG ONCE ONE 02/13 0130 DC 02/13 IV 02/13 013 0206 Cholecalciferol 2,000 IU DAILY 02/13 09 AC PO Folic Acid 1 MG DAILY 02/13 09 AC PO Haloperidol 0 .STK-MED ONE 02/12 2349 DC .ROUTE Haloperidol 5 MG ONCE ONE 02/12 2345 DC 02/12 IM 02/12 2346 2345 Heparin Sodium 0 .STK-MED ONE 02/13 0640 DC (Porcine) .ROUTE Heparin Sodium 5,000 UNIT Q8 02/13 0600 AC 02/13 (Porcine) SC 0643 Ipratropium [place] 2.5 ML Q4 HRS NEEDED PRN 02/13 0630 AC INH Multivitamins 1 TAB DAILY 02/13 09 AC PO Omeprazole 20 MG DAILY 02/13 09 AC PO Ondansetron HCl 0 .STK-MED ONE 02/12 2122 DC .ROUTE Pregabalin 150 MG QPM 02/13 2100 CAN PO Pregabalin 150 MG QPM 02/13 2100 AC PO Pregabalin 300 MG DAILY 02/13 09 CAN PO Pregabalin 300 MG DAILY 02/13 09 AC PO Sodium Chloride 1,000 ML Q10H 02/13 0300 AC 02/13 IV 0331 Sodium Chloride 1,000 ML ONCE ONE 02/12 2345 AC 02/13 IV 02/13 0744 0013 Tamsulosin HCl 0.4 MG DAILY 02/13 09 AC PO Thiamine HCl 100 MG DAILY 02/13 09 AC PO Thiamine HCl 500 MG TID 02/13 900 AC Sodium Chloride 250 ML IV 02/15 2159 Review of Systems Review of Systems: Patient denies headaches or dizziness. Patient denies shortness of breath cough chest pain or hemoptysis. Patient denies nausea vomiting abdominal pain or bleeding. Patient denies dysuria hematuria. Patient hurts all over but denies focal neurologic deficit Past History Travel History Traveled to [place] past 21 day No Medical History Neurological: peripheral neuropathy EENT: NONE Cardiovascular: hypertension Respiratory: COPD 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 spouse Primary Language: Citizen Of [place] Smoking Status: Former Smoker ETOH Use: alcoholic Functional Ability Ambulation: walker Exam & Diagnostic Data Vital Signs and I&O Vital Signs Date Time Temp Pulse Resp B/P B/P Pulse O2 O2 Flow FiO2 Mean Ox Delivery Rate 07/27 0627 98.0 86 16 111/61 98 Room Air 02/13 0605 Room Air 02/13 0241 98.1 89 14 103/56 93 Room Air 02/13 0031 98.1 90 16 103/52 95 Nasal Cannula 02/12 2356 98.0 89 14 92/52 95 Nasal 2.0L Cannula 02/12 2256 97.9 90 14 102/60 95 Nasal 2.0L Cannula 02/12 2156 Nasal 2.0L Cannula 02/12 2130 98.8 96 16 122/53 94 Nasal 2.0L Cannula Intake & Output 02/13 0800 02/13 0000 02/12 1600 Intake Total 600 1000 Output Total 1550 Balance -950 1000 Intake, IV 600 1000 Output, Urine 1550 Gen.: in NAD ENT: Sclera anicteric Chest: Normal respiratory effort, decreased breath sounds Cor: RRR, no extra sounds Abdomen: Soft, bowel sounds present, no tenderness, no rebound Extremities: Without clubbing, cyanosis, or asymmetric edema Neurology: Alert and oriented 3, no gross deficit Skin: No rashes, petechiae Last 48 Hours of Lab Results: Laboratory Tests 02/13 02/13 02/13 0500 0500 0415 Chemistry Sodium (137 - 145 mmol/L) 140 Potassium (3.5 - 5.1 mmol/L) 5.5 H Chloride (98 - 107 mmol/L) 104 Carbon Dioxide (22 - 30 mmol/L) 26 Anion Gap (5 - 16) 11 BUN (9 - 20 mg/dL) 43 H Creatinine (0.7 - 1.2 mg/dL) 2.7 H Estimated GFR (>60 ml/min) 25 L BUN/Creatinine Ratio (7 - 25 %) 15.9 Lactic Acid (0.7 - 2.1 mmol/L) 0.9 Magnesium (1.6 - 2.3 mg/dL) 2.1 Vitamin B12 (239 - 931 pg/mL) 599 25-OH Vitamin D Total (30 - 100 ng/ml) 19.0 L Folate (2.76 - 20.0 ng/mL) > 20.0 H TSH &T3 &Free T4 Intrp (0.27 - 4.20 uIU/mL) 0.308 Coagulation APTT (25 - 37 SEC) 33 Hematology CBC w Diff NO MAN DIFF REQ WBC (4.8 - 10.8 /CUMM) 9.7 RBC (4.70 - 6.10 /CUMM) 4.13 L Hgb (14.0 - 18.0 G/DL) 12.2 L Hct (42 - 52 %) 36.7 L MCV (80.0 - 94.0 FL) 88.9 MCH (27.0 - 31.0 PG) 29.5 MCHC (33.0 - 37.0 G/DL) 33.2 RDW (11.5 - 14.5 %) 16.6 H Plt Count (130 - 400 /CUMM) 788 H MPV (7.4 - 10.4 FL) 8.3 Gran % (42.2 - 75.2 %) 72.7 Lymphocytes % (20.5 - 51.1 %) 19.3 L Monocytes % (1.7 - 9.3 %) 6.1 Eosinophils % (0 - 5 %) 1.6 Basophils % (0.0 - 2.0 %) 0.3 Absolute Granulocytes (1.4 - 6.5 /CUMM) 7.1 H Absolute Lymphocytes (1.2 - 3.4 /CUMM) 1.9 Absolute Monocytes (0.10 - 0.60 /CUMM) 0.6 Absolute Eosinophils (0.0 - 0.7 /CUMM) 0.2 Absolute Basophils (0.0 - 0.2 /CUMM) 0 Serology RPR Titer/FTA Pending 02/13 02/12 02/12 0385 4976 2352 Blood Gas pH (7.35 - 7.45 PH) 7.30 *L pCO2 (35 - 45 TORR) 48 H pO2 (80 - 100 TORR) 86 HCO3 (21 - 28 MEQ/L) 23 ABG O2 Sat (Measured) (>96.0 %) 94.0 L P-50 (Temp Corrected) N Carboxyhemoglobin (1.5 - 5.0 %) 0.7 L O2 Concentration % 2L Temperature (97.0 - 100.0 FARH) 98.8 O2 Delivery Method NC Chemistry Ammonia (9 - 30 umol/L) 23 Miscellaneous Phlebotomy Draw Site RIGHT RADIAL Toxicology Urine Opiates Screen (>2000 NG/ML) 1337.00 Methadone Screen (>300 NG/ML) < 40 Barbiturate Screen (>200 NG/ML) < 60 Ur Phencyclidine Scrn (>25 NG/ML) < 6.00 Amphetamines Screen (>1000 NG/ML) 114 U Benzodiazepines Scrn (>200 NG/ML) ND Urine Cocaine Screen (>300 NG/ML) < 50 Urine Cannabis Screen (>50 NG/ML) < 5.00 Urines Urine Color (YEL,AMB,STR) YEL Urine Clarity (CLEAR) CLDY H Urine pH (5.0 - 8.0) 5.5 Ur Specific [place] (1.001 - 1.035) >= 1.030 Urine Protein (NEG,<30 MG/DL) 100 H Urine Ketones (NEG) TRACE H Urine Nitrite (NEG) NEG Urine Bilirubin (NEG) SMALL H Urine Urobilinogen (0.1 - 1.0 EU/dl) 1.0 Ur Leukocyte Esterase (NEG) LARGE H Ur Microscopic SEDIMENT EXAMINED Urine RBC (0 - 5 /HPF) 5-10 H Urine WBC (0 - 2 /HPF) > 75 H Ur Epithelial Cells (NONE,FEW) MOD H Urine Bacteria (NEG/NONE) PACKD H Urine Hemoglobin (NEG) SMALL H Urine Glucose (N MG/DL) NEG 02/12 02/12 2149 2118 Chemistry Sodium (137 - 145 mmol/L) 138 Potassium (3.5 - 5.1 mmol/L) 5.3 H Chloride (98 - 107 mmol/L) 101 Carbon Dioxide (22 - 30 mmol/L) 25 Anion Gap (5 - 16) 12 BUN (9 - 20 mg/dL) 43 H Creatinine (0.7 - 1.2 mg/dL) 2.9 H Estimated GFR (>60 ml/min) 23 L BUN/Creatinine Ratio (7 - 25 %) 14.8 Glucose (65 - 99 mg/dL) 103 H Calcium (8.4 - 10.2 mg/dL) 9.2 Total Bilirubin (0.2 - 1.3 mg/dL) 0.4 AST (17 - 59 U/L) 37 ALT (21 - 72 U/L) 58 Alkaline Phosphatase (< 127 U/L) 65 Troponin I (<0.11 ng/ml) 0.02 Total Protein (6.3 - 8.2 g/dL) 6.4 Albumin (3.5 - 5.0 g/dL) 3.5 Globulin (1.9 - 4.2 gm/dL) 2.9 Albumin/Globulin Ratio (1.1 - 2.2 %) 1.2 Coagulation PT (9.4 - 12.5 SEC) 12.0 INR (0.90 - 1.17) 1.10 APTT (25 - 37 SEC) 32 Hematology CBC w Diff MAN DIFF ORDERED WBC (4.8 - 10.8 /CUMM) 12.1 H RBC (4.70 - 6.10 /CUMM) 3.89 L Hgb (14.0 - 18.0 G/DL) 11.5 L Hct (42 - 52 %) 34.6 L MCV (80.0 - 94.0 FL) 89.0 MCH (27.0 - 31.0 PG) 29.5 MCHC (33.0 - 37.0 G/DL) 33.1 RDW (11.5 - 14.5 %) 16.0 H Plt Count (130 - 400 /CUMM) 910 H MPV (7.4 - 10.4 FL) 8.1 Gran % (42.2 - 75.2 %) 68.8 Lymphocytes % (20.5 - 51.1 %) 21.8 Monocytes % (1.7 - 9.3 %) 7.2 Eosinophils % (0 - 5 %) 1.2 Basophils % (0.0 - 2.0 %) 1.0 Absolute Granulocytes (1.4 - 6.5 /CUMM) 8.3 H Absolute Lymphocytes (1.2 - 3.4 /CUMM) 2.6 Absolute Monocytes (0.10 - 0.60 /CUMM) 0.9 H Absolute Eosinophils (0.0 - 0.7 /CUMM) 0.1 Absolute Basophils (0.0 - 0.2 /CUMM) 0.1 Platelet Estimate (ADEQUATE) GIANT Normocytic RBCs VERIFIED Polychromasia 1+ Miscellaneous Ref Lab Test Result Pending Toxicology Serum Alcohol (<10 MG/DL) < 10.0 Imaging/Other Studies: [id number] Chest x-ray-no infiltrates Assessment/Plan Assessment: 1. Thrombocytosis-careful review the records his demonstrated a platelet count elevated as far back as February 2017 when his platelet count was greater than 1 million. At this time sepsis was a consideration. No formal hematologic workup has been undertaken. I presume the elevated platelet count is more likely reactive than a primary hematologic process, given his other significant comorbidities. Patient is currently oriented I do not think his plate count has affected his sensorium. Recommend- Follow CBC No institution of platelet lowering agents Check CHEMO-2 Rule out infection 2. New renal insufficiency-as per medical team Recommendations: .. Consult Acknowledgment - Thank you for your consult request.
[2018-02-13 09:17] VITALS: BP 108/66
--- NOTE | 2018-02-13 10:40 | ULTRASOUND REPORT ---
EXAMINATION: US RETROPERITONEAL COMPLETE (RENAL) CLINICAL INFORMATION: Urinary retention. UTI. Obstructive uropathy.. COMPARISON: None TECHNIQUE: Real-time imaging of the kidneys and bladder. FINDINGS: RIGHT KIDNEY: 10.9 x 5.9 x 4.7 cm (SAG x AP x TRV). The kidney is normal in size, contour, and echogenicity. Renal cortical thickness is normal. No calculi or focal parenchymal lesions. No hydronephrosis. LEFT KIDNEY: 11.2 x 5.3 x 4.5 cm (SAG x AP x TRV). The kidney is normal in size, contour, and echogenicity. Renal cortical thickness is normal. No calculi or focal parenchymal lesions. No hydronephrosis. BLADDER: Empty. There is a Marie's catheter present. IMPRESSION: 1. Sonographically unremarkable kidneys. 2. The urinary bladder is empty, accordingly not evaluated. There is a Marie's catheter present.
[2018-02-13 10:58] VITALS: BP 105/55
--- NOTE | 2018-02-13 11:09 | PN- Att Addend ---
Attending Addendum Attending Brief Note Patient seen and examined, he currently feels okay. He did complain of some abdominal discomfort earlier. He is asking when he could go home. Vital Signs Date Time Temp Pulse Resp B/P B/P Pulse O2 O2 Flow FiO2 Mean Ox Delivery Rate 02/13 0917 98.0 88 16 108/66 97 Room Air 02/13 0627 98.0 86 16 111/61 98 Room Air 02/13 0605 Room Air 02/13 0241 98.1 89 14 103/56 93 Room Air 02/13 0031 98.1 90 16 103/52 95 Nasal Cannula 02/12 2356 98.0 89 14 92/52 95 Nasal 2.0L Cannula 02/12 2256 97.9 90 14 102/60 95 Nasal 2.0L Cannula 02/12 2156 Nasal 2.0L Cannula 02/12 2130 98.8 96 16 122/53 94 Nasal 2.0L Cannula on exam; aox2, nad. cv; s1,s2, rrr resp; clear abd; soft, nt, bs+ ext; no edema Laboratory Tests 02/13 02/13 0500 0500 Chemistry Sodium (137 - 145 mmol/L) 140 Potassium (3.5 - 5.1 mmol/L) 5.5 H Chloride (98 - 107 mmol/L) 104 Carbon Dioxide (22 - 30 mmol/L) 26 Anion Gap (5 - 16) 11 BUN (9 - 20 mg/dL) 43 H Creatinine (0.7 - 1.2 mg/dL) 2.7 H Estimated GFR (>60 ml/min) 25 L BUN/Creatinine Ratio (7 - 25 %) 15.9 Lactic Acid (0.7 - 2.1 mmol/L) 0.9 Magnesium (1.6 - 2.3 mg/dL) 2.1 Vitamin B12 (239 - 931 pg/mL) 599 25-OH Vitamin D Total (30 - 100 ng/ml) 19.0 L Folate (2.76 - 20.0 ng/mL) > 20.0 H TSH &T3 &Free T4 Intrp (0.27 - 4.20 uIU/mL) 0.308 Serology RPR Titer/FTA (NONREACTIVE) NONREACTIVE 02/13 02/13 0415 0048 Coagulation APTT (25 - 37 SEC) 33 Hematology CBC w Diff NO MAN DIFF REQ WBC (4.8 - 10.8 /CUMM) 9.7 RBC (4.70 - 6.10 /CUMM) 4.13 L Hgb (14.0 - 18.0 G/DL) 12.2 L Hct (42 - 52 %) 36.7 L MCV (80.0 - 94.0 FL) 88.9 MCH (27.0 - 31.0 PG) 29.5 MCHC (33.0 - 37.0 G/DL) 33.2 RDW (11.5 - 14.5 %) 16.6 H Plt Count (130 - 400 /CUMM) 788 H MPV (7.4 - 10.4 FL) 8.3 Gran % (42.2 - 75.2 %) 72.7 Lymphocytes % (20.5 - 51.1 %) 19.3 L Monocytes % (1.7 - 9.3 %) 6.1 Eosinophils % (0 - 5 %) 1.6 Basophils % (0.0 - 2.0 %) 0.3 Absolute Granulocytes (1.4 - 6.5 /CUMM) 7.1 H Absolute Lymphocytes (1.2 - 3.4 /CUMM) 1.9 Absolute Monocytes (0.10 - 0.60 /CUMM) 0.6 Absolute Eosinophils (0.0 - 0.7 /CUMM) 0.2 Absolute Basophils (0.0 - 0.2 /CUMM) 0 Toxicology Urine Opiates Screen (>2000 NG/ML) 1337.00 Methadone Screen (>300 NG/ML) < 40 Barbiturate Screen (>200 NG/ML) < 60 Ur Phencyclidine Scrn (>25 NG/ML) < 6.00 Amphetamines Screen (>1000 NG/ML) 114 U Benzodiazepines Scrn (>200 NG/ML) ND Urine Cocaine Screen (>300 NG/ML) < 50 Urine Cannabis Screen (>50 NG/ML) < 5.00 Urines Urine Color (YEL,AMB,STR) YEL Urine Clarity (CLEAR) CLDY H Urine pH (5.0 - 8.0) 5.5 Ur Specific [place] (1.001 - 1.035) >= 1.030 Urine Protein (NEG,<30 MG/DL) 100 H Urine Ketones (NEG) TRACE H Urine Nitrite (NEG) NEG Urine Bilirubin (NEG) SMALL H Urine Urobilinogen (0.1 - 1.0 EU/dl) 1.0 Ur Leukocyte Esterase (NEG) LARGE H Ur Microscopic SEDIMENT EXAMINED Urine RBC (0 - 5 /HPF) 5-10 H Urine WBC (0 - 2 /HPF) > 75 H Ur Epithelial Cells (NONE,FEW) MOD H Urine Bacteria (NEG/NONE) PACKD H Urine Hemoglobin (NEG) SMALL H Urine Glucose (N MG/DL) NEG 02/12 02/12 02/12 3142 3140 2243 Blood Gas pH (7.35 - 7.45 PH) 7.30 *L pCO2 (35 - 45 TORR) 48 H pO2 (80 - 100 TORR) 86 HCO3 (21 - 28 MEQ/L) 23 ABG O2 Sat (Measured) (>96.0 %) 94.0 L P-50 (Temp Corrected) N Carboxyhemoglobin (1.5 - 5.0 %) 0.7 L O2 Concentration % 2L Temperature (97.0 - 100.0 FARH) 98.8 O2 Delivery Method NC Chemistry Sodium (137 - 145 mmol/L) 138 Potassium (3.5 - 5.1 mmol/L) 5.3 H Chloride (98 - 107 mmol/L) 101 Carbon Dioxide (22 - 30 mmol/L) 25 Anion Gap (5 - 16) 12 BUN (9 - 20 mg/dL) 43 H Creatinine (0.7 - 1.2 mg/dL) 2.9 H Estimated GFR (>60 ml/min) 23 L BUN/Creatinine Ratio (7 - 25 %) 14.8 Glucose (65 - 99 mg/dL) 103 H Calcium (8.4 - 10.2 mg/dL) 9.2 Total Bilirubin (0.2 - 1.3 mg/dL) 0.4 AST (17 - 59 U/L) 37 ALT (21 - 72 U/L) 58 Alkaline Phosphatase (< 127 U/L) 65 Ammonia (9 - 30 umol/L) 23 Troponin I (<0.11 ng/ml) 0.02 Total Protein (6.3 - 8.2 g/dL) 6.4 Albumin (3.5 - 5.0 g/dL) 3.5 Globulin (1.9 - 4.2 gm/dL) 2.9 Albumin/Globulin Ratio (1.1 - 2.2 %) 1.2 Coagulation PT (9.4 - 12.5 SEC) 12.0 INR (0.90 - 1.17) 1.10 APTT (25 - 37 SEC) 32 Hematology CBC w Diff MAN DIFF ORDERED WBC (4.8 - 10.8 /CUMM) 12.1 H RBC (4.70 - 6.10 /CUMM) 3.89 L Hgb (14.0 - 18.0 G/DL) 11.5 L Hct (42 - 52 %) 34.6 L MCV (80.0 - 94.0 FL) 89.0 MCH (27.0 - 31.0 PG) 29.5 MCHC (33.0 - 37.0 G/DL) 33.1 RDW (11.5 - 14.5 %) 16.0 H Plt Count (130 - 400 /CUMM) 910 H MPV (7.4 - 10.4 FL) 8.1 Gran % (42.2 - 75.2 %) 68.8 Lymphocytes % (20.5 - 51.1 %) 21.8 Monocytes % (1.7 - 9.3 %) 7.2 Eosinophils % (0 - 5 %) 1.2 Basophils % (0.0 - 2.0 %) 1.0 Absolute Granulocytes (1.4 - 6.5 /CUMM) 8.3 H Absolute Lymphocytes (1.2 - 3.4 /CUMM) 2.6 Absolute Monocytes (0.10 - 0.60 /CUMM) 0.9 H Absolute Eosinophils (0.0 - 0.7 /CUMM) 0.1 Absolute Basophils (0.0 - 0.2 /CUMM) 0.1 Platelet Estimate (ADEQUATE) GIANT Normocytic RBCs VERIFIED Polychromasia 1+ Miscellaneous Phlebotomy Draw Site RIGHT RADIAL Toxicology Serum Alcohol (<10 MG/DL) < 10.0 02/12 2118 Miscellaneous Ref Lab Test Result Pending A/P: 52 y/o M with pmh sig for EtOH abuse/withdrawal/dependence, hypertension, COPD, Dos Santos's esophagus, and alcoholic cirrhosis, admitted with altered mental state likely secondary to metabolic encephalopathy from UTI. Patient was also started on high-dose thiamine for possible Wernicke's. Follow-up on urine culture and continue ceftriaxone for now. Urology evaluation is pending. Renal ultrasound does not show any evidence of hydronephrosis. Creatinine still abnormal. Please consult nephrology. Avoid nephrotoxic medications. Opiates are on hold. Continue IV fluids. DVt px; hep sq. Will get PT eval.
--- NOTE | 2018-02-13 14:08 | Cons- Nephrology ---
General Information and HPI Consulting Request Date of Consult: 02/13/18 Requested By: Jayda HEBERT,Di History of Present Illness: Asked to see this 52 yo gentleman for PHILLIP. Mr. Tan is a 52 yo gentleman with HTN, alcoholic liver disease who stopped drinking 3 weeks ago ( insisted). He went through a week of DT's at home with hallucinations but was much better the second week. THis week, however, he developed increasing confusion saying that he tripped over the rug with his shoes (they don't have a rug and he doesn't wear shoes in the house) as well as other events which he brushed off as dreams. He fell this past Friday in the kitchen and has been eating and drinking fluids (lemon flavored kendra robby). He did not void yesterday and was confused today so was brought in by his . he denies NSAID use. He does use oxycodone at home. He has lower abdominal pain and had trouble voiding. He did void 500 cc of cloudy urine and had a mendez placed after the void due to distended bladder with 800 cc additional urine obtained (total volume 1300 cc prevoid). Cr was 2.9 on admission and is now 2.7. He has not been hospitalized in the past month and so has not received direct nephrotoxics (contrast/aminoglycosides). he is on an ACEI which he was taking. Allergies/Medications Allergies: Coded Allergies: NO KNOWN ALLERGIES (04/20/14) Home Med List: Amlodipine Besylate 5 MG TABLET 1 TAB PO DAILY HIGH BLOOD PRESSURE (Reported) Calcium Carb/Mag Ox/Zinc Sulf (Ewjyjae-Vfvgkfxfe-Mxzj Tablet) 334 MG-134 MG-5 MG TABLET 1 TAB PO DAILY SUPPLEMENT (Reported) Cholecalciferol (Vitamin D3) (Vitamin D) 2,000 UNIT CAPSULE 1 CAP PO DAILY SUPPLEMENT (Reported) Folic Acid 1 MG TABLET 1 TAB PO DAILY SUPPLEMENT (Reported) Methylcellulose (Fiber Laxative) (Unknown Strength) TABLET 2 TAB PO DAILY SUPPLEMENT (Reported) Omeprazole 20 MG CAPSULE.DR 1 CAP PO DAILY GERD (Reported) Oxycodone HCl 20 MG TABLET 1 TAB PO TID PAIN (Reported) Pregabalin (Lyrica) 150 MG CAPSULE 2 CAP PO QAM NERVE PAIN (Reported) Pregabalin (Lyrica) 150 MG CAPSULE 1 TAB PO QPM nerve pain (Reported) Quinapril HCl (Accupril) 40 MG TABLET 1 TAB PO DAILY BP (Reported) Thiamine HCl (B-1) 100 MG TABLET 1 TAB PO DAILY SUPPLEMENT (Reported) Review of Systems Review of Systems: As in HPI otherwise negative Past History Travel History Traveled to [place] past 21 day No Medical History Neurological: peripheral neuropathy EENT: NONE Cardiovascular: hypertension Respiratory: COPD 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 spouse Primary Language: [place] Smoking Status: Former Smoker ETOH Use: alcoholic Functional Ability Ambulation: walker Exam & Diagnostic Data Vital Signs and I&O M in ER comfortable c/o mendez catheter 110/65 84 98.4 Skin neg rash Eyes anicteric ENT moist Lungs clear Cor RRR Abd soft mild suprapubic tenderness Ext neg edema Neuro awake answers questions Results Pertinent Lab Results: Renal U/S no hydro Laboratory Tests 02/13 02/13 0500 0500 Chemistry Sodium (137 - 145 mmol/L) 140 Potassium (3.5 - 5.1 mmol/L) 5.5 H Chloride (98 - 107 mmol/L) 104 Carbon Dioxide (22 - 30 mmol/L) 26 Anion Gap (5 - 16) 11 BUN (9 - 20 mg/dL) 43 H Creatinine (0.7 - 1.2 mg/dL) 2.7 H Estimated GFR (>60 ml/min) 25 L BUN/Creatinine Ratio (7 - 25 %) 15.9 Lactic Acid (0.7 - 2.1 mmol/L) 0.9 Magnesium (1.6 - 2.3 mg/dL) 2.1 Vitamin B12 (239 - 931 pg/mL) 599 25-OH Vitamin D Total (30 - 100 ng/ml) 19.0 L Folate (2.76 - 20.0 ng/mL) > 20.0 H TSH &T3 &Free T4 Intrp (0.27 - 4.20 uIU/mL) 0.308 Serology RPR Titer/FTA (NONREACTIVE) NONREACTIVE 02/13 02/13 0415 0048 Coagulation APTT (25 - 37 SEC) 33 Hematology CBC w Diff NO MAN DIFF REQ WBC (4.8 - 10.8 /CUMM) 9.7 RBC (4.70 - 6.10 /CUMM) 4.13 L Hgb (14.0 - 18.0 G/DL) 12.2 L Hct (42 - 52 %) 36.7 L MCV (80.0 - 94.0 FL) 88.9 MCH (27.0 - 31.0 PG) 29.5 MCHC (33.0 - 37.0 G/DL) 33.2 RDW (11.5 - 14.5 %) 16.6 H Plt Count (130 - 400 /CUMM) 788 H MPV (7.4 - 10.4 FL) 8.3 Gran % (42.2 - 75.2 %) 72.7 Lymphocytes % (20.5 - 51.1 %) 19.3 L Monocytes % (1.7 - 9.3 %) 6.1 Eosinophils % (0 - 5 %) 1.6 Basophils % (0.0 - 2.0 %) 0.3 Absolute Granulocytes (1.4 - 6.5 /CUMM) 7.1 H Absolute Lymphocytes (1.2 - 3.4 /CUMM) 1.9 Absolute Monocytes (0.10 - 0.60 /CUMM) 0.6 Absolute Eosinophils (0.0 - 0.7 /CUMM) 0.2 Absolute Basophils (0.0 - 0.2 /CUMM) 0 Toxicology Urine Opiates Screen (>2000 NG/ML) 1337.00 Methadone Screen (>300 NG/ML) < 40 Barbiturate Screen (>200 NG/ML) < 60 Ur Phencyclidine Scrn (>25 NG/ML) < 6.00 Amphetamines Screen (>1000 NG/ML) 114 U Benzodiazepines Scrn (>200 NG/ML) ND Urine Cocaine Screen (>300 NG/ML) < 50 Urine Cannabis Screen (>50 NG/ML) < 5.00 Urines Urine Color (YEL,AMB,STR) YEL Urine Clarity (CLEAR) CLDY H Urine pH (5.0 - 8.0) 5.5 Ur Specific Draper (1.001 - 1.035) >= 1.030 Urine Protein (NEG,<30 MG/DL) 100 H Urine Ketones (NEG) TRACE H Urine Nitrite (NEG) NEG Urine Bilirubin (NEG) SMALL H Urine Urobilinogen (0.1 - 1.0 EU/dl) 1.0 Ur Leukocyte Esterase (NEG) LARGE H Ur Microscopic SEDIMENT EXAMINED Urine RBC (0 - 5 /HPF) 5-10 H Urine WBC (0 - 2 /HPF) > 75 H Ur Epithelial Cells (NONE,FEW) MOD H Urine Bacteria (NEG/NONE) PACKD H Urine Hemoglobin (NEG) SMALL H Urine Glucose (N MG/DL) NEG 02/12 02/12 02/12 9982 1336 4405 Blood Gas pH (7.35 - 7.45 PH) 7.30 *L pCO2 (35 - 45 TORR) 48 H pO2 (80 - 100 TORR) 86 HCO3 (21 - 28 MEQ/L) 23 ABG O2 Sat (Measured) (>96.0 %) 94.0 L P-50 (Temp Corrected) N Carboxyhemoglobin (1.5 - 5.0 %) 0.7 L O2 Concentration % 2L Temperature (97.0 - 100.0 FARH) 98.8 O2 Delivery Method NC Chemistry Sodium (137 - 145 mmol/L) 138 Potassium (3.5 - 5.1 mmol/L) 5.3 H Chloride (98 - 107 mmol/L) 101 Carbon Dioxide (22 - 30 mmol/L) 25 Anion Gap (5 - 16) 12 BUN (9 - 20 mg/dL) 43 H Creatinine (0.7 - 1.2 mg/dL) 2.9 H Estimated GFR (>60 ml/min) 23 L BUN/Creatinine Ratio (7 - 25 %) 14.8 Glucose (65 - 99 mg/dL) 103 H Calcium (8.4 - 10.2 mg/dL) 9.2 Total Bilirubin (0.2 - 1.3 mg/dL) 0.4 AST (17 - 59 U/L) 37 ALT (21 - 72 U/L) 58 Alkaline Phosphatase (< 127 U/L) 65 Ammonia (9 - 30 umol/L) 23 Troponin I (<0.11 ng/ml) 0.02 Total Protein (6.3 - 8.2 g/dL) 6.4 Albumin (3.5 - 5.0 g/dL) 3.5 Globulin (1.9 - 4.2 gm/dL) 2.9 Albumin/Globulin Ratio (1.1 - 2.2 %) 1.2 Coagulation PT (9.4 - 12.5 SEC) 12.0 INR (0.90 - 1.17) 1.10 APTT (25 - 37 SEC) 32 Hematology CBC w Diff MAN DIFF ORDERED WBC (4.8 - 10.8 /CUMM) 12.1 H RBC (4.70 - 6.10 /CUMM) 3.89 L Hgb (14.0 - 18.0 G/DL) 11.5 L Hct (42 - 52 %) 34.6 L MCV (80.0 - 94.0 FL) 89.0 MCH (27.0 - 31.0 PG) 29.5 MCHC (33.0 - 37.0 G/DL) 33.1 RDW (11.5 - 14.5 %) 16.0 H Plt Count (130 - 400 /CUMM) 910 H MPV (7.4 - 10.4 FL) 8.1 Gran % (42.2 - 75.2 %) 68.8 Lymphocytes % (20.5 - 51.1 %) 21.8 Monocytes % (1.7 - 9.3 %) 7.2 Eosinophils % (0 - 5 %) 1.2 Basophils % (0.0 - 2.0 %) 1.0 Absolute Granulocytes (1.4 - 6.5 /CUMM) 8.3 H Absolute Lymphocytes (1.2 - 3.4 /CUMM) 2.6 Absolute Monocytes (0.10 - 0.60 /CUMM) 0.9 H Absolute Eosinophils (0.0 - 0.7 /CUMM) 0.1 Absolute Basophils (0.0 - 0.2 /CUMM) 0.1 Platelet Estimate (ADEQUATE) GIANT Normocytic RBCs VERIFIED Polychromasia 1+ Miscellaneous Phlebotomy Draw Site RIGHT RADIAL Toxicology Serum Alcohol (<10 MG/DL) < 10.0 02/12 2118 Miscellaneous Ref Lab Test Result Pending Assessment/Plan Assessment/Recommendations Assessment: PHILLIP likely multifactorial but predominantly due to obstructive uropathy (1300 cc in bladder) now corrected with mendez catheter placement. he has a UTI and has been started on antibiotics for the same and this may have contributed to his obstructive symptoms. ACEI can cause PHILLIP in the setting of volume depletion or NSAID use (he denies the latter, the former is unclear around the time of DT's but his said he was eating well). Would hold quinipril for now (BP relatively low). In the setting of obstruction the tubules typically suffer an ATN type of injury and may not be able to concentrate or dilute appropriately. If Urine lytes/Osm are checked typically the urine is isothenuric (U Osm 300 with about 60-90 mEq Na). The kidneys typically are not able to vary this so as GFR improves urine output may remain up regardless of volume status. For this reason, typically one would use 1/2 NS at a rate to roughly match urine output (he appears near to euvolumia now). Thanks will follow prn call with questions Quentin Garza Recommendations: .
[2018-02-13 17:30] VITALS: BP 132/70
[2018-02-13 20:00] VITALS: BP 132/70
[2018-02-13 22:00] VITALS: BP 124/71
[2018-02-13 22:10] VITALS: BP 124/71
[2018-02-14] VITALS (7 sets, daily range): BP systolic 138–162; BP diastolic 88–103
--- NOTE | 2018-02-14 08:44 | PN- Housestaff ---
Tomasz HEBERT,Brooke 02/14/18 0844: Subjective Follow-up For: UTI Urinary retention AK I AMS Thrombocytosis Subjective: Patient seen and examined. He has no complaints this morning but still notes that he has pain secondary to his peripheral neuropathy in his bilateral upper and lower extremities. He states that his pain is not controlled since his oxycodone is being held secondary to altered mental status. The patient continues to have lower abdominal pain secondary to his acute urinary retention that has been relieved with Marie catheter. Patient is alert and oriented to person place and year but not month. His vitals are stable except for elevated blood pressure of 145/103 this morning. We will restart his amlodipine 5 mg. Review of Systems Constitutional: Reports: no symptoms. EENTM: Reports: no symptoms. Cardiovascular: Reports: no symptoms. Gastrointestinal: Reports: abdominal pain. Genitourinary: Reports: see HPI. Musculoskeletal: Reports: joint pain, muscle pain. Skin: Reports: no symptoms. Objective Last 24 Hrs of Vital Signs/I&O Vital Signs Date Time Temp Pulse Resp B/P B/P Pulse O2 O2 Flow FiO2 Mean Ox Delivery Rate 02/14 1049 89 142/88 02/14 1005 97.9 89 16 142/88 97 Room Air Room Air 02/14 0830 72 142/98 02/14 0639 97.6 75 20 145/103 97 Room Air 02/13 2210 97.9 92 20 124/71 95 Room Air 02/13 2200 97.9 92 20 124/71 02/13 2026 Room Air 02/13 2000 98.0 84 18 132/70 02/13 1730 98.0 84 18 132/70 94 Room Air 02/13 1536 98.6 89 18 112/75 98 Room Air 02/13 1331 98.4 84 20 110/65 93 Room Air Intake & Output 02/14 1600 02/14 0800 02/14 0000 Intake Total 1240 Output Total 1150 1600 Balance 90 -1600 Intake, IV 1000 Intake, Oral 240 Number 1 Bowel Movements Output, Urine 1150 1600 Patient 194 lb Weight Weight Bed scale Measurement Method Physical Exam General Appearance: Alert, Oriented X3, Cooperative, No Acute Distress Skin: No Rashes, No Breakdown, No Significant Lesion Sepsis Skin Exam (color): Normal for Ethnicity HEENT: Atraumatic, EOMI, Mucous Membr. moist/pink Cardiovascular: Regular Rate, Normal S1, Normal S2, No Murmurs Lungs: Clear to Auscultation, Normal Air Movement Abdomen: Normal Bowel Sounds, Soft, No Hepatospenomegaly Neurological: Normal Speech Extremities: No Clubbing, No Cyanosis, No Edema, Normal Pulses Current Medications: Current Medications Sig/Nate Start time Last Medication Dose Route Stop Time Status Admin Acetaminophen 1,000 MG Q6P PRN 02/13 0300 AC 02/14 IV 0623 Albuterol Sulfate 3 ML Q4H PRN 02/13 0630 DC INH Amlodipine Besylate 5 MG DAILY 02/14 0956 AC 02/14 PO 1049 Ceftriaxone Sodium 1,000 MG DAILY 02/14 0900 AC 02/14 IV 0831 Cholecalciferol 1,000 IU DAILY 02/13 1300 CAN PO Cholecalciferol 2,000 IU DAILY 02/13 0900 AC 02/14 PO 0830 Folic Acid 1 MG DAILY 02/13 0900 AC 02/14 PO 0830 Heparin Sodium 0 .STK-MED ONE 02/13 1547 DC (Porcine) .ROUTE Heparin Sodium 5,000 UNIT Q8 02/13 0600 AC 02/14 (Porcine) SC 0538 Ipratropium [place] 2.5 ML Q4 HRS NEEDED PRN 02/13 0630 DC INH Multivitamins 1 TAB DAILY 02/13 0900 AC 02/14 PO 0830 Omeprazole 20 MG DAILY 02/13 0900 AC 02/14 PO 0830 Pregabalin 150 MG QPM 02/13 2100 AC 02/13 PO 2045 Pregabalin 300 MG DAILY 02/13 0900 AC 02/14 PO 0839 Sodium Chloride 1,000 ML Q10H 02/13 1400 AC 02/14 IV 0337 Sodium Chloride 1,000 ML Q10H 02/13 0300 DC 02/13 IV 0331 Tamsulosin HCl 0.4 MG DAILY 02/13 0900 AC 02/14 PO 0830 Thiamine HCl 100 MG DAILY 02/13 0900 DC 02/13 PO 0910 Thiamine HCl 500 MG TID 02/13 0900 AC 02/14 Sodium Chloride 250 ML IV 02/15 2159 0952 Last 24 Hrs of Lab/Ryne Results Last 24 Hrs of Labs/Mics: Laboratory Tests 02/14/18 1026: Sodium Pending, Potassium Pending, Chloride Pending, Carbon Dioxide Pending, Anion Gap Pending, BUN Pending, Creatinine Pending, BUN/Creatinine Ratio Pending , CBC w Diff Pending, WBC Pending, RBC Pending, Hgb Pending, Hct Pending, MCV Pending, MCH Pending, MCHC Pending, RDW Pending, Plt Count Pending, MPV Pending 02/13/18 1640: Urine Osmolality 453, Ur Random Creatinine 48.0, Ur Random Sodium 122 H, Ur Random Potassium 16.7, Fraction Sodium Excret 4.9 H Assessment/Plan Assessment: 52-year-old man with multiple medical problems significant for COPD, EtOH abuse, hypertension, and cirrhosis seen for evaluation of progressively worsening mental status. Patient is unable to give specific complaints but does follow commands and answers yes/no questions. Vital signs are within normal limits. Physical examination demonstrates a middle-aged unkempt appearing man appearing confused but in no acute distress with a normal cardiopulmonary and abdominal examination without CVA tenderness; complete neurologic examination is within normal limits. Significant labs include WBC 12.1, platelets 910, K5.3, BUNs/creatinine 43/2.9, ammonia 23. Urinalysis shows large leukocyte esterase with >75 WBC and packed bacteria. ED had and chest x-ray are unremarkable. EKG is normal sinus rhythm Clinically patient appears to have progressively worsening altered mental status possibly multifactorial due to toxic metabolic encephalopathy and/or wernicke- Korsakoff. Collateral information obtained from the nursing staff reveals that patient was straining to pass urine but eventually passed 500 mL of cloudy urine after a long attempt. His elevated BUNs/creatinine is likely due to a post obstructive uropathy such as a urethral stricture. Patient does have elevated platelets which have been present in the past; however there does not appear to be hematology evaluation. Patient is being admitted to the general medicine floor for continuous observation for impulsivity, intravenous fluids/antibiotics , post void residual monitoring/strict ins and outs, hematology evaluation, and urology evaluation. 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 On admission, Marie catheter had produced copious amounts of urine when placed. We have as per Dr. Lawton, start the patient on half normal saline at a rate of 100 and closely monitor his I's and O's. Urology will see the patient. Hematology has seen the patient for his thrombocytosis and has stated that is likely reactive but we can check a Yo 2 level. As this is quite an expensive test we will defer for outpatient workup with Dr. Cowan. The patient 's renal ultrasound was normal, lactic acid levels were normal. He was found to have a low vitamin D so was started on vitamin D supplementation even though he does take vitamin D tablets at home. We are continuing him on high-dose thiamine for his altered mental status that was thought to be partially attributed to Warnke Korsakoff syndrome. We will follow up on urine culture and continue IV ceftriaxone. TSH and B12 levels are normal. Urine osmolarity yesterday was 453, random urine sodium was 122, high, fractional excretion of sodium was 4.9, high. Indication that kidney is not absorbing sodium efficiently. -Continue to monitor on Gen. medical floors -Follow up labs for today for potassium, creatinine, WBC count which has been decreasing -CIWA overnight was 4 for orientation issues. -Patient safety monitor for impulsivity and likely be DC'd later today -Avoid nephrotoxic agents including his quinapril -Can restart his amlodipine 5 mg as his blood pressure has been running high -Continue Marie catheter and monitoring I's and O's. Patient has had continued good urine output with 4250 yesterday on admission with introduction of the Marie catheter and 1150 so far today. -Follow up with urology for patient's acute urinary retention as well as nephrology. Continue his 100 mL/h of half normal saline for now. Follow-up BEP for creatinine level today. Consider CT abdomen/pelvis if worsening pain -TRC with nebs PRN, place on BiPAP if respiratory status does worsen -Continue Ceftriaxone 1 g IV daily -High-dose thiamine 500 mg IV 3 times a day 9 doses for potential Wernicke- Korsakoff syndrome -Thiamine/folate/multivitamin -Continue home meds: Lyrica, omeprazole, vitamin D -Oxycodone was held for altered mental status changes but can start with a small dose, patient is on Lyrica for his peripheral neuropathy and was given Tylenol which she says does not work. He usually takes 20 mg of oxycodone 3 times a day. -Follow up hematology for patient's thrombocytosis that they believe to be reactionary. We will have him follow up with handle maker on discharge for Danny 2 mutation testing. -Consider repeating ABG if mental status worse -Follow-up cultures and sensitivities -Regular diet -DVT prophylaxis with subcutaneous heparin -Full code Problem List: 1. UTI (urinary tract infection) 2. Renal failure 3. Acute kidney injury Pain Ratin Pain Location: bilateral upper and lower ext and abd Pain Goal: Pain 4 or less Pain Plan: tylenol Tomorrow's Labs & Rationales: cbc bep Mica HEBERT,Amir 02/14/18 1431: Attending MD Review Statement Attending Statement Attending MD Statement: examined this patient, discuss w/resident/PA/INDUSTRIAL CONTROLS TECHNICIAN, agreed w/resident/PA/INDUSTRIAL CONTROLS TECHNICIAN, discussed with family, reviewed EMR data (avail), discussed with nursing Attending Assessment/Plan: Pt was seen and evaluated. Reports doing better today. Mental status sl improved. --appreciate Renal input --cont to monitor renal functions --f/u Urology eval --rest of the plan as per resident's note
--- NOTE | 2018-02-14 08:47 | Patient Discharge Instructions ---
Discharge Instructions General Discharge Information You were seen/treated for: uti acute urinary retention Special Instructions: please follow up with pcp in one week please follow up with urologist in one week please follow up with superintendent transmission in one week please follow up with Rafael Robbins at the below appointment time: March 12 at 3pm; arrive at 2.45. Diet Continue normal diet: Yes Activity Full Activity/No Limits: Yes Acute Coronary Syndrome Inclusion Criteria At DC or during hospital stay patient has or had the following: ACS DIAGNOSIS No Discharge Core Measures Meds if any: Prescribed or Continued at Discharge Meds if any: NOT Prescribed or Continued at Discharge Congestive Heart Failure Inclusion Criteria At DC or during hospital stay patient has or had the following: CHF DIAGNOSIS No Discharge Core Measures Meds if any: Prescribed or Continued at Discharge Meds if any: NOT Prescribed or Continued at Discharge Cerebrovascular accident Inclusion Criteria At DC or during hospital stay patient has or had the following: CVA/TIA Diagnosis No Discharge Core Measures Meds if any: Prescribed or Continued at Discharge Meds if any: NOT Prescribed or Continued at Discharge Venous thromboembolism Inclusion Criteria VTE Diagnosis No VTE Type NONE VTE Confirmed by (Test) NONE Discharge Core Measures - Per Current guidelines, there needs to be overlap - treatment for the first 5 days of Warfarin therapy. - If discharged on Warfarin prior to 5 days of - overlap therapy, the patient will need to be - assessed for post discharge needs including - *Post discharge parental anticoagulation - *Warfarin and/or parental anticoagulation education - *Follow up date to check INR post discharge At least 5 days overlap therapy as Inpatient No Meds if any: Prescribed or Continued at Discharge Note: Overlap Therapy is Warfarin and Anticoagulant Meds if any: NOT Prescribed or Continued at Discharge
[2018-02-14 11:55] LABS: ABSOLUTE BASOPHIL COUNT 0.1 /CUMM (0.0-0.2); ABSOLUTE EOSINOPHIL COUNT 0.1 /CUMM (0.0-0.7); ABSOLUTE GRANULOCYTE CT 4.4 /CUMM (1.4-6.5); ABSOLUTE LYMPH COUNT 1.3 /CUMM (1.2-3.4); ABSOLUTE MONOCYTE COUNT 0.3 /CUMM (0.10-0.60); BASOPHIL % 1.2 % (0.0-2.0); GRANULOCYTE % 71.1 % (42.2-75.2); MEAN CORPUSCULAR HGB 29.4 PG (27.0-31.0); MEAN CORPUSCULAR HGB CONC 33.3 G/DL (33.0-37.0); MEAN CORPUSCULAR VOLUME 88.4 FL (80.0-94.0); MEAN PLATELET VOLUME 8.4 FL (7.4-10.4); PLATELET COUNT 741 /CUMM (130-400); RBC DISTRIBUTION WIDTH 15.9 % (11.5-14.5); RED BLOOD CELL CT 4.19 /CUMM (4.70-6.10); WHITE BLOOD CELL COUNT 6.2 /CUMM (4.8-10.8)
[2018-02-15] VITALS: BP 162/95
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
[2018-02-15 07:58] VITALS: BP 156/99
--- NOTE | 2018-02-15 09:19 | PN- Housestaff ---
See Addendum Subjective Follow-up For: UTI, altered mental status, AK I, thrombocytosis Subjective: Patient was acutely agitated this morning and was placed in restraints. Talking to him this morning, he remembers the episode and says that he was upset that someone was going through his staff. He is oriented 3 except for the month but did know that it was Friday. He complains of pain from the Marie and chronic pain and is requesting his oxycodone. He appears lucid this morning otherwise without chest pain, shortness of breath, or other complaints. Review of Systems Constitutional: Reports: no symptoms. EENTM: Reports: no symptoms. Cardiovascular: Reports: no symptoms. Respiratory: Reports: no symptoms. Gastrointestinal: Reports: no symptoms. Genitourinary: Reports: see HPI. Musculoskeletal: Reports: no symptoms. Skin: Reports: no symptoms. Neurological/Psychological: Reports: see HPI. Hematologic/Endocrine: Reports: no symptoms. Immunologic/Allergic: Reports: no symptoms. Objective Last 24 Hrs of Vital Signs/I&O Vital Signs Date Time Temp Pulse Resp B/P B/P Pulse O2 O2 Flow FiO2 Mean Ox Delivery Rate 02/15 0815 96 156/99 02/15 0815 96 156/99 02/15 0758 97.4 96 20 156/99 96 Room Air 02/15 0000 99.5 77 20 162/95 02/14 2246 99.5 77 20 162/95 97 Room Air 02/14 2000 97.8 85 17 160/90 02/14 1800 97.8 85 17 162/90 95 Room Air 02/14 1330 97.9 86 18 138/88 98 Room Air Room Air 02/14 1049 89 142/88 02/14 1005 97.9 89 16 142/88 97 Room Air Room Air 02/14 1000 97.9 89 16 142/88 Intake & Output 02/15 1600 02/15 0800 02/15 0000 Intake Total 1040 1415 Output Total 1400 2250 Balance -360 -835 Intake, IV 800 575 Intake, Oral 240 840 Number 0 1 Bowel Movements Output, Urine 1400 2250 Physical Exam General Appearance: Alert, Oriented X3, Cooperative, No Acute Distress Cardiovascular: Regular Rate, Normal S1, Normal S2 Lungs: Clear to Auscultation Abdomen: Normal Bowel Sounds, Soft, No Tenderness Extremities: No Edema, Normal Pulses, No Tenderness/Swelling Current Medications: Current Medications Sig/Naet Start time Last Medication Dose Route Stop Time Status Admin Acetaminophen 1,000 MG .STK-MED ONE 02/14 1650 DC IV 02/14 1651 Acetaminophen 1,000 MG Q6P PRN 02/13 0300 AC 02/15 IV 0814 Amlodipine Besylate 5 MG DAILY 02/14 0956 AC 02/15 PO 0815 Ceftriaxone Sodium 1,000 MG DAILY 02/14 0900 AC 02/15 IV 0814 Cholecalciferol 2,000 IU DAILY 02/13 0900 AC 02/15 PO 0815 Folic Acid 1 MG DAILY 02/13 0900 AC 02/15 PO 0815 Haloperidol 1 MG Q6 PRN 02/15 0915 UNVr PO Heparin Sodium 5,000 UNIT Q8 02/13 0600 AC 02/15 (Porcine) SC 0634 Lisinopril 40 MG DAILY 02/15 0900 AC PO Multivitamins 1 TAB DAILY 02/13 0900 AC 02/15 PO 0815 Omeprazole 20 MG DAILY 02/13 0900 AC 02/15 PO 0815 Oxycodone HCl 10 MG TIDPRN PRN 02/15 0915 UNVr PO Pregabalin 150 MG QPM 02/13 2100 AC 02/14 PO 2139 Pregabalin 300 MG DAILY 02/13 0900 AC 02/15 PO 0814 Sodium Chloride 1,000 ML Q10H 02/13 1400 DC 02/15 IV 0410 Tamsulosin HCl 0.4 MG DAILY 02/13 0900 AC 02/15 PO 0815 Thiamine HCl 500 MG TID 02/13 0900 AC 02/14 Sodium Chloride 250 ML IV 02/15 2159 2139 Warfarin Sodium 7.5 MG COUMADIN 1700 ONE 02/14 1700 CAN PO 02/14 1701 Last 24 Hrs of Lab/Ryne Results Last 24 Hrs of Labs/Mics: Laboratory Tests 02/14/18 1026: Anion Gap 11, Estimated GFR > 60, BUN/Creatinine Ratio 25.0, Serum Osmolality 298 H, CBC w Diff NO MAN DIFF REQ, RBC 4.19 L, MCV 88.4, MCH 29.4, MCHC 33.3, RDW 15.9 H, MPV 8.4, Gran % 71.1, Lymphocytes % 20.2 L, Monocytes % 5.5, Eosinophils % 2.0, Basophils % 1.2, Absolute Granulocytes 4.4, Absolute Lymphocytes 1.3, Absolute Monocytes 0.3, Absolute Eosinophils 0.1, Absolute Basophils 0.1 Assessment/Plan Assessment: Mr. Tan is a 52-year-old man with multiple medical problems significant for COPD, EtOH abuse, hypertension, and cirrhosis seen for evaluation of progressively worsening mental status. Problem list: 1. Urinary tract infection 2. Altered mental status 3. Obstructive uropathy 4. Reactive thrombocytosis Plan -Patient safety monitor for impulsivity -Haloperidol 1 mg every 6 hours as needed agitation -If needed, can consider IM haloperidol -Restart MARIA A inhibitor for hypertension -Continue amlodipine -Continue ceftriaxone, follow-up urine culture for speciation -Discontinue IV fluids -Voiding trial, postvoid residual after removing Marie. -TRC with nebs PRN -High-dose thiamine 500 mg IV 3 times a day 9 doses for potential Wernicke- Korsakoff syndrome -Thiamine/folate/multivitamin -Continue home meds: Lyrica, omeprazole, vitamin D -Restart oxycodone at lower dose, monitor for mental status changes -Outpatient hematology follow-up -Regular diet -DVT prophylaxis with subcutaneous heparin -Full code Problem List: 1. UTI (urinary tract infection) Pain Ratin Pain Location: no Pain Goal: Remain pain free Pain Plan: see a/p Tomorrow's Labs & Rationales: bep, cbc
[2018-02-15 11:50] LABS: ABSOLUTE BASOPHIL COUNT 0.1 /CUMM (0.0-0.2); ABSOLUTE EOSINOPHIL COUNT 0.1 /CUMM (0.0-0.7); ABSOLUTE GRANULOCYTE CT 5.3 /CUMM (1.4-6.5); ABSOLUTE LYMPH COUNT 1.2 /CUMM (1.2-3.4); ABSOLUTE MONOCYTE COUNT 0.3 /CUMM (0.10-0.60); BASOPHIL % 0.9 % (0.0-2.0); EOSINOPHIL % 1.7 % (0-5); GRANULOCYTE % 75.2 % (42.2-75.2); HEMATOCRIT 38.1 % (42-52); MEAN CORPUSCULAR HGB 29.1 PG (27.0-31.0); MEAN CORPUSCULAR VOLUME 88.1 FL (80.0-94.0); MEAN PLATELET VOLUME 8.3 FL (7.4-10.4); RBC DISTRIBUTION WIDTH 15.5 % (11.5-14.5); RED BLOOD CELL CT 4.32 /CUMM (4.70-6.10); WHITE BLOOD CELL COUNT 7.1 /CUMM (4.8-10.8)
[2018-02-15 12:18] LABS: PLATELET COUNT 725 /CUMM (130-400)
[2018-02-15 14:52] VITALS: BP 112/66
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
[2018-02-15 23:08] VITALS: BP 130/80
[2018-02-16 06:57] VITALS: BP 134/69
--- NOTE | 2018-02-16 07:32 | PN- Hematology ---
Subjective Subjective: Offers no complaints, nonagitated; recent events reviewed Objective Vital Signs and I&Os Vital Signs Date Time Temp Pulse Resp B/P B/P Pulse O2 O2 Flow FiO2 Mean Ox Delivery Rate 02/16 0657 98.6 59 20 134/69 95 Room Air 02/15 2308 97.4 18 18 130/80 95 Room Air 02/15 1452 98.4 107 18 112/66 95 02/15 0956 96 150/98 02/15 0815 96 156/99 02/15 0815 96 156/99 02/15 0758 97.4 96 20 156/99 96 Room Air Intake & Output 02/16 0800 02/16 0000 02/15 1600 02/15 0802/15 0000 02/14 1600 Intake Total 610 1100 1040 1415 1600 Output Total 700 1100 1400 2250 1900 Balance -90 0 -360 -835 -300 Intake, IV 250 500 800 575 800 Intake, Oral 360 600 240 840 800 Number 1 0 1 Bowel Movements Output, Urine 700 1100 1400 2250 1900 Gen.: in NAD ENT: Sclera anicteric Chest: Normal respiratory effort, decreased breath sounds Cor: RRR, no extra sounds Abdomen: Soft, bowel sounds present, no tenderness, no rebound Extremities: Without clubbing, cyanosis, or asymmetric edema Neurology: Alert and oriented 3, no gross deficit Current Medications: Current Medications Sig/Nate Start time Last Medication Dose Route Stop Time Status Admin Acetaminophen 1,000 MG .STK-MED ONE 02/15 0808 DC IV 02/15 0809 Acetaminophen 1,000 MG Q6P PRN 02/13 0300 AC 02/15 IV 0814 Amlodipine Besylate 5 MG DAILY 02/14 0956 AC 02/15 PO 0815 Benztropine Mesylate 1 MG ONCE ONE 02/15 1700 DC 02/15 IM 02/15 1701 1842 Ceftriaxone Sodium 1,000 MG DAILY 02/14 0900 AC 02/15 IV 0814 Cholecalciferol 2,000 IU DAILY 02/13 0900 AC 02/15 PO 0815 Diphenhydramine HCl 50 MG ONCE ONE 02/15 1630 DC 02/15 IM 02/15 1631 1621 Folic Acid 1 MG DAILY 02/13 0900 AC 02/15 PO 0815 Haloperidol 2 MG Q6 02/15 1800 AC 02/15 PO 1831 Haloperidol 5 MG ONCE ONE 02/15 1630 DC 02/15 IM 02/15 1631 1621 Haloperidol 2 MG BID PRN 02/15 1630 CAN PO Haloperidol 1 MG Q6 PRN 02/15 0915 DC 02/15 PO 0957 Heparin Sodium 5,000 UNIT Q8 02/13 0600 AC 02/16 (Porcine) SC 0632 Lisinopril 40 MG DAILY 02/15 0900 AC 02/15 PO 0956 Multivitamins 1 TAB DAILY 02/13 0900 AC 02/15 PO 0815 Omeprazole 20 MG DAILY 02/13 0900 AC 02/15 PO 0815 Oxycodone HCl 10 MG TIDPRN PRN 02/15 0915 AC 02/16 PO 0257 Pregabalin 150 MG QPM 02/13 2100 AC 02/15 PO 2133 Pregabalin 300 MG DAILY 02/13 0900 AC 02/15 PO 0814 Sodium Chloride 1,000 ML Q10H 02/13 1400 DC 02/15 IV 0410 Tamsulosin HCl 0.4 MG DAILY 02/13 09 AC 02/15 PO 0815 Thiamine HCl 500 MG TID 02/13 09 DC 02/15 Sodium Chloride 250 ML IV 02/15 2159 2132 Results Last 24 Hours of Lab Results: Laboratory Tests 02/15 1052 Chemistry Sodium (137 - 145 mmol/L) 141 Potassium (3.5 - 5.1 mmol/L) 4.9 Chloride (98 - 107 mmol/L) 103 Carbon Dioxide (22 - 30 mmol/L) 26 Anion Gap (5 - 16) 12 BUN (9 - 20 mg/dL) 12 Creatinine (0.7 - 1.2 mg/dL) 0.8 Estimated GFR (>60 ml/min) > 60 BUN/Creatinine Ratio (7 - 25 %) 15.0 Hematology CBC w Diff NO MAN DIFF REQ WBC (4.8 - 10.8 /CUMM) 7.1 RBC (4.70 - 6.10 /CUMM) 4.32 L Hgb (14.0 - 18.0 G/DL) 12.6 L Hct (42 - 52 %) 38.1 L MCV (80.0 - 94.0 FL) 88.1 MCH (27.0 - 31.0 PG) 29.1 MCHC (33.0 - 37.0 G/DL) 33.0 RDW (11.5 - 14.5 %) 15.5 H Plt Count (130 - 400 /CUMM) 725 H MPV (7.4 - 10.4 FL) 8.3 Gran % (42.2 - 75.2 %) 75.2 Lymphocytes % (20.5 - 51.1 %) 17.3 L Monocytes % (1.7 - 9.3 %) 4.9 Eosinophils % (0 - 5 %) 1.7 Basophils % (0.0 - 2.0 %) 0.9 Absolute Granulocytes (1.4 - 6.5 /CUMM) 5.3 Absolute Lymphocytes (1.2 - 3.4 /CUMM) 1.2 Absolute Monocytes (0.10 - 0.60 /CUMM) 0.3 Absolute Eosinophils (0.0 - 0.7 /CUMM) 0.1 Absolute Basophils (0.0 - 0.2 /CUMM) 0.1 Assessment/Plan Hematology Assessment/Recommendations: 1. Thrombocytosis-platelet count continues to improve spontaneously-further workup elevated platelets can be accomplished as an outpatient. I am concerned, if this turns out to be a myeloproliferative disorder, but given the patient's substance abuse, use of anagrelide or hydroxyurea will be very complicated 2. Altered mental status-given the chronicity of the thrombocytosis, I do not feel his agitation result of this hematologic finding. Follow-up as an outpatient
--- NOTE | 2018-02-16 07:37 | PN- Housestaff ---
Subjective Follow-up For: UTI acute urinary retention agitation and delirium Subjective: patient seen and examined. He is no longer having signs of acute delirium. His vitals are stable. He is on four-point restraints as well as Pollo this morning. The patient is currently on Haldol scheduled 2 mg every 6. He has received diphenhydramine and benztropine as well for his agitation. He is alert and oriented 3 this morning; he has no complaints other than continued lower abdominal pain. Patient is off Marie. Review of Systems Constitutional: Reports: no symptoms. Cardiovascular: Reports: no symptoms. Respiratory: Reports: no symptoms. Gastrointestinal: Reports: abdominal pain. Musculoskeletal: Reports: no symptoms. Objective Last 24 Hrs of Vital Signs/I&O Vital Signs Date Time Temp Pulse Resp B/P B/P Pulse O2 O2 Flow FiO2 Mean Ox Delivery Rate 02/16 08 62 132/72 02/16 0829 62 132/72 02/16 0829 62 132/72 02/16 0657 98.6 59 20 134/69 95 Room Air 02/15 2308 97.4 18 18 130/80 95 Room Air Intake & Output 02/16 1600 02/16 0800 02/16 0000 Intake Total 800 550 610 Output Total 500 300 700 Balance 300 250 -90 Intake, IV 250 Intake, Oral 800 550 360 Number 1 Bowel Movements Output, Urine 500 300 700 Patient 194 lb Weight Physical Exam General Appearance: Alert, Oriented X3, Cooperative, No Acute Distress Skin Temp/Moisture Exam: Warm/Dry Sepsis Skin Exam (color): Normal for Ethnicity HEENT: Atraumatic, PERRLA, EOMI, Mucous Membr. moist/pink Cardiovascular: Regular Rate, Normal S1, Normal S2 Lungs: Clear to Auscultation, Normal Air Movement Abdomen: Normal Bowel Sounds, Soft, No Tenderness, No Hepatospenomegaly, No Masses Neurological: Normal Gait, Normal Speech, Strength at 5/5 X4 Ext Extremities: No Clubbing, No Cyanosis, No Edema Current Medications: Current Medications Sig/Nate Start time Last Medication Dose Route Stop Time Status Admin Acetaminophen 650 MG Q6 02/16 1200 AC 02/16 PO 1153 Acetaminophen 1,000 MG Q6P PRN 02/13 0300 AC 02/15 IV 0814 Amlodipine Besylate 5 MG DAILY 02/14 0956 AC 02/16 PO 0829 Amoxicillin/ 875 MG Q12 02/16 1458 AC Clavulanate Potassium PO Benztropine Mesylate 1 MG ONCE ONE 02/15 1700 DC 02/15 IM 02/15 1701 1842 Ceftriaxone Sodium 1,000 MG DAILY 02/14 0900 DC 02/16 IV 0828 Cholecalciferol 2,000 IU DAILY 02/13 0900 AC 02/16 PO 0829 Diphenhydramine HCl 50 MG ONCE ONE 02/15 1630 DC 02/15 IM 02/15 1631 1621 Duloxetine HCl 40 MG DAILY 02/16 1457 CAN PO Duloxetine HCl 40 MG DAILY 02/16 1230 AC 02/16 PO 1349 Folic Acid 1 MG DAILY 02/13 09 AC 02/16 PO 0829 Haloperidol 2 MG Q8 02/16 1400 DC PO Haloperidol 2 MG Q8P PRN 02/16 1215 AC PO Haloperidol 2 MG Q6 PRN 02/16 0856 DC PO Haloperidol 2 MG Q6 02/15 1800 DC 02/15 PO 1831 Haloperidol 5 MG ONCE ONE 02/15 1630 DC 02/15 IM 02/15 1631 1621 Haloperidol 2 MG BID PRN 02/15 1630 CAN PO Haloperidol 1 MG Q6 PRN 02/15 0915 DC 02/15 PO 0957 Heparin Sodium 5,000 UNIT Q8 02/13 06 AC 02/16 (Porcine) SC 1350 Lisinopril 40 MG DAILY 02/15 0900 AC 02/16 PO 0829 Multivitamins 1 TAB DAILY 02/13 0900 AC 02/16 PO 0829 Omeprazole 20 MG DAILY 02/13 0900 AC 02/16 PO 0829 Oxycodone HCl 10 MG Q6-PRN PRN 02/16 1230 AC PO Oxycodone HCl 10 MG TIDPRN PRN 02/15 0915 DC 02/16 PO 1153 Patient Medication 1 ED ONE ONE 02/16 1300 DC Teaching ED 02/16 1301 Pregabalin 150 MG QPM 02/13 2100 AC 02/15 PO 2133 Pregabalin 300 MG DAILY 02/13 0900 AC 02/16 PO 0828 Tamsulosin HCl 0.4 MG DAILY 02/13 0900 AC 02/16 PO 0829 Thiamine HCl 100 MG DAILY 02/16 0900 AC 02/16 PO 1024 Thiamine HCl 500 MG TID 02/13 0900 DC 02/15 Sodium Chloride 250 ML IV 02/15 Last 24 Hrs of Lab/Ryne Results Last 24 Hrs of Labs/Mics: Laboratory Tests 02/16/18 1021: Anion Gap 13, Estimated GFR > 60, BUN/Creatinine Ratio 15.7, CBC w Diff NO MAN DIFF REQ, RBC 4.18 L, MCV 88.1, MCH 28.9, MCHC 32.8 L, RDW 15.3 H, MPV 8.5, Gran % 70.6, Lymphocytes % 21.2, Monocytes % 4.8, Eosinophils % 2.7, Basophils % 0.7, Absolute Granulocytes 4.5, Absolute Lymphocytes 1.4, Absolute Monocytes 0.3 , Absolute Eosinophils 0.2, Absolute Basophils 0 Orders CIWA Score (last 24 hrs): 4 Assessment/Plan Assessment: 52-year-old man with multiple medical problems significant for COPD, EtOH abuse, hypertension, and cirrhosis seen for evaluation of progressively worsening mental status. Patient is unable to give specific complaints but does follow commands and answers yes/no questions. Vital signs are within normal limits. Physical examination demonstrates a middle-aged unkempt appearing man appearing confused but in no acute distress with a normal cardiopulmonary and abdominal examination without CVA tenderness; complete neurologic examination is within normal limits. Significant labs include WBC 12.1, platelets 910, K5.3, BUNs/creatinine 43/2.9, ammonia 23. Urinalysis shows large leukocyte esterase with >75 WBC and packed bacteria. ED had and chest x-ray are unremarkable. EKG is normal sinus rhythm Clinically patient appears to have progressively worsening altered mental status possibly multifactorial due to toxic metabolic encephalopathy and/or wernicke- Korsakoff. Collateral information obtained from the nursing staff reveals that patient was straining to pass urine but eventually passed 500 mL of cloudy urine after a long attempt. His elevated BUNs/creatinine is likely due to a post obstructive uropathy such as a urethral stricture. Patient does have elevated platelets which have been present in the past; however there does not appear to be hematology evaluation. Patient is being admitted to the general medicine floor for continuous observation for impulsivity, intravenous fluids/antibiotics , post void residual monitoring/strict ins and outs, hematology evaluation, and urology evaluation. 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 On admission, Marie catheter had produced copious amounts of urine when placed. We have as per Dr. Lawton, start the patient on half normal saline at a rate of 100 and closely monitor his I's and O's. Urology will see the patient. Hematology has seen the patient for his thrombocytosis and has stated that is likely reactive but we can check a Yo 2 level. As this is quite an expensive test we will defer for outpatient workup with Dr. Cowan. The patient 's renal ultrasound was normal, lactic acid levels were normal. He was found to have a low vitamin D so was started on vitamin D supplementation even though he does take vitamin D tablets at home. We are continuing him on high-dose thiamine for his altered mental status that was thought to be partially attributed to Warnke Korsakoff syndrome. We will follow up on urine culture and continue IV ceftriaxone. TSH and B12 levels are normal. Urine osmolarity yesterday was 453, random urine sodium was 122, high, fractional excretion of sodium was 4.9, high. Indication that kidney is not absorbing sodium efficiently. -Continue to monitor on Gen. medical floors -Follow up labs for today for potassium, creatinine, WBC count which has been decreasing -CIWA overnight was 4 for orientation issues. -Patient safety monitor for impulsivity and likely be DC'd later today -Avoid nephrotoxic agents including his quinapril -Can restart his amlodipine 5 mg as his blood pressure has been running high -Continue Marie catheter and monitoring I's and O's. Patient has had continued good urine output with 4250 yesterday on admission with introduction of the Marie catheter and 1150 so far today. -Follow up with urology for patient's acute urinary retention as well as nephrology. Continue his 100 mL/h of half normal saline for now. Follow-up BEP for creatinine level today. Consider CT abdomen/pelvis if worsening pain -TRC with nebs PRN, place on BiPAP if respiratory status does worsen -Continue Ceftriaxone 1 g IV daily -High-dose thiamine 500 mg IV 3 times a day 9 doses for potential Wernicke- Korsakoff syndrome -Thiamine/folate/multivitamin -Continue home meds: Lyrica, omeprazole, vitamin D -Oxycodone was held for altered mental status changes but can start with a small dose, patient is on Lyrica for his peripheral neuropathy and was given Tylenol which she says does not work. He usually takes 20 mg of oxycodone 3 times a day. -Follow up hematology for patient's thrombocytosis that they believe to be reactionary. We will have him follow up with [facility] on discharge for Danny 2 mutation testing. -Consider repeating ABG if mental status worse -Follow-up cultures and sensitivities -Regular diet -DVT prophylaxis with subcutaneous heparin -Full code Problem List: 1. UTI (urinary tract infection) Pain Ratin Pain Location: lower ab Pain Goal: Pain 4 or less Pain Plan: prn Tomorrow's Labs & Rationales: na
[2018-02-16 11:05] LABS: ABSOLUTE BASOPHIL COUNT 0 /CUMM (0.0-0.2); ABSOLUTE EOSINOPHIL COUNT 0.2 /CUMM (0.0-0.7); ABSOLUTE GRANULOCYTE CT 4.5 /CUMM (1.4-6.5); ABSOLUTE LYMPH COUNT 1.4 /CUMM (1.2-3.4); ABSOLUTE MONOCYTE COUNT 0.3 /CUMM (0.10-0.60); BASOPHIL % 0.7 % (0.0-2.0); EOSINOPHIL % 2.7 % (0-5); HEMATOCRIT 36.8 % (42-52); MEAN CORPUSCULAR HGB 28.9 PG (27.0-31.0); MEAN CORPUSCULAR HGB CONC 32.8 G/DL (33.0-37.0); MEAN CORPUSCULAR VOLUME 88.1 FL (80.0-94.0); MEAN PLATELET VOLUME 8.5 FL (7.4-10.4); PLATELET COUNT 747 /CUMM (130-400); RBC DISTRIBUTION WIDTH 15.3 % (11.5-14.5); RED BLOOD CELL CT 4.18 /CUMM (4.70-6.10); WHITE BLOOD CELL COUNT 6.4 /CUMM (4.8-10.8)
[2018-02-16 11:44] LABS: GRANULOCYTE % 70.6 % (42.2-75.2)
--- NOTE | 2018-02-16 11:46 | Cons- Psychiatry ---
Psychiatric Consult Date of Consult: 02/16/18 Reason for Consult: Management of episodic agitation History of Present Illness: This 52-year-old male was brought to the emergency room home with questions of altered mental status. Since admission the patient has had periods of lucidity interspersed with periods of agitation, violence and confusion. The cause of his delirium is unknown. Patient reports that he stopped drinking about 3 weeks ago and this has been corroborated by his . This morning he reports that he has had "a difficult few months". He seems unconcerned about the events of the past few days. He is alert and oriented, calm and appropriate. He describes his mood as "preoccupied ". The patient's father L5 months ago and has had 3 aneurysm repairs since that time. The patient reports that his sleep is interrupted by pain from his neuropathy. He reports that his medical providers keep lowering his pain meds and he is very frustrated about this. Ports that his appetite is good, concentration. He is not suicidal or homicidal and there are no psychotic symptoms. Patient is prescribed opiates for pain. He is very frustrated by what he perceives as his providers reluctance to give him medication. He reports "my brother gets much more than the and he sells it. I would never do that, I need it but no one to give it to me". Past psychiatric history: None. No history of suicide attempts or deliberate self-harm Substance use history: The patient has a remote history of marijuana and cocaine use. He has not used either of these in over 15 years. He has a long history of alcohol dependence and reports that he stopped drinking about 3 weeks ago. He is prescribed opiates but denies abusing them. However he also states "when I run out I can go 2 weeks without them no worries". Past medical history: Peripheral neuropathy, hypertension, COPD, Dos Santos's esophagus, alcohol induced hepatic cirrhosis, chronic pain Current social circumstances; the patient lives with his . 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 He does not receive disability. His was the main on her but she was laid off 3 months ago. As mentioned the patient's father has also been ill. His mother is alive and he says he has a good relationship with her. They have no children. He reports feeling that he is a burden on his . They have a large mortgage and are under significant financial stress. Allergies: Coded Allergies: NO KNOWN ALLERGIES (04/20/14) Current Medications: Med Acetaminophen 1,000 MG IV Q6P PRN 02/13/18 0300 Acetaminophen 650 MG PO Q6 02/16/18 1200 Amlodipine Besylate 5 MG PO DAILY 02/14/18 0956 Ceftriaxone Sodium 1,000 MG IV DAILY 02/14/18 0900 Cholecalciferol 2,000 IU PO DAILY 02/13/18 0900 Folic Acid 1 MG PO DAILY 02/13/18 0900 Haloperidol 2 MG PO Q8 02/16/18 1400 Heparin Sodium (Porcine) 5,000 UNIT SC Q8 02/13/18 0600 Lisinopril 40 MG PO DAILY 02/15/18 0900 Multivitamins 1 TAB PO DAILY 02/13/18 0900 Omeprazole 20 MG PO DAILY 02/13/18 0900 Oxycodone HCl 10 MG PO TIDPRN PRN 02/15/18 0915 Pregabalin 150 MG PO QPM 02/13/18 2100 Pregabalin 300 MG PO DAILY 02/13/18 0900 Tamsulosin HCl 0.4 MG PO DAILY 02/13/18 0900 Thiamine HCl 100 MG PO DAILY 02/16/18 0900 Past History Past Medical History Neurological: peripheral neuropathy EENT: NONE Cardiovascular: hypertension Respiratory: COPD Gastrointestinal: BARRETTS ESOPHAGUS Hepatic: cirrhosis (etoh-induced) Renal: NONE Musculoskeletal: CHRINIC PAIN Psychiatric: alcohol dependence Endocrine: NONE Blood Disorders: NONE Cancer(s): LUNG nodule THROAT NODULES 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 Calm and appropriate. Alert and oriented 3. Gait not tested. Tearful intermittently. Eye contact good. Speech normal in rate, rhythm, volume and tone. Mood "preoccupied", affect restricted to the depressive range. Not suicidal or homicidal. Thought process normal in tempo, stream and form. Thought content preoccupied with stressors and fears of pain medications being further reduced.; no delusions or obsessions. Attention and concentration are good. No perceptual abnormality. Impulse control fair. Cognition grossly intact. Insight fair. Judgment unimpaired at this time. Lab Results: Lab ALT 58 U/L 02/12/182148 AST 37 U/L 02/12/18 2149 Ammonia 23 umol/L 02/12/18 2258 Anion Gap 13 02/16/18 1021 BUN 11 mg/dL 02/16/18 1021 Carbon Dioxide 23 mmol/L 02/16/18 1021 Chloride 107 mmol/L 02/16/18 1021 Creatinine 0.7 mg/dL 02/16/18 1021 Potassium 4.1 mmol/L 02/16/18 1021 Sodium 144 mmol/L 02/16/18 1021 TSH &T3 &Free T4 Intrp 0.308 uIU/mL 02/13/18 0500 APTT 32 SEC 02/12/182148 INR 1.10 02/12/182148 PT 12.0 SEC 02/12/182148 Hct 38.1 % L 02/15/18 1052 Hgb 12.6 G/DL L 02/15/18 1052 MCH 29.1 PG 02/15/18 1052 MCHC 33.0 G/DL 02/15/18 1052 MCV 88.1 FL 02/15/18 1052 Plt Count 725 /CUMM H 02/15/18 1052 RBC 4.32 /CUMM L 02/15/18 1052 RDW 15.5 % H 02/15/18 1052 WBC 7.1 /CUMM 02/15/18 1052 Amphetamines Screen 114 NG/ML 02/13/18 0048 Barbiturate Screen < 60 NG/ML 02/13/18 0048 Methadone Screen < 40 NG/ML 02/13/18 0048 U Benzodiazepines Scrn ND NG/ML 02/13/18 0048 Ur Phencyclidine Scrn < 6.00 NG/ML 02/13/18 0048 Urine Cannabis Screen < 5.00 NG/ML 02/13/18 0048 Urine Cocaine Screen < 50 NG/ML 02/13/18 0048 Urine Opiates Screen 1337.00 NG/ML 02/13/18 0048 Diffential Diagnosis: 1. Delirium of unknown etiology. No symptoms currently 2. Major depressive disorder mild to moderate 3. Rule out opiate abuse 4. Alcohol dependence Impression: The patient is currently alert and oriented. He presents as depressed but is not suicidal or homicidal.. The cause of his episodic agitation over the last few days is unclear. Provisional Treatment Plan: 1. Start Cymbalta 40 mg daily. This will also help with neuropathic pain. 2. The patient has received haloperidol for agitation. He received a total of 8 mg yesterday. Suggest changing haloperidol today to PRN only. Monitor for extrapyramidal side effects. 3. Pt agrees to outpatient psychiatric follow-up. Appointment made for him on March 12 at 3pm; to arrive at 2.45 4. Defer to medicine on management of other issues Psychiatry will sign off for now. Please feel free to contact us if we can be of any further assistance.
--- NOTE | 2018-02-16 12:30 | PN- Att Addend ---
Attending Addendum Attending Brief Note Patient seen and examined, not agitated as much as he was over the weekend. Still complaining of excruciating neuropathic pain in bilateral lower extremities and feet. Urine culture grew E. coli which is sensitive to ceftriaxone. Vital Signs Date Time Temp Pulse Resp B/P B/P Pulse O2 O2 Flow FiO2 Mean Ox Delivery Rate 02/16 0829 62 132/72 02/16 0829 62 132/72 02/16 0829 62 132/72 02/16 0657 98.6 59 20 134/69 95 Room Air 02/15 2308 97.4 18 18 130/80 95 Room Air 02/15 1452 98.4 107 18 112/66 95 on exam; aox3, nad. cv; s1,s2, rrr resp; clear abd; soft, nt, bs+ ext; no edema Laboratory Tests 02/16 1021 Chemistry Sodium (137 - 145 mmol/L) 144 Potassium (3.5 - 5.1 mmol/L) 4.1 Chloride (98 - 107 mmol/L) 107 Carbon Dioxide (22 - 30 mmol/L) 23 Anion Gap (5 - 16) 13 BUN (9 - 20 mg/dL) 11 Creatinine (0.7 - 1.2 mg/dL) 0.7 Estimated GFR (>60 ml/min) > 60 BUN/Creatinine Ratio (7 - 25 %) 15.7 Hematology CBC w Diff NO MAN DIFF REQ WBC (4.8 - 10.8 /CUMM) 6.4 RBC (4.70 - 6.10 /CUMM) 4.18 L Hgb (14.0 - 18.0 G/DL) 12.1 L Hct (42 - 52 %) 36.8 L MCV (80.0 - 94.0 FL) 88.1 MCH (27.0 - 31.0 PG) 28.9 MCHC (33.0 - 37.0 G/DL) 32.8 L RDW (11.5 - 14.5 %) 15.3 H Plt Count (130 - 400 /CUMM) 747 H MPV (7.4 - 10.4 FL) 8.5 Gran % (42.2 - 75.2 %) 70.6 Lymphocytes % (20.5 - 51.1 %) 21.2 Monocytes % (1.7 - 9.3 %) 4.8 Eosinophils % (0 - 5 %) 2.7 Basophils % (0.0 - 2.0 %) 0.7 Absolute Granulocytes (1.4 - 6.5 /CUMM) 4.5 Absolute Lymphocytes (1.2 - 3.4 /CUMM) 1.4 Absolute Monocytes (0.10 - 0.60 /CUMM) 0.3 Absolute Eosinophils (0.0 - 0.7 /CUMM) 0.2 Absolute Basophils (0.0 - 0.2 /CUMM) 0 A/P; 52 y/o M with pmh sig for EtOH abuse/withdrawal/dependence, hypertension, COPD, Dos Santos's esophagus, and alcoholic cirrhosis, admitted with altered mental state likely secondary to metabolic encephalopathy from UTI. Patient is also chronic opiate dependent. He was agitated over the weekend and required Haldol. Appreciate psychiatry input. Currently we have switched Haldol to only as needed. We have kept the patient on his Lyrica. We will add Cymbalta 40 mg daily as recommended by psychiatry. Patient was restarted back on his oxycodone as needed but at a lower dose. He is requesting to see a pain management doctor as an outpatient. Please switch his antibiotic to oral Augmentin. PT evaluation will be ordered. Pending PT eval weekend plan for the discharge likely in the next 24 hours. DVT px; Hep sq. D/W patient's at length at bedside.
--- NOTE | 2018-02-16 17:01 | Cons- Urology ---
General Information and HPI Consulting Request Date of Consult: 02/16/18 Requested By: Cara Jarquin MD Reason for Consult: UTI and ? urinary retention Source of Information: patient, old records Exam Limitations: no limitations History of Present Illness: This patient was admitted to the hospital with altered mental status. He was note to have a U/A which was c/w UTI. Culture was also positive. He states that he has had a UTI in the past as well. He has a hx of alcohol abuse. On admission a mendez was placed. It is now out and he is voiding spontaneously. A renal ultrasound showed no hydronephrosis and no urinary stone. The bladder was decompressed with a mendez at the time of the ultrasound Allergies/Medications Allergies: Coded Allergies: NO KNOWN ALLERGIES (04/20/14) Home Med List: Amlodipine Besylate 5 MG TABLET 1 TAB PO DAILY HIGH BLOOD PRESSURE (Reported) Calcium Carb/Mag Ox/Zinc Sulf (Vvsneeo-Eeqclkidd-Dsne Tablet) 334 MG-134 MG-5 MG TABLET 1 TAB PO DAILY SUPPLEMENT (Reported) Cholecalciferol (Vitamin D3) (Vitamin D) 2,000 UNIT CAPSULE 1 CAP PO DAILY SUPPLEMENT (Reported) Folic Acid 1 MG TABLET 1 TAB PO DAILY SUPPLEMENT (Reported) Methylcellulose (Fiber Laxative) (Unknown Strength) TABLET 2 TAB PO DAILY SUPPLEMENT (Reported) Omeprazole 20 MG CAPSULE.DR 1 CAP PO DAILY GERD (Reported) Oxycodone HCl 20 MG TABLET 1 TAB PO TID PAIN (Reported) Pregabalin (Lyrica) 150 MG CAPSULE 2 CAP PO QAM NERVE PAIN (Reported) Pregabalin (Lyrica) 150 MG CAPSULE 1 TAB PO QPM nerve pain (Reported) Quinapril HCl (Accupril) 40 MG TABLET 1 TAB PO DAILY BP (Reported) Thiamine HCl (B-1) 100 MG TABLET 1 TAB PO DAILY SUPPLEMENT (Reported) Current Medications: Current Medications Sig/Nate Start time Last Medication Dose Route Stop Time Status Admin Acetaminophen 650 MG Q6 02/16 1200 AC 02/16 PO 1153 Acetaminophen 1,000 MG Q6P PRN 02/13 0300 AC 02/15 IV 0814 Amlodipine Besylate 5 MG DAILY 02/14 0956 AC 02/16 PO 0829 Amoxicillin/ 875 MG Q12 02/16 1458 AC Clavulanate Potassium PO Benztropine Mesylate 1 MG ONCE ONE 02/15 1700 DC 02/15 IM 02/15 1701 1842 Ceftriaxone Sodium 1,000 MG DAILY 02/14 0900 DC 02/16 IV 0828 Cholecalciferol 2,000 IU DAILY 02/13 0900 AC 02/16 PO 0829 Duloxetine HCl 40 MG DAILY 02/16 1457 CAN PO Duloxetine HCl 40 MG DAILY 02/16 1230 AC 02/16 PO 1349 Folic Acid 1 MG DAILY 02/13 0900 AC 02/16 PO 0829 Haloperidol 2 MG Q8 02/16 1400 DC PO Haloperidol 2 MG Q8P PRN 02/16 1215 AC PO Haloperidol 2 MG Q6 PRN 02/16 0856 DC PO Haloperidol 2 MG Q6 02/15 1800 DC 02/15 PO 1831 Heparin Sodium 5,000 UNIT Q8 02/13 0600 AC 02/16 (Porcine) SC 1350 Lisinopril 40 MG DAILY 02/15 0900 AC 02/16 PO 0829 Multivitamins 1 TAB DAILY 02/13 0900 AC 02/16 PO 0829 Omeprazole 20 MG DAILY 02/13 0900 AC 02/16 PO 0829 Oxycodone HCl 10 MG Q6-PRN PRN 02/16 1230 AC PO Oxycodone HCl 10 MG TIDPRN PRN 02/15 0915 DC 02/16 PO 1153 Patient Medication 1 ED ONE ONE 02/16 1300 DC Teaching ED 02/16 1301 Pregabalin 150 MG QPM 02/13 2100 AC 02/15 PO 2133 Pregabalin 300 MG DAILY 02/13 0900 AC 02/16 PO 0828 Tamsulosin HCl 0.4 MG DAILY 02/13 0900 AC 02/16 PO 0829 Thiamine HCl 100 MG DAILY 02/16 0900 AC 02/16 PO 1024 Thiamine HCl 500 MG TID 02/13 0900 DC 02/15 Sodium Chloride 250 ML IV 02/15 2159 2132 Past History Medical History Blood Transfusion Hx: No Neurological: peripheral neuropathy EENT: NONE Cardiovascular: hypertension Respiratory: COPD Gastrointestinal: BARRETTS ESOPHAGUS Hepatic: cirrhosis (etoh-induced) Renal: NONE Musculoskeletal: CHRINIC PAIN Psychiatric: alcohol dependence Endocrine: NONE Blood Disorders: NONE Cancer(s): LUNG nodule 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 Home Who Do You Live With? spouse Primary Language: Burundian Smoking Status: Former Smoker ETOH Use: alcoholic Functional Ability Ambulation: walker Employment History Retired? unknown Exam & Diagnostic Data Vital Signs and I&O Vital Signs Date Time Temp Pulse Resp B/P B/P Pulse O2 O2 Flow FiO2 Mean Ox Delivery Rate 02/16 829 62 132/72 02/16 0829 62 132/72 02/16 0829 62 132/72 02/16 0657 98.6 59 20 134/69 95 Room Air 02/15 2308 97.4 18 18 130/80 95 Room Air Intake & Output 02/16 1600 02/16 0800 02/16 0000 02/15 1600 02/15 0800 02/15 0000 Intake Total 800 919 885 4162 1040 1415 Output Total 500 632 131 4466 1400 2250 Balance 300 250 -90 0 -360 -835 Intake, IV 250 500 800 575 Intake, Oral 800 550 360 600 240 840 Number 1 0 1 Bowel Movements Output, Urine 500 158 940 4236 1400 2250 Patient 194 lb Weight Back: No CVA tenderness\ Abd: soft and non tender. Bladder not palpable Genitalia: Normal male Laboratory Tests 02/16 1021 Chemistry Sodium (137 - 145 mmol/L) 144 Potassium (3.5 - 5.1 mmol/L) 4.1 Chloride (98 - 107 mmol/L) 107 Carbon Dioxide (22 - 30 mmol/L) 23 Anion Gap (5 - 16) 13 BUN (9 - 20 mg/dL) 11 Creatinine (0.7 - 1.2 mg/dL) 0.7 Estimated GFR (>60 ml/min) > 60 BUN/Creatinine Ratio (7 - 25 %) 15.7 Hematology CBC w Diff NO MAN DIFF REQ WBC (4.8 - 10.8 /CUMM) 6.4 RBC (4.70 - 6.10 /CUMM) 4.18 L Hgb (14.0 - 18.0 G/DL) 12.1 L Hct (42 - 52 %) 36.8 L MCV (80.0 - 94.0 FL) 88.1 MCH (27.0 - 31.0 PG) 28.9 MCHC (33.0 - 37.0 G/DL) 32.8 L RDW (11.5 - 14.5 %) 15.3 H Plt Count (130 - 400 /CUMM) 747 H MPV (7.4 - 10.4 FL) 8.5 Gran % (42.2 - 75.2 %) 70.6 Lymphocytes % (20.5 - 51.1 %) 21.2 Monocytes % (1.7 - 9.3 %) 4.8 Eosinophils % (0 - 5 %) 2.7 Basophils % (0.0 - 2.0 %) 0.7 Absolute Granulocytes (1.4 - 6.5 /CUMM) 4.5 Absolute Lymphocytes (1.2 - 3.4 /CUMM) 1.4 Absolute Monocytes (0.10 - 0.60 /CUMM) 0.3 Absolute Eosinophils (0.0 - 0.7 /CUMM) 0.2 Absolute Basophils (0.0 - 0.2 /CUMM) 0 Assessment/Plan Assessment/Plan Imp: 1. UTI Plan: 1. Continue flomax 2. Would have nurses check pvr by bladder scan 3. Will eventually need cystoscopy Consult Acknowledgment - Thank you for your consult request.
[2018-02-16 20:09] VITALS: BP 132/62
[2018-02-16 23:35] VITALS: BP 134/82
[2018-02-17 07:56] VITALS: BP 134/84
[2018-02-17 08:10] VITALS: BP 134/84
--- NOTE | 2018-02-17 08:19 | PN- Housestaff ---
Subjective Follow-up For: Acute urinary retention AK I UTI Delirium and agitation Subjective: Patient seen and examined. He was not delirious overnight. He has no complaints other than some mild lower abdominal pain. His vitals overnight are stable. The patient is currently on Augmentin for his UTI. He says that he has moderate pain currently in his bilateral upper and lower extremities secondary to peripheral neuropathy and is requesting that we discharged him on his same oxycodone dosage with new prescription. Review of Systems Constitutional: Reports: no symptoms. Cardiovascular: Reports: no symptoms. Respiratory: Reports: no symptoms. Gastrointestinal: Reports: abdominal pain. Musculoskeletal: Reports: see HPI, muscle pain. Skin: Reports: no symptoms. Neurological/Psychological: Reports: no symptoms. Objective Last 24 Hrs of Vital Signs/I&O Vital Signs Date Time Temp Pulse Resp B/P B/P Pulse O2 O2 Flow FiO2 Mean Ox Delivery Rate 02/17 0810 81 134/84 02/17 0810 134/84 02/17 0809 81 134/84 02/17 0756 98.3 81 20 134/84 97 Room Air 02/16 2335 98.4 72 20 134/82 95 Room Air 02/16 2009 97.9 75 18 132/62 98 Room Air Intake & Output 02/17 1600 02/17 0800 02/17 0000 Intake Total 240 480 Output Total 300 Balance 240 180 Intake, Oral 240 480 Number 0 Bowel Movements Output, Urine 300 Physical Exam General Appearance: Alert, Oriented X3, Cooperative, No Acute Distress Skin: No Rashes, No Breakdown, No Significant Lesion Skin Temp/Moisture Exam: Warm/Dry HEENT: Atraumatic, PERRLA, EOMI, Mucous Membr. moist/pink Neck: Supple, No JVD Cardiovascular: Regular Rate, Normal S1, Normal S2, No Murmurs Lungs: Clear to Auscultation, Normal Air Movement Abdomen: Normal Bowel Sounds, Soft Neurological: Normal Speech Extremities: No Clubbing, No Cyanosis, No Edema, Normal Pulses Vascular: Normal Pulses, Pulses Symmetrical Sepsis Peripheral Pulse Location: Radial Current Medications: Current Medications Sig/Nate Start time Last Medication Dose Route Stop Time Status Admin Acetaminophen 650 MG Q6 02/16 1200 DCD 02/17 PO 1143 Acetaminophen 1,000 MG Q6P PRN 02/13 0300 DCD 02/15 IV 0814 Amlodipine Besylate 5 MG DAILY 02/14 0956 DCD 02/17 PO 0810 Amoxicillin/ 875 MG Q12 02/16 1458 DCD 02/17 Clavulanate Potassium PO 0809 Cholecalciferol 2,000 IU DAILY 02/13 0900 DCD 02/17 PO 0810 Duloxetine HCl 40 MG DAILY 02/16 1230 DCD 02/17 PO 0809 Folic Acid 1 MG DAILY 02/13 0900 DCD 02/17 PO 0810 Haloperidol 2 MG Q8P PRN 02/16 1215 DCD PO Heparin Sodium 5,000 UNIT Q8 02/13 0600 DCD 02/17 (Porcine) SC 0543 Lisinopril 40 MG DAILY 02/15 0900 DCD 02/17 PO 0810 Multivitamins 1 TAB DAILY 02/13 09 DCD 02/17 PO 0810 Omeprazole 20 MG DAILY 02/13 0900 DCD 02/17 PO 0810 Oxycodone HCl 10 MG Q6-PRN PRN 02/16 1230 DCD 02/17 PO 1143 Pregabalin 150 MG QPM 02/13 2100 DCD 02/16 PO 2124 Pregabalin 300 MG DAILY 02/13 0900 DCD 02/17 PO 0811 Tamsulosin HCl 0.4 MG DAILY 02/13 0900 DCD 02/17 PO 0809 Thiamine HCl 100 MG DAILY 02/16 09 DCD 02/17 PO 0810 Assessment/Plan Assessment: 52-year-old man with multiple medical problems significant for COPD, EtOH abuse, hypertension, and cirrhosis seen for evaluation of progressively worsening mental status. Patient is unable to give specific complaints but does follow commands and answers yes/no questions. Vital signs are within normal limits. Physical examination demonstrates a middle-aged unkempt appearing man appearing confused but in no acute distress with a normal cardiopulmonary and abdominal examination without CVA tenderness; complete neurologic examination is within normal limits. Significant labs include WBC 12.1, platelets 910, K5.3, BUNs/creatinine 43/2.9, ammonia 23. Urinalysis shows large leukocyte esterase with >75 WBC and packed bacteria. ED had and chest x-ray are unremarkable. EKG is normal sinus rhythm Clinically patient appears to have progressively worsening altered mental status possibly multifactorial due to toxic metabolic encephalopathy and/or wernicke- Korsakoff. Collateral information obtained from the nursing staff reveals that patient was straining to pass urine but eventually passed 500 mL of cloudy urine after a long attempt. His elevated BUNs/creatinine is likely due to a post obstructive uropathy such as a urethral stricture. Patient does have elevated platelets which have been present in the past; however there does not appear to be hematology evaluation. 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 On admission, Marie catheter had produced copious amounts of urine when placed. We have as per Dr. Lawton, start the patient on half normal saline at a rate of 100 and closely monitor his I's and O's. Urology will see the patient. Hematology has seen the patient for his thrombocytosis and has stated that is likely reactive but we can check a Yo 2 level. As this is quite an expensive test we will defer for outpatient workup with Dr. Cowan. The patient 's renal ultrasound was normal, lactic acid levels were normal. He was found to have a low vitamin D so was started on vitamin D supplementation even though he does take vitamin D tablets at home. We are continuing him on high-dose thiamine for his altered mental status that was thought to be partially attributed to Warnke Korsakoff syndrome. We will follow up on urine culture and continue IV ceftriaxone. TSH and B12 levels are normal. Urine osmolarity yesterday was 453, random urine sodium was 122, high, fractional excretion of sodium was 4.9, high. Indication that kidney is not absorbing sodium efficiently. -Continue to monitor on Gen. medical floors -Follow up labs for today for potassium, creatinine, WBC count which has been decreasing -Marie catheter has been discontinued and post void residuals are being checked by bladder scan. -Urology is suggesting outpatient cystoscopy -TRC with nebs PRN, place on BiPAP if respiratory status does worsen -We have changed patient's medication from ceftriaxone to Augmentin 875 mg twice daily and will discharge him with 9 days more treatment for total of 2 weeks treatment. -Discontinue high-dose thiamine as patient is alert and oriented 3 and not combative -Discharge on thiamine/folate/multivitamin -Continue home meds: Lyrica, omeprazole, vitamin D, lisinopril as AK I has resolved -Oxycodone was held for altered mental status changes but can start with a small dose, patient is on Lyrica for his peripheral neuropathy and was given Tylenol. He usually takes 20 mg of oxycodone 3 times a day and we will discharge him on suggestion of half to 1 of these tablets 3 times a day, Tylenol, referral to pain management clinic. -Follow up hematology for patient's thrombocytosis that they believe to be reactionary. We will have him follow up with insurance office manager on discharge for Yo 2 mutation testing. -Patient was started on Cymbalta by psychiatry and they have made an appointment for him to follow-up with outpatient psychiatry in March 12 at 3 PM. -Regular diet -DVT prophylaxis with subcutaneous heparin -Full code Problem List: 1. Peripheral neuropathy 2. Thrombocytosis 3. UTI (urinary tract infection) Pain Ratin Pain Location: EXTREMITIES Pain Goal: Pain 4 or less Pain Plan: OXYCODONE AND TYLENOL AND LYRICA Tomorrow's Labs & Rationales: NA
--- NOTE | 2018-02-17 11:06 | PN- Att Addend ---
Attending Addendum Attending Brief Note Patient seen and examined, overall doing much better. Pain is slightly better today. We added Cymbalta yesterday. Patient was also started on scheduled Tylenol yesterday. He was seen by urologist and they recommended doing bladder scan for postvoid residual. According to patient's RN, post void residual is 0. Patient otherwise is doing well. We have switched him to oral antibiotics for the UTI. He will complete a total of 14 day course. He is otherwise medically stable for discharge home today. 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 Patient and his were told about the harmful effects of taking too much narcotics. Patient to follow-up with pain management as an outpatient. Patient should also follow-up with psychiatry as an outpatient.
[2018-02-17] MEDS ORDERED: AMOX-CLAV 875-1 EACH PO (11:25)
[2018-02-17] MEDS ORDERED: ONE DAILY MULT1 EAC2 PO (11:25)
[2018-02-17] MEDS ORDERED: CYMBALTA20 M1 PO (11:25)
[2018-02-17] MEDS ORDERED: OXYCODONE HCL20 M2 PO (11:25)
[2018-02-17] MEDS ORDERED: FLOMAX0.4 M1 PO (11:29)
[2018-02-17] MEDS ORDERED: TYLENOL325 M1 PO ×2 (12:18→12:19)
== END 2018-02-17 12:27 | DRG 689 ==
LOC: ERH 21:14 → 2NB 02-13 01:27 → ERHI 02-13 01:27 → ENRESERV 02-13 12:17 → ENTRNSPT 02-13 16:30 → 2NB 02-13 16:50 → EDTRNSPTSTS 02-13 16:53 → EDTRNSPT 02-13 16:53 → CMPTRNSPT 02-13 17:02 → 2NB 02-15 14:25 → ENPENDDIS 02-17 11:47 → ENTRNSPT 02-17 12:11 → 2NB 02-17 12:27 → EDTRNSPTSTS 02-17 12:34 → CMPTRNSPT 02-17 12:35
PROVIDERS: Internal Medicine; Internal Medicine Interventional Cardiology; Physician Assistant; Student in an Organized Health Care Education/Training Program
DX: N39.0 Urinary tract infection, site not specified (principal); G93.41 Metabolic encephalopathy; N17.9 Acute kidney failure, unspecified; E87.2 Acidosis; F05 Delirium due to known physiological condition; B96.20 Unspecified Escherichia coli [E. coli] as the cause of diseases classified elsewhere; J44.9 Chronic obstructive pulmonary disease, unspecified; K70.30 Alcoholic cirrhosis of liver without ascites; K22.70 Barrett's esophagus without dysplasia; R33.9 Retention of urine, unspecified; E87.5 Hyperkalemia; I10 Essential (primary) hypertension; F10.20 Alcohol dependence, uncomplicated; G62.9 Polyneuropathy, unspecified; D47.3 Essential (hemorrhagic) thrombocythemia; F11.90 Opioid use, unspecified, uncomplicated; R45.1 Restlessness and agitation; Z78.1 Physical restraint status
CPT/HCPCS: 2NBP; 2NBSP; 84133; 84300; 36592; 71045; 76775; 80307; 81001; 82436; 82570; 87040; 87086; 93005; 93010; 96372; 97110-GO; 97116-GO; 97161-GP; 97530-GO; 99291; G0480; J0131; J0515; J0696; J1200; J1630; J1644; J2405; J3490; J7040

== ENCOUNTER 2018-02-24 10:36 | Inpatient (IN) | payer OTHER ==
[~2018-02-24] VITALS: Ht 177.8 cm; Wt 87.1 kg
[~2018-02-24 10:36] MED LIST changes: +AMOX-CLAV 875-1 EACH PO; +CYMBALTA20 M1 PO; +FLOMAX0.4 M1 PO; +ONE DAILY MULT1 EAC2 PO; +TYLENOL325 M1 PO
--- NOTE | 2018-02-24 12:06 | ED GENERAL ADULT ---
History of Present Illness General Chief Complaint: Altered Mental Status Stated Complaint: AMS PER Source: patient, family Exam Limitations: not alert/orientated, poor historian Vital Signs & Intake/Output Vital Signs & Intake/Output Vital Signs Date Time Temp Pulse Resp B/P B/P Pulse O2 O2 Flow FiO2 Mean Ox Delivery Rate 02/25 1503 97.9 94 16 120/76 95 Room Air 02/25 0917 63 132/60 02/25 0917 63 132/60 02/25 0916 63 132/60 02/25 0620 98.4 63 18 132/60 97 Room Air 02/25 0600 97.8 70 18 142/70 02/25 0200 97.8 70 18 142/70 02/24 2220 97.8 70 18 142/70 96 ED Intake and Output 02/25 0000 02/24 1200 Intake Total 200 Output Total Balance 200 Intake, Oral 200 Patient 192 lb Weight Weight Bed scale Measurement Method Allergies Coded Allergies: NO KNOWN ALLERGIES (04/20/14) Reconcile Medications Acetaminophen (Tylenol) 325 MG TABLET 2 TAB PO TID PRN NEUROPATHY Amlodipine Besylate 5 MG TABLET 1 TAB PO DAILY HIGH BLOOD PRESSURE (Reported) Amoxicillin/Clavulanate Potass (Amox-Clav 875-125 MG Tablet) 875 MG-125 MG TABLET 875 MG PO Q12 UTI Calcium Carb/Mag Ox/Zinc Sulf (Bypplpg-Cnxcokydo-Jhrl Tablet) 334 MG-134 MG-5 MG TABLET 1 TAB PO DAILY SUPPLEMENT (Reported) Cholecalciferol (Vitamin D3) (Vitamin D) 2,000 UNIT CAPSULE 1 CAP PO DAILY SUPPLEMENT (Reported) Duloxetine Hydrochloride (Cymbalta) 20 MG CAPSULE.DR 40 MG PO DAILY PSYCHIATRIC Folic Acid 1 MG TABLET 1 TAB PO DAILY SUPPLEMENT (Reported) Methylcellulose (Fiber Laxative) (Unknown Strength) TABLET 2 TAB PO DAILY SUPPLEMENT (Reported) Multivitamin (One Daily Multivitamin) 1 EACH TABLET 1 TAB PO DAILY VITAMIN Omeprazole 20 MG CAPSULE.DR 1 CAP PO DAILY GERD (Reported) Oxycodone HCl 20 MG TABLET 1 TAB PO TID PAIN (Reported) Pregabalin (Lyrica) 150 MG CAPSULE 2 CAP PO QAM NERVE PAIN (Reported) Pregabalin (Lyrica) 150 MG CAPSULE 1 TAB PO QPM nerve pain (Reported) Quinapril HCl (Accupril) 40 MG TABLET 1 TAB PO DAILY BP (Reported) Tamsulosin HCl (Flomax) 0.4 MG CAP.ER.24H 0.4 MG PO DAILY URINARY Thiamine HCl (B-1) 100 MG TABLET 1 TAB PO DAILY SUPPLEMENT (Reported) Triage Note: PT TO ED WITH FOR ALTERED MENTAL STATUS AND B/L FLANK PAIN. PT WAS ADMITTED FEBRUARY 13 FOR UTI AND AMS, DISCHARGED 02/19. STATES SINCE PT HAS BEEN HOME HE IS STILL ALTERED AND HAS NEW C/O PAIN TO B/L FLANKS. DENIES S/S. DENIES N/V/D. STATES PT HAS BEEN TALKING ABOUT CHILDREN THEY DO NOT HAVE. Triage Nurses Notes Reviewed? yes HPI: This is a 52-year-old male with history of alcoholic cirrhosis, chronic kidney disease, urinary tract infection complicated by altered mental status, presented to the emergency department with worsening altered mental status and disorientation for several days, today also complaining of left-sided flank pain. Patient has been on amoxicillin since his discharge, although his mental status is continued to decline according to family. According to , the patient walks with a walker at baseline secondary to severe peripheral neuropathy. He also has been taking his thiamine and folate. According to the , the confusion has been profound. He no longer recognizes his . He does not know the year, is confused to place as well. (Eric Pimentel MD) Past History Travel History Traveled to [place] past 21 day No Medical History Any Pertinent Medical History? see below for history Neurological: peripheral neuropathy EENT: NONE Cardiovascular: hypertension Respiratory: COPD Gastrointestinal: BARRETTS ESOPHAGUS Hepatic: cirrhosis (etoh-induced) Renal: NONE Musculoskeletal: CHRINIC PAIN Psychiatric: alcohol dependence Endocrine: NONE Blood Disorders: NONE Cancer(s): LUNG nodule THROAT NODULES SAMPLE HAND/Reproductive: NONE History of MRSA: No History of VRE: No History of CDIFF: No Tetanus Vaccine: 04/20/14 Surgical History Surgical History: right heel debridement Psychosocial History Who do you live with Spouse What is your primary language Bhutanese Tobacco Use: Quit >30 days ago ETOH Use: denies use Illicit Drug Use: denies illicit drug use Family History Family History, If Any: FATHER *No pertinent family history Relation not specified for: FH: breast cancer Hx Contributory? No (Eric Pimentel MD) Review of Systems Review of Systems Constitutional: Reports: malaise, weakness. EENTM: Reports: no symptoms. Respiratory: Reports: no symptoms. Cardiovascular: Reports: no symptoms. GI: Reports: see HPI. Genitourinary: Reports: no symptoms. Musculoskeletal: Reports: no symptoms. Skin: Reports: no symptoms. Neurological/Psychological: Reports: see HPI, confusion. (Eric Pimentel MD) Physical Exam Physical Exam General Appearance: no apparent distress, alert, awake, comfortable, obese Head: atraumatic, normal appearance Eyes: Bilateral: normal appearance. Ears, Nose, Throat: normal pharynx, normal ENT inspection Neck: supple, full range of motion Respiratory: normal breath sounds, chest non-tender, no respiratory distress, lungs clear Cardiovascular: regular rate/rhythm, normal peripheral pulses Gastrointestinal: soft, non-tender Back: normal inspection, normal range of motion Extremities: normal inspection, normal capillary refill, normal range of motion, no edema Neurologic/Psych: awake, alert Comments: Middle-aged male, confused to self, place, time. Confabulatory. No ophthalmoplegia. Unable to assess gait secondary to advanced neuropathy. Neck is supple. Cranial nerves are intact 2 through 12. Trace asterixis is noted. Core Measures ACS in differential dx? No CVA/TIA Diagnosis: No Sepsis Present: No Sepsis Focused Exam Completed? No (Eric Pimentel MD) Progress Differential Diagnoses I considered the following diagnoses in my evaluation of the patient: Encephalopathy secondary to occult infection, metabolic derangement, perhaps progression of cirrhosis. Lower suspicion at this time for acute intracerebral hemorrhage. Low suspicion for CVA given lack of focality. Some concern for occult interabdominal infection given the left flank pain. Low suspicion for acute meningitis or encephalitis given lack of headache, neck pain, rigidity, fever.. Plan of Care: Orders Procedure Date/time Status Nothing by Mouth 02/27 B Active Regular Diet 02/26 D Active Nothing by Mouth 02/26 B Active Regular Diet 02/25 D Complete Change service to 02/25 0759 Active PROTHROMBIN TIME 02/25 0600 Complete Restraint- Medical 02/25 UNK Complete PHARMACY COMMUNICATION FORM 02/25 UNK Active PSYCHIATRIC CONSULT 02/25 UNK Active AMMONIA LEVEL 02/25 2040 Complete Pathway - chart 02/24 2035 Active Pathway - chart 02/24 2034 Active House Staff 02/24 2034 Active URINE DRUGS OF ABUSE 02/24 1300 Complete Lab Add-on Test 02/24 UNK Active VTE Mechanical Prophylaxis 02/24 UNK Active MISSING MEDICATION FORM 02/24 UNK Active Current Medications Sig/Nate Start time Last Medication Dose Stop Time Status Admin Melatonin 5 MG AT BEDTIME 02/25 2100 AC (Melatonin) Thiamine HCl 500 MG 0930,1630,2130 02/25 1630 AC 02/25 (Vitamin B-1) 1649 Sodium Chloride 250 ML (Normal Saline 0.9%) Haloperidol 0.5 MG Q8P PRN 02/25 1045 AC 02/25 (Haldol) 1621 Acetaminophen 650 MG Q4 02/25 1000 AC 02/25 (Tylenol) 1455 Oxycodone HCl 10 MG TID PRN 02/25 1000 AC 02/25 (Roxicodone) 1621 Polyethylene Glycol 17 GM DAILY 02/25 0954 AC 02/25 (Miralax) 1136 Senna/Docusate Sodium 2 TAB DAILY 02/25 0954 AC (Senokot S) Amlodipine Besylate 5 MG DAILY 02/25 0900 AC 02/25 (Norvasc) 0917 Duloxetine HCl 40 MG DAILY 02/25 0900 AC 02/25 (Cymbalta) 0916 Enoxaparin Sodium 40 MG DAILY 02/25 0900 AC 02/25 (Lovenox) 0917 Folic Acid 1 MG DAILY 02/25 0900 AC 02/25 (Folic Acid) 0916 Lisinopril 40 MG DAILY 02/25 0900 AC 02/25 (Prinivil) 0917 Omeprazole 20 MG DAILY 02/25 0900 AC 02/25 (Prilosec) 0917 Tamsulosin HCl 0.4 MG DAILY 02/25 0900 AC 02/25 (Flomax) 0916 Haloperidol 0.5 MG ONCE PRN 02/25 0500 AC 02/25 (Haldol) 0500 Pregabalin 150 MG QPM 02/24 2100 AC 02/24 (Lyrica) 2014 Laboratory Tests 02/25/18 0625: Anion Gap 9, Estimated GFR > 60, BUN/Creatinine Ratio 26.7 H, PT 12.4, INR 1.14 , CBC w Diff NO MAN DIFF REQ, RBC 4.06 L, MCV 88.1, MCH 29.9, MCHC 33.9, RDW 15.6 H, MPV 8.4, Gran % 57.2, Lymphocytes % 33.8, Monocytes % 5.9, Eosinophils % 2.1, Basophils % 1.0, Absolute Granulocytes 3.0, Absolute Lymphocytes 1.8, Absolute Monocytes 0.3, Absolute Eosinophils 0.1, Absolute Basophils 0.1 02/24/182113: Ammonia < 9 L We will check labs, UA, CT abdomen pelvis, CT head, plan for likely inpatient admission for further management and possible care coordination/placement. Initial ED EKG: none (Eric Pimentel MD) Departure Departure Time of Disposition: 1455 Disposition: STILL A PATIENT Condition: Stable Clinical Impression Primary Impression: Encephalopathy Referrals: Eric Street MD (PCP/Family) Departure Forms: Customer Survey General Discharge Information Admission Note Spoke With: Miguel Perez MD Documentation of Exam: Documentation of any treatments & extenuating circumstances including Concerns Regarding Discharge (functional status, medication knowledge or non-compliance, living conditions, etc.) that warrant an admission rather than observation: Physical therapy, repeat labs, possible neurologic consultation, possible MRI brain. I do not think that his condition will significantly improve over the next 24 hours or that he is safe to go home at this time given his profound confusion. Possible nation/placement to nursing facility. (Eric Pimentel MD) Resident Co-Sign Statement Statement: ED Attending supervision documentation- [] I saw and evaluated the patient. I have also reviewed all the pertinent lab results and diagnostic results. I agree with the findings and the plan of care as documented in the Resident's documentation. [X] I have reviewed the ED Record and agree with the Resident's documentation. [] Additions or exceptions (if any) to the Resident's note and plan are summarized below: [] (Michael Wynn DO ([facility])) Critical Care Note Critical Care Note Critical Care Time: non-applicable (Eric Pimentel MD)
[2018-02-24 12:34] LABS: ABSOLUTE BASOPHIL COUNT 0 /CUMM (0.0-0.2); ABSOLUTE EOSINOPHIL COUNT 0.2 /CUMM (0.0-0.7); ABSOLUTE GRANULOCYTE CT 4.7 /CUMM (1.4-6.5); ABSOLUTE LYMPH COUNT 2.2 /CUMM (1.2-3.4); ABSOLUTE MONOCYTE COUNT 0.5 /CUMM (0.10-0.60); BASOPHIL % 0.6 % (0.0-2.0); EOSINOPHIL % 2.3 % (0-5); GRANULOCYTE % 61.5 % (42.2-75.2); HEMATOCRIT 37.4 % (42-52); MEAN CORPUSCULAR HGB 29.9 PG (27.0-31.0); MEAN CORPUSCULAR HGB CONC 33.6 G/DL (33.0-37.0); MEAN CORPUSCULAR VOLUME 88.8 FL (80.0-94.0); MEAN PLATELET VOLUME 8.3 FL (7.4-10.4); PLATELET COUNT 680 /CUMM (130-400); RBC DISTRIBUTION WIDTH 15.8 % (11.5-14.5); RED BLOOD CELL CT 4.21 /CUMM (4.70-6.10); WHITE BLOOD CELL COUNT 7.6 /CUMM (4.8-10.8)
[2018-02-24] MEDS ORDERED: OXYCODONE HCL20 M2 PO (12:48)
--- NOTE | 2018-02-24 15:01 | History & Physical ---
Hazel Marion 02/24/18 1500: General Information and HPI MD Statement: I have seen and personally examined OMER CARL and documented this H&P. The patient is a 52 year old M who presented with a patient stated chief complaint of pain abdomen. Source of Information: patient History of Present Illness: 52-year-old man with past medical history of EtOH abuse/withdrawal/dependence, hypertension, COPD, Dos Santos's esophagus, asthma and alcoholic cirrhosis seen for altered mental status since the time he was discharged from the hospital. The patient was alert, oriented and cooperative but slow to respond in the ED. He reports that he came to the ED with the complaint of diffuse abdominal pain radiating to his back. He says the pain started about a week ago after he was discharged from the hospital. He denies nausea, vomiting, fever, or diarrhea. The patient does endorse that he does not remember a lot about the time he was discharged from the hospital. He says his tells him that he did not recognise her and consfused her with his mother. The was not present on the bedside but the patient says he does rememeber her now. He also complains of severe pain and pins and needle sensation in his arms and legs as a part of his peripheral neuropathy. Allergies/Medications Allergies: Coded Allergies: NO KNOWN ALLERGIES (04/20/14) Home Med list Acetaminophen (Tylenol) 325 MG TABLET 2 TAB PO TID PRN NEUROPATHY Amlodipine Besylate 5 MG TABLET 1 TAB PO DAILY HIGH BLOOD PRESSURE (Reported) Amoxicillin/Clavulanate Potass (Amox-Clav 875-125 MG Tablet) 875 MG-125 MG TABLET 875 MG PO Q12 UTI Calcium Carb/Mag Ox/Zinc Sulf (Ydlrcdt-Zdibunasu-Wgoa Tablet) 334 MG-134 MG-5 MG TABLET 1 TAB PO DAILY SUPPLEMENT (Reported) Cholecalciferol (Vitamin D3) (Vitamin D) 2,000 UNIT CAPSULE 1 CAP PO DAILY SUPPLEMENT (Reported) Duloxetine Hydrochloride (Cymbalta) 20 MG CAPSULE.DR 40 MG PO DAILY PSYCHIATRIC Folic Acid 1 MG TABLET 1 TAB PO DAILY SUPPLEMENT (Reported) Methylcellulose (Fiber Laxative) (Unknown Strength) TABLET 2 TAB PO DAILY SUPPLEMENT (Reported) Multivitamin (One Daily Multivitamin) 1 EACH TABLET 1 TAB PO DAILY VITAMIN Omeprazole 20 MG CAPSULE. 1 CAP PO DAILY GERD (Reported) Oxycodone HCl 20 MG TABLET 1 TAB PO TID PAIN (Reported) Pregabalin (Lyrica) 150 MG CAPSULE 2 CAP PO QAM NERVE PAIN (Reported) Pregabalin (Lyrica) 150 MG CAPSULE 1 TAB PO QPM nerve pain (Reported) Quinapril HCl (Accupril) 40 MG TABLET 1 TAB PO DAILY BP (Reported) Tamsulosin HCl (Flomax) 0.4 MG CAP.ER.24H 0.4 MG PO DAILY URINARY Thiamine HCl (B-1) 100 MG TABLET 1 TAB PO DAILY SUPPLEMENT (Reported) Past History Travel History Traveled to [place] past 21 day No Medical History Neurological: peripheral neuropathy EENT: NONE Cardiovascular: hypertension Respiratory: COPD Gastrointestinal: BARRETTS ESOPHAGUS Hepatic: cirrhosis (etoh-induced) Renal: NONE Musculoskeletal: CHRINIC PAIN Psychiatric: alcohol dependence Endocrine: NONE Blood Disorders: NONE Cancer(s): LUNG nodule THROAT NODULES RESEARCH ADVISOR/Reproductive: NONE History of MRSA: No History of VRE: No History of CDIFF: No Tetanus Vaccine: 04/20/14 Surgical History Surgical History: right heel debridement Past Family/Social History Family History Relations & Conditions if any FATHER *No pertinent family history Relation not specified for: FH: breast cancer Psychosocial History Who Do You Live With? spouse Primary Language: Omani ETOH Use: denies use Illicit Drug Use: denies illicit drug use Functional Ability Ambulation: walker Review of Systems Review of Systems Constitutional: Denies: chills, diaphoresis, fever, malaise, weakness, unexplained weight loss. Cardiovascular: Reports: chest pain. Denies: edema, orthopena, palpitations, peripheral edema. Respiratory: Reports: short of breath. Denies: cough, hemoptysis. GI: Reports: abdominal pain, bloating, constipation, distention. Denies: diarrhea, bowel incontinence, melena, nausea, bloody stool. Genitourinary: Denies: dysuria, frequency. Musculoskeletal: Denies: back pain, joint pain. Skin: Denies: jaundice. Neurological/Psychological: Reports: paresthesia, pre-existing deficit, tingling, weakness. Immunologic/Allergic: Denies: HIV/AIDS, lymphadenopathy. Exam & Diagnostic Data Last 24 Hrs of Vital Signs/I&O Vital Signs Date Time Temp Pulse Resp B/P B/P Pulse O2 O2 Flow FiO2 Mean Ox Delivery Rate 02/24 1651 97.7 68 18 136/74 95 08/07 1547 Room Air 08/ 1547 73 18 141/70 99 Room Air 08/ 1245 97.8 80 20 118/70 96 Room Air 08/ 1052 97.2 89 20 120/77 96 Room Air Physical Exam General Appearance Alert, Oriented X3, Cooperative, No Acute Distress Skin No Rashes Skin Temp/Moisture Exam: Warm/Dry HEENT Atraumatic, PERRLA, EOMI Neck Supple Cardiovascular Regular Rate, Normal S1, Normal S2 Lungs Clear to Auscultation Abdomen Abdomen is distended, with diffuse tenderness Neurological Lack of sensation B/L lower limb upto the knees Assessment/Plan Assessment: 52 yo M with PMH significant for alcohol dependence, hypertension, severe peripheral neuropathy,asthma, Dos Santos esopahgus, alcohol cirrhosis in brought in to the ED for worsening confusion and altered mental status. Apparently, he failed to recognise his and confused her with his mother at home. When the patient was seen in the ED, he was alert, oriented, cooperative, but slow to respond to questions. He said that he came to the hospital because of worsening abdominal pain that has been radiating to his back. He denied fever, chills, nausea, vomiting. On examination, he had diffuse tenderness in his abdomen. He also had a loss of sensation in b/l lower limb upto the knees. Vitals in the ED were Vitals: Temp 97.9-98.8, HR 89-96, RR 14-16, BP 136/74, O2 94-95% Labs showed a platelet c ount of 680, K was high at 5.3, Lactic acid was 1.5 and serum alcohol level was <10. CT abdomen and pelvis showed evidence of mild to early sanjay Problems: 1.Altered mental status ? Hepatic emcephlopathy 2. Abdominal pain 3. ?Pyelonephritis 4. Alcoholic cirrhosis 5. Hypertension 6.Peripheral neuropathy Plan: 1. Admit the patient to Gen Med floor, vitals per protocol 2. We will start the patient on Lactulose 3. We will order urine cultures and empirically start him empirically on Ceftriaxione 4. We would request Urology consult in the am. 5.We would avoid sedarives and opiods for the patient 6.We would continue the patient on his home meds. DVT prophylaxis Full code As Ranked By This Provider Problem List: 1. Altered mental status 2. Cirrhosis 3. Abdominal pain 4. Pyelonephritis 5. Peripheral neuropathy 6. COPD (chronic obstructive pulmonary disease) 7. Hypertension 8. Asthma Core Measures/Misc (04/06) Acute Coronary Syndrome ACS Diagnosis: No Congestive Heart Failure Congestive Heart Failure Diagnosis No Cerebrovascular Accident CVA/TIA Diagnosis: No VTE (View Protocol) VTE Risk Factors Acute Medical Illness No Mechanical VTE Prophylaxis d/t N/A MechProphylax Ordered No VTE Pharm Prophylaxis d/t NA PharmProphylax ordered Sepsis (View protocol) Sepsis Present: No If YES complete Sepsis Event Note If YES complete Sepsis Event Note Beto HEBERT,Jack 02/24/18 1719: Core Measures/Misc (04/06) Sepsis (View protocol) If YES complete Sepsis Event Note If YES complete Sepsis Event Note Resident Review Statement Resident Statement: examined this patient, discussed with technology risk intern, agreed with technology risk intern Other Findings: 52-year-old gentleman with a past medical history significant for hypertension, severe peripheral neuropathy, asthma, Dos Santos's esophagus, alcohol abuse with complication of cirrhosis presents to the ED for altered mental status. Spouse stated that the patient mental status has been deteriorating for the past several days and progressively worsened today with somnolence and confusion prompting the to bring him to to the ED. Later when seen by the medical staff patient appeared alert and oriented with no signs of acute confusion. At baseline, patient endorses chronic pain which he describes as neuropathic. Impression * Acute encephalopathy. Differentials include toxic encephalopathy secondary to prescribed opioids/Lyrica versus infectious encephalopathy in the context of UTI given the flank pain, dysuria and CT findings suggestive of pyelonephritis (?). No CT findings suggestive of liver cirrhosis, patient does not have the typical stigmata of chronic liver disease such as spider angioma, jaundice, pruritus, or palmar erythema, neither does he have any signs of decompensation (liver functions and enzymes intact). All these factors make hepatic encephalopathy less likely. * Possible UTI. Clinical symptoms of flank pain with dysuria and radiological suggestion of early pyelonephritis. Patient is however febrile with no leukocytosis. * Thrombocytosis. Appears subacute to chronic. Infection can cause thrombocytosis as an acute phase reactant. Other differentials include low iron. However patient appears to have had thrombocytosis for a while. We'll need to consider essential thrombocytosis as possible cause. * Splenomegaly. As evident by physical examination and CT finding. Most likely cause is thrombocytosis. Plan Admit to general medicine floor Refrain from all periods right now and Lyrica to assess mental status Will consider ceftriaxone for UTI follow-up urine cultures We will obtain ammonia levels Will obtain urine toxicology Obtain peripheral smear to assess for megakaryocytes Consider referral for outpatient CHEMO lab Avoid delirium triggers such as pain, constipation, frequent unnecessary nursing intervention CIWA and start Ativan if needed CODE STATUS full DVT prophylaxis enoxaparin
--- NOTE | 2018-02-24 16:46 | CT SCAN REPORT ---
EXAMINATION: CT HEAD WITHOUT CONTRAST CLINICAL INFORMATION: Altered mental status. COMPARISON: Head CT from 02/13/2018. TECHNIQUE: Contiguous axial imaging was performed from the skull base to vertex without intravenous administration of contrast. DLP: 631.9 mGy-cm FINDINGS: There is no evidence of acute intracranial hemorrhage or territorial infarction. No abnormal mass effect or midline shift is seen. Majano to white matter differentiation is well preserved. No extra-axial fluid collections are identified. The ventricles are normal in size. There is no abnormal attenuation within the brain parenchyma. The osseous structures and soft tissues are normal. The mastoid air cells and visualized portions of the paranasal sinuses are well aerated. IMPRESSION: No acute intracranial pathology.
[2018-02-24 16:51] VITALS: BP 136/74
--- NOTE | 2018-02-24 17:32 | CT SCAN REPORT ---
EXAMINATION: CT ABDOMEN AND PELVIS WITH CONTRAST CLINICAL INFORMATION: Altered mental status and flank pain. COMPARISON: CT from 03/05/2017. TECHNIQUE: Multidetector volumetric imaging was performed of the abdomen and pelvis following IV administration of 95 mL of Optiray 320 intravenous contrast. Sagittal and coronal reformatted images were obtained on the technologist's workstation. DLP: 642 mGy-cm FINDINGS: LUNG BASES: The visualized lung bases are unremarkable. LIVER, GALLBLADDER, AND BILIARY TREE: The liver is normal in size, shape, and attenuation. No focal hepatic lesion or biliary ductal dilatation is present. The gallbladder is unremarkable with no evidence of radiopaque gallstones, gallbladder wall thickening, or obvious pericholecystic inflammatory changes. PANCREAS: Unremarkable. SPLEEN: The spleen is homogeneous but enlarged, measuring up to 19.8 cm in diameter craniocaudal compared to 16 cm previously. ADRENAL GLANDS: Unremarkable. KIDNEYS AND URETERS: The kidneys are normal in size, shape, and attenuation. No hydronephrosis, hydroureter, or calculi seen. There is mild perinephric stranding bilaterally. BLADDER: Partially distended with questionable mild wall thickening. GASTROINTESTINAL TRACT: There is a moderate amount of stool throughout the colon. No diverticular disease or large bowel wall thickening is seen. Small hiatal hernia. ABDOMINAL WALL: Small fatty-containing umbilical hernia. LYMPH NODES: Normal. VASCULAR: Mild to moderate atherosclerotic wall calcifications in the abdominal aorta and iliac vasculature. PELVIC VISCERA: Unremarkable. OSSEOUS STRUCTURES: There is a chronic-appearing mild superior endplate compression fracture deformity at L1. Mild multilevel spondylosis. IMPRESSION: Symmetric and normal nephrograms without hydronephrosis. Nonspecific mild perinephric stranding. The possibility of mild or early pyelonephritis is not excluded on the basis of this study. Correlate with urinalysis. Mild questionable bladder wall thickening with partial distention. Worsened splenomegaly compared to prior imaging, of indeterminate etiology.
--- NOTE | 2018-02-24 17:37 | PN- Att Addend ---
Attending Addendum Attending Brief Note 52M PMH Varghese abuse/withdrawal/dependence, hypertension, COPD, Dos Santos's esophagus , and alcoholic cirrhosis, recently discharged after being treated for E.coli UTI, presents with altered mental status. Deteriorating mental status for the past few days, somnolent today, confused when awake. Neuro exam is intact. Labs and imaging suggestive of acute pyelonephritis without evidence of sepsis. No evidence of ascites on exam or imaging. Also has a history of lower extremity polyneuropathy with a history of osteomyelitis, but no evidence of infection at this time. Plan - Admit to general medicine - Start Lactulose 30mL q6h, titrated to 2-3 BM/day - Start Ceftriaxone - Urine cultures - Urology consults - Check ammonia level - CHeck urine toxicology - Avoid sedatives or opioids - Continue home medications - Monitor for signs of withdrawal, if displayed begin Ativan PRN CIWA - DVT PPx
[2018-02-24 22:20] VITALS: BP 142/70
[2018-02-25 02:00] VITALS: BP 142/70
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
[2018-02-25 06:00] VITALS: BP 142/70
[2018-02-25 06:20] VITALS: BP 132/60
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
[2018-02-25 08:18] LABS: ABSOLUTE BASOPHIL COUNT 0.1 /CUMM (0.0-0.2); ABSOLUTE EOSINOPHIL COUNT 0.1 /CUMM (0.0-0.7); ABSOLUTE LYMPH COUNT 1.8 /CUMM (1.2-3.4); ABSOLUTE MONOCYTE COUNT 0.3 /CUMM (0.10-0.60); EOSINOPHIL % 2.1 % (0-5); GRANULOCYTE % 57.2 % (42.2-75.2); HEMATOCRIT 35.8 % (42-52); MEAN CORPUSCULAR HGB 29.9 PG (27.0-31.0); MEAN CORPUSCULAR HGB CONC 33.9 G/DL (33.0-37.0); MEAN CORPUSCULAR VOLUME 88.1 FL (80.0-94.0); MEAN PLATELET VOLUME 8.4 FL (7.4-10.4); PLATELET COUNT 620 /CUMM (130-400); RBC DISTRIBUTION WIDTH 15.6 % (11.5-14.5); RED BLOOD CELL CT 4.06 /CUMM (4.70-6.10); WHITE BLOOD CELL COUNT 5.3 /CUMM (4.8-10.8)
[2018-02-25 08:56] LABS: PT 12.4 SEC (9.4-12.5)
--- NOTE | 2018-02-25 10:45 | PN- Att Addend ---
Attending Addendum Attending Brief Note Patient seen and examined, he is in [place]. He is not as agitated as he was last night. Patient required security, order #7 was called and he was given Haldol. Seen by psychiatry this morning. Vital Signs Date Time Temp Pulse Resp B/P B/P Pulse O2 O2 Flow FiO2 Mean Ox Delivery Rate 02/25 917 63 132/60 02/25 0917 63 132/60 02/25 0916 63 132/60 02/25 0620 98.4 63 18 132/60 97 Room Air 02/25 0600 97.8 70 18 142/70 08 0200 97.8 70 18 142/70 02/24 2220 97.8 70 18 142/70 96 / 1651 97.7 68 18 136/74 95 08/07 1547 Room Air 02/24 1547 73 18 141/70 99 Room Air 02/24 1245 97.8 80 20 118/70 96 Room Air 02/24 1052 97.2 89 20 120/77 96 Room Air On exam: Awake, nad. cv; s1,s2, rrr resp; clear abd; soft, nt, bs+ ext; no edema Laboratory Tests 02/25 02/24 02/24 0625 2114 1603 Chemistry Sodium (137 - 145 mmol/L) 138 Potassium (3.5 - 5.1 mmol/L) 5.1 Chloride (98 - 107 mmol/L) 100 Carbon Dioxide (22 - 30 mmol/L) 29 Anion Gap (5 - 16) 9 BUN (9 - 20 mg/dL) 16 Creatinine (0.7 - 1.2 mg/dL) 0.6 L Estimated GFR (>60 ml/min) > 60 BUN/Creatinine Ratio (7 - 25 %) 26.7 H Lactic Acid (0.7 - 2.1 mmol/L) 0.7 Ammonia (9 - 30 umol/L) < 9 L Coagulation PT (9.4 - 12.5 SEC) 12.4 INR (0.90 - 1.17) 1.14 Hematology CBC w Diff NO MAN DIFF REQ WBC (4.8 - 10.8 /CUMM) 5.3 RBC (4.70 - 6.10 /CUMM) 4.06 L Hgb (14.0 - 18.0 G/DL) 12.1 L Hct (42 - 52 %) 35.8 L MCV (80.0 - 94.0 FL) 88.1 MCH (27.0 - 31.0 PG) 29.9 MCHC (33.0 - 37.0 G/DL) 33.9 RDW (11.5 - 14.5 %) 15.6 H Plt Count (130 - 400 /CUMM) 620 H MPV (7.4 - 10.4 FL) 8.4 Gran % (42.2 - 75.2 %) 57.2 Lymphocytes % (20.5 - 51.1 %) 33.8 Monocytes % (1.7 - 9.3 %) 5.9 Eosinophils % (0 - 5 %) 2.1 Basophils % (0.0 - 2.0 %) 1.0 Absolute Granulocytes (1.4 - 6.5 /CUMM) 3.0 Absolute Lymphocytes (1.2 - 3.4 /CUMM) 1.8 Absolute Monocytes (0.10 - 0.60 /CUMM) 0.3 Absolute Eosinophils (0.0 - 0.7 /CUMM) 0.1 Absolute Basophils (0.0 - 0.2 /CUMM) 0.1 02/24 02/24 1300 1220 Chemistry Sodium (137 - 145 mmol/L) 139 Potassium (3.5 - 5.1 mmol/L) 5.3 H Chloride (98 - 107 mmol/L) 100 Carbon Dioxide (22 - 30 mmol/L) 31 H Anion Gap (5 - 16) 8 BUN (9 - 20 mg/dL) 23 H Creatinine (0.7 - 1.2 mg/dL) 0.7 Estimated GFR (>60 ml/min) > 60 BUN/Creatinine Ratio (7 - 25 %) 32.9 H Glucose (65 - 99 mg/dL) 91 Lactic Acid (0.7 - 2.1 mmol/L) 1.5 Calcium (8.4 - 10.2 mg/dL) 10.1 Total Bilirubin (0.2 - 1.3 mg/dL) 0.3 AST (17 - 59 U/L) 33 ALT (21 - 72 U/L) 38 Alkaline Phosphatase (< 127 U/L) 67 Total Protein (6.3 - 8.2 g/dL) 7.2 Albumin (3.5 - 5.0 g/dL) 4.0 Globulin (1.9 - 4.2 gm/dL) 3.2 Albumin/Globulin Ratio (1.1 - 2.2 %) 1.3 Hematology CBC w Diff NO MAN DIFF REQ WBC (4.8 - 10.8 /CUMM) 7.6 RBC (4.70 - 6.10 /CUMM) 4.21 L Hgb (14.0 - 18.0 G/DL) 12.6 L Hct (42 - 52 %) 37.4 L MCV (80.0 - 94.0 FL) 88.8 MCH (27.0 - 31.0 PG) 29.9 MCHC (33.0 - 37.0 G/DL) 33.6 RDW (11.5 - 14.5 %) 15.8 H Plt Count (130 - 400 /CUMM) 680 H MPV (7.4 - 10.4 FL) 8.3 Gran % (42.2 - 75.2 %) 61.5 Lymphocytes % (20.5 - 51.1 %) 28.9 Monocytes % (1.7 - 9.3 %) 6.7 Eosinophils % (0 - 5 %) 2.3 Basophils % (0.0 - 2.0 %) 0.6 Absolute Granulocytes (1.4 - 6.5 /CUMM) 4.7 Absolute Lymphocytes (1.2 - 3.4 /CUMM) 2.2 Absolute Monocytes (0.10 - 0.60 /CUMM) 0.5 Absolute Eosinophils (0.0 - 0.7 /CUMM) 0.2 Absolute Basophils (0.0 - 0.2 /CUMM) 0 Toxicology Urine Opiates Screen (>2000 NG/ML) 844.00 Methadone Screen (>300 NG/ML) < 40 Barbiturate Screen (>200 NG/ML) < 60 Ur Phencyclidine Scrn (>25 NG/ML) < 6.00 Amphetamines Screen (>1000 NG/ML) < 100 U Benzodiazepines Scrn (>200 NG/ML) > 800 H Urine Cocaine Screen (>300 NG/ML) < 50 Urine Cannabis Screen (>50 NG/ML) < 5.00 Serum Alcohol (<10 MG/DL) < 10.0 Urines Urine Color (YEL,AMB,STR) YEL Urine Clarity (CLEAR) CLEAR Urine pH (5.0 - 8.0) 6.0 Ur Specific [place] (1.001 - 1.035) 1.020 Urine Protein (NEG,<30 MG/DL) NEG Urine Ketones (NEG) NEG Urine Nitrite (NEG) NEG Urine Bilirubin (NEG) NEG Urine Urobilinogen (0.1 - 1.0 EU/dl) 0.2 Ur Leukocyte Esterase (NEG) NEG Ur Microscopic EXAM NOT REQUIRED Urine Hemoglobin (NEG) NEG Urine Glucose (N MG/DL) NEG 02/24 1214 Chemistry Ammonia Cancelled A/P; 52 y/o M with pmh sig for EtOH abuse/withdrawal/dependence, hypertension, COPD, Dos Santos's esophagus, asthma and alcoholic cirrhosis, recent admission acute encephalopathy admitted this time also with acute confusion, likley toxic encaphalopathy due to opoids and benzo screen positive on Utox. Patient claims that he takes his pain medications as directed but not sure he might have taken a couple of extra pills. He was not prescribed any benzos at his last discharge so it is unclear where she is getting the benzodiazepines. Patient also claims that he is not taking Cymbalta as he was prescribed last admission. I spoke with his at bedside. She is very sure that he has not taken any extra oxycodone. He does think that he might have taken some Valium which she was prescribed a long time ago. His urinalysis is clear. I will stop his antibiotics. As discussed with psychiatry, this is likely medication induced encephalopathy. Remote possibility of Korsakoff's there. If patient does not improve then will consider doing an MRI and look at the mammary bodies. For now will treat him with thiamine just in case. We are going to start him on half the dose of his oxycodone to prevent any withdrawal symptoms. We gave him on Lyrica and Tylenol. Continue the rest of the management. DVT prophylaxis: Lovenox. Will try to DC the deepti once pt more calm.
--- NOTE | 2018-02-25 12:19 | Cons- Psychiatry ---
Psychiatric Consult Date of Consult: 02/25/18 Reason for Consult: Asked to see this 52 yo male who was delirious last night. History of Present Illness: Pt brought to ED by with c/o flank pain and altered mental status. reported that pt has not been aware of the year and failed to recognize her. LASt night pt was confused and aggressive. Afebrile, VS normal, WCC normal, AST/ALT normal, lactic acid normal, ammonia normal, UTOX positive for opiates and high level BZDs. CT brain normal. Pt was admitted February 13 for similar complaints. During that admission he was initially delirious but this resolved. Pt was seen by me on previous admission. H/O alcohol dependence, has not relapsed since discharge and now sober for over a month. Reports poor sleep chronically secondary to pain.Has been upset "I am sick all the time, I am always in pain". Appetite good. Not suicidal or homicidal. Recalls being aggressive last night "I wanted to leave". No psychosis. Pt adamantly denies overusing his opiates though on last admission reported that her "runs out". Did not keep appointment at pain management clinic. [employer] shows that he filled a prescription for Oxycodone [id number] tablets on 02/09 and for 90 Lyrica on 02/10. No benzodiazepines on file. Pt cannot explain why they are in his urine. No record of them baing administered prior to urine sample. From my note of 02/16: Past psychiatric history: None. No history of suicide attempts or deliberate self-harm Substance use history: The patient has a remote history of marijuana and cocaine use. He has not used either of these in over 15 years. He has a long history of alcohol dependence and reports that he stopped drinking about one month ago. He is prescribed opiates but denies abusing them. However he also states "when I run out I can go 2 weeks without them no worries". Past medical history: Peripheral neuropathy, hypertension, COPD, Dos Santos's esophagus, alcohol induced hepatic cirrhosis, chronic pain Current social circumstances; the patient lives with his . 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 He does not receive disability. His was the main on her but she was laid off 3 months ago. As mentioned the patient's father has also been ill. His mother is alive and he says he has a good relationship with her. They have no children. He reports feeling that he is a burden on his . They have a large mortgage and are under significant financial stress. Allergies: Coded Allergies: NO KNOWN ALLERGIES (04/20/14) Current Medications: Med Acetaminophen 650 MG PO Q4 02/25/18 1000 Amlodipine Besylate 5 MG PO DAILY 02/25/18 0900 Duloxetine HCl 40 MG PO DAILY 02/25/18 0900 Enoxaparin Sodium 40 MG SC DAILY 02/25/18 0900 Folic Acid 1 MG PO DAILY 02/25/18 0900 Haloperidol 0.5 MG IM Q8P PRN 02/25/18 1045 Lisinopril 40 MG PO DAILY 02/25/18 0900 Melatonin 5 MG PO AT BEDTIME 02/25/18 2100 Omeprazole 20 MG PO DAILY 02/25/18 0900 Oxycodone HCl 10 MG PO TID PRN 02/25/18 1000 Polyethylene Glycol 17 GM PO DAILY 02/25/18 0954 Pregabalin 150 MG PO QPM 02/24/18 2100 Senna/Docusate Sodium 2 TAB PO DAILY 02/25/18 0954 Tamsulosin HCl 0.4 MG PO DAILY 02/25/18 0900 Thiamine HCl 500 MG IV TID 02/25/18 1023 Sodium Chloride 250 ML Past History Past Medical History Neurological: peripheral neuropathy EENT: NONE Cardiovascular: hypertension Respiratory: COPD Gastrointestinal: BARRETTS ESOPHAGUS Hepatic: cirrhosis (etoh-induced) Renal: NONE Musculoskeletal: CHRINIC PAIN Psychiatric: alcohol dependence Endocrine: NONE Blood Disorders: NONE Cancer(s): LUNG nodule THROAT NODULES SPECIAL EDUCATION ASSOCIATE/Reproductive: NONE Past Surgical History Surgical History: right heel debridement Assessment/Plan Mental Status Orientation: Person, Place Mental Status Exam: 52 yo male with left facial droop as on previous meeting. Lying calmly in hospital bed. Some hearing difficulty. Oriented to place and time. Does not know why he is in hospital. Seems to use the terms "" and "mother" interchangeably but corrects himself when questioned. Good eye contact. No nystagmus. Speech normal in rate, rhythm, volume and tone. Mood "upset", affect irritable. Not suicidal of homicidal. Thought process normal in tempo and stream. Thought form concrete. No delusions or obsessions. Attention and concentration good. No perceptual abnormality. Recent memory fair, remote memory intact. Insight limited. Judgment unimpaired. Lab Results: Lab Hct 35.8 % L 02/25/18 0625 Hgb 12.1 G/DL L 02/25/18624 MCH 29.9 PG 02/25/1825 MCHC 33.9 G/DL 02/25/18 06 MCV 88.1 FL 02/25/18 06 Plt Count 620 /CUMM H 02/25/18 0625 RBC 4.06 /CUMM L 02/25/18 0625 RDW 15.6 % H 02/25/18 0625 WBC 5.3 /CUMM 02/25/18 0625 Serum Alcohol < 10.0 MG/DL 02/24/18 1220 U Benzodiazepines Scrn > 800 NG/ML H 02/24/18 1300 Urine Opiates Screen 844.00 NG/ML 02/24/18 1300 Ur Leukocyte Esterase NEG 02/24/18 1300 Ur Microscopic EXAM NOT REQUIRED 02/24/18 1300 Ur Specific [place] 1.020 02/24/18 1300 Urine Bilirubin NEG 02/24/18 1300 Urine Clarity CLEAR 02/24/18 1300 Urine Color YEL 02/24/18 1300 Urine Glucose NEG MG/DL 02/24/18 1300 Urine Hemoglobin NEG 02/24/18 1300 Urine Ketones NEG 02/24/18 1300 Urine Nitrite NEG 02/24/18 1300 Urine Protein NEG MG/DL 02/24/18 1300 Urine Urobilinogen 0.2 EU/dl 02/24/18 1300 Urine pH 6.0 02/24/18 1300 Diffential Diagnosis: 1.Benzodiazepine abuse 2. R/O opiate abuse 2. r/o Korsakoff'syndrome 3. Major deopressive disorder mild/moderate Impression: The patient is not currently delirious. He is oriented. He has difficulty recalling the events prior to admission. He has neither clinical nor lab findings consistent with Wernicke's encephalopathy, nor of a toxic encephalopathy. Korsakoff's syndrome cannot be outruled and if cognitive deficits persist in the absence of substance abuse MRI of mamillary bodies may be helpful. The patient is abusing benzodiazepines. It is unclear whether he is also abusing his opiates. Provisional Treatment Plan: - Suggest visiting nurse to ensure medication adherence - Referral to pain management as previously - Continue thiamine po - Has appointment for DDIOP on March 12 - Defer other management to medical team. Psychiatry will sign off. Please feel free to reconsult if we can be of any further assistance. Thank you for consulting us on this patient.
[2018-02-25 15:03] VITALS: BP 120/76
[2018-02-25 20:20] VITALS: BP 118/78
[2018-02-25 22:00] VITALS: BP 118/78
[2018-02-26 02:00] VITALS: BP 120/74
[2018-02-26 06:00] VITALS: BP 128/72
[2018-02-26 06:19] VITALS: BP 128/72
--- NOTE | 2018-02-26 08:15 | Cons- Urology ---
General Information and HPI Consulting Request Date of Consult: 02/26/18 Requested By: Cara Jarquin MD Reason for Consult: hematuria: abnormal bladder findings on CT Source of Information: patient, old records Exam Limitations: no limitations History of Present Illness: 52 year old with hematuria, scheduled for office cystoscopy, was brought to hospital for MS changes. CT appreciated. Plan is to proceed with cystocopy if medically stable/cleared. Allergies/Medications Allergies: Coded Allergies: NO KNOWN ALLERGIES (04/20/14) Home Med List: Acetaminophen (Tylenol) 325 MG TABLET 2 TAB PO TID PRN NEUROPATHY Amlodipine Besylate 5 MG TABLET 1 TAB PO DAILY HIGH BLOOD PRESSURE (Reported) Amoxicillin/Clavulanate Potass (Amox-Clav 875-125 MG Tablet) 875 MG-125 MG TABLET 875 MG PO Q12 UTI Calcium Carb/Mag Ox/Zinc Sulf (Givjaom-Wtyngclac-Srlk Tablet) 334 MG-134 MG-5 MG TABLET 1 TAB PO DAILY SUPPLEMENT (Reported) Cholecalciferol (Vitamin D3) (Vitamin D) 2,000 UNIT CAPSULE 1 CAP PO DAILY SUPPLEMENT (Reported) Duloxetine Hydrochloride (Cymbalta) 20 MG CAPSULE.DR 40 MG PO DAILY PSYCHIATRIC Folic Acid 1 MG TABLET 1 TAB PO DAILY SUPPLEMENT (Reported) Methylcellulose (Fiber Laxative) (Unknown Strength) TABLET 2 TAB PO DAILY SUPPLEMENT (Reported) Multivitamin (One Daily Multivitamin) 1 EACH TABLET 1 TAB PO DAILY VITAMIN Omeprazole 20 MG CAPSULE.DR 1 CAP PO DAILY GERD (Reported) Oxycodone HCl 20 MG TABLET 1 TAB PO TID PAIN (Reported) Pregabalin (Lyrica) 150 MG CAPSULE 2 CAP PO QAM NERVE PAIN (Reported) Pregabalin (Lyrica) 150 MG CAPSULE 1 TAB PO QPM nerve pain (Reported) Quinapril HCl (Accupril) 40 MG TABLET 1 TAB PO DAILY BP (Reported) Tamsulosin HCl (Flomax) 0.4 MG CAP.ER.24H 0.4 MG PO DAILY URINARY Thiamine HCl (B-1) 100 MG TABLET 1 TAB PO DAILY SUPPLEMENT (Reported) Current Medications: Current Medications Sig/Nate Start time Last Medication Dose Route Stop Time Status Admin Acetaminophen 650 MG Q4 02/25 1000 AC 02/26 PO 0206 Acetaminophen 650 MG Q6P PRN 02/24 2045 DC PO Amlodipine Besylate 5 MG DAILY 02/25 0900 AC 02/25 PO 0917 Ceftriaxone Sodium 1,000 MG DAILY 02/25 900 DC 02/25 IV 0916 Duloxetine HCl 40 MG DAILY 02/25 900 AC 02/25 PO 0916 Enoxaparin Sodium 40 MG DAILY 02/25 900 AC 02/25 SC 0917 Folic Acid 1 MG DAILY 02/25 900 AC 02/25 PO 0916 Guaifenesin 0 .STK-MED ONE 02/25 1854 DC PO Haloperidol 0.5 MG Q8P PRN 02/25 1045 AC 02/25 IM 1621 Haloperidol 0.5 MG ONCE PRN 02/25 0500 AC 02/25 IM 0500 Lactulose 30 GM Q6 02/24 2037 DC 02/25 PO 0042 Lisinopril 40 MG DAILY 02/25 900 AC 02/25 PO 0917 Melatonin 5 MG AT BEDTIME 02/25 2100 AC 02/25 PO 2010 Olanzapine 5 MG ONCE PRN 02/25 2015 AC IM Omeprazole 20 MG DAILY 02/25 900 AC 02/25 PO 0917 Oxycodone HCl 10 MG TID PRN 02/25 1000 AC 02/26 PO 0205 Polyethylene Glycol 17 GM DAILY 02/25 0954 AC 02/25 PO 1136 Pregabalin 150 MG QPM 02/24 2100 AC 02/25 PO 2011 Senna/Docusate Sodium 2 TAB DAILY 02/25 0954 AC PO Sodium Chloride 1,000 ML Q20H 02/26 0730 AC IV Tamsulosin HCl 0.4 MG DAILY 02/25 900 AC 02/25 PO 0916 Thiamine HCl 500 MG 0930,1630,2130 02/25 1630 AC 02/25 Sodium Chloride 250 ML IV 2010 Thiamine HCl 500 MG TID 02/25 1023 DC 02/25 Sodium Chloride 250 ML IV 1135 Thiamine HCl 500 MG TID 02/25 1010 DC Sodium Chloride 100 ML IV Thiamine HCl 100 MG DAILY 02/25 900 DC 02/25 PO 0917 Past History Medical History Blood Transfusion Hx: No Neurological: peripheral neuropathy EENT: NONE Cardiovascular: hypertension Respiratory: COPD 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 spouse Primary Language: [place] Smoking Status: Unknown If Ever Smoked ETOH Use: denies use Illicit Drug Use: denies illicit drug use Functional Ability Ambulation: walker Employment History Retired? unknown Review of Systems Review of Systems Constitutional: Reports: malaise, weakness. EENTM: Denies: no symptoms. Cardiovascular: Denies: no symptoms. Respiratory: Denies: no symptoms. GI: Denies: no symptoms. Genitourinary: Reports: hematuria. Skin: Denies: no symptoms. Exam & Diagnostic Data Vital Signs and I&O Vital Signs Date Time Temp Pulse Resp B/P B/P Pulse O2 O2 Flow FiO2 Mean Ox Delivery Rate 02/26 0619 97.6 68 18 128/72 94 Room Air 02/26 0600 97.6 68 18 128/72 02/26 0200 97.5 66 16 120/74 02/25 2200 97.5 63 12 118/78 08 2020 97.5 63 12 118/78 93 08 1503 97.9 94 16 120/76 95 Room Air 02/25 0917 63 132/60 02/25 0917 63 132/60 02/25 0916 63 132/60 Intake & Output 02/26 1600 02/26 0000 02/25 1600 02/25 0802/25 0000 Intake Total 70 420 840 120 200 Output Total 300 Balance 70 420 840 -180 200 Intake, IV 10 300 Intake, Oral 60 120 840 120 200 Output, Urine 300 Patient 192 lb Weight Weight Bed scale Measurement Method Physical Exam General Appearance: well developed/nourished Head: atraumatic Neck: normal inspection Respiratory: normal breath sounds Cardiovascular: regular rate/rhythm Gastrointestinal: normal bowel sounds, soft, non-tender Rectal: normal exam Back: no vertebral tenderness Extremities: normal inspection Reproductive: Normal male genitalia Imaging Results: PATIENT: OMER CARL PRESENT AGE: 52 PATIENT ACCOUNT NO: [id number] : 65 LOCATION: 2NA ORDERING PHYSICIAN: Eric Pimentel MD SERVICE DATE: 02/24/18 EXAM TYPE: CAT - CT ABD & PELVIS W IV CONTRAST EXAMINATION: CT ABDOMEN AND PELVIS WITH CONTRAST CLINICAL INFORMATION: Altered mental status and flank pain. COMPARISON: CT from 03/05/2017. TECHNIQUE: Multidetector volumetric imaging was performed of the abdomen and pelvis following IV administration of 95 mL of Optiray 320 intravenous contrast. Sagittal and coronal reformatted images were obtained on the technologist's workstation. DLP: 642 mGy-cm FINDINGS: LUNG BASES: The visualized lung bases are unremarkable. LIVER, GALLBLADDER, AND BILIARY TREE: The liver is normal in size, shape, and attenuation. No focal hepatic lesion or biliary ductal dilatation is present. The gallbladder is unremarkable with no evidence of radiopaque gallstones, gallbladder wall thickening, or obvious pericholecystic inflammatory changes. PANCREAS: Unremarkable. SPLEEN: The spleen is homogeneous but enlarged, measuring up to 19.8 cm in diameter craniocaudal compared to 16 cm previously. ADRENAL GLANDS: Unremarkable. KIDNEYS AND URETERS: The kidneys are normal in size, shape, and attenuation. No hydronephrosis, hydroureter, or calculi seen. There is mild perinephric stranding bilaterally. BLADDER: Partially distended with questionable mild wall thickening. GASTROINTESTINAL TRACT: There is a moderate amount of stool throughout the colon. No diverticular disease or large bowel wall thickening is seen. Small hiatal hernia. ABDOMINAL WALL: Small fatty-containing umbilical hernia. LYMPH NODES: Normal. VASCULAR: Mild to moderate atherosclerotic wall calcifications in the abdominal aorta and iliac vasculature. PELVIC VISCERA: Unremarkable. OSSEOUS STRUCTURES: There is a chronic-appearing mild superior endplate compression fracture deformity at L1. Mild multilevel spondylosis. IMPRESSION: Symmetric and normal nephrograms without hydronephrosis. Nonspecific mild perinephric stranding. The possibility of mild or early pyelonephritis is not excluded on the basis of this study. Correlate with urinalysis. Mild questionable bladder wall thickening with partial distention. Worsened splenomegaly compared to prior imaging, of indeterminate etiology. DICTATED BY: Raúl Jett MD DATE/TIME DICTATED:02/24/181715 MAJOR ASSEMBLER:EDIWN DATE/TIME TRANSCRIBED:02/24/181715 CONFIDENTIAL, DO NOT COPY WITHOUT APPROPRIATE AUTHORIZATION. <Electronically signed in Other Vendor System> SIGNED BY: Raúl Jett MD [id number] Assessment/Plan Assessment/Plan Pt with hematuria: will cystoscope today if cleared by medicine. Copies To: Metzger MD,Arnold Consult Acknowledgment - Thank you for your consult request. Attending MD Review Statement Attending Statement Attending MD Statement: examined this patient, discuss w/resident/PA/HAND MICA PLATE LAYER Attending Assessment/Plan: for diagnostic cystoscope today
--- NOTE | 2018-02-26 08:18 | PN- Housestaff ---
Subjective Follow-up For: Altered mental status Thrombocytosis Previous acute urinary retention and pyelonephritis Subjective: Patient is less altered overnight and this morning. His vital signs are stable. He has no complaints. He is nothing by mouth with gentle fluids running for cystoscopy this morning. Patient does have hematuria. Patient still does complain of some lower abdominal pain. Review of Systems Constitutional: Reports: no symptoms. Cardiovascular: Reports: no symptoms. Respiratory: Reports: no symptoms. Gastrointestinal: Reports: no symptoms. Genitourinary: Reports: hematuria. Skin: Reports: no symptoms. Neurological/Psychological: Reports: no symptoms. Hematologic/Endocrine: Reports: no symptoms. Objective Last 24 Hrs of Vital Signs/I&O Vital Signs Date Time Temp Pulse Resp B/P B/P Pulse O2 O2 Flow FiO2 Mean Ox Delivery Rate 02/26 1358 98.0 52 18 110/70 94 Room Air 02/26 0822 68 128/72 02/26 0822 68 128/72 02/26 0821 68 128/72 02/26 0619 97.6 68 18 128/72 94 Room Air 02/26 0600 97.6 68 18 128/72 / 0200 97.5 66 16 120/74 08 2200 97.5 63 12 118/78 08/08 2020 97.5 63 12 118/78 93 /08 1503 97.9 94 16 120/76 95 Room Air Intake & Output 02/26 1600 02/26 0800 02/26 0000 Intake Total 70 420 Output Total Balance 70 420 Intake, IV 10 300 Intake, Oral 60 120 Physical Exam General Appearance: Alert, Oriented X3, Cooperative, No Acute Distress Skin: No Rashes, No Breakdown, No Significant Lesion Skin Temp/Moisture Exam: Warm/Dry Cardiovascular: Regular Rate, Normal S1, Normal S2, No Murmurs Lungs: Clear to Auscultation, Normal Air Movement Abdomen: Normal Bowel Sounds, Soft, No Tenderness, No Hepatospenomegaly Neurological: Normal Speech Extremities: No Clubbing, No Cyanosis, No Edema Current Medications: Current Medications Sig/Nate Start time Last Medication Dose Route Stop Time Status Admin Acetaminophen 650 MG Q6H 02/26 1530 AC PO Acetaminophen 650 MG Q4 02/25 1000 DC 02/26 PO 926 Amlodipine Besylate 5 MG DAILY 02/25 900 AC 02/26 PO 821 Duloxetine HCl 40 MG DAILY 02/25 900 AC 02/26 PO 0821 Enoxaparin Sodium 40 MG DAILY 02/25 900 AC 02/25 SC 0917 Fentanyl Citrate 0 .STK-MED ONE 02/26 1129 DC .ROUTE Folic Acid 1 MG DAILY 02/25 900 AC 02/26 PO 0821 Guaifenesin 0 .STK-MED ONE 02/25 1854 DC PO Haloperidol 0.5 MG Q8P PRN 02/25 1045 AC 02/25 IM 1621 Haloperidol 0.5 MG ONCE PRN 02/25 0500 AC 02/25 IM 0500 Hydromorphone HCl 0 .STK-MED ONE 02/26 1222 DC .ROUTE Lisinopril 40 MG DAILY 02/25 900 AC 02/26 PO 0822 Melatonin 5 MG AT BEDTIME 02/25 2100 AC 02/25 PO 2010 Midazolam HCl 0 .STK-MED ONE 02/26 1130 DC .ROUTE Olanzapine 5 MG ONCE PRN 02/25 2015 IM Omeprazole 20 MG DAILY 02/25 900 AC 02/26 PO 0822 Oxycodone HCl 10 MG TID PRN 02/25 1000 AC 02/26 PO 1334 Patient Medication 1 ED ONE ONE 02/26 1115 DC Teaching ED 02/26 1116 Polyethylene Glycol 17 GM DAILY 02/25 0954 AC 02/25 PO 1136 Pregabalin 150 MG QPM 02/24 2100 AC 02/25 PO 2011 Senna/Docusate Sodium 2 TAB DAILY 02/25 0954 AC 02/26 PO 0821 Sodium Chloride 1,000 ML Q20H 02/26 0730 AC 02/26 IV 0825 Tamsulosin HCl 0.4 MG DAILY 02/25 900 AC 02/26 PO 0821 Thiamine HCl 500 MG DAILY 02/27 0900 AC Sodium Chloride 250 ML IV Thiamine HCl 500 MG 0930,1630,2130 02/25 1630 DC 02/26 Sodium Chloride 250 ML IV 0927 Thiamine HCl 500 MG TID 02/25 1023 DC 02/25 Sodium Chloride 250 ML IV 1135 Assessment/Plan Assessment: 52 yo M with PMH significant for alcohol dependence, hypertension, severe peripheral neuropathy,asthma, Dos Asntos esopahgus, alcohol cirrhosis in brought in to the ED for worsening confusion and altered mental status. Apparently, he failed to recognise his and confused her with his mother at home. When the patient was seen in the ED, he was alert, oriented, cooperative, but slow to respond to questions. He said that he came to the hospital because of worsening abdominal pain that has been radiating to his back. He denied fever, chills, nausea, vomiting. On examination, he had diffuse tenderness in his abdomen. He also had a loss of sensation in b/l lower limb upto the knees. Vitals in the ED were Vitals: Temp 97.9-98.8, HR 89-96, RR 14-16, BP 136/74, O2 94-95% Labs showed a platelet c ount of 680, K was high at 5.3, Lactic acid was 1.5 and serum alcohol level was <10. CT abdomen and pelvis showed evidence of mild to early sanjay Problems: 1.Altered mental status ? Hepatic emcephlopathy 2. Abdominal pain 3. ?Pyelonephritis 4. Alcoholic cirrhosis 5. Hypertension 6.Peripheral neuropathy Plan: -Continue patient on general medical floors -Patient is nothing by mouth overnight for cystoscopy this morning. The patient has continued hematuria. Dr. Metzger will potentially place stents for patient's previous acute urinary retention versus evaluate bladder wall thickening. -Patient does not have any evidence of UTI on urinalysis and shows only nonspecific questionable mild perinephric stranding and no hydronephrosis, mild questionable bladder wall thickening with partial distention. We will stop ceftriaxone for now, patient did take his dose of Augmentin that we discharged him on last time. -Patient has been last combative overnight, we had psychiatry see him who had no new suggestions but patient did note that he stopped his Cymbalta at home that he was started on last time because of headache. We have stopped the patient's one-to-one sitter. -Patient usually takes 20 mg 3 times daily as needed for his peripheral neuropathy. We will restart him on 10 mg 3 times daily oxycodone as needed for now. We will also give him scheduled Tylenol. -As patient has no evidence of hepatic encephalopathy, we will stop lactulose. His ammonia level is normal. -Patient did have evidence of benzodiazepines in his urine. He states that he has not been prescribed benzodiazepines in quite some time but does have an old prescription that he has not taken recently. He should has been instructed to abstain from benzodiazepines and other medications that can cause altered mental status. -Patient does have worsened splenomegaly and thrombocytosis. He will follow up with Dr. Cowan outpatient. -Continue to follow-up urine and blood cultures -Potassium has normalized today -For question of Warnicke encephalopathy we will continue high-dose thiamine. -Bowel regimen for constipation -Patient's has apparently just lost her job and health insurance for both of them is in [employer], case management is looking into [employer] insurance DVT prophylaxis Full code Problem List: 1. Pyelonephritis 2. Acute urinary retention 3. Altered mental status Pain Ratin Pain Location: Lower abdomen Pain Goal: Pain 4 or less Pain Plan: Scheduled Tylenol 650 every 6 hours and oxycodone 10 mg 3 times a day as needed Tomorrow's Labs & Rationales: na
--- NOTE | 2018-02-26 10:31 | PN- Att Addend ---
Attending Addendum Attending Brief Note Patient seen and examined, much more clear today. He is awake alert oriented 3. He states that his pain is under reasonable control. Patient is scheduled for cystoscopy today. Vital Signs Date Time Temp Pulse Resp B/P B/P Pulse O2 O2 Flow FiO2 Mean Ox Delivery Rate 02/26 822 68 128/72 02/27 0822 68 128/72 02/26 0821 68 128/72 02/26 0619 97.6 68 18 128/72 94 Room Air 02/26 0600 97.6 68 18 128/72 02/26 0200 97.5 66 16 120/74 08 2200 97.5 63 12 118/78 0808 2020 97.5 63 12 118/78 93 /08 1503 97.9 94 16 120/76 95 Room Air on exam; aox3, nad. cv; s1, s2, rrr resp; clear abd; soft, nt, bs+ ext; no edema no labs today. A/P; 52 y/o M with pmh sig for EtOH abuse/withdrawal/dependence, hypertension, COPD, Dos Santos's esophagus, asthma and alcoholic cirrhosis, recent admission acute encephalopathy admitted this time also with acute confusion, likley toxic encaphalopathy due to opoids and benzo screen positive on Utox. Patient scheduled for cystoscopy today for hematuria and abnormal bladder CAT scan findings. Mental status is much more clear. Patient is only kept on half the dose of oxycodone. We will plan to discharge him on half the dose of oxycodone when he is ready for discharge. Will follow up on the results of cystoscopy. Patient currently on high-dose thiamine. I have switched timing to 500 mg daily. Patient on scheduled Tylenol. We will switch to every 6 hours instead of every 4. Continue the rest of the management. DVT prophylaxis: Lovenox. Will encourage ambulation.
[2018-02-26 13:58] VITALS: BP 110/70
[2018-02-26 22:47] VITALS: BP 144/84
[2018-02-27] MEDS ORDERED: OXYCODONE HCL10 M2 PO ×2 (00:41→09:42)
--- NOTE | 2018-02-27 00:44 | Patient Discharge Instructions ---
Discharge Instructions General Discharge Information You were seen/treated for: altered mental status Special Instructions: please follow up with pcp in one week please follow up with urology in one week please follow up with outpatient psychiatry on March 12 please follow up with hematology in one week please follow up with pain management in one week Diet Continue normal diet: Yes Activity Full Activity/No Limits: Yes Acute Coronary Syndrome Inclusion Criteria At DC or during hospital stay patient has or had the following: ACS DIAGNOSIS No Discharge Core Measures Meds if any: Prescribed or Continued at Discharge Meds if any: NOT Prescribed or Continued at Discharge Congestive Heart Failure Inclusion Criteria At DC or during hospital stay patient has or had the following: CHF DIAGNOSIS No Discharge Core Measures Meds if any: Prescribed or Continued at Discharge Meds if any: NOT Prescribed or Continued at Discharge Cerebrovascular accident Inclusion Criteria At DC or during hospital stay patient has or had the following: CVA/TIA Diagnosis No Discharge Core Measures Meds if any: Prescribed or Continued at Discharge Meds if any: NOT Prescribed or Continued at Discharge Venous thromboembolism Inclusion Criteria VTE Diagnosis No VTE Type NONE VTE Confirmed by (Test) NONE Discharge Core Measures - Per Current guidelines, there needs to be overlap - treatment for the first 5 days of Warfarin therapy. - If discharged on Warfarin prior to 5 days of - overlap therapy, the patient will need to be - assessed for post discharge needs including - *Post discharge parental anticoagulation - *Warfarin and/or parental anticoagulation education - *Follow up date to check INR post discharge At least 5 days overlap therapy as Inpatient No Meds if any: Prescribed or Continued at Discharge Note: Overlap Therapy is Warfarin and Anticoagulant Meds if any: NOT Prescribed or Continued at Discharge
[2018-02-27 06:02] VITALS: BP 140/80
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
--- NOTE | 2018-02-27 09:42 | Operative Report ---
Operative/Inv Procedure Report Surgery Date: 02/26/18 Name of Procedure: cystoscopy Pre-Operative Diagnosis: hematuria Post-Operative Diagnosis: same Estimated Blood Loss: scant Surgeon/Binder Cutter Hand: MD Metzger Arnold-urology Anesthesia: moderate sedation Complications: none Operative/Procedure Note Note: The patient was taken to the operative room and placed on the OR table in supine position. Timeout was performed in order to confirm the patient's identity, procedure, anesthesia, antibiotics, as well as any other pertinent information. After adequate anesthesia, and antibiotics, the patient was then placed lithotomy stirrups draped and prepped in the usual surgical fashion. A 22 Uzbek cystoscope sheath with a 30 angle lens was inserted into the urethra and advanced into the bladder without difficulty. The bladder was noted to have the findings as discussed above. The bladder was then hydrodistended 2 with the irrigation fluid at 40 cm above the symphysis pubis. No evidence of tumor, increased petechiae, nor Hunner's ulceration was noted. Both ureteral orifices had clear reflux in their orthotopic position. No terminal bleed with drainage. Bladder capacity was normal. The bladder was then drained and the cystoscope was removed under direct visualization. All sponge, needle, and instrument count were correct at the end of the case. The patient tolerated procedure well and was taken to recovery room in satisfactory condition. Discharge Disposition: PACU CC: Augustus Metzger MD
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
[2018-02-27 14:16] VITALS: BP 118/80
--- NOTE | 2018-02-27 16:48 | MRI REPORT ---
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 COMPARISON: CT scan of the head 02/24/2018. TECHNIQUE: MRI of the brain was obtained using routine sequences before and after the intravenous administration of 10 mL of Gadavist. FINDINGS: Postcontrast images reveal no abnormal intracranial mass or enhancement. There is no intracranial mass effect or midline shift. No abnormal extra-axial collection. Lateral and third ventricles are proportionate to the subarachnoid spaces. No hydrocephalus. Midline structures including the cervicomedullary junction are normal. Bone marrow signal intensity is unremarkable. There is equivocally increased T2 signal intensity within the periaqueductal wayne matter. Scattered foci of T2 FLAIR signal hyperintensity are also visualized within the periventricular white matter. No acute territorial infarct. No pathological magnetic susceptibility artifact. Intracranial vascular flow voids are grossly maintained. There is no mastoid or middle ear effusion. Mild paranasal sinus disease primarily affecting the ethmoid air cells and there are a few small retention cysts within the maxillary sinuses. Globes and orbits are symmetric. IMPRESSION: There are scattered chronic small vessel ischemic changes within the periventricular white matter. No evidence of acute territorial infarct or hemorrhage. No abnormal intracranial mass or enhancement.
[2018-02-27 22:00] VITALS: BP 112/64
[2018-02-27 22:04] VITALS: BP 112/64
[2018-02-28 05:28] VITALS: BP 118/70
--- NOTE | 2018-02-28 08:26 | PN- Housestaff ---
Maximus Linares 02/28/18 0826: Subjective Follow-up For: altered mental status Subjective: Patient seen and examined. His vitals overnight are stable. Patient is alert and oriented 3. Not confused. Overnight no acute events. Spoke with night nurse. Does not seem to be having any confabulations. Mentation improved. MRI of head with sebastian was done last night with no acute pathology found. Review of Systems Constitutional: Reports: see HPI. Objective Last 24 Hrs of Vital Signs/I&O Vital Signs Date Time Temp Pulse Resp B/P B/P Pulse O2 O2 Flow FiO2 Mean Ox Delivery Rate 02/28 938 70 128/68 02/28 0938 70 128/68 02/28 0938 70 128/68 02/28 0528 97.8 61 20 118/70 96 02/27 2204 98.5 50 18 112/64 96 02/27 2200 98.5 50 18 112/64 02/27 1416 98.6 79 20 118/80 95 Room Air Intake & Output 02/28 1600 02/28 0802/28 0000 Intake Total 600 340 Output Total Balance 600 340 Intake, IV 400 Intake, Oral 200 340 Patient 87.09 kg Weight Physical Exam General Appearance: Alert, Oriented X3, Cooperative, No Acute Distress Other Physical Findings: HEENT: Atraumatic, PERRLA, EOMI, Mucous Membr. moist/pink Cardiovascular: Regular Rate, Normal S1, Normal S2, No Murmurs Lungs: Clear to Auscultation, Normal Air Movement Abdomen: Normal Bowel Sounds, Soft, No Tenderness Neurological: Normal Speech Extremities: No Clubbing, No Cyanosis, No Edema Vascular: Normal Pulses Current Medications: Current Medications Sig/Nate Start time Last Medication Dose Route Stop Time Status Admin Acetaminophen 650 MG Q6H 02/26 1530 AC 02/28 PO 936 Amlodipine Besylate 5 MG DAILY 02/25 900 AC 02/28 PO 937 Duloxetine HCl 40 MG DAILY 02/25 900 AC 02/28 PO 937 Enoxaparin Sodium 40 MG DAILY 02/25 900 AC 02/28 SC 37 Folic Acid 1 MG DAILY 02/25 900 AC 02/28 PO 937 Haloperidol 0.5 MG Q8P PRN 02/25 1045 AC 02/27 IM 0104 Haloperidol 0.5 MG ONCE PRN 02/25 0500 AC 02/27 IM 1420 Lisinopril 40 MG DAILY 02/25 900 AC 02/28 PO 09 Melatonin 5 MG AT BEDTIME 02/25 2100 AC 02/27 PO 2049 Olanzapine 5 MG ONCE PRN 02/25 2015 AC IM Omeprazole 20 MG DAILY 02/25 900 AC 02/28 PO 937 Oxycodone HCl 10 MG TID PRN 02/25 1000 AC 02/28 PO 0637 Polyethylene Glycol 17 GM DAILY 02/25 0954 AC 02/28 PO 0936 Pregabalin 75 MG DAILY 02/27 1340 AC 02/28 PO 37 Pregabalin 150 MG QPM 02/24 2100 AC 02/27 PO 2049 Senna/Docusate Sodium 2 TAB DAILY 02/25 954 AC 02/28 PO 936 Sodium Chloride 1,000 ML Q20H 02/26 07 AC 02/27 IV 2050 Tamsulosin HCl 0.4 MG DAILY 02/25 900 AC 02/28 PO 937 Thiamine HCl 500 MG ONCE ONE 02/28 0030 DC 02/28 Sodium Chloride 250 ML IV 02/28 0129 0121 Thiamine HCl 500 MG ONCE ONE 02/27 2345 DC IV 02/27 234 Thiamine HCl 500 MG DAILY 02/27 900 AC 02/28 Sodium Chloride 250 ML IV 935 Assessment/Plan Assessment: 52 yo M with PMH significant for alcohol dependence, hypertension, severe peripheral neuropathy,asthma, Dos Santos esopahgus, alcohol cirrhosis in brought in to the ED for worsening confusion and altered mental status. Apparently, he failed to recognise his and confused her with his mother at home. When the patient was seen in the ED, he was alert, oriented, cooperative, but slow to respond to questions. He said that he came to the hospital because of worsening abdominal pain that has been radiating to his back. He denied fever, chills, nausea, vomiting. On examination, he had diffuse tenderness in his abdomen. He also had a loss of sensation in b/l lower limb upto the knees. Vitals in the ED were Vitals: Temp 97.9-98.8, HR 89-96, RR 14-16, BP 136/74, O2 94-95% Labs showed a platelet c ount of 680, K was high at 5.3, Lactic acid was 1.5 and serum alcohol level was <10. CT abdomen and pelvis showed evidence of mild to early pyelonephritis Problems: 1. 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 2. Abdominal pain 3. ?Pyelonephritis ruled out 4. Hematuria 5. Hypertension 6. Peripheral neuropathy Plan: -Continue patient on general medical floors -Patient is 2 day status post cystoscopy for hematuria, revealed only BPH. -Patient does not have any evidence of UTI on urinalysis and shows only nonspecific questionable mild perinephric stranding and no hydronephrosis, mild questionable bladder wall thickening with partial distention. We are holding off antibiotics. -Patient has been on and off confused and combative during this admission. There is concern for Wernicke Korsakoff dementia as patient is a longtime heavy alcohol drinker that quit about 3 weeks ago. MRI Brain -There are scattered chronic small vessel ischemic changes within the periventricular white matter. No evidence of acute territorial infarct or hemorrhage. No abnormal intracranial mass or enhancement. -As patient has no evidence of hepatic encephalopathy, we stopped lactulose. His ammonia level is normal. -Continue patient on high-dose thiamine. He can take 100 mg thiamine at home daily -Patient does have worsened splenomegaly and thrombocytosis. He will follow up with Dr. Cowan outpatient for this chronic problem. -Negative cultures -Bowel regimen for constipation chronic pain -Patient usually takes oxycodone 20 mg 3 times daily as needed for his peripheral neuropathy. This along with half of his dose of Lyrica were held at admission for suspicion of causing the patient confusion. We have restarted him on 10 mg 3 times daily oxycodone as needed for now. We have also continued him on scheduled Tylenol. The patient usually receives 300 mg of Lyrica in the morning and 150 mg at night. We have continued his nightly dose and have given 75 mg in the morning. -Patient did have evidence of benzodiazepines in his urine. He states that he has not been prescribed benzodiazepines in quite some time but does have an old prescription that he has not taken recently. He should has been instructed to abstain from benzodiazepines and other medications that can cause altered mental status. DVT prophylaxis- lovenox Full code Problem List: 1. Altered mental state Pain Ratin Pain Location: peripheral neuropathy Pain Goal: Remain pain free Pain Plan: tylinol oxycodone lyrica Tomorrow's Labs & Rationales: none Mica HEBERT,Amir 02/28/18 1134: Attending MD Review Statement Attending Statement Attending MD Statement: examined this patient, discuss w/resident/PA/[employer], agreed w/resident/PA/[employer], reviewed EMR data (avail), discussed with nursing Attending Assessment/Plan: Pt was seen and evaluated. Chart reviewed. No overnight issues. MRI was done and no acute findings. Being d/c home today. Pt advised to follow up with his treating providers.
[2018-02-28 10:00] VITALS: BP 128/68
== END 2018-02-28 12:05 | disposition home health service (06) | DRG 897 ==
LOC: DELPENDDIS → ERH 10:36 → ERHI 14:52 → 2NA 14:52 → ENRESERV 15:01 → ENTRNSPT 15:52 → EDTRNSPT 15:57 → EDTRNSPTSTS 15:57 → 2NA 16:25 → CMPTRNSPT 16:39 → 2NA 17:10 → ENTRNSPT 02-26 12:43 → CMPTRNSPT 02-26 12:58 → EDTRNSPT 02-26 12:58 → ENPENDDIS 02-27 10:10 → ENTRNSPT 02-28 11:23 → EDTRNSPTSTS 02-28 11:47 → EDTRNSPT 02-28 11:47 → 2NA 02-28 12:05 → CMPTRNSPT 02-28 12:23
PROVIDERS: Student in an Organized Health Care Education/Training Program
PROC: 0TJB8ZZ Inspection of Bladder, Via Natural or Artificial Opening Endoscopic (ICD-10-PCS; principal; 2018-02-26)
DX: F10.259 Alcohol dependence with alcohol-induced psychotic disorder, unspecified (principal); J44.9 Chronic obstructive pulmonary disease, unspecified; G62.9 Polyneuropathy, unspecified; K70.30 Alcoholic cirrhosis of liver without ascites; K22.70 Barrett's esophagus without dysplasia; I10 Essential (primary) hypertension; D47.3 Essential (hemorrhagic) thrombocythemia; R31.9 Hematuria, unspecified; N40.1 Benign prostatic hyperplasia with lower urinary tract symptoms; R33.8 Other retention of urine; Z79.891 Long term (current) use of opiate analgesic
CPT/HCPCS: 2NAP; 70552; 36592; 70553; 74177; 80307; 81003; 82436; 87040; 87086; 93005; 93010; A9579; G0480; J0131; J0696; J1630; J1650; J3490; J7040